=== PATIENT | male | born 1935 | race Caucasian/White ===

== ENCOUNTER 2022-08-09 17:58 | Outpatient (RCR) | payer MEDICARE, SELFPAY | END 2022-09-03 23:59 | disposition home or self-care (01) | LOC: MM 17:58 | PROVIDERS: PCP Internal Medicine; Visit Provider Internal Medicine | DX: Z51.81 Encounter for therapeutic drug level monitoring (principal); Z79.01 Long term (current) use of anticoagulants; I48.91 Unspecified atrial fibrillation | CPT/HCPCS: 85610; G0463 ==

== ENCOUNTER 2022-09-08 15:27 | Outpatient (RCR) | payer MEDICARE, SELFPAY | END 2022-10-04 16:47 | disposition home or self-care (01) | LOC: MM 15:27 | PROVIDERS: PCP Internal Medicine; Visit Provider Internal Medicine | DX: Z51.81 Encounter for therapeutic drug level monitoring (principal); Z79.01 Long term (current) use of anticoagulants; I48.91 Unspecified atrial fibrillation | CPT/HCPCS: 85610; G0463 ==

== ENCOUNTER 2022-10-05 09:00 | Outpatient (RCR) | payer MEDICARE, SELFPAY | END 2022-11-04 17:19 | disposition home or self-care (01) | LOC: MM 09:00 | PROVIDERS: Visit Provider Internal Medicine | DX: Z51.81 Encounter for therapeutic drug level monitoring (principal); Z79.01 Long term (current) use of anticoagulants; I48.91 Unspecified atrial fibrillation | CPT/HCPCS: 85610; G0463 ==

== ENCOUNTER 2022-11-05 08:30 | Outpatient (RCR) | payer MEDICARE, SELFPAY | END 2022-12-03 16:35 | disposition home or self-care (01) | LOC: MM 08:30 | PROVIDERS: Visit Provider Internal Medicine | DX: Z51.81 Encounter for therapeutic drug level monitoring (principal); Z79.01 Long term (current) use of anticoagulants; I48.91 Unspecified atrial fibrillation | CPT/HCPCS: 85610; G0463 ==

== ENCOUNTER 2022-12-06 01:32 | Outpatient (RCR) | payer MEDICARE, SELFPAY | END 2023-01-04 17:14 | disposition home or self-care (01) | LOC: MM 01:32 | PROVIDERS: Visit Provider Internal Medicine | DX: Z51.81 Encounter for therapeutic drug level monitoring (principal); Z79.01 Long term (current) use of anticoagulants; I48.91 Unspecified atrial fibrillation | CPT/HCPCS: 85610; G0463 ==

== ENCOUNTER 2023-01-05 00:13 | Outpatient (RCR) | payer MEDICARE, SELFPAY | END 2023-02-03 16:02 | disposition home or self-care (01) | LOC: MM 00:13 | PROVIDERS: Visit Provider Internal Medicine | DX: Z51.81 Encounter for therapeutic drug level monitoring (principal); Z79.01 Long term (current) use of anticoagulants; I48.91 Unspecified atrial fibrillation | CPT/HCPCS: 85610; G0463 ==

== ENCOUNTER 2023-02-04 09:06 | Outpatient (RCR) | payer MEDICARE, SELFPAY | END 2023-03-04 14:33 | disposition home or self-care (01) | LOC: MM 09:06 | PROVIDERS: Visit Provider Internal Medicine | DX: Z51.81 Encounter for therapeutic drug level monitoring (principal); Z79.01 Long term (current) use of anticoagulants; I48.91 Unspecified atrial fibrillation ==

== ENCOUNTER 2023-03-07 00:48 | Outpatient (RCR) | payer MEDICARE, SELFPAY | END 2023-04-06 15:59 | disposition home or self-care (01) | LOC: MM 00:48 | PROVIDERS: Visit Provider Internal Medicine | DX: Z51.81 Encounter for therapeutic drug level monitoring (principal); Z79.01 Long term (current) use of anticoagulants ==

== ENCOUNTER 2023-04-07 01:35 | Outpatient (RCR) | payer MEDICARE, SELFPAY | END 2023-05-05 17:11 | disposition home or self-care (01) | LOC: MM 01:35 | PROVIDERS: Visit Provider Internal Medicine | DX: Z51.81 Encounter for therapeutic drug level monitoring (principal); Z79.01 Long term (current) use of anticoagulants ==

== ENCOUNTER 2023-05-06 01:06 | Outpatient (RCR) | payer MEDICARE, SELFPAY | END 2023-06-03 13:03 | disposition home or self-care (01) | LOC: MM 01:06 | PROVIDERS: Visit Provider Internal Medicine | DX: Z51.81 Encounter for therapeutic drug level monitoring (principal); Z79.01 Long term (current) use of anticoagulants ==

== ENCOUNTER 2023-06-06 00:05 | Outpatient (RCR) | payer MEDICARE, SELFPAY | END 2023-07-05 17:48 | disposition home or self-care (01) | LOC: MM 00:05 | PROVIDERS: Visit Provider Internal Medicine | DX: Z51.81 Encounter for therapeutic drug level monitoring (principal); Z79.01 Long term (current) use of anticoagulants ==

== ENCOUNTER 2023-07-06 00:16 | Outpatient (RCR) | payer MEDICARE, SELFPAY | END 2023-08-05 11:11 | disposition home or self-care (01) | LOC: MM 00:16 | PROVIDERS: Visit Provider Internal Medicine | DX: Z51.81 Encounter for therapeutic drug level monitoring (principal); Z79.01 Long term (current) use of anticoagulants ==

== ENCOUNTER 2023-08-08 00:16 | Outpatient (RCR) | payer MEDICARE, SELFPAY | END 2023-09-02 09:57 | disposition home or self-care (01) | LOC: MM 00:16 | PROVIDERS: Visit Provider Internal Medicine | DX: Z51.81 Encounter for therapeutic drug level monitoring (principal); Z79.01 Long term (current) use of anticoagulants | CPT/HCPCS: 85610; G0463 ==

== ENCOUNTER 2023-09-05 00:37 | Outpatient (RCR) | payer MEDICARE, SELFPAY | END 2023-10-05 16:51 | disposition home or self-care (01) | LOC: MM 00:37 | PROVIDERS: Visit Provider Internal Medicine | DX: Z51.81 Encounter for therapeutic drug level monitoring (principal); Z79.01 Long term (current) use of anticoagulants | CPT/HCPCS: 85610; G0463 ==

== ENCOUNTER 2023-10-06 00:38 | Outpatient (RCR) | payer MEDICARE, SELFPAY | END 2023-11-04 09:18 | disposition home or self-care (01) | LOC: MM 00:38 | PROVIDERS: Visit Provider Internal Medicine | DX: Z51.81 Encounter for therapeutic drug level monitoring (principal); Z79.01 Long term (current) use of anticoagulants; I48.20 Chronic atrial fibrillation, unspecified | CPT/HCPCS: 85610; G0463 ==

== ENCOUNTER 2023-11-07 00:52 | Outpatient (RCR) | payer MEDICARE, SELFPAY | END 2023-12-05 23:23 | disposition home or self-care (01) | LOC: MM 00:52 | PROVIDERS: Visit Provider Internal Medicine | DX: Z51.81 Encounter for therapeutic drug level monitoring (principal); Z79.01 Long term (current) use of anticoagulants; I48.20 Chronic atrial fibrillation, unspecified | CPT/HCPCS: 85610; G0463 ==

== ENCOUNTER 2023-12-06 01:24 | Outpatient (RCR) | payer MEDICARE, SELFPAY | END 2024-01-05 23:09 | disposition home or self-care (01) | LOC: MM 01:24 | PROVIDERS: Visit Provider Internal Medicine | DX: Z51.81 Encounter for therapeutic drug level monitoring (principal); Z79.01 Long term (current) use of anticoagulants; I48.20 Chronic atrial fibrillation, unspecified | CPT/HCPCS: 85610; G0463 ==

== ENCOUNTER 2024-01-06 10:45 | Outpatient (RCR) | payer MEDICARE, SELFPAY | END 2024-02-04 23:59 | disposition home or self-care (01) | LOC: MM 10:45 | PROVIDERS: Visit Provider Internal Medicine | DX: Z51.81 Encounter for therapeutic drug level monitoring (principal); Z79.01 Long term (current) use of anticoagulants; I48.20 Chronic atrial fibrillation, unspecified ==

== ENCOUNTER 2024-02-05 10:49 | Outpatient (RCR) | payer MEDICARE, SELFPAY | END 2024-03-06 09:36 | disposition home or self-care (01) | LOC: MM 10:49 | PROVIDERS: Visit Provider Internal Medicine | DX: Z51.81 Encounter for therapeutic drug level monitoring (principal); Z79.01 Long term (current) use of anticoagulants ==

== ENCOUNTER 2024-03-08 00:19 | Outpatient (RCR) | payer MEDICARE, SELFPAY | END 2024-04-06 14:53 | disposition home or self-care (01) | LOC: MM 00:19 | PROVIDERS: Visit Provider Internal Medicine | DX: Z51.81 Encounter for therapeutic drug level monitoring (principal); Z79.01 Long term (current) use of anticoagulants ==

== ENCOUNTER 2024-04-09 00:46 | Outpatient (RCR) | payer MEDICARE, SELFPAY | END 2024-05-04 10:50 | disposition home or self-care (01) | LOC: MM 00:46 | PROVIDERS: Visit Provider Internal Medicine | DX: Z51.81 Encounter for therapeutic drug level monitoring (principal); Z79.01 Long term (current) use of anticoagulants ==

== ENCOUNTER 2024-05-05 07:31 | Outpatient (RCR) | payer MEDICARE, SELFPAY | END 2024-06-01 10:13 | disposition home or self-care (01) | LOC: MM 07:31 | PROVIDERS: Visit Provider Internal Medicine | DX: Z51.81 Encounter for therapeutic drug level monitoring (principal); Z79.01 Long term (current) use of anticoagulants ==

== ENCOUNTER 2024-07-19 13:44 | Outpatient (OUT) | payer MEDICARE, SELFPAY | END 2024-07-19 13:45 | disposition home or self-care (01) | LOC: WC 13:44 | PROVIDERS: Visit Provider Physician Assistant | DX: I87.311 Chronic venous hypertension (idiopathic) with ulcer of right lower extremity (principal); L97.812 Non-pressure chronic ulcer of other part of right lower leg with fat layer exposed | CPT/HCPCS: G0463 ==

== ENCOUNTER 2024-08-02 08:47 | Outpatient (RCR) | payer MEDICARE, SELFPAY | END 2024-08-04 07:09 | disposition home or self-care (01) | LOC: MM 08:47 | PROVIDERS: Visit Provider Internal Medicine | DX: Z51.81 Encounter for therapeutic drug level monitoring (principal); Z79.01 Long term (current) use of anticoagulants | CPT/HCPCS: 85610; G0463 ==

== ENCOUNTER 2024-08-05 07:36 | Outpatient (RCR) | payer MEDICARE, SELFPAY | END 2024-08-30 14:38 | disposition home or self-care (01) | LOC: MM 07:36 | PROVIDERS: Visit Provider Internal Medicine | DX: Z51.81 Encounter for therapeutic drug level monitoring (principal); Z79.01 Long term (current) use of anticoagulants | CPT/HCPCS: 85610; G0463 ==

== ENCOUNTER 2024-08-07 11:21 | Outpatient (OUT) | payer MEDICARE, SELFPAY | END 2024-08-07 11:22 | disposition home or self-care (01) | LOC: WC 11:21 | PROVIDERS: Visit Provider Physician Assistant | DX: I87.311 Chronic venous hypertension (idiopathic) with ulcer of right lower extremity (principal); L97.812 Non-pressure chronic ulcer of other part of right lower leg with fat layer exposed | CPT/HCPCS: G0463 ==

== ENCOUNTER 2024-08-24 09:00 | Outpatient (OUT) | payer MEDICARE, SELFPAY ==
--- OUTSIDE RECORDS SUMMARY | 2011-04-30 05:00 | XMS_ITS | Continuity of Care Document ---
Author Organization [facility] Address [address] [address] Phone Care Team Providers Care Pony Ride Operator Name Role Phone Griffin Bonilla Unavailable Unavailable Procedures Procedure Date Hearing Services Advance Directives Directive Yes / No Effective Date File Name No Information Encounters Encounter Description Practice Location Reason(s) For Visit Diagnoses Date Provider Providers Copied on Encounter [facility], [address], [id number], tel:[phone] [facility] No Information Irene Moya. [address], [id number], . tel:[phone] Referring Provider: Griffin Bonilla, [address] [place] [address], [id number]. tel:[phone] Family History Family Member Type Diagnosis Age At Onset No Information Payers Payer name Insurance type Covered republican ID Authoriza tion(s) No Information Social History [...]
--- OUTSIDE RECORDS SUMMARY | 2024-08-27 08:25 | XMS_ITS | Clinical Summary ---
Author Organization [facility] Address [address] [facility] [place] [address] Care Team Providers Care Rn Clinical Quality Name Role Phone Matt House DO Primary Care Provider Allergies Active Allergy Reactions Criticality Noted Date Comments Doxycycline Rash,Swelling High 07/23/2011 Levofloxacin Rash,Swelling High 07/28/2004 Other Reaction(s): Swelling of throat Throat swelling Lidocaine Anaphylaxis High 06/24/2022 Prednisolone 07/29/2022 Prednisone Anaphylaxis,Rash High 10/31/2013 Other Reaction(s): Other: See Comments put me into afib Wound Dressing Adhesive Rash Low 07/29/2022 Medications amLODIPine (Norvasc) 2.5 MG tablet 1 (one) time each day at the same time. Active amoxicillin (Amoxil) 500 MG capsule TAKE 4 CAPSULES BY MOUTH 1 HOUR PRIOR TO APPT 3 Active benazepril (Lotensin) 20 MG tablet 1 (one) time each day at the same time. Active cefdinir (Omnicef) 300 MG capsule TAKE 1 CAPSULE BY MOUTH TWICE A DAY FOR 10 DAYS DIRECTED 3 Active Enoxaparin Sodium 80 MG/0.8ML solution prefilled syringe Inject 80 mg under the skin every 12 (twelve) hours. 3 Active furosemide (Lasix) 40 MG tablet 3 Active furosemide (Lasix) 20 MG tablet Take 1 tablet by mouth in the morning. Active hydroCHLOROthia zide (HYDRODiuril) 25 MG tablet 2 Active hydroCHLOROthia zide (Microzide) 12.5 MG capsule 1 (one) time each day at the same time. Active metoprolol succinate XL (Toprol-XL) 50 MG 24 hr tablet Take 50 mg by mouth in the morning. 3 Active nitroglycerin (Nitrostat) 0.[address] 1 TABLET (0.4 MG) BY SUBLINGUAL ROUTE EVERY 5 MINUTES NEEDEDFOR CHEST PAIN. DO NOT EXCEED 3 DOSES IN 15 MINUTES. Active [place]-3 Fatty Acids (Fish Oil Maximum Strength) 1200 MG capsule delayed-release Take 1 capsule by mouth in the morning. Active omeprazole (PriLOSEC) [address] capsule 2 Active KLOR-CON 10 MEQ ER tablet TAKE 1 TABLET (10 MEQ TOTAL) BY MOUTH 1 (ONE) TIME EACH DAY. DO NOT CRUSH, CHEW, OR SPLIT. 3 Active potassium chloride CR (Klor-Con M10) 10 MEQ ER tablet Take 1 tablet by mouth in the morning. 3 Active pravastatin (Pravachol) 20 MG tablet 1 (one) time each day at the same time. 2 Active pyridoxine (B-6) 100 MG tablet Active sulfamethoxazol e-trimethoprim (Bactrim DS) 800-160 MG per tablet Take 1 tablet by mouth in the morning and 1 tablet before bedtime. 3 Active tamsulosin (Flomax) 0.4 MG 24 hr capsule 3 Active triazolam (Halcion) 0.25 MG tablet TAKE 1 TABLET BY MOUTH PRIOR TO PROCEDURE NEEDED FOR 1 DAY 3 Active warfarin (Coumadin) 4 MG tablet 3 Active warfarin (Coumadin) 6 MG tablet Active Active Problems Problem Noted Date Diagnosed Date Onychomycosis 09/28/2022 Basal cell carcinoma (BCC) of right lower eyelid 07/29/2022 Encounters Date Type Department Care Team Description 07/31/2024 9:30 AM EDT Office Visit [facility] [address] [place] [id number] Sharla Carpio MD Pseudophakia (Primary Dx); Basal cell carcinoma (BCC) of right lower eyelid; Early dry stage nonexudative age-related macular degeneration of both eyes 07/31/2024 Bamboo flowsheet [facility] [address] [place] [address] Sharla Carpio MD 07/31/2024 Travel from Last 3 Months Family History Medical History Relation Name Comments Heart disease Father Hypertension Father Cancer Mother Melanoma Neg Hx Relation Name Status Comments Father Mother Sister Social History Tobacco Use Types Packs/Day Years Used Date Smoking Tobacco: Never Smokeless Tobacco: Never Tobacco Cessation:Counseling Given: Yes Alcohol Use Standard Drinks/Week Comments Not Asked 0 (1 standard drink = 0.6 oz pure alcohol) caffeine intake: 2-3 cups per day. Sex and Gender Information Value Date Recorded Sex Assigned at Not on file Legal Sex Male 8:32 PM EDT Gender Identity Not on file Sexual Orientation Not on file Last Filed Vital Signs Vital Sign Reading Time Taken Comments Blood Pressure 121/75 12/19/2023 3:15 PM EDT Pulse 76 12/19/2023 3:15 PM EDT Temperature - - Respiratory Rate - - Oxygen Saturation - - Inhaled Oxygen Concentration - - Weight 77.1 kg (170 lb) 12/19/2023 3:15 PM EDT Height 177.8 cm (5' 10 ) 12/19/2023 3:15 PM EDT Body Mass Index 24.39 12/19/2023 3:15 PM EDT Plan of Treatment Upcoming Encounters Date Type Department Care Team (Late st Contact Info) Description 08/01/2025 10:30 AM EDT Office Visit [facility] [address] [place] [id number] Sharla Carpio MD [address] [place] [address] Health Maintenance Due Date Last Done Comments Pneumococcal Vaccine: 65+ Ye ars (1 of 1 - PCV) 1985 Influenza Vaccine Completed 01/06/2024, , 12/09/2021, Additional history exists Insurance MEDICARE [employer] Care Teams Rn Clinical Quality Relationship Specialty Start Date End Date Matt House DO PCP - General Internal Medicine 07/29/22
--- OUTSIDE RECORDS SUMMARY | 2024-08-27 08:25 | XMS_ITS | Patient Health Record ---
Author Organization [facility] Address [address] [facility] [address] [place], [place] [id number] Care Team Providers Care Business Intelligence Etl Developer Name Role Phone Erasmo Johnson MD Primary Care Provider JEANNE Alcantar Unavailable [phone] Allergies Allergen (clinical drug ingredient) Drug/Non Drug Allergy documented on EMR Reaction Allergy Type Onset Date Status doxycycline Doxycycline Unknown Drug Allergy Act keshia PredniSONE Unknown Drug Allergy Active Levaquin Unknown Drug Allergy Active Reason For Referral No Information Medications Medication SIG (Take, Route, Frequency, Duration) Notes Start Date End Date Status Metoprolol Succinate 50 MG 1 capsule Orally Once a day Active Pantoprazole Sodium 40 MG 1 tablet Orally BID Active Pravastatin Sodium 20 MG 1 tablet Orally Once a day Active Multi Complete - as directed Orally one Daily. Active Calcium Carbonate 600 MG 2 tablet Orally Once a day Active Warfarin Sodium 6 MG 1 tablet Orally as directed , Th, Sat, Sun Active Warfarin Sodium 4 MG 1 tablet Orally as Directed Tue, Tue, Tue Active Nitroglycerin 0.4 MG as directed Sublingual Prn Active Suprep Bowel Prep Kit 17.5-3.13-1.6 GM/180ML 180 ml Orally BID for 1 dose 04/05/2018 Active [place] 3 1000 MG 1 capsule Orally TID Active Benazepril HCl 20 MG 1 tablet Orally Onc e a day 23/02.5 Tab Active Aspir-81 81 MG 1 tablet Orally Once a day Active amLODIPine-Olmesartan 5-20 MG 1/2 tablet Orally Once a day Active Immunizations Vaccine Route Administration Date Status Comme nts Influenza Unknown 04/05/2018 Administered Social History Tobacco Use: Social History Observation Description Date Details (start date - stop date) Never Smoker NA - NA Tobacco Use/Smoking Question Answer Notes Smoking status nonsmoker Alcohol Screen Question Answer Notes Did you have a drink containing alcohol in the p ast year? No Points 0 Interpretation Negative Section Notes: Patient denies heavy drinkin g. Plan Of Treatment Pending Test Test Name Order Date COLONOSCOPY 04/05/2018 Insurance Providers Payer Name Payer Address Payer Phone Subscriber Number Group Number Insured Name Patient Relationship to Insured Coverage Start Date Coverage End Date [place] [address] [place] [phone] [id number] MARISSA ESCAMILLA Self - patient is the insured [employer] [address] [place] [address] [id number] MARISSA ESCAMILLA Self - patient is the insured Medical (General) History Medical History History ICD Code PATIENT ALLERGIC TO ADHESIVE TAPE Aortic valve replacement Atrial fibrillation Hypertension duodenitis Hiatal hernia Surgical History Surgery Date(Month/Year) Endoscopy Colonoscopy several years ago Endoscopy revealed duodenitis and hiatal hernia 03/2018
--- OUTSIDE RECORDS SUMMARY | 2024-08-27 08:26 | XMS_ITS | Encounter Summary ---
Author Organization [facility] Address [address] [place] [address] Care Team Providers Care Opening Machine Cleaner Name Role Phone Matt House DO Primary Care Provider [phone] Encounter Details Date Type Department Care Team (Late Contact Info) Description 09/28/2022 Abstract [facility] [address] [facility] [address] [place] [id number] Clovis Martin DPM [address] [facility] [address] [place] [address] Social History Tobacco Use Types Packs/Day Years Used Date Smoking Tobacco: Never Smokeless Tobacco: Never Tobacco Cessation:Counseling Given: Not Answered Alcohol Use Standard Drinks/Week Comments Not Asked 0 (1 standard drink = 0.6 oz pure alcohol) caffeine intake: 2-3 cups per day. Sex and Gender Information Value Date Recorded Sex Assigned at Not on file Legal Sex Male 8:32 PM EDT Gender Identity Not on file Sexual Orientation Not on file documented as of this encounter Plan of Treatment Upcoming Encounters Date Type Department Care Team (Late st Contact Info) Description 08/01/2025 10:30 AM EDT Office Visit [facility] [address] [place] [phone] Sharla Carpio MD [address] [place] [address] documented as of this encounter Visit Diagnoses Not on filedocumented in this encounter Care Teams Opening Machine Cleaner Relationship Specialty Start Date End Date Matt House DO PCP - General Internal Medicine 07/29/22 documented as of this encounter
--- OUTSIDE RECORDS SUMMARY | 2024-08-27 08:26 | XMS_ITS | Patient Health Record ---
Author Organization [facility] Address [address] [place] [address] Care Team Providers Care Perioperative Tech Name Role Phone Erasmo Johnson Primary Care Provider Bacilio [place] [phone] Reason For Referral No Information Plan Of Treatment No Information
== END 2024-08-24 09:01 | disposition home or self-care (01) ==
LOC: WC 08-27 08:23
PROVIDERS: PCP Internal Medicine; Visit Provider Physician Assistant
DX: I87.311 Chronic venous hypertension (idiopathic) with ulcer of right lower extremity (principal); L97.812 Non-pressure chronic ulcer of other part of right lower leg with fat layer exposed
CPT/HCPCS: G0463

== ENCOUNTER 2024-09-04 02:31 | Outpatient (RCR) | payer MEDICARE, SELFPAY | END 2024-10-04 16:36 | disposition home or self-care (01) | LOC: MM 02:31 | PROVIDERS: PCP Internal Medicine; Visit Provider Internal Medicine | DX: Z51.81 Encounter for therapeutic drug level monitoring (principal); Z79.01 Long term (current) use of anticoagulants | CPT/HCPCS: 85610; G0463 ==

== ENCOUNTER 2024-09-05 11:01 | Outpatient (OUT) | payer MEDICARE, SELFPAY ==
--- OUTSIDE RECORDS SUMMARY | 2024-09-05 11:03 | XMS_ITS | Encounter Summary ---
Author Organization [facility] Address [address] [place] [address] Care Team Providers Care Warm In Name Role Phone Matt House DO Primary Care Provider [phone] Amilcar Cervantes MD Unavailable [phone] Suleiman Santana MD Unavailable Amilcar Cervantes MD Unavailable [phone] Source Comments In the event this information is protected by the Federal Confidentiality of Alcohol and Drug AbusePatient Records regulations: The Federal rules restrict any use of the information to criminally investigate or prosecute any alcohol or drug abuse patient.[facility] Encounter Details Date Type Department Care Team (Late st Contact Info) Description 09/04/2007 Patient Msg Medical Records [address] [place] [address] Provider, [facility] Patient Registration Social History Tobacco Use Types Packs/Day Years Used Date Smoking Tobacco: Never Alcohol Use Standard Drinks/Week Comments No 0 (1 standard drink = 0.6 oz pur e alcohol) Sex and Gender Information Value Date Recorded Sex Assigned at Male 09/03/2019 1:45 AM EDT Legal Sex Male 9:12 AM EST Gender Identity Male 09/03/2019 1:45 AM EDT Sexual Orientation Straight 08/03/2021 8: 34 PM EDT documented as of this encounter Plan of Treatment Not on file documented as of this encounter Visit Diagnoses Not on filedocumented in this encounter Care Teams Warm In Relationship Specialty Start Date End Date Matt House DO [address] [place] [address] PCP - General 06/17/00 Amilcar Cervantes MD [address] [place] [address] Primary Staff Physician Cardiology 06/05/14 6 Suleiman Santana MD [address] [place] [address] Primary Staff Physician Cardiology 02/12/21 Amilcar Cervantes MD [address] [place] [address] Primary Staff Physician Cardiology 02/12/21 documented as of this encounter
--- OUTSIDE RECORDS SUMMARY | 2024-09-05 11:03 | XMS_ITS | Encounter Summary ---
Author Organization [facility] Address [facility] [place] [address] Care Team Providers Care Wall To Wall Carpet Installer Name Role Phone Matt House DO Primary Care Provider [phone] Suleiman Santana MD Unavailable Amilcar Cervantes MD Unavailable [phone] Source Comments In the event this information is protected by the Federal Confidentiality of Alcohol and Drug AbusePatient Records regulations: The Federal rules restrict any use of the information to criminally investigate or prosecute any alcohol or drug abuse patient.[facility] Encounter Details Date Type Department Care Team (Late st Contact Info) Description 03/19/2017 Patient Msg Otolaryngology [address] [address] Missy Andersen MD [address] [place] [address] RE: Request an Appointment Social History Tobacco Use Types Packs/Day Years Used Date Smoking Tobacco: Never Smokeless Tobacco: Never Alcohol Use Standard Drinks/Week Comments No 0 (1 standard drink = 0.6 oz pur e alcohol) Sex and Gender Information Value Date Recorded Sex Assigned at Male 09/03/2019 1:45 AM EDT Legal Sex Male 9:12 AM EST Gender Identity Male 09/03/2019 1:45 AM EDT Sexual Orientation Straight 08/03/2021 8: 34 PM EDT Occupation Industry Job Start Date Job End Date [employer] WORK[employer] Not on file Not on file Not o n file documented as of this encounter Functional Status * Are you deaf or do you have serious difficulty hearing? Answer Date of Assessment Author No 08/12/2014 10:12 AM EDT Sharri aRnd RN * Are you blind or do you have serious difficulty seeing, even when wearing glasses? Answer Date of Assessment Author No 08/12/2014 10:12 AM EDT Sharri Rand RN * Do you have serious difficulty walking or climbing stairs? Answer Date of Assessment Author No 08/12/2014 10:12 AM EDT Sharri Rand RN * Do you have difficulty dressing or bathing? Answer Date of Assessment Author No 08/12/2014 10:12 AM EDT Sharri Rand RN * Because of a physical, mental, or emotional condition, do you have difficulty doing errands alone such as visiting a doctor's office or shopping? Answer Date of Assessment Author No 08/12/2014 10:12 AM EDT Sharri Rand RN documented as of this encounter Mental Status * Because of a physical, mental, or emotional condition, do you have serious difficulty concentrating, remembering, or making decisions? Answer Entry Date Author No 08/12/2014 10:12 AM CALLUMT Sharri Rand RN documented in this encounter Plan of Treatment Not on file documented as of this encounter Visit Diagnoses Not on filedocumented in this encounter Care Teams Wall To Wall Carpet Installer Relationship Specialty Start Date End Date Matt House DO [address] [place] [address] PCP - General 06/17/00 Suleiman Santana MD [address] [place] [address] Primary Staff Physician Cardiology 02/12/21 Amilcar Cervantes MD [address] [place] [address] Primary Staff Physician Cardiology 02/12/21 documented as of this encounter
--- OUTSIDE RECORDS SUMMARY | 2024-09-05 11:03 | XMS_ITS | Clinical Summary ---
Author Organization [facility] Address [address] [place] [address] Care Team Providers Care Disability Manager Name Role Phone HarshMatt Primary Care Provider [phone] Suleiman Santana MD Unavailable Amilcar Cervantes MD Unavailable [phone] Allergies Active Allergy Reactions Criticality Noted Date Comments Adhesive Rash,Itching 07/14/2023 Rash and itching Doxycycline Swelling 07/23/2011 Levofloxacin Swelling 07/28/2004 Throat swelling Prednisone Other: See Comments 10/31/2013 put me into afib Medications MULTIVITAMIN TABLET Take one(1) tablet daily. 0 3 Active NITROGLYCERIN 0.4 MG SUBLINGUAL TAB as needed 0 8 Active OMEPRAZOLE 20 mg ORAL capsule Take 20 mg every Tue and Sat 6 Active pravastatin (PRAVACHOL) 20 mg tablet Take 1 tablet by mouth daily at bedtime. 90 tablet 3 4 Active benazepril (LOTENSIN) 20 mg tablet Take 1 tablet by mouth once daily. 90 tablet 3 4 Active warfarin (COUMADIN) 4 mg tablet Take by mouth. 6 mg - - Tue-Tuesday 4 mg Tue - Tue - Tue 30 tablet 3 5 Active amLODIPine (NORVASC) 5 mg tabletIndicatio ns:Essential hypertension, benign Take 2.5 mg by mouth once daily. Patient states he is only taking 2.5mg daily 90 tablet 3 8 Active amoxicillin (POLYMOX, AMOXIL) 500 mg capsule TAKE 4 CAPSULES BY MOUTH 1 HOUR PRIOR TO DENTAL APPOINTMENT 1 8 Active metoprolol succinate ER (TOPROL XL) 50 mg 24 hr tablet TAKE 1 TABLET BY MOUTH ONCE DAILY 90 tablet 3 2 Active potassium chloride (K-TAB) 10 mEq tablet Take by mouth once daily. 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 There is low risk of perioperative dental complication with this patient. - Follow up with local dentist. Atrial fibrillation 10/31/2013 Overview (08/10/2014): CHADS2 is 2, CHADS-Vasc is 3. Adequately rate-controlled on metop tartrate 25mg BID. -unknown how long he's been in afib, INR subtherapeutic on clinic visit. -preserved LVEF -s/p AYAN/DCC Plan: -heparin gtt -continue coumadin -sotalol 80 mg BID. Monitor QT/QTc for 6 doses Shortness of breath 10/31/2013 Poison elías 10/31/2013 SUMMARY 10/31/2013 Overview (08/08/2014): Mr. Starr is a pleasant 78 year-old man with a PMH of atrial fibrillation rate controlled and on coumadin, prior successful DCCV, now here for recurrence of atrial fibrillation (asymptomatic). Pertinent past history includes and coronary disease s/p aortic valve replacement with #25 mm Bonnie-Woo pericardial valve, mitral valve repair, CABG x1 (saphenous vein graft to right posterior lateral) 10/09/2007. 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 Valve well-seated and functioning well on recent Echo. 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 Normal LV function, EF 65% 2. RV normal size and function. 3. 3-4+ MR with flail P2 segment. 4. 1+ TR 5. Moderate-severe . The peak gradient is 65.0 mm Hg. The mean gradient is 34.0 mm Hg. The aortic orifice measured 1.0cm?(planimetry). 1+ - 2+ AI. 6. Moderate atheroma in the descending aorta. 7. There is no shunt flow through the interatrial septum as detected by contrast & color Doppler. CAD 12/19/2002 Overview (08/08/2014): S/P single-vessel CABG (SVG to right PL branch). Moderate disease in the LM, LAD, and circ. On aspirin 81mg post-CABG. 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 Mixed conductive and sensori neural hearing loss 02/04/2004 12/29/2011 Hearing loss 12/19/2002 12/29/2011 Encounters Date Type Department Care Team Description 07/25/2024 4:15 PM EDT Office Visit Cardiology [address] [phone] Amilcar Cervantes MD Valvular heart disease (Primary Dx); S/P AVR (aortic valve replacement); H/O mitral valve repair; Coronary artery disease involving [place] coronary artery of [place] heart, unspecified whether angina present; Hx of CABG; S/P mitral valve repair; Permanent atrial fibrillation (HCC) 07/25/2024 2:00 PM EDT Procedure Cardiology [address] [phone] 07/25/2024 Travel from Last 3 Months Immunizations Immunization Administration Dates Next Due COVID-19 original vaccine, f ull dose, monovalent (MODERNA) 04/19/2020,04/03/2020 Family History Medical History Relation Comments Ischemic Heart Disease Father at a ge 70 Colon Cancer Mother at age 85 Lung Cancer Sister 1 Stroke Sister 2 Alzheimer's Disease Sister 4 None Sister 4 brain aneursym Cancer Sister 5 Relation Status Comments Father Mother Sister 1 Sister 2 Sister 3 Alive Sister 4 Sister 5 Social History Tobacco Use Types Packs/Day Years Used Date Smoking Tobacco: Never Smokeless Tobacco: Never Alcohol Use Standard Drinks/Week Comments No 0 (1 standard drink = 0.6 oz pur e alcohol) PHQ-2 Answer Date Recorded PHQ-2 score 0 07/20/2017 Area Deprivation Index Answer Date Melvin rded National Score (1-100), lower number is lower ri sk 87 09/17/2022 State Score (1-10), lower number is lower risk 8 09/17/2022 Data from: https://www.neighborhoodatlas.medicine.[facility].edu/. Last address used for calculation [place] 09/17/2022 Sex and Gender Information Value Date Recorded Sex Assigned at Male 09/03/2019 1:45 AM EDT Legal Sex Male 9:12 AM EST Gender Identity Male 09/03/2019 1:45 AM EDT Sexual Orientation Straight 08/03/2021 8: 34 PM EDT Occupation Industry Job Start Date Job End Date [employer] Not on file Not on file Not o n file Last Filed Vital Signs Vital Sign Reading Time Taken Comments Blood Pressure 153/88 07/25/2024 4:32 PM EDT Pulse 70 07/25/2024 4:32 PM EDT Temperature 36.7 C (98 F) 10/08/2020 10:52 AM EDT Respiratory Rate 18 10/08/2020 10:52 AM EDT Oxygen Saturation 99% 07/25/2024 4:32 PM EDT Inhaled Oxygen Concentration - - Weight 77.1 kg (170 lb) 07/25/2024 4:32 PM EDT Height 172.7 cm (5' 8 ) 07/25/2024 4:32 PM EDT Body Mass Index 25.85 07/25/2024 4:32 PM EDT Plan of Treatment Health Maintenance Due Date Last Done Comments Anxiety Screening 1953 Depression Screening 1953 Shingrix Vaccine (1 of 2) 1985 Medicare Annual Wellness Visit 02/05/2000 RSV Vaccine (1 - 1-dose 75+ series) 2010 Covid-19 Vaccine (2023-2 5 season) 2023 01/20/2023, 12/14/2021, 04/19/2020, Additional history exists Advance Directive Discussion 03/07/2024 LDL Cholesterol 07/25/2025 07/25/2024, 12/0 05/2023, 03/24/2023, Additional history exists Diabetes Screening 07/26/2027 07/25/2024, 0 05/24/2024, 05/24/2024, Additional history exists DTaP,Tdap,Td Vaccine (6 - Tdap) 08/18/2030 08/18/2020, 12/25/2013, 01/02/2013, Additional history exists Pneumococcal Vaccine: 50+ Completed 12/26/2014, 10/2002 Influenza Vaccine Completed 01/06/2024, , 12/09/2021, Additional history exists Procedures Procedure Name Priority Date/Time Associated Diagnosis Comments LVEF TRANSTHORACIC ECHO Routine 07/25/2024 2:10 PM EDT ECHO Routine 07/25/2024 2:10 PM EDT S/P AVR (aortic valve replacement) H/O mitral valve repair Coronary artery disease involving [place] coronary artery of [place] heart, 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 LIPID PANEL, FASTING Routine 07/25/2024 1:42 PM EDT S/P AVR (aortic valve replacement) H/O mitral valve repair Coronary artery disease involving [place] coronary artery of [place] heart, 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 COMPLETE BLOOD COUNT Routine 07/25/2024 1:42 PM EDT S/P AVR (aortic valve replacement) H/O mitral valve repair Coronary artery disease involving [place] coronary artery of [place] heart, 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 BASIC METABOLIC PANEL Routine 07/25/2024 1:42 PM EDT S/P AVR (aortic valve replacement) H/O mitral valve repair Coronary artery disease involving [place] coronary artery of [place] heart, 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 ECG COMPLETE Routine 07/25/2024 1:34 PM EDT S/P AVR (aortic valve replacement) H/O mitral valve repair Coronary artery disease involving [place] coronary artery of [place] heart, 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 from Last 3 Months Results * ECHO (07/25/2024 2:10 PM EDT) 07/25/2024 2:10 PM EDT [facility] - 07/25/2024 3:12 PM EDT CONCLUSIONS: - Exam indication: H/o AVR MVr CABG (2007) - The left ventricle is normal in size. There is mild septal left ventricular hypertrophy. Left ventricular systolic function is normal. EF = 58 5% (2D biplane) - The right ventricle is normal in size. Right ventricular systolic function is normal. - The left atrial cavity is mildly dilated. - The visualized aorta is borderline dilated with a maximal dimension of 4.0 cm. - Elina Mitral Ring (size #36). There is mild (1+) mitral valve regurgitation. The peak gradient is 10 mmHg and the mean gradient is 3 mmHg. MV gradients averaged today due to atrial fibrillation. - Bonnie-Woo prosthetic aortic valve (size #25). There is mild (1+) aortic valve regurgitation. The peak gradient is 21 mmHg, the mean gradient is 12 mmHg and the dimensionless valve index is 0.27. AV gradients averaged today due to atrial fibrillation. Prior peak/mean gradients of 23/14 mmHg. There is an apparent linear echodensity imaged within the aortic arch (Images 110 - 114). Seen on prior echo, consistent with artifact. - Exam was compared with the prior CC echocardiographic exam performed on 07/14/2023. There is no significant change. * * * Final * * * [facility] - 07/25/2024 3:12 PM EDT Echocardiography Report: Transthoracic Echo [facility] [id number] Date of service: 07/25/2024 2:10:34 PM TECHNICIAN Ordering physician: TAI TREJO Indication: H/o AVR MVr CABG (2007) Technologist: Farhan Mcgee Fellow: Ray Espinosa MD Interpreting physician: Birdie Starkey MD PATIENT: Name: MR. MARISSA STARR : 1935 Age: 89 years Gender: M History of hypertension, coronary artery disease and arrhythmia. Previous cardiovascular interventions: CABG (10/2007) Aortic valve replacement (10/2007) Mitral valve repair (10/2007) AF Ablation (10/2013) Primary rhythm: atrial fib. Height: 175.50 cm BSA: 1.97 m Weight: 79.38 kg BMI: 25.8 kg/m Heart rate 70 bpm Blood pressure 133/76 mmHg Color Doppler was utilized to interrogate the cardiac valves assessed and spectral Doppler was utilized to determine the flow velocities and pressure gradients reported in this exam. MEASUREMENTS: Value Indexed Normal Max aortic dimension 4.0 cm Ao < 3.8 Left atrial volume 75 ml (Ramirez's) 38 ml/m Kelly <= 34 LV ID (diastole) 4.2 cm (2D) 2.14 cm/m LV ID (systole) 3.8 cm (2D) 1.93 cm/m IVS, leaflet tips 1.2 cm (2D) Posterior wall thickness 1.0 cm (2D) Left ventricular mass 157 g (2D) 80 g/m LV stroke volume 49 ml (2D biplane) LV end diastolic volume 83 ml (2D biplane) 42.4 ml/m 34<=EDVi<75 LV end systolic volume 35 ml (2D biplane) 17.6 ml/m Ejection Fraction 58 % (2D biplane) EF > 52 FINDINGS: LEFT VENTRICLE The left ventricle is normal in size. There is mild septal left ventricular hypertrophy. Left ventricular systolic function is normal. Left ventricular diastolic function was not evaluated due to AF. Wall Motion: All scored segments are normal. RIGHT VENTRICLE The right ventricle is normal in size. Right ventricular systolic function is normal. RV systolic tissue Doppler velocity is 9.7 cm/s. Tricuspid annular displacement is 2.1 cm. Estimated right ventricular systolic pressure is 33 mmHg consistent with normal pulmonary artery pressures. Estimated right atrial pressure is 8 mmHg based on IVC assessment. LEFT ATRIUM The left atrial cavity is mildly dilated. Pulmonary Veins: The pulmonary venous pattern showed blunted systolic flow. RIGHT ATRIUM The right atrial cavity is normal in size. Inferior Vena Cava: The inferior vena cava appears normal measuring 1.9 cm. The vessel decreases less than 50 percent with inspiration. MITRAL VALVE Elina Mitral Ring size #36. There is mild (1+) mitral valve regurgitation. The peak valve gradient is 10 mmHg. The mean valve gradient is 3 mmHg. TRICUSPID VALVE The tricuspid valve leaflets are structurally normal. There is mild (1+ - 2+) tricuspid valve regurgitation. AORTIC VALVE Bonnie-Woo prosthetic valve size #25. There is mild (1+) aortic valve regurgitation. The peak gradient is 21 mmHg (peak velocity = 227.2 cm/s). The mean gradient is 12 mmHg. The LVOT mean velocity is 41.4 cm/s. The aortic VTI is 53.5 cm. The mean velocity in the aortic valve is 158.8 cm/s. The dimensionless valve index is 0.27. PULMONIC VALVE The pulmonic valve cusps are structurally normal. There is trace (trace - 1+) pulmonic valve regurgitation. AORTA The visualized aorta is borderline dilated. Measurements - Mid ascending aorta 4.0 cm. INTERATRIAL SEPTUM There is no evidence of intracardiac shunting as detected by Doppler. INTERVENTRICULAR SEPTUM There is abnormal motion of the interventricular septum secondary to prior cardiac surgery. There is no flow through the interventricular septum as detected by Doppler. PERICARDIUM There is no pericardial effusion. us Tai Trejo MD ECHO Final Result Performing Organization Address [facility]/ZIP Co de Phone Number [facility] [address] [place] [id number] * LVEF TRANSTHORACIC ECHO (07/25/2024 2:10 PM EDT) LV Ejection Fraction 58 % [facility] Comment: (2D biplane) EF > 52 An LV Ejection Fraction of > 50% is normal 07/25/2024 2:10 PM EDT us Tai Trejo MD LVEF RESULTS Final Result Performing Organization Address [facility] Co de Phone Number [address] [address] * LIPID PANEL BASIC (07/25/2024 1:42 PM EDT) Cholesterol, Total 158 <200 mg/dL 07/26/2024 4:07 AM T [facility] Comment: <200 mg/dL, Desirable 200-239 mg/dL, Borderline high >239 mg/dL, High Triglyceride 85 <150 mg/dL 07/26/2024 4:07 AM T [facility] Comment: <150 mg/dL, Normal 150-199 mg/dL, Borderline high 200-499 mg/dL, High >499 mg/dL, Very high HDL Cholesterol 75 >39 mg/dL 4:07 AM T [facility] Comment: 40-59 mg/dL, Acceptable >59 mg/dL, High: Negative risk factor for coronary heart disease <40 mg/dL, Low: Positive risk factor for coronary heart disease LDL Cholesterol, Calculated 67 <100 mg/dL 07/26/2024 4:07 AM T [facility] Comment: <100 mg/dL, Optimal 100-129 mg/dL, Near optimal/above optimal 130-159 mg/dL, Borderline high 160-189 mg/dL, High >189 mg/dL, Very high Secondary prevention optimal LDL Cholesterol levels are recommended to be <70 mg/dL LDL cholesterol is calculated using the Diaz-NIH equation. Non HDL Cholesterol 83 <130 mg/dL 07/26/2024 4:07 AM EDT [facility] Comment: <130 mg/dL, Optimal 130-159 mg/dL, Near optimal/above optimal 160-189 mg/dL, Borderline high 190-219 mg/dL, High >219 mg/dL, Very high Secondary prevention optimal non HDL Cholesterol levels are recommended to be <100 mg/dL VLDL Cholesterol 13 <30 mg/dL 07/27/19 4:07 AM EDT [facility] TC:HDL Ratio 2.11 <5.10 07/26/2024 4:07 AM EDT [facility] LDL:HDL Ratio 0.89 <2.54 07/26/2024 4:07 AM EDT [facility] Comment: Reference: 1. National Cholesterol Education Program ATP III Guideline At-A-Glance Quick Desk Reference: National Heart, Lung, and Blood [place]. National Institutes of Health. 2001: NIH Publication No. 01-3305. 2. An International Atherosclerosis Society position paper: global recommendations for the management of dyslipidemia: executive summary, Atherosclerosis. 2014: 232(2):410-413. Fasting Time 7 hrs 07/26/2024 4:07 AM EDT [facility] Comment:Pt had breakfast nina und 0600 Blood BLOOD SPECIMEN / Unknown Venipuncture / Unknown 07/25/2024 1:42 PM EDT 07/25/2024 1:42 PM EDT us Tai Trejo MD LABORATORY Final Result [facility] [address] [place] [address], * (ABNORMAL) COMPLETE BLOOD COUNT (07/25/2024 1:42 PM EDT) WBC 5.98 3.70 - 11.00 k/uL 07/25/2024 2:31 PM EDT [facility] RBC 4.33 4.20 - 6.00 m/uL 07/25/2024 2:31 PM EDT [facility] Hemoglobin 12.9(L) 13.0 - 17.0 g/dL 07/25/2024 2:31 PM EDT [facility] Hematocrit 39.4 39.0 - 51.0 % 07/25/2024 2:31 PM EDT [facility] MCV 91.0 80.0 - 100.0 fL 07/25/2024 2:31 PM EDT [facility] MCH 29.8 26.0 - 34.0 pg 07/25/2024 2:31 PM EDT [facility] MCHC 32.7 30.5 - 36.0 g/dL 07/25/2024 2:31 PM EDT [facility] RDW-CV 14.5 11.5 - 15.0 % 07/25/2024 2:31 PM EDT [facility] Platelet Count 114(L) 150 - 400 k/uL 07/25/2024 2:31 PM EDT [facility] Comment:Results checked and verified.No clot detected. MPV 11.7 9.0 - 12.7 fL 07/25/2024 2:31 PM EDT [facility] Absolute nRBC <0.01 <0.01 k/uL 07/25/2024 2:31 PM EDT [facility] Blood BLOOD SPECIMEN / Unknown Venipuncture / Unknown 07/25/2024 1:42 PM EDT 07/25/2024 1:42 PM EDT us Tai Trejo MD LABORATORY Final Result [facility] [address] [place] [address], * BASIC METABOLIC PANEL (07/25/2024 1:42 PM EDT) [facility] Glucose 86 74 - 99 mg/dL 07/26/2024 4:07 AM EDT [facility] Comment: The [place] Diabetes Association (ADA) provides guidance for cutoff values for fasting glucose and random glucose. The ADA defines fasting as no caloric intake for at least 8 hours. Fasting plasma glucose results between 100 to 125 mg/dL indicate increased risk for diabetes (prediabetes). Fasting plasma glucose results greater than or equal to 126 mg/dL meet the criteria for diagnosis of diabetes. In the absence of unequivocal hyperglycemia, results should be confirmed by repeat testing. In a patient with classic symptoms of hyperglycemia or hyperglycemic crisis, random plasma glucose results greater than or equal to 200 mg/dL meet the criteria for diagnosis of diabetes. Reference: Standards of Medical Care in Diabetes 2016, [place] Diabetes Association. Diabetes Care. 2016.39(Suppl 1). BUN 14 9 - 24 mg/dL 07/26/2024 4:07 AM [facility] Creatinine 1.08 0.73 - 1.22 mg/dL 07/26/2024 4:07 AM [facility] Sodium 141 136 - 144 mmol/L 07/26/2024 4:07 AM [facility] Potassium 4.7 3.7 - 5.1 mmol/L 07/26/2024 4:07 AM [facility] Chloride 104 98 - 107 mmol/L 07/26/2024 4:07 AM [facility] CO2 27 22 - 30 mmol/L 07/26/2024 4:07 AM [facility] Anion Gap 10 8 - 15 mmol/L 07/26/2024 4:07 AM [facility] Calcium, Total 9.8 8.5 - 10.2 mg/dL 07/26/2024 4:07 AM [facility] Estimated Glomerular Filtration Rate 66 >=60 mL/min/1.7 3m 07/26/2024 4:07 AM [facility] Comment:Estimated Glomerular Filtration Rate (eGFR) is calculated using the 2020 CKD-EPI creatinine equation. This equation utilizes serum creatinine, sex, and age as parameters. The creatinine assay has traceable calibration to isotope dilution- mass spectrometry. Refer to KDIGO guidelines for clinical interpretation. In patients with unstable renal function, e.g. those with acute kidney injury, the eGFR may not accurately reflect actual GFR. Blood BLOOD SPECIMEN / Unknown Venipuncture / Unknown 07/25/2024 1:42 PM EDT 07/25/2024 1:42 PM EDT us Tai Trejo MD LABORATORY Final Result Performing Organization Address City/[facility]/ZIP Co de Phone Number [facility] [address] [facility] [place] [address] [place] [address], * ECG COMPLETE (07/25/2024 1:34 PM EDT) Ventricular Rate 61 BPM [facility] QRS Duration 88 ms [facility] QT Interval 402 ms [facility] QTC Calculation (Bazett) 404 ms [facility] Calculated R [place] -4 degrees [facility] Calculated T [place] 40 degrees [facility] 07/25/2024 1:34 PM EDT [facility] - 08/20/2024 1:03 PM EDT ATRIAL FIBRILLATION ABNORMAL ECG Confirmed by MD GODFREY HEBA ([id number]) on 08/20/2024 1:03:33 PM Narrative [facility] - 08/20/2024 1:03 PM EDT NAME : ROMARISSA PID : [id number] : 1935 Gender : Male Race : ORD : [id number] Procedure Date : Jul 25 2024 13:34:54 Edit Date : Aug 20 2024 13:03:37 Diagnosis: ATRIAL FIBRILLATION ABNORMAL ECG Confirmed by MD GODFREY HEBA ([id number]) on 08/20/2024 1:03:33 PM Test Reason : Location : 314 : J14 J14-02 Overread By : MD GODFREY HEBA Edited By : MD GODFREY HEBA Referred By : , Acquired by : DAVID ENGLE us Tai Trejo MD EKG Final Result Performing Organization Address [facility] Co de Phone Number [facility] [address] [place] [address] from Last [address] 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
--- OUTSIDE RECORDS SUMMARY | 2024-09-05 11:03 | XMS_ITS | Encounter Summary ---
Author Organization [facility] Address [address] [place] [address] Care Team Providers Care Web Systems Developer Name Role Phone Matt House DO Primary Care Provider [phone] Suleiman Santana MD Unavailable Amilcar Cervantes MD Unavailable [phone] Source Comments In the event this information is protected by the Federal Confidentiality of Alcohol and Drug AbusePatient Records regulations: The Federal rules restrict any use of the information to criminally investigate or prosecute any alcohol or drug abuse patient.[facility] Encounter Details Date Type Department Care Team (Late st Contact Info) Description 05/27/2022 Patient Msg Cardiology [address] [place] [address] Provider, Ccf Appointment with Dr. Cervantes Social History Tobacco Use Types Packs/Day Years Used Date Smoking Tobacco: Never Smokeless Tobacco: Never Alcohol Use Standard Drinks/Week Comments No 0 (1 standard drink = 0.6 oz pur e alcohol) PHQ-2 Answer Date Recorded PHQ-2 score 0 07/20/2017 Area Deprivation Index Answer Date Melvin rded National Score (1-100), lower number is lower ri sk 74 03/31/2022 State Score (1-10), lower number is lower risk N ot on file 03/31/2022 Data from: https://www.neighborhoodatlas.[facility]/. 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 Answer Date of Assessment Author No 08/12/2014 10:12 AM CALLUMT Sharri Rand RN * Are you blind or do you have serious difficulty seeing, even when wearing glasses? Answer Date of Assessment Author No 08/12/2014 10:12 AM CALLUMT Sharri Rand RN * Do you have serious difficulty walking or climbing stairs? Answer Date of Assessment Author No 08/12/2014 10:12 AM EDT Sharri Rand RN * Do you have difficulty dressing or bathing? Answer Date of Assessment Author No 08/12/2014 10:12 AM CALLUMT Sharri Rand RN * Because of a physical, mental, or emotional condition, do you have difficulty doing errands alone such as visiting a doctor's office or shopping? Answer Date of Assessment Author No 08/12/2014 10:12 AM Sharri Dumont RN documented as of this encounter Mental Status * Because of a physical, mental, or emotional condition, do you have serious difficulty concentrating, remembering, or making decisions? Answer Entry Date Author No 08/12/2014 10:12 AM Sharri Dumont RN documented in this encounter Plan of Treatment Not on file documented as of this encounter Visit Diagnoses Not on filedocumented in this encounter Care Teams Web Systems Developer Relationship Specialty Start Date End Date Matt House DO [address] [place] [address] PCP - General 06/17/00 Suleiman Santana MD [address] [place] [address] Primary Staff Physician Cardiology 02/12/21 Amilcar Cervantes MD [address] [place] [address] Primary Staff Physician Cardiology 02/12/21 documented as of this encounter
--- OUTSIDE RECORDS SUMMARY | 2024-09-05 11:03 | XMS_ITS | Encounter Summary ---
Author Organization [facility] Address [address] [place] [address] Care Team Providers Care Food Service Substitute Name Role Phone HarshMatt Primary Care Provider [phone] Suleiman Santana MD Unavailable Amilcar Cervantes MD Unavailable [phone] Source Comments In the event this information is protected by the Federal Confidentiality of Alcohol and Drug AbusePatient Records regulations: The Federal rules restrict any use of the information to criminally investigate or prosecute any alcohol or drug abuse patient.[facility] Encounter Details Date Type Department Care Team (Late st Contact Info) Description 06/07/2022 Patient Msg Cardiology [address] [place] [address] Suleiman Snatana MD [address] [place] [address] Request an Appointment Social History Tobacco Use [...] N ot on file 03/31/2022 Data from: https://www.neighborhoodatlas.medicine.[facility]/. 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
--- OUTSIDE RECORDS SUMMARY | 2024-09-05 11:03 | XMS_ITS | Encounter Summary ---
Author Organization [facility] Address [address] [place] [address] Care Team Providers Care Animal Trainer Supervisor Name Role Phone HarshMatt Primary Care Provider [phone] Suleiman Santana MD Unavailable Amilcar Cervantes MD Unavailable [phone] Source Comments In the event this information is protected by the Federal Confidentiality of Alcohol and Drug AbusePatient Records regulations: The Federal rules restrict any use of the information to criminally investigate or prosecute any alcohol or drug abuse patient.[facility] Encounter Details Date Type Department Care Team (Late st Contact Info) Description 09/25/2019 Patient Msg Cardiology [address] [place] [address] Suleiman Santana MD [address] [place] [address] Request an Appointment Social History Tobacco Use Types Packs/Day Years Used Date Smoking Tobacco: Never Smokeless Tobacco: Never Alcohol Use Standard Drinks/Week Comments No 0 (1 standard drink = 0.6 oz pur e alcohol) PHQ-2 Answer Date Recorded PHQ-2 score 0 07/20/2017 Sex and Gender Information Value Date Recorded Sex Assigned at Male 09/03/2019 1:45 AM EDT Legal Sex Male 9:12 AM EST Gender Identity Male 09/03/2019 1:45 AM EDT Sexual Orientation Straight 08/03/2021 8: 34 PM EDT 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 No / Unsure 09/28/2019 9:49 PM EDT documented as of this encounter Functional Status * Are you deaf or do you have serious difficulty hearing? Answer Date of Assessment Author No 08/12/2014 10:12 AM EDT Sharri Rand RN * Are you blind [...] on filedocumented in this encounter Care Teams Animal Trainer Supervisor Relationship Specialty Start Date End Date Matt House DO [address] [place] [address] PCP - General 06/17/00 Suleiman Santana MD [address] [place] [address] Primary Staff Physician Cardiology 02/12/21 Amilcar Cervantes MD [address] [place] [address] Primary Staff Physician Cardiology 02/12/21 documented as of this encounter
--- OUTSIDE RECORDS SUMMARY | 2024-09-05 11:03 | XMS_ITS | Encounter Summary ---
Author Organization [facility] Address [address] [place] [address] Care Team Providers Care Mechanical Repair Worker Name Role Phone Harsh Matt Herrera DO Primary Care Provider [phone] Suleiman Santana MD Unavailable Amilcar Cervantes MD Unavailable [phone] Source Comments In the event this information is protected by the Federal Confidentiality of Alcohol and Drug AbusePatient Records regulations: The Federal rules restrict any use of the information to criminally investigate or prosecute any alcohol or drug abuse patient.[facility] Encounter Details Date Type Department Care Team (Late st Contact Info) Description 07/27/2018 Patient Msg Otolaryngology [address] [place], [place] [id number] Yolie Christie, Leticia, [facility] [address] [place], [place] [phone] RE:ENT/Voice physician Social History Tobacco Use Types Packs/Day Years [...] 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
--- OUTSIDE RECORDS SUMMARY | 2024-09-05 11:03 | XMS_ITS | Encounter Summary ---
Author Organization [facility] Address [address] [place] [address] Care Team Providers Care Crime Lab Analyst Name Role Phone Matt House DO Primary Care Provider [phone] Amilcar Cervantes MD Unavailable [phone] Suleiman Santana MD Unavailable Amilcar Cervantes MD Unavailable [phone] Source Comments In the event this information is protected by the Federal Confidentiality of Alcohol and Drug AbusePatient Records regulations: The Federal rules restrict any use of the information to criminally investigate or prosecute any alcohol or drug abuse patient.[facility] Encounter Details Date Type Department Care Team (Late st Contact Info) Description 11/12/2008 Patient Msg Medical Records [address] [place] [address] Provider, Ccf Request an Appointment Social History Tobacco Use [...] on filedocumented in this encounter Care Teams Crime Lab Analyst Relationship Specialty Start Date End Date Matt House DO [address] [place] [address] PCP - General 06/17/00 Amilcar Cervantes MD [address] [place] [address] Primary Staff Physician Cardiology 06/05/14 6 Suleiman Santana MD [address] [place] [address] Primary Staff Physician Cardiology 02/12/21 Amilcar Cervantes MD [address] [place] [address] Primary Staff Physician Cardiology 02/12/21 documented as of this encounter
--- OUTSIDE RECORDS SUMMARY | 2024-09-05 11:03 | XMS_ITS | Encounter Summary ---
Author Organization [facility] Address [address] [place] [address] Care Team Providers Care Sales Representative Door To Door Name Role Phone Matt House DO Primary Care Provider [phone] Suleiman Santana MD Unavailable Amilcar Cervantes MD Unavailable [phone] Source Comments In the event this information is protected by the Federal Confidentiality of Alcohol and Drug AbusePatient Records regulations: The Federal rules restrict any use of the information to criminally investigate or prosecute any alcohol or drug abuse patient.[facility] Encounter Details Date Type Department Care Team (Late st Contact Info) Description 08/10/2022 Patient Msg Audiology [address] [facility] [place] [address] Serene Purvis, AuD, CCC-A [address] [facility], [address] [place] [address] 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
--- OUTSIDE RECORDS SUMMARY | 2024-09-05 11:03 | XMS_ITS | Encounter Summary ---
Author Organization [facility] Address [address] [place] [address] Care Team Providers Care Transfer Knitter Name Role Phone Matt House DO Primary Care Provider [phone] Suleiman Santana MD Unavailable Amilcar Cervantes MD Unavailable [phone] Source Comments In the event this information is protected by the Federal Confidentiality of Alcohol and Drug AbusePatient Records regulations: The Federal rules restrict any use of the information to criminally investigate or prosecute any alcohol or drug abuse patient.[facility] Encounter Details Date Type Department Care Team (Late st Contact Info) Description 11/09/2021 Get Medical Advice Audiology [address] [place] [phone] Yolie Christie, AuD, [facility] [address] [place] [address] my left hearing aid. Social History Tobacco Use Types Packs/Day Years Used Date Smoking Tobacco: Never Smokeless Tobacco: Never Alcohol Use Standard Drinks/Week Comments No 0 (1 standard drink = 0.6 oz pur e alcohol) PHQ-2 Answer Date Recorded PHQ-2 score 0 07/20/2017 Area Deprivation Index Answer Date Melvin rded National Score (1-100), lower number is lower ri sk 74 08/07/2021 State Score (1-10), lower number is lower risk N ot on file 08/07/2021 Data from: https://www.neighborhoodatlas.medicine.[facility]/. 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
--- OUTSIDE RECORDS SUMMARY | 2024-09-05 11:03 | XMS_ITS | Encounter Summary ---
Author Organization [facility] Address [address] [place] [address] Care Team Providers Care Feather Shaper Name Role Phone HarshMatt Javier RIDDLE Primary Care Provider [phone] Suleiman Santana MD Unavailable Amilcar Cervantes MD Unavailable [phone] Source Comments In the event this information is protected by the Federal Confidentiality of Alcohol and Drug AbusePatient Records regulations: The Federal rules restrict any use of the information to criminally investigate or prosecute any alcohol or drug abuse patient.[facility] Encounter Details Date Type Department Care Team (Late st Contact Info) Description 08/09/2017 Patient Msg Otolaryngology [address] [address] Missy Andersen MD [address] [place] [address] RE:dr andersen message Social History Tobacco Use Types Packs/Day Years [...] 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
--- OUTSIDE RECORDS SUMMARY | 2024-09-05 11:03 | XMS_ITS | Encounter Summary ---
Author Organization [facility] Address [facility] [place] [address] Care Team Providers Care Wound Treatment Rn Name Role Phone Matt House DO Primary Care Provider [phone] Suleiman Santana MD Unavailable Amilcar Cervantes MD Unavailable [phone] Source Comments In the event this information is protected by the Federal Confidentiality of Alcohol and Drug AbusePatient Records regulations: The Federal rules restrict any use of the information to criminally investigate or prosecute any alcohol or drug abuse patient.[facility] Encounter Details Date Type Department Care Team (Late st Contact Info) Description 08/11/2016 Patient Msg Otolaryngology [address] [address] Missy Andersen MD [address] [place] [address] RE: Request an Appointment Social [...] 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
--- OUTSIDE RECORDS SUMMARY | 2024-09-05 11:03 | XMS_ITS | Encounter Summary ---
Author Organization [facility] Address [address] [place] [address] Care Team Providers Care Crutcher Helper Name Role Phone HarshMatt Javier RIDDLE Primary Care Provider [phone] Suleiman Santana MD Unavailable Amilcar Cervantes MD Unavailable [phone] Source Comments In the event this information is protected by the Federal Confidentiality of Alcohol and Drug AbusePatient Records regulations: The Federal rules restrict any use of the information to criminally investigate or prosecute any alcohol or drug abuse patient.[facility] Encounter Details Date Type Department Care Team (Late st Contact Info) Description 03/19/2017 Patient Msg Cardiology [address] [place] [address] Amilcar Cervantes MD [address] [place] [address] Request an Appointment Social History [...] 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
--- OUTSIDE RECORDS SUMMARY | 2024-09-05 11:03 | XMS_ITS | Encounter Summary ---
Author Organization [facility] Address [address] [place] [address] Care Team Providers Care Production Support Specialist Name Role Phone Matt House DO Primary Care Provider [phone] Amilcar Cervantes MD Unavailable [phone] Suleiman Santana MD Unavailable Amilcar Cervantes MD Unavailable [phone] Source Comments In the event this information is protected by the Federal Confidentiality of Alcohol and Drug AbusePatient Records regulations: The Federal rules restrict any use of the information to criminally investigate or prosecute any alcohol or drug abuse patient.[facility] Encounter Details Date Type Department Care Team (Late st Contact Info) Description 09/22/2007 Patient Msg Medical Records [address] [place] [address] Provider, Ccf RE: Appointment Cancellation Request Social History Tobacco Use Types Packs/Day Years [...] on filedocumented in this encounter Care Teams Production Support Specialist Relationship Specialty Start Date End Date Matt House DO [address] [place] [address] PCP - General 06/17/00 Amilcar Cervantes MD [address] [place] [address] Primary Staff Physician Cardiology 06/05/14 6 Suleiman Santana MD [address] [place], [place] [id number] Primary Staff Physician Cardiology 02/12/21 Amilcar Cervantes MD [address] [place] [address] Primary Staff Physician Cardiology 02/12/21 documented as of this encounter
--- OUTSIDE RECORDS SUMMARY | 2024-09-05 11:03 | XMS_ITS | Encounter Summary ---
Author Organization [facility] Address [address] [place] [address] Care Team Providers Care Internal Communications Manager Name Role Phone Harsh Matt Herrera DO Primary Care Provider [phone] Suleiman Santana MD Unavailable Amilcar Cervantes MD Unavailable [phone] Source Comments In the event this information is protected by the Federal Confidentiality of Alcohol and Drug AbusePatient Records regulations: The Federal rules restrict any use of the information to criminally investigate or prosecute any alcohol or drug abuse patient.[facility] Encounter Details Date Type Department Care Team (Late st Contact Info) Description 10/12/2022 Get Medical Advice Audiology [address] [place] [phone] Yolie Christie, AuD, [facility] [address] [place] [address] left hearing aid Social History Tobacco Use Types Packs/Day Years [...] is lower risk 8 09/17/2022 Data from: https://www.neighborhoodatlas.medicine.[facility]/. 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 Answer Date of Assessment Author No 08/12/2014 10:12 AM Sharri Dumont RN * Are you blind or do you have serious difficulty seeing, even when wearing glasses? Answer Date of Assessment Author No 08/12/2014 10:12 AM EDT Sharri Rand RN * Do you have serious difficulty walking or climbing stairs? Answer Date of Assessment Author No 08/12/2014 10:12 AM Sharri Dumont RN * Do you have difficulty dressing or bathing? Answer Date of Assessment Author No 08/12/2014 10:12 AM Sharri Dumont RN * Because of a physical, mental, [...] on filedocumented in this encounter Care Teams Internal Communications Manager Relationship Specialty Start Date End Date Matt House DO [address] [place] [address] PCP - General 06/17/00 Suleiman Santana MD [address] [place] [address] Primary Staff Physician Cardiology 02/12/21 Amilcar Cervantes MD [address] [place] [address] Primary Staff Physician Cardiology 02/12/21 documented as of this encounter
--- OUTSIDE RECORDS SUMMARY | 2024-09-05 11:03 | XMS_ITS | Encounter Summary ---
Author Organization [facility] Address [address] [place] [address] Care Team Providers Care Hospital Internship Name Role Phone Matt House DO Primary Care Provider [phone] Encounter Details Date Type Department Care Team (Late Contact Info) Description 09/28/2022 Abstract [facility] [address] [facility] [address] [place] [id number] Clovis Martin DPM [address] [facility] [address] [place] [address] Social History Tobacco Use Types Packs/Day Years [...] 08/01/2025 10:30 AM EDT Office Visit [facility] [address] [place] [id number] Sharla Carpio MD [address] [place] [address] documented as of this encounter Visit Diagnoses Not on filedocumented in this encounter Care Teams Hospital Internship Relationship Specialty Start Date End Date Matt House DO PCP - General Internal Medicine 07/29/22 documented as of this encounter
--- OUTSIDE RECORDS SUMMARY | 2024-09-05 11:03 | XMS_ITS | Clinical Summary ---
Author Organization [facility] Address [address] [facility] [place] [address] Care Team Providers Care Display Fabricator Name Role Phone Matt House DO Primary Care Provider [phone] Allergies Active Allergy Reactions Criticality Noted Date [...] EXCEED 3 DOSES IN 15 MINUTES. Active [place]-3 Fatty Acids (Fish Oil Maximum Strength) 1200 [...] [facility] [address] [place] [id number] Sharla Carpio MD Pseudophakia (Primary Dx); Basal cell carcinoma (BCC) of right lower eyelid; Early dry stage nonexudative age-related macular degeneration of both eyes 07/31/2024 Bamboo flowsheet [facility] [address] [place] [address] Sharla Carpio MD 07/31/2024 Travel [...] [facility] [address] [place] [phone] Sharla Carpio MD [address] [place] [address] Health Maintenance Due Date Last Done Comments Pneumococcal Vaccine: 65+ Ye ars (1 of 1 - PCV) 1985 Influenza Vaccine Completed 01/06/2024, , 12/09/2021, Additional history exists Insurance MEDICARE [employer] Care Teams Display Fabricator Relationship Specialty Start Date End Date Matt House DO PCP - General Internal Medicine 07/29/22
--- OUTSIDE RECORDS SUMMARY | 2024-09-05 11:03 | XMS_ITS | Encounter Summary ---
Author Organization [facility] Address [address] [place] [address] Care Team Providers Care Food Preparation Kitchen Aide Name Role Phone HarshMatt Primary Care Provider [phone] Suleiman Santana MD Unavailable Amilcar Cervantes MD Unavailable [phone] Source Comments In the event this information is protected by the Federal Confidentiality of Alcohol and Drug AbusePatient Records regulations: The Federal rules restrict any use of the information to criminally investigate or prosecute any alcohol or drug abuse patient.[facility] Encounter Details Date Type Department Care Team (Late st Contact Info) Description 09/24/2019 Patient Msg Cardiology [address] [place] [address] Suleiman Santana MD [address] [place] [address] Request an Appointment Social History [...] 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 No / Unsure 09/13/2019 11:20 AM EDT documented as of this encounter Functional [...] Entry Date Author No 08/12/2014 10:12 AM EDT Sharri Rand RN documented in this encounter Plan of Treatment Not on file documented as of this encounter Visit Diagnoses Not on filedocumented in this encounter Care Teams Food Preparation Kitchen Aide Relationship Specialty Start Date End Date Matt House DO [address] [place] [address] PCP - General 06/17/00 Suleiman Santana MD [address] [place] [address] Primary Staff Physician Cardiology 02/12/21 Amilcar Cervantes MD [address] [place] [address] Primary Staff Physician Cardiology 02/12/21 documented as of this encounter
--- OUTSIDE RECORDS SUMMARY | 2024-09-05 11:03 | XMS_ITS | Encounter Summary ---
Author Organization [facility] Address [facility] [place] [address] Care Team Providers Care Warehouse Assembly Worker Name Role Phone Matt House DO Primary Care Provider [phone] Suleiman Santana MD Unavailable Amilcar Cervantes MD Unavailable [phone] Source Comments In the event this information is protected by the Federal Confidentiality of Alcohol and Drug AbusePatient Records regulations: The Federal rules restrict any use of the information to criminally investigate or prosecute any alcohol or drug abuse patient.[facility] Encounter Details Date Type Department Care Team (Late st Contact Info) Description 05/17/2022 Patient Msg Medical Records [address] [place] [address] Provider, Ccf Questionnaire Submission Social History Tobacco Use Types Packs/Day Years [...] N ot on file 03/31/2022 Data from: https://www.neighborhoodatlas.[facility]/. 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
--- OUTSIDE RECORDS SUMMARY | 2024-09-05 11:03 | XMS_ITS | Encounter Summary ---
Author Organization [facility] Address [address] [place] [address] Care Team Providers Care Tube Bender Name Role Phone Matt House DO Primary Care Provider [phone] Amilcar Cervantes MD Unavailable [phone] Suleiman Santana MD Unavailable Amilcar Cervantes MD Unavailable [phone] Source Comments In the event this information is protected by the Federal Confidentiality of Alcohol and Drug AbusePatient Records regulations: The Federal rules restrict any use of the information to criminally investigate or prosecute any alcohol or drug abuse patient.[facility] Encounter Details Date Type Department Care Team (Late st Contact Info) Description 10/30/2013 Patient Msg Medical Records [address] [place] [address] Provider, Ccf Appointment Social History Tobacco Use Types Packs/Day [...] hearing? Answer Date of Assessment Author No 07/25/2013 9:26 AM EDT Sa rian Cao MA * Are you blind or do you have serious difficulty seeing, even when wearing glasses? Answer Date of Assessment Author No 07/25/2013 9:26 AM EDT Sa rian Cao MA * Do you have serious difficulty walking or climbing stairs? Answer Date of Assessment Author No 07/25/2013 9:26 AM EDT Sa rian Cao MA * Do you have difficulty dressing or bathing? Answer Date of Assessment Author No 07/25/2013 9:26 AM EDT Sa rian Cao MA * Because of a physical, mental, or emotional condition, do you have difficulty doing errands alone such as visiting a doctor's office or shopping? Answer Date of Assessment Author No 07/25/2013 9:26 AM EDT Sa rian Cao MA documented as of this encounter Mental Status * Because of a physical, mental, or emotional condition, do you have serious difficulty concentrating, remembering, or making decisions? Answer Entry Date Author No 07/25/2013 9:26 AM Sa rian Childress MA documented in this encounter Plan of Treatment Not on file documented as of this encounter Visit Diagnoses Not on filedocumented in this encounter Care Teams Tube Bender Relationship Specialty Start Date End Date Matt House DO [address] [place] [address] PCP - General 06/17/00 Amilcar Cervantes MD [address] [place] [address] Primary Staff Physician Cardiology 06/05/14 6 Suleiman Santana MD [address] [place] [address] Primary Staff Physician Cardiology 02/12/21 Amilcar Cervantes MD [address] [place] [id number] Primary Staff Physician Cardiology 02/12/21 documented as of this encounter
--- OUTSIDE RECORDS SUMMARY | 2024-09-05 11:03 | XMS_ITS | Encounter Summary ---
Author Organization [facility] Address [address] [place] [address] Care Team Providers Care Vp Research Name Role Phone Harsh Matt Herrera DO Primary Care Provider [phone] Suleiman Santana MD Unavailable Amilcar Cervantes MD Unavailable [phone] Source Comments In the event this information is protected by the Federal Confidentiality of Alcohol and Drug AbusePatient Records regulations: The Federal rules restrict any use of the information to criminally investigate or prosecute any alcohol or drug abuse patient.[facility] Encounter Details Date Type Department Care Team (Late st Contact Info) Description 08/25/2022 Get Medical Advice Audiology [address] [place] [address] Yolie Christie, AuD, CCC-A [address] [place] [address] appointment Social History Tobacco Use Types Packs/Day Years [...] N ot on file 03/31/2022 Data from: https://www.neighborhoodatlas.medicine.[facility]/. 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 [place] [address] Primary Staff Physician Cardiology 02/12/21 documented as of this encounter
--- OUTSIDE RECORDS SUMMARY | 2024-09-05 11:03 | XMS_ITS | Encounter Summary ---
Author Organization [facility] Address [address] [place] [address] Care Team Providers Care Hub Borer Name Role Phone Matt House DO Primary Care Provider [phone] Suleiman Santana MD Unavailable Amilcar Cervantes MD Unavailable [phone] Source Comments In the event this information is protected by the Federal Confidentiality of Alcohol and Drug AbusePatient Records regulations: The Federal rules restrict any use of the information to criminally investigate or prosecute any alcohol or drug abuse patient.[facility] Encounter Details Date Type Department Care Team (Late st Contact Info) Description 03/19/2017 Patient Msg Cardiology [address] [place] [address] Saul Rivera MD [address] [place] [address] RE: Request an Appointment Social [...] 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
--- OUTSIDE RECORDS SUMMARY | 2024-09-05 11:03 | XMS_ITS | Encounter Summary ---
Author Organization [facility] Address [address] [place] [address] Care Team Providers Care Brattice Builder Name Role Phone HarshMatt Javier RIDDLE Primary Care Provider [phone] Suleiman Santana MD Unavailable Amilcar Cervantes MD Unavailable [phone] Source Comments In the event this information is protected by the Federal Confidentiality of Alcohol and Drug AbusePatient Records regulations: The Federal rules restrict any use of the information to criminally investigate or prosecute any alcohol or drug abuse patient.[facility] Encounter Details Date Type Department Care Team (Late st Contact Info) Description 08/16/2022 Patient Msg Cardiology [address] [place] [address] Amilcar Cervantes MD [address] [place] [address] Oct 27 Appt Social History Tobacco Use Types Packs/Day Years [...] N ot on file 03/31/2022 Data from: https://www.neighborhoodatlas.medicine.[facility]/. 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
--- OUTSIDE RECORDS SUMMARY | 2024-09-05 11:03 | XMS_ITS | Encounter Summary ---
Author Organization [facility] Address [address] [place] [address] Care Team Providers Care Stereotype Caster Name Role Phone HarshMatt Javier RIDDLE Primary Care Provider [phone] Suleiman Santana MD Unavailable Amilcar Cervantes MD Unavailable [phone] Source Comments In the event this information is protected by the Federal Confidentiality of Alcohol and Drug AbusePatient Records regulations: The Federal rules restrict any use of the information to criminally investigate or prosecute any alcohol or drug abuse patient.[facility] Encounter Details Date Type Department Care Team (Late st Contact Info) Description 05/17/2022 Get Medical Advice Cardiology [address] [place] [address] Amilcar Cervantes MD [address] [place] [address] appointment Social History Tobacco Use Types Packs/Day [...] N ot on file 03/31/2022 Data from: https://www.neighborhoodatlas.medicine.[facility]/. 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
--- OUTSIDE RECORDS SUMMARY | 2024-09-05 11:03 | XMS_ITS | Encounter Summary ---
Author Organization [facility] Address [address] [place] [address] Care Team Providers Care Windows Server Engineer Name Role Phone aMtt House DO Primary Care Provider [phone] Suleiman Santana MD Unavailable Amilcar Cervantes MD Unavailable [phone] Source Comments In the event this information is protected by the Federal Confidentiality of Alcohol and Drug AbusePatient Records regulations: The Federal rules restrict any use of the information to criminally investigate or prosecute any alcohol or drug abuse patient.[facility] Encounter Details Date Type Department Care Team (Late st Contact Info) Description 07/16/2019 Patient Msg [facility] [place] [address] [place] [address] Provider, Ccf New Upcoming Appointment Social History Tobacco Use Types Packs/Day [...] 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
--- OUTSIDE RECORDS SUMMARY | 2024-09-05 11:04 | XMS_ITS | Encounter Summary ---
Author Organization [facility] Address [address] [place] [address] Care Team Providers Care Director Of Enterprise Architecture Name Role Phone Matt House DO Primary Care Provider [phone] Amilcar Cervantes MD Unavailable [phone] Suleiman Santana MD Unavailable Amilcar Cervantes MD Unavailable [phone] Source Comments In the event this information is protected by the Federal Confidentiality of Alcohol and Drug AbusePatient Records regulations: The Federal rules restrict any use of the information to criminally investigate or prosecute any alcohol or drug abuse patient.[facility] Encounter Details Date Type Department Care Team (Late st Contact Info) Description 04/01/2014 Patient Msg Medical Records [address] [place] [address] Provider, Ccf RE: Request an Appointment Social History Tobacco [...] difficulty hearing? Answer Date of Assessment Author Yes 12/20/2013 4:05 PM EDT Chapis Mead MA * Are you blind or do you have serious difficulty seeing, even when wearing glasses? Answer Date of Assessment Author No 12/20/2013 4:05 PM EDT Chapis Mead MA * Do you have serious difficulty walking or climbing stairs? Answer Date of Assessment Author No 12/20/2013 4:05 PM EDT Chapis Mead MA * Do you have difficulty dressing or bathing? Answer Date of Assessment Author No 12/20/2013 4:05 PM EDT Chapis Mead MA * Because of a physical, mental, or emotional condition, do you have difficulty doing errands alone such as visiting a doctor's office or shopping? Answer Date of Assessment Author No 12/20/2013 4:05 PM EDT Chapis Mead MA documented as of this encounter Mental Status * Because of a physical, mental, or emotional condition, do you have serious difficulty concentrating, remembering, or making decisions? Answer Entry Date Author No 12/20/2013 4:05 PM Chapis Mcpherson MA documented in this encounter Plan of Treatment Not on file documented as of this encounter Visit Diagnoses Not on filedocumented in this encounter Care Teams Director Of Enterprise Architecture Relationship Specialty [place] [address] [place] [address] PCP - General 06/17/00 Amilcar Cervantes MD [address] [place] [address] Primary Staff Physician Cardiology 06/05/14 6 Suleiman Santana MD [address] [place] [address] Primary Staff Physician Cardiology 02/12/21 Amilcar Cervantes MD [address] [facility] [place] [id number] Primary Staff Physician Cardiology 02/12/21 documented as of this encounter
--- OUTSIDE RECORDS SUMMARY | 2024-09-05 11:04 | XMS_ITS | Encounter Summary ---
Author Organization [facility] Address [address] [place] [address] Care Team Providers Care Telegraph Repeater Mechanic Name Role Phone Matt House DO Primary Care Provider [phone] Amilcar Cervantes MD Unavailable [phone] Suleiman Santana MD Unavailable Amilcar Cervantes MD Unavailable [phone] Source Comments In the event this information is protected by the Federal Confidentiality of Alcohol and Drug AbusePatient Records regulations: The Federal rules restrict any use of the information to criminally investigate or prosecute any alcohol or drug abuse patient.[facility] Encounter Details Date Type Department Care Team (Late st Contact Info) Description 05/22/2012 Patient Msg Medical Records [address] [place] [address] Provider, Ccf RE: Request an Appointment Social [...] on filedocumented in this encounter Care Teams Telegraph Repeater Mechanic Relationship Specialty Start Date End Date Matt House DO [address] [place] [address] PCP - General 06/17/00 Amilcar Cervantes MD [address] [place] [address] Primary Staff Physician Cardiology 06/05/14 6 Suleiman Santana MD [address] [place] [address] Primary Staff Physician Cardiology 02/12/21 Amilcar Cervantes MD [address] [place] [address] Primary Staff Physician Cardiology 02/12/21 documented as of this encounter
--- OUTSIDE RECORDS SUMMARY | 2024-09-05 11:04 | XMS_ITS | Encounter Summary ---
Author Organization [facility] Address [address] [place] [address] Care Team Providers Care Ware Tester Name Role Phone Matt House DO Primary Care Provider [phone] Amilcar Cervantes MD Unavailable [phone] Suleiman Santana MD Unavailable Amilcar Cervantes MD Unavailable [phone] Source Comments In the event this information is protected by the Federal Confidentiality of Alcohol and Drug AbusePatient Records regulations: The Federal rules restrict any use of the information to criminally investigate or prosecute any alcohol or drug abuse patient.[facility] Encounter Details Date Type Department Care Team (Late st Contact Info) Description 07/02/2014 Patient Msg Medical Records [address] [place] [address] Provider, Ccf Appointments Social History Tobacco Use Types Packs/Day Years [...] Entry Date Author No 12/20/2013 4:05 PM CALLUMT Chapis Mead MA documented in this encounter Plan of Treatment Not on file documented as of this encounter Visit Diagnoses Not on filedocumented in this encounter Care Teams Ware Tester Relationship Specialty Start Date End Date Matt House DO [address] [place] [address] PCP - General 06/17/00 Amilcar Cervantes MD [address] [place] [address] Primary Staff Physician Cardiology 06/05/14 6 Suleiman Santana MD [address] [place] [address] Primary Staff Physician Cardiology 02/12/21 Amilcar Cervantes MD [address] [place] [address] Primary Staff Physician Cardiology 02/12/21 documented as of this encounter
--- OUTSIDE RECORDS SUMMARY | 2024-09-05 11:04 | XMS_ITS | Encounter Summary ---
Author Organization [facility] Address [address] [place] [address] Care Team Providers Care Coding Coordinator Name Role Phone Harsh Matt Herrera DO Primary Care Provider [phone] Suleiman Santana MD Unavailable Amilcar Cervantes MD Unavailable [phone] Source Comments In the event this information is protected by the Federal Confidentiality of Alcohol and Drug AbusePatient Records regulations: The Federal rules restrict any use of the information to criminally investigate or prosecute any alcohol or drug abuse patient.[facility] Encounter Details Date Type Department Care Team (Late st Contact Info) Description 07/31/2021 Patient Msg Audiology [address] [place] [address] Yolie Christie, Leticia, [facility] [address] [place] [address] Request an Appointment Social History Tobacco Use Types Packs/Day Years Used Date Smoking Tobacco: Never Smokeless Tobacco: Never Alcohol Use Standard Drinks/Week Comments No 0 (1 standard drink = 0.6 oz pur e alcohol) PHQ-2 Answer Date Recorded PHQ-2 score 0 07/20/2017 Area Deprivation Index Answer Date Melvin rded National Score (1-100), lower number is lower ri sk Not on file 02/09/2020 State Score (1-10), lower number is lower risk N ot on file 02/09/2020 Data from: https://www.neighborhoodatlas.medicine.[facility]/. 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
--- OUTSIDE RECORDS SUMMARY | 2024-09-05 11:04 | XMS_ITS | Encounter Summary ---
Author Organization [facility] Address [address] [place] [address] Care Team Providers Care Drywall Stripper Name Role Phone Matt House DO Primary Care Provider [phone] Amilcar Cervantes MD Unavailable [phone] Suleiman Santana MD Unavailable Amilcar Cervantes MD Unavailable [phone] Source Comments In the event this information is protected by the Federal Confidentiality of Alcohol and Drug AbusePatient Records regulations: The Federal rules restrict any use of the information to criminally investigate or prosecute any alcohol or drug abuse patient.[facility] Encounter Details Date Type Department Care Team (Late st Contact Info) Description 05/16/2014 Patient Msg Medical Records [address] [place] [address] Provider, Ccf RE: Appointment Cancellation Request Social [...] on filedocumented in this encounter Care Teams Drywall Stripper Relationship Specialty [place] [address] [place] [address] PCP - General 06/17/00 Amilcar Cervantes MD [address] [place] [address] Primary Staff Physician Cardiology 06/05/14 6 Suleiman Santana MD [address] [place] [address] Primary Staff Physician Cardiology 02/12/21 Amilcar Cervantes MD [address] [place] [id number] Primary Staff Physician Cardiology 02/12/21 documented as of this encounter
--- OUTSIDE RECORDS SUMMARY | 2024-09-05 11:04 | XMS_ITS | Encounter Summary ---
Author Organization [facility] Address [facility] [place] [address] Care Team Providers Care Files Supervisor Name Role Phone Matt House DO Primary Care Provider [phone] Suleiman Santana MD Unavailable Amilcar Cervantes MD Unavailable [phone] Source Comments In the event this information is protected by the Federal Confidentiality of Alcohol and Drug AbusePatient Records regulations: The Federal rules restrict any use of the information to criminally investigate or prosecute any alcohol or drug abuse patient.[facility] Encounter Details Date Type Department Care Team (Late st Contact Info) Description 09/02/2017 Patient Msg Medical Records [address] [place] [address] Provider, Ccf RE:recommendations Social History Tobacco Use Types Packs/Day Years [...] 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
--- OUTSIDE RECORDS SUMMARY | 2024-09-05 11:04 | XMS_ITS | Encounter Summary ---
Author Organization [facility] Address [address] [place] [address] Care Team Providers Care Chart Writer Name Role Phone Matt House DO Primary Care Provider [phone] Amilcar Cervantes MD Unavailable [phone] Suleiman Santana MD Unavailable Amilcar Cervantes MD Unavailable [phone] Source Comments In the event this information is protected by the Federal Confidentiality of Alcohol and Drug AbusePatient Records regulations: The Federal rules restrict any use of the information to criminally investigate or prosecute any alcohol or drug abuse patient.[facility] Encounter Details Date Type Department Care Team (Late st Contact Info) Description 08/26/2014 Patient Msg Medical Records [address] [place] [address] Provider, Ccf Appointments Social History Tobacco Use [...] 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
--- OUTSIDE RECORDS SUMMARY | 2024-09-05 11:04 | XMS_ITS | Encounter Summary ---
Author Organization [facility] Address [address] [place] [address] Care Team Providers Care Consumer Loan Specialist Name Role Phone Matt House DO Primary Care Provider [phone] Amilcar Cervantes MD Unavailable [phone] Suleiman Santana MD Unavailable Amilcar Cervantes MD Unavailable [phone] Source Comments In the event this information is protected by the Federal Confidentiality of Alcohol and Drug AbusePatient Records regulations: The Federal rules restrict any use of the information to criminally investigate or prosecute any alcohol or drug abuse patient.[facility] Encounter Details Date Type Department Care Team (Late st Contact Info) Description 05/16/2014 Patient Msg Medical Records [address] [place] [address] Provider, Ccf RE: Request an Appointment Social [...] on filedocumented in this encounter Care Teams Consumer Loan Specialist Relationship Specialty [place] [address] [place] [address] PCP - General 06/17/00 Amilcar Cervantes MD [address] [place] [address] Primary Staff Physician Cardiology 06/05/14 6 Suleiman Santana MD [address] [place] [address] Primary Staff Physician Cardiology 02/12/21 Amilcar Cervantes MD [address] [facility] [place] [id number] Primary Staff Physician Cardiology 02/12/21 documented as of this encounter
--- OUTSIDE RECORDS SUMMARY | 2024-09-05 11:04 | XMS_ITS | Encounter Summary ---
Author Organization [facility] Address [address] [place] [address] Care Team Providers Care Food And Beverage Assistant Manager Name Role Phone Harsh Matt Herrera DO Primary Care Provider [phone] Suleiman Santana MD Unavailable Amilcar Cervantes MD Unavailable [phone] Source Comments In the event this information is protected by the Federal Confidentiality of Alcohol and Drug AbusePatient Records regulations: The Federal rules restrict any use of the information to criminally investigate or prosecute any alcohol or drug abuse patient.[facility] Encounter Details Date Type Department Care Team (Late st Contact Info) Description 10/21/2020 Get Medical Advice Audiology [address] [place] [address] ColbornMarcosn, AUD [address] [place] [address] RE: Visit Follow Up Question Social History Tobacco Use Types Packs/Day Years [...] N ot on file 02/09/2020 Data from: https://www.neighborhoodatlas.medicine.[facility]/. 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 Unable to assess 10/22/2020 3:48 PM EDT documented as of this encounter [...] filedocumented in this encounter Care Teams Food And Beverage Assistant Manager Relationship Specialty Start Date End Date Matt House DO [address] [place] [address] PCP - General 06/17/00 Suleiman Santana MD [address] [place] [address] Primary Staff Physician Cardiology 02/12/21 Amilcar Cervantes MD [address] [place] [address] Primary Staff Physician Cardiology 02/12/21 documented as of this encounter
--- OUTSIDE RECORDS SUMMARY | 2024-09-05 11:04 | XMS_ITS | Encounter Summary ---
Author Organization [facility] Address [facility] [place] [address] Care Team Providers Care Client Partner Name Role Phone Harsh Matt Herrera DO Primary Care Provider [phone] Suleiman Santana MD Unavailable Amilcar Cervantes MD Unavailable [phone] Source Comments In the event this information is protected by the Federal Confidentiality of Alcohol and Drug AbusePatient Records regulations: The Federal rules restrict any use of the information to criminally investigate or prosecute any alcohol or drug abuse patient.[facility] Encounter Details Date Type Department Care Team (Late st Contact Info) Description 04/24/2018 Patient Msg Otolaryngology [address] [place] [address] Lucina Caicedo APRN.[facility] [address] [place] [address] RE:Ear drainage Social History Tobacco Use Types Packs/Day Years [...] 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
--- OUTSIDE RECORDS SUMMARY | 2024-09-05 11:04 | XMS_ITS | Encounter Summary ---
Author Organization [facility] Address [address] [place] [address] Care Team Providers Care Food Cooking Machine Operator Name Role Phone HarshMatt Javier RIDDLE Primary Care Provider [phone] Suleiman Santana MD Unavailable Amilcar Cervantes MD Unavailable [phone] Source Comments In the event this information is protected by the Federal Confidentiality of Alcohol and Drug AbusePatient Records regulations: The Federal rules restrict any use of the information to criminally investigate or prosecute any alcohol or drug abuse patient.[facility] Encounter Details Date Type Department Care Team (Late st Contact Info) Description 08/17/2023 Patient Msg Cardiology [address] [place] [address] Amilcar Cervantes MD [address] [place] [address] CT Results Social History Tobacco Use Types Packs/Day Years [...] is lower risk 8 09/17/2022 Data from: https://www.neighborhoodatlas.medicine.[facility]/. 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
--- OUTSIDE RECORDS SUMMARY | 2024-09-05 11:04 | XMS_ITS | Encounter Summary ---
Author Organization [facility] Address [address] [place] [address] Care Team Providers Care Retail Manager In Training Name Role Phone Matt House DO Primary Care Provider [phone] Amilcar Cervantes MD Unavailable [phone] Suleiman Santana MD Unavailable Amilcar Cervantes MD Unavailable [phone] Source Comments In the event this information is protected by the Federal Confidentiality of Alcohol and Drug AbusePatient Records regulations: The Federal rules restrict any use of the information to criminally investigate or prosecute any alcohol or drug abuse patient.[facility] Encounter Details Date Type Department Care Team (Late st Contact Info) Description 05/16/2014 Patient Msg Medical Records [address] [place] [address] Provider, Ccf RE: Request an Appointment Social [...] on filedocumented in this encounter Care Teams Retail Manager In Training Relationship Specialty [place] [address] [place] [address] PCP - General 06/17/00 Amilcar Cervantes MD [address] [place] [address] Primary Staff Physician Cardiology 06/05/14 6 Suleiman Santana MD [address] [place] [address] Primary Staff Physician Cardiology 02/12/21 Amilcar Cervantes MD [address] [facility] [place] [id number] Primary Staff Physician Cardiology 02/12/21 documented as of this encounter
--- OUTSIDE RECORDS SUMMARY | 2024-09-05 11:04 | XMS_ITS | Encounter Summary ---
Author Organization [facility] Address [address] [place] [address] Care Team Providers Care Section Plotter Operator Name Role Phone Matt House DO Primary Care Provider [phone] Suleiman Santana MD Unavailable Amilcar Cervantes MD Unavailable [phone] Source Comments In the event this information is protected by the Federal Confidentiality of Alcohol and Drug AbusePatient Records regulations: The Federal rules restrict any use of the information to criminally investigate or prosecute any alcohol or drug abuse patient.[facility] Encounter Details Date Type Department Care Team (Late st Contact Info) Description 08/12/2023 [place] [address] Provider, Ccf Actionable Imaging Result Notification Patient Outreach Social History Tobacco Use Types Packs/Day Years [...] is lower risk 8 09/17/2022 Data from: https://www.neighborhoodatlas.[facility]/. 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
--- OUTSIDE RECORDS SUMMARY | 2024-09-05 11:04 | XMS_ITS | Encounter Summary ---
Author Organization [facility] Address [address] [place] [address] Care Team Providers Care Manometer Technician Name Role Phone HarshMatt Javier RIDDLE Primary Care Provider [phone] Suleiman Santana MD Unavailable Amilcar Cervantes MD Unavailable [phone] Source Comments In the event this information is protected by the Federal Confidentiality of Alcohol and Drug AbusePatient Records regulations: The Federal rules restrict any use of the information to criminally investigate or prosecute any alcohol or drug abuse patient.[facility] Encounter Details Date Type Department Care Team (Late st Contact Info) Description 09/02/2021 Get Medical Advice Cardiology [address] [place] [address] Amilcar Cervantes MD [address] [place] [address] Heart question Social History Tobacco Use Types Packs/Day Years [...] N ot on file 08/07/2021 Data from: https://www.neighborhoodatlas.medicine.[facility]/. 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 No / Unsure 08/26/2021 10:19 AM EDT documented as of this encounter [...] on filedocumented in this encounter Care Teams Manometer Technician Relationship Specialty Start Date End Date Matt House DO [address] [place] [address] PCP - General 06/17/00 Suleiman Santana MD [address] [place] [address] Primary Staff Physician Cardiology 02/12/21 Amilcar Cervantes MD [address] [place] [address] Primary Staff Physician Cardiology 02/12/21 documented as of this encounter
--- OUTSIDE RECORDS SUMMARY | 2024-09-05 11:04 | XMS_ITS | Encounter Summary ---
Author Organization [facility] Address [address] [place] [address] Care Team Providers Care Cigarette Making Machine Catcher Name Role Phone Matt House DO Primary Care Provider [phone] Amilcar Cervantes MD Unavailable [phone] Suleiman Santana MD Unavailable Amilcar Cervantes MD Unavailable [phone] Source Comments In the event this information is protected by the Federal Confidentiality of Alcohol and Drug AbusePatient Records regulations: The Federal rules restrict any use of the information to criminally investigate or prosecute any alcohol or drug abuse patient.[facility] Encounter Details Date Type Department Care Team (Late st Contact Info) Description 05/22/2012 Patient Msg Medical Records [address] [place] [address] Provider, Ccf RE: Request an Appointment Social [...] on filedocumented in this encounter Care Teams Cigarette Making Machine Catcher Relationship Specialty Start Date End Date Matt House DO [address] [place] [address] PCP - General 06/17/00 Amilcar Cervantes MD [address] [place] [address] Primary Staff Physician Cardiology 06/05/14 6 Suleiman Santana MD [address] [place] [address] Primary Staff Physician Cardiology 02/12/21 Amilcar Cervantes MD [address] [place] [address] Primary Staff Physician Cardiology 02/12/21 documented as of this encounter
--- OUTSIDE RECORDS SUMMARY | 2024-09-05 11:04 | XMS_ITS | Encounter Summary ---
Author Organization [facility] Address [address] [place] [address] Care Team Providers Care Flight Radio Officer Name Role Phone Matt House DO Primary Care Provider [phone] Amilcar Cervantes MD Unavailable [phone] Suleiman Santana MD Unavailable Amilcar Cervantes MD Unavailable [phone] Source Comments In the event this information is protected by the Federal Confidentiality of Alcohol and Drug AbusePatient Records regulations: The Federal rules restrict any use of the information to criminally investigate or prosecute any alcohol or drug abuse patient.[facility] Encounter Details Date Type Department Care Team (Late st Contact Info) Description 08/16/2014 Patient Msg Medical Records [address] [place] [address] Provider, Ccf Appointments Social History Tobacco Use [...] 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
== END 2024-09-05 11:02 | disposition home or self-care (01) ==
LOC: WC 11:01
PROVIDERS: PCP Internal Medicine; Visit Provider Physician Assistant
DX: I87.311 Chronic venous hypertension (idiopathic) with ulcer of right lower extremity (principal); L97.812 Non-pressure chronic ulcer of other part of right lower leg with fat layer exposed; S81.811A Laceration without foreign body, right lower leg, initial encounter
CPT/HCPCS: 17250

== ENCOUNTER 2024-09-18 13:12 | Outpatient (OUT) | payer MEDICARE, SELFPAY | END 2024-09-18 13:13 | disposition home or self-care (01) | LOC: WC 13:12 | PROVIDERS: PCP Internal Medicine; Visit Provider Physician Assistant | DX: I87.311 Chronic venous hypertension (idiopathic) with ulcer of right lower extremity (principal); L97.812 Non-pressure chronic ulcer of other part of right lower leg with fat layer exposed; S81.811A Laceration without foreign body, right lower leg, initial encounter | CPT/HCPCS: G0463 ==

== ENCOUNTER 2024-10-03 12:59 | Outpatient (OUT) | payer MEDICARE, SELFPAY ==
--- OUTSIDE RECORDS SUMMARY | 2011-04-30 05:00 | XMS_ITS | Continuity of Care Document ---
Author Organization [facility] Address [address] [address] Phone Care Team Providers Care Color Receiver Name Role Phone Griffin Bonilla Unavailable Unavailable Procedures Procedure Date Hearing Services Advance Directives Directive Yes / No Effective Date File Name No Information Encounters Encounter Description Practice Location Reason(s) For Visit Diagnoses Date Provider Providers Copied on Encounter [facility], [address], [id number], tel:[phone] [facility] No Information Irene Moya. [address], [id number], . tel:[phone] Referring Provider: Griffin Bonilla, [address] [place] [address], [id number]. tel:[phone] Family History Family Member Type Diagnosis Age At Onset No Information Payers Payer name Insurance type Covered alliance party ID Authoriza tion(s) No Information Social [...]
--- OUTSIDE RECORDS SUMMARY | 2024-10-03 13:02 | XMS_ITS | Patient Health Record ---
Author Organization [facility] Address [address] [facility] [address] [place], [place] [id number] Care Team Providers Care Decorator Inspector Name Role Phone Erasmo Johnson MD Primary Care Provider JEANNE Alcantar Unavailable [phone] Allergies Allergen (clinical drug ingredient) Drug/Non Drug [...] Orally BID for 1 dose 04/05/2018 Active [place] 3 1000 MG 1 capsule Orally TID [...] [place] [address] [place] [address] [id number] MARISSA ESCAMILLA Self - patient is the insured [facility] [address] [place] [address] [id number] MARISSA ESCAMILLA Self - patient is the insured Medical (General) History Medical History History ICD Code PATIENT ALLERGIC TO ADHESIVE TAPE Aortic valve replacement Atrial fibrillation Hypertension duodenitis Hiatal hernia Surgical History Surgery Date(Month/Year) Endoscopy Colonoscopy several years ago Endoscopy revealed duodenitis and hiatal hernia 03/2018
--- OUTSIDE RECORDS SUMMARY | 2024-10-03 13:02 | XMS_ITS | Encounter Summary ---
Author Organization [facility] Address [address] [place] [address] Care Team Providers Care Sausage Canner Name Role Phone Matt House DO Primary Care Provider [phone] Encounter Details Date Type Department Care Team (Late Contact Info) Description 09/28/2022 Abstract [facility] [address] [address] [facility] [address] [place] [address] Clovis Martin DPSharri [address] [facility] [address] [place] [address] Social History Tobacco Use Types Packs/Day Years [...] 08/01/2025 10:30 AM EDT Office Visit [facility] [address] [place] [phone] Sharla Carpio MD [address] [place] [address] documented as of this encounter Visit Diagnoses Not on filedocumented in this encounter Care Teams Sausage Canner Relationship Specialty Start Date End Date Matt House DO PCP - General Internal Medicine 07/29/22 documented as of this encounter
--- OUTSIDE RECORDS SUMMARY | 2024-10-03 13:02 | XMS_ITS | Patient Health Record ---
Author Organization [facility] Address [address] [place] [address] Care Team Providers Care Wafer Production Lead Worker Name Role Phone Erasmo Johnson Primary Care Provider Bacilio [place] [phone] Reason For Referral No Information Plan Of Treatment No Information
--- OUTSIDE RECORDS SUMMARY | 2024-10-03 13:02 | XMS_ITS | Clinical Summary ---
Author Organization [facility] Address [address] [facility] [place] [address] Care Team Providers Care Assistant Auto Center Manager Name Role Phone Matt House DO Primary Care Provider [phone] Allergies Active Allergy Reactions Criticality Noted Date [...] EXCEED 3 DOSES IN 15 MINUTES. Active [place]-3 Fatty Acids (Fish Oil Maximum Strength) 1200 [...] Description 07/31/2024 9:30 AM EDT Office Visit 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; Early dry stage nonexudative age-related macular degeneration of both eyes 07/31/2024 Bamboo flowsheet [facility] Eye [address] [place] [address] Sharla Carpio MD 07/31/2024 Travel [...] 08/01/2025 10:30 AM EDT Office Visit [facility] [address] [place] [phone] Sharla Carpio MD [address] [place] [address] Health Maintenance Due Date Last Done Comments Pneumococcal Vaccine: 65+ Ye ars (1 of 1 - PCV) 1985 Influenza Vaccine (#1) 2024 4, 12/17/2022, 12/09/2021, Additional history exists Insurance MEDICARE [employer] Care Teams Assistant Auto Center Manager Relationship Specialty Start Date End Date Matt House DO PCP - General Internal Medicine 07/29/22
== END 2024-10-03 13:00 | disposition home or self-care (01) ==
LOC: WC 13:00
PROVIDERS: PCP Internal Medicine; Visit Provider Physician Assistant
DX: I87.311 Chronic venous hypertension (idiopathic) with ulcer of right lower extremity (principal); L97.812 Non-pressure chronic ulcer of other part of right lower leg with fat layer exposed; S81.811A Laceration without foreign body, right lower leg, initial encounter
CPT/HCPCS: G0463

== ENCOUNTER 2024-10-05 01:59 | Outpatient (RCR) | payer MEDICARE, SELFPAY | END 2024-11-01 12:55 | disposition home or self-care (01) | LOC: MM 01:59 | PROVIDERS: PCP Internal Medicine; Visit Provider Internal Medicine | DX: Z51.81 Encounter for therapeutic drug level monitoring (principal); Z79.01 Long term (current) use of anticoagulants | CPT/HCPCS: 85610; G0463 ==

== ENCOUNTER 2024-10-16 11:41 | Outpatient (OUT) | payer MEDICARE, SELFPAY ==
--- OUTSIDE RECORDS SUMMARY | 2024-10-16 11:43 | XMS_ITS | Encounter Summary ---
Author Organization [facility] Address [address] [place] [address] Care Team Providers Care Crossing Gateman Name Role Phone Matt House DO Primary Care Provider [phone] Amilcar Cervantes MD Unavailable [phone] Suleiman Santana MD Unavailable Amilcar Cervantes MD Unavailable [phone] Source Comments In the event this information is protected by the Federal Confidentiality of Alcohol and Drug AbusePatient Records regulations: The Federal rules restrict any use of the information to criminally investigate or prosecute any alcohol or drug abuse patient.[facility] Encounter Details Date Type Department Care Team (Late st Contact Info) Description 09/04/2007 Patient Msg Medical Records [address] [place] [address] Provider, Ccf Patient Registration Social History Tobacco [...] on filedocumented in this encounter Care Teams Crossing Gateman Relationship Specialty Start Date End Date Matt House DO [address] [place] [address] PCP - General 06/17/00 Amilcar Cervantes MD [address] [place] [address] Primary Staff Physician Cardiology 06/05/14 6 Suleiman Santana MD [address] [place] [address] Primary Staff Physician Cardiology 02/12/21 Amilcar Cervantes MD [address] [place] [address] Primary Staff Physician Cardiology 02/12/21 documented as of this encounter
--- OUTSIDE RECORDS SUMMARY | 2024-10-16 11:43 | XMS_ITS | Encounter Summary ---
Author Organization [facility] Address [address] [place] [address] Care Team Providers Care Medical Insurance Biller Name Role Phone Matt House DO Primary Care Provider Suleiman Santana MD Unavailable Amilcar Cervantes MD Unavailable [phone] Source Comments In the event this information is protected by the Federal Confidentiality of Alcohol and Drug AbusePatient Records regulations: The Federal rules restrict any use of the information to criminally investigate or prosecute any alcohol or drug abuse patient.[facility] Encounter Details Date Type Department Care Team (Late st Contact Info) Description 08/10/2022 Patient Msg Audiology [address] [place] [address] Serene Purvis, AuD, CCC-A [address] 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
--- OUTSIDE RECORDS SUMMARY | 2024-10-16 11:43 | XMS_ITS | Encounter Summary ---
Author Organization [facility] Address [address] [place] [address] Care Team Providers Care Reliability Specialist Name Role Phone Matt House DO Primary Care Provider [phone] Amilcar Cervantes MD Unavailable [phone] Suleiman Santana MD Unavailable Amilcar Cervantes MD Unavailable [phone] Source Comments In the event this information is protected by the Federal Confidentiality of Alcohol and Drug AbusePatient Records regulations: The Federal rules restrict any use of the information to criminally investigate or prosecute any alcohol or drug abuse patient.[facility] Encounter Details Date Type Department Care Team (Late st Contact Info) Description 11/12/2008 Patient Msg Medical Records [address] [place] [address] Provider, Ccf Request an Appointment Social History [...] on filedocumented in this encounter Care Teams Reliability Specialist Relationship Specialty Start Date End Date Matt House DO [address] [place] [address] PCP - General 06/17/00 Amilcar Cervantes MD [address] [place] [address] Primary Staff Physician Cardiology 06/05/14 6 Suleiman Santana MD [address] [place] [address] Primary Staff Physician Cardiology 02/12/21 Amilcar Cervantes MD [address] [place] [address] Primary Staff Physician Cardiology 02/12/21 documented as of this encounter
--- OUTSIDE RECORDS SUMMARY | 2024-10-16 11:43 | XMS_ITS | Encounter Summary ---
Author Organization [facility] Address [address] [place] [address] Care Team Providers Care Online Producer Name Role Phone Matt House DO Primary Care Provider [phone] Suleiman Santana MD Unavailable Amilcar Cervantes MD Unavailable [phone] Source Comments In the event this information is protected by the Federal Confidentiality of Alcohol and Drug AbusePatient Records regulations: The Federal rules restrict any use of the information to criminally investigate or prosecute any alcohol or drug abuse patient.[facility] Encounter Details Date Type Department Care Team (Late st Contact Info) Description 03/19/2017 Patient Msg Cardiology [address] [place] [address] Saul Rivera MD [address] [place] [address] RE: Request an Appointment Social [...] 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
--- OUTSIDE RECORDS SUMMARY | 2024-10-16 11:43 | XMS_ITS | Encounter Summary ---
Author Organization [facility] Address [facility] [place] [address] Care Team Providers Care Utilization Supervisor Name Role Phone Harsh Matt Herrera DO Primary Care Provider [phone] Suleiman Santana MD Unavailable Amilcar Cervantes MD Unavailable [phone] Source Comments In the event this information is protected by the Federal Confidentiality of Alcohol and Drug AbusePatient Records regulations: The Federal rules restrict any use of the information to criminally investigate or prosecute any alcohol or drug abuse patient.[facility] Encounter Details Date Type Department Care Team (Late st Contact Info) Description 03/19/2017 Patient Msg Otolaryngology [address] [address] Missy Andersen MD [address] [place] [address] RE: Request an Appointment Social [...] 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
--- OUTSIDE RECORDS SUMMARY | 2024-10-16 11:43 | XMS_ITS | Encounter Summary ---
Author Organization [facility] Address [address] [place] [address] Care Team Providers Care Credit And Collections Representative Name Role Phone HarshMatt Javier RIDDLE Primary Care Provider [phone] Suleiman Santana MD Unavailable Amilcar Cervantes MD Unavailable [phone] Source Comments In the event this information is protected by the Federal Confidentiality of Alcohol and Drug AbusePatient Records regulations: The Federal rules restrict any use of the information to criminally investigate or prosecute any alcohol or drug abuse patient.[facility] Encounter Details Date Type Department Care Team (Late st Contact Info) Description 03/19/2017 Patient Msg Cardiology [address] [place] [address] Amilcar Cervantes MD [address] [place] [address] Request an Appointment Social History [...] 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
--- OUTSIDE RECORDS SUMMARY | 2024-10-16 11:43 | XMS_ITS | Encounter Summary ---
Author Organization [facility] Address [address] [place] [address] Care Team Providers Care Senior Java Web Application Developer Name Role Phone Matt House DO Primary Care Provider [phone] Amilcar Cervantes MD Unavailable [phone] Suleiman Santana MD Unavailable Amilcar Cervantes MD Unavailable [phone] Source Comments In the event this information is protected by the Federal Confidentiality of Alcohol and Drug AbusePatient Records regulations: The Federal rules restrict any use of the information to criminally investigate or prosecute any alcohol or drug abuse patient.[facility] Encounter Details Date Type Department Care Team (Late st Contact Info) Description 10/30/2013 Patient Msg Medical Records [address] [place] [address] Provider, Ccf Appointment Social History Tobacco Use [...] on filedocumented in this encounter Care Teams Senior Java Web Application Developer Relationship Specialty Start Date End Date Matt House DO [address] [place] [address] PCP - General 06/17/00 Amilcar Cervantes MD [address] [place] [address] Primary Staff Physician Cardiology 06/05/14 6 Suleiman Santana MD [address] [place] [address] Primary Staff Physician Cardiology 02/12/21 Amilcar Cervantes MD [address] [place] [id number] Primary Staff Physician Cardiology 02/12/21 documented as of this encounter
--- OUTSIDE RECORDS SUMMARY | 2024-10-16 11:43 | XMS_ITS | Encounter Summary ---
Author Organization [facility] Address [address] [place] [address] Care Team Providers Care Munitions Handler Name Role Phone HarshMatt Primary Care Provider [phone] Suleiman Santana MD Unavailable Amilcar Cervantes MD Unavailable [phone] Source Comments In the event this information is protected by the Federal Confidentiality of Alcohol and Drug AbusePatient Records regulations: The Federal rules restrict any use of the information to criminally investigate or prosecute any alcohol or drug abuse patient.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
--- OUTSIDE RECORDS SUMMARY | 2024-10-16 11:43 | XMS_ITS | Patient Health Record ---
Author Organization [facility] Address [address] [place] [address] Care Team Providers Care Commercial Insurance Underwriter Name Role Phone Erasmo Johnson Primary Care Provider Bacilio [place] [phone] Reason For Referral No Information Plan Of Treatment No Information
--- OUTSIDE RECORDS SUMMARY | 2024-10-16 11:43 | XMS_ITS | Encounter Summary ---
Author Organization [facility] Address [address] [place] [address] Care Team Providers Care Drill Operator Pneumatic Name Role Phone Matt House DO Primary Care Provider [phone] Encounter Details Date Type Department Care Team (Late Contact Info) Description 09/28/2022 Abstract [facility] [address] [facility] [address] [place] [address] Clovis Martin DPSharri [address] [facility] [address] [place] [address] Social History Tobacco Use Types Packs/Day Years [...] 08/01/2025 10:30 AM EDT Office Visit [facility] [address] [place] [address] Sharla aCrpio MD [address] [place] [address] documented as of this encounter Visit Diagnoses Not on filedocumented in this encounter Care Teams Drill Operator Pneumatic Relationship Specialty Start Date End Date Matt House DO PCP - General Internal Medicine 07/29/22 documented as of this encounter
--- OUTSIDE RECORDS SUMMARY | 2024-10-16 11:43 | XMS_ITS | Clinical Summary ---
Author Organization [facility] Healthcare Address [address] [facility] [place] [address] Care Team Providers Care Client Solutions Specialist Name Role Phone Matt House DO Primary Care Provider [phone] Allergies Active Allergy Reactions Criticality Noted Date [...] EXCEED 3 DOSES IN 15 MINUTES. Active [place]-3 Fatty Acids (Fish Oil Maximum Strength) 1200 [...] Description 07/31/2024 9:30 AM EDT Office Visit [facility] [address] [place] [address] Sharla Carpio MD Pseudophakia (Primary Dx); Basal cell carcinoma (BCC) of right lower eyelid; Early dry stage nonexudative age-related macular degeneration of both eyes 07/31/2024 Bamboo flowsheet [facility] Eye [address] [place] [address] Sharla Carpio MD 07/31/2024 Travel [...] 08/01/2025 10:30 AM EDT Office Visit [facility] [address] [place] [address] Sharla Carpio MD [address] [place] [address] Health Maintenance Due Date Last Done Comments Pneumococcal Vaccine: 65+ Ye ars (1 of 1 - PCV) 1985 Influenza Vaccine (#1) 2024 4, 12/17/2022, 12/09/2021, Additional history exists Insurance MEDICARE [employer] Care Teams Client Solutions Specialist Relationship Specialty Start Date End Date Matt House DO PCP - General Internal Medicine 07/29/22
--- OUTSIDE RECORDS SUMMARY | 2024-10-16 11:43 | XMS_ITS | Clinical Summary ---
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 Not on file [...] Vaccine (1 - 1-dose 75+ series) 2010 Advance Directive Discussion 03/07/2024 Influenza Vaccine (#1) 2024 , 12/17/2022, 12/09/2021, Additional history exists LDL Cholesterol 07/25/2025 07/25/2024, 12/0 05/2023, 03/24/2023, Additional history exists Diabetes Screening 07/26/2027 07/25/2024, 0 05/24/2024, 05/24/2024, Additional history exists DTaP,Tdap,Td Vaccine (6 - Tdap) 08/18/2030 08/18/2020, 12/25/2013, 01/02/2013, Additional history exists Pneumococcal Vaccine: 50+ Completed 12/26/2014, 10/2002 Procedures Procedure Name Priority Date/Time Associated Diagnosis Comments LVEF TRANSTHORACIC ECHO Routine 07/25/2024 2:10 PM EDT ECHO Routine 07/25/2024 2:10 PM EDT S/P AVR (aortic valve replacement) H/O mitral valve repair 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, 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 LIPID PANEL, FASTING Routine 07/25/2024 1:42 PM EDT S/P AVR (aortic valve replacement) H/O mitral valve repair 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, 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 COMPLETE BLOOD COUNT Routine 07/25/2024 1:42 PM EDT S/P AVR (aortic valve replacement) H/O mitral valve repair 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, 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 BASIC METABOLIC PANEL Routine 07/25/2024 1:42 PM EDT S/P AVR (aortic valve replacement) H/O mitral valve repair 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, 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 ECG COMPLETE Routine 07/25/2024 1:34 PM EDT S/P AVR (aortic valve replacement) H/O mitral valve repair 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 us Tai Alea MD ECHO Final Result [facility] [place] [address] [place] [address] * LVEF TRANSTHORACIC ECHO (07/25/2024 2:10 PM EDT) LV Ejection Fraction 58 % [facility] Comment: (2D biplane) EF > 52 An LV Ejection Fraction of > 50% is normal 07/25/2024 2:10 PM EDT us Tai Trejo MD LVEF RESULTS Final Result Performing Organization Address [facility] Co de Phone Number [facility] [place] [address] [place] [address] * LIPID PANEL BASIC (07/25/2024 1:42 PM EDT) Cholesterol, Total 158 <200 mg/dL 07/26/2024 4:07 AM T [facility] Comment: <200 mg/dL, Desirable 200-239 mg/dL, Borderline high >239 mg/dL, High Triglyceride 85 <150 mg/dL 07/26/2024 4:07 AM T [facility] Comment: <150 mg/dL, Normal 150-199 mg/dL, Borderline high 200-499 mg/dL, High >499 mg/dL, Very high HDL Cholesterol 75 >39 mg/dL 4:07 AM T [facility] Comment: 40-59 mg/dL, Acceptable >59 mg/dL, High: Negative risk factor for coronary heart disease <40 mg/dL, Low: Positive risk factor for coronary heart disease LDL Cholesterol, Calculated 67 <100 mg/dL 07/26/2024 4:07 AM T [facility] Comment: <100 mg/dL, Optimal 100-129 mg/dL, Near optimal/above optimal 130-159 mg/dL, Borderline high 160-189 mg/dL, High >189 mg/dL, Very high Secondary prevention optimal LDL Cholesterol levels are recommended to be <70 mg/dL LDL cholesterol is calculated using the Diaz-NIH equation. Non HDL Cholesterol 83 <130 mg/dL 07/26/2024 4:07 AM EDT [facility] Comment: <130 mg/dL, Optimal 130-159 mg/dL, Near optimal/above optimal 160-189 mg/dL, Borderline high 190-219 mg/dL, High >219 mg/dL, Very high Secondary prevention optimal non HDL Cholesterol levels are recommended to be <100 mg/dL VLDL Cholesterol 13 <30 mg/dL 07/27/19 4:07 AM EDT [facility] TC:HDL Ratio 2.11 <5.10 07/26/2024 4:07 AM EDT [facility] LDL:HDL Ratio 0.89 <2.54 07/26/2024 4:07 AM EDT [facility] Comment: Reference: 1. National Cholesterol Education Program ATP III Guideline At-A-Glance Quick Desk Reference: National Heart, Lung, and Blood [place]. National Institutes of Health. 2001: NIH Publication No. 01-3305. 2. An International Atherosclerosis Society position paper: global recommendations for the management of dyslipidemia: executive summary, Atherosclerosis. 2014: 232(2):410-413. Fasting Time 7 hrs 07/26/2024 4:07 AM EDT [facility] Comment:Pt had breakfast nina und 0600 Blood BLOOD SPECIMEN / Unknown Venipuncture / Unknown 07/25/2024 1:42 PM EDT 07/25/2024 1:42 PM EDT us Tai Trejo MD LABORATORY Final Result [facility] [address] * (ABNORMAL) COMPLETE BLOOD COUNT (07/25/2024 1:42 PM EDT) WBC 5.98 3.70 - 11.00 k/uL 07/25/2024 2:31 PM EDT [facility] RBC 4.33 4.20 - 6.00 m/uL 07/25/2024 2:31 PM EDT [facility] Hemoglobin 12.9(L) 13.0 - 17.0 g/dL 07/25/2024 2:31 PM EDT [facility] Hematocrit 39.4 39.0 - 51.0 % 07/25/2024 2:31 PM EDT [facility] MCV 91.0 80.0 - 100.0 fL 07/25/2024 2:31 PM EDT [facility] MCH 29.8 26.0 - 34.0 pg 07/25/2024 2:31 PM EDT [facility] MCHC 32.7 30.5 - 36.0 g/dL 07/25/2024 2:31 PM EDT [facility] RDW-CV 14.5 11.5 - 15.0 % 07/25/2024 2:31 PM EDT [facility] Platelet Count 114(L) 150 - 400 k/uL 07/25/2024 2:31 PM EDT [facility] Comment:Results checked and verified.No clot detected. MPV 11.7 9.0 - 12.7 fL 07/25/2024 2:31 PM EDT [facility] Absolute nRBC <0.01 <0.01 k/uL 07/25/2024 2:31 PM EDT [facility] Blood BLOOD SPECIMEN / Unknown Venipuncture / Unknown 07/25/2024 1:42 PM EDT 07/25/2024 1:42 PM EDT us Tai Trejo MD LABORATORY Final Result [facility] [address] [place] [address], * BASIC METABOLIC PANEL (07/25/2024 1:42 PM EDT) [facility] Glucose 86 74 - 99 mg/dL 07/26/2024 4:07 AM EDT [facility] Comment: The [place] Diabetes Association (ADA) provides guidance for cutoff [...] Standards of Medical Care in Diabetes 2016, [place] Diabetes Association. Diabetes Care. 2016.39(Suppl 1). BUN 14 9 - 24 mg/dL 07/26/2024 4:07 AM T [facility] Creatinine 1.08 0.73 - 1.22 mg/dL 07/26/2024 4:07 AM T [facility] Sodium 141 136 - 144 mmol/L 07/26/2024 4:07 AM [facility] Potassium 4.7 3.7 - 5.1 mmol/L 07/26/2024 4:07 AM T [facility] Chloride 104 98 - 107 mmol/L 07/26/2024 4:07 AM [facility] CO2 27 22 - 30 mmol/L 07/26/2024 4:07 AM [facility] Anion Gap 10 8 - 15 mmol/L 07/26/2024 4:07 AM [facility] Calcium, Total 9.8 8.5 - 10.2 mg/dL 07/26/2024 4:07 AM [facility] Estimated Glomerular Filtration Rate 66 >=60 mL/min/1.7 3m 07/26/2024 4:07 AM [facility] Comment:Estimated Glomerular Filtration Rate (eGFR) is [...] us Tai Trejo MD LABORATORY Final Result [facility] [address] [facility] [address] [place] [address], * ECG COMPLETE (07/25/2024 1:34 PM EDT) Ventricular Rate 61 BPM [facility] QRS Duration 88 ms [facility] QT Interval 402 ms [facility] QTC Calculation (Bazett) 404 ms [facility] Calculated R Duarte -4 degrees [facility] Calculated T Duarte 40 degrees [facility] 07/25/2024 1:34 PM EDT Impressions [facility] - 08/20/2024 1:03 PM EDT ATRIAL FIBRILLATION ABNORMAL ECG Confirmed by MD GODFREY HEBA ([id number]) on 08/20/2024 1:03:33 PM Narrative [facility] - 08/20/2024 1:03 PM EDT NAME : MARISSA STARR PID : [id number] : 1935 Gender : Male Race : ORD : [id number] Procedure Date : Jul 25 2024 13:34:54 Edit Date : Aug 20 2024 13:03:37 Diagnosis: ATRIAL FIBRILLATION ABNORMAL ECG Confirmed by MD GOFDREY HEBA ([id number]) on 08/20/2024 1:03:33 PM Test Reason : Location : [facility] : J14 J14-02 Overread By : MD GODFREY HEBA Edited By : MD GODFREY HEBA Referred By : , Acquired by : DAVID ENGLE us Tai Trejo MD EKG Final Result [facility] [address] [place] [address] from Last [address] [place] [address] MEDICARE Advance Directives Documents on File Type Date Recorded Patient Loom Technician Expl anation Advance Directive(s) 08/18/2010 Advance Directive(s) 09/14/2007 Care Teams Sports Writer Relationship Specialty Start Date End Date Matt House DO [address] [place] [address] PCP - General 06/17/00 Suleiman Santana MD [address] [place] [address] Primary Staff Physician Cardiology 02/12/21 Amilcar Cervantes MD [address] [place] [address] Primary Staff Physician Cardiology 02/12/21
--- OUTSIDE RECORDS SUMMARY | 2024-10-16 11:43 | XMS_ITS | Encounter Summary ---
Author Organization [facility] Address [address] [place] [address] Care Team Providers Care Staff Antisubmarine Officer Name Role Phone HarshMatt Javier RIDDLE Primary Care Provider [phone] Suleiman Santana MD Unavailable Amilcar Cervantes MD Unavailable [phone] Source Comments In the event this information is protected by the Federal Confidentiality of Alcohol and Drug AbusePatient Records regulations: The Federal rules restrict any use of the information to criminally investigate or prosecute any alcohol or drug abuse patient.[facility] Encounter Details Date Type Department Care Team (Late st Contact Info) Description 08/09/2017 Patient Msg Otolaryngology [address] [address] Missy Andersen MD [address] [place] [address] RE:dr andersen message Social History [...] 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
--- OUTSIDE RECORDS SUMMARY | 2024-10-16 11:43 | XMS_ITS | Encounter Summary ---
Author Organization [facility] Address [address] [place] [address] Care Team Providers Care Economic Adviser Name Role Phone HarshMatt Primary Care Provider [phone] Suleiman Santana MD Unavailable Amilcar Cervantes MD Unavailable [phone] Source Comments In the event this information is protected by the Federal Confidentiality of Alcohol and Drug AbusePatient Records regulations: The Federal rules restrict any use of the information to criminally investigate or prosecute any alcohol or drug abuse patient.[facility] Encounter Details Date Type Department Care Team (Late st Contact Info) Description 06/07/2022 Patient Msg Cardiology [address] [place] [address] Suleiman Santana MD [address] [place] [address] Request an Appointment Social History [...] N ot on file 03/31/2022 Data from: https://www.neighborhoodatlas.medicine.[facility]/. 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
--- OUTSIDE RECORDS SUMMARY | 2024-10-16 11:43 | XMS_ITS | Encounter Summary ---
Author Organization [facility] Address [address] [place] [address] Care Team Providers Care Sanitation Technician Name Role Phone HarshMatt Primary Care Provider [phone] Suleiman Santaan MD Unavailable Amilcar Cervantes MD Unavailable [phone] Source Comments In the event this information is protected by the Federal Confidentiality of Alcohol and Drug AbusePatient Records regulations: The Federal rules restrict any use of the information to criminally investigate or prosecute any alcohol or drug abuse patient.[facility] Encounter Details Date Type Department Care Team (Late st Contact Info) Description 09/25/2019 Patient Msg Cardiology [address] [place] [address] Suleiman Santana MD [address] [place] [address] Request an Appointment Social History [...] 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
--- OUTSIDE RECORDS SUMMARY | 2024-10-16 11:44 | XMS_ITS | Encounter Summary ---
Author Organization [facility] Address [address] [place] [address] Care Team Providers Care Vascular Sonographer Name Role Phone Matt House DO Primary Care Provider [phone] Amilcar Cervantes MD Unavailable [phone] Suleiman Santana MD Unavailable Amilcar Cervantes MD Unavailable [phone] Source Comments In the event this information is protected by the Federal Confidentiality of Alcohol and Drug AbusePatient Records regulations: The Federal rules restrict any use of the information to criminally investigate or prosecute any alcohol or drug abuse patient.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
--- OUTSIDE RECORDS SUMMARY | 2024-10-16 11:44 | XMS_ITS | Encounter Summary ---
Author Organization [facility] Address [address] [place] [address] Care Team Providers Care Microbiology Professor Name Role Phone Harsh Matt Herrera DO Primary Care Provider [phone] Suleiman Santana MD Unavailable Amilcar Cervantes MD Unavailable [phone] Source Comments In the event this information is protected by the Federal Confidentiality of Alcohol and Drug AbusePatient Records regulations: The Federal rules restrict any use of the information to criminally investigate or prosecute any alcohol or drug abuse patient.[facility] Encounter Details Date Type Department Care Team (Late st Contact Info) Description 08/25/2022 Get Medical Advice Audiology [address] [place] [address] Yolie Christie, AuD, CCC-A [address] [place] [address] appointment Social History Tobacco Use [...] N ot on file 03/31/2022 Data from: https://www.neighborhoodatlas.medicine.[facility]/. 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
--- OUTSIDE RECORDS SUMMARY | 2024-10-16 11:44 | XMS_ITS | Encounter Summary ---
Author Organization [facility] Address [facility] [place] [address] Care Team Providers Care Roofing Contractor Name Role Phone Matt House DO Primary Care Provider [phone] Suleiman Santana MD Unavailable Amilcar Cervantes MD Unavailable [phone] Source Comments In the event this information is protected by the Federal Confidentiality of Alcohol and Drug AbusePatient Records regulations: The Federal rules restrict any use of the information to criminally investigate or prosecute any alcohol or drug abuse patient.[facility] Encounter Details Date Type Department Care Team (Late st Contact Info) Description 05/17/2022 Patient Msg Medical Records [address] [place] [address] Provider, Ccf Questionnaire Submission Social History Tobacco [...] N ot on file 03/31/2022 Data from: https://www.neighborhoodatlas.[facility]/. 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
--- OUTSIDE RECORDS SUMMARY | 2024-10-16 11:44 | XMS_ITS | Encounter Summary ---
Author Organization [facility] Address [facility] [place] [address] Care Team Providers Care Environmental Services Technician Name Role Phone Harsh Matt Herrera DO Primary Care Provider [phone] Suleiman Santana MD Unavailable Amilcar Cervantes MD Unavailable [phone] Source Comments In the event this information is protected by the Federal Confidentiality of Alcohol and Drug AbusePatient Records regulations: The Federal rules restrict any use of the information to criminally investigate or prosecute any alcohol or drug abuse patient.[facility] Encounter Details Date Type Department Care Team (Late st Contact Info) Description 08/11/2016 Patient Msg Otolaryngology [address] [address] Missy Andersen MD [address] [place] [address] RE: Request an Appointment Social [...] 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
--- OUTSIDE RECORDS SUMMARY | 2024-10-16 11:44 | XMS_ITS | Encounter Summary ---
Author Organization [facility] Address [address] [place] [address] Care Team Providers Care Edger Liner Name Role Phone HarshMatt Javier RIDDLE Primary Care Provider [phone] Suleiman Snatana MD Unavailable Amilcar Cervantes MD Unavailable [phone] Source Comments In the event this information is protected by the Federal Confidentiality of Alcohol and Drug AbusePatient Records regulations: The Federal rules restrict any use of the information to criminally investigate or prosecute any alcohol or drug abuse patient.[facility] Encounter Details Date Type Department Care Team (Late st Contact Info) Description 09/02/2021 Get Medical Advice Cardiology [address] [place] [address] Amilcar Cervantes MD [address] [place] [address] Heart question Social History Tobacco [...] N ot on file 08/07/2021 Data from: https://www.neighborhoodatlas.medicine.[facility]/. 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
--- OUTSIDE RECORDS SUMMARY | 2024-10-16 11:44 | XMS_ITS | Encounter Summary ---
Author Organization [facility] Address [address] [place] [address] Care Team Providers Care Hall Clerk Name Role Phone Matt House DO Primary Care Provider [phone] Suleiman Santana MD Unavailable Amilcar Cervantes MD Unavailable [phone] Source Comments In the event this information is protected by the Federal Confidentiality of Alcohol and Drug AbusePatient Records regulations: The Federal rules restrict any use of the information to criminally investigate or prosecute any alcohol or drug abuse patient.[facility] Encounter Details Date Type Department Care Team (Late st Contact Info) Description 08/12/2023 [place] [address] Provider, Ccf Actionable Imaging Result Notification Patient [...] is lower risk 8 09/17/2022 Data from: https://www.neighborhoodatlas.[facility]/. 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
--- OUTSIDE RECORDS SUMMARY | 2024-10-16 11:44 | XMS_ITS | Encounter Summary ---
Author Organization [facility] Address [address] [place] [address] Care Team Providers Care Hospice Massage Therapist Name Role Phone Matt House DO Primary Care Provider [phone] Amilcar Cervantes MD Unavailable [phone] Suleiman Santana MD Unavailable Amilcar Cervantes MD Unavailable [phone] Source Comments In the event this information is protected by the Federal Confidentiality of Alcohol and Drug AbusePatient Records regulations: The Federal rules restrict any use of the information to criminally investigate or prosecute any alcohol or drug abuse patient.[facility] Encounter Details Date Type Department Care Team (Late st Contact Info) Description 04/01/2014 Patient Msg Medical Records [address] [place] [address] Provider, Ccf RE: Request an Appointment Social [...] on filedocumented in this encounter Care Teams Hospice Massage Therapist Relationship Specialty [place] [address] [place] [address] PCP - General 06/17/00 Amilcar Cervantes MD [address] [place] [address] Primary Staff Physician Cardiology 06/05/14 6 Suleiman Santana MD [address] [place] [address] Primary Staff Physician Cardiology 02/12/21 Amilcar Cervantes MD [address] [facility] [place] [id number] Primary Staff Physician Cardiology 02/12/21 documented as of this encounter
--- OUTSIDE RECORDS SUMMARY | 2024-10-16 11:44 | XMS_ITS | Encounter Summary ---
Author Organization [facility] Address [address] [place] [address] Care Team Providers Care Roofing Supervisor Name Role Phone Matt House DO Primary Care Provider [phone] Amilcar Cervantes MD Unavailable [phone] Suleiman Santana MD Unavailable Amilcar Cervantes MD Unavailable [phone] Source Comments In the event this information is protected by the Federal Confidentiality of Alcohol and Drug AbusePatient Records regulations: The Federal rules restrict any use of the information to criminally investigate or prosecute any alcohol or drug abuse patient.[facility] Encounter Details Date Type Department Care Team (Late st Contact Info) Description 05/16/2014 Patient Msg Medical Records [address] [place] [address] Provider, Ccf RE: Request an Appointment Social [...] filedocumented in this encounter Care Teams Roofing Supervisor Relationship Specialty [place] [address] [place] [address] PCP - General 06/17/00 Amilcar Cervantes MD [address] [place] [address] Primary Staff Physician Cardiology 06/05/14 6 Suleiman Santana MD [address] [place] [address] Primary Staff Physician Cardiology 02/12/21 Amilcar [facility]ervantes MD [address] [facility] [place] [id number] Primary Staff Physician Cardiology 02/12/21 documented as of this encounter
--- OUTSIDE RECORDS SUMMARY | 2024-10-16 11:44 | XMS_ITS | Encounter Summary ---
Author Organization [facility] Address [address] [place] [address] Care Team Providers Care General Office Assistant Name Role Phone Matt House DO Primary Care Provider [phone] Suleiman Santana MD Unavailable Amilcar Cervantes MD Unavailable [phone] Source Comments In the event this information is protected by the Federal Confidentiality of Alcohol and Drug AbusePatient Records regulations: The Federal rules restrict any use of the information to criminally investigate or prosecute any alcohol or drug abuse patient.[facility] Encounter Details Date Type Department Care Team (Late st Contact Info) Description 05/27/2022 Patient Msg Cardiology [address] [place] [address] Provider, Ccf Appointment with Dr. [...] N ot on file 03/31/2022 Data from: https://www.neighborhoodatlas.[facility]/. 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
--- OUTSIDE RECORDS SUMMARY | 2024-10-16 11:44 | XMS_ITS | Encounter Summary ---
Author Organization [facility] Address [address] [place] [address] Care Team Providers Care Chicken Hanger Name Role Phone Matt House DO Primary Care Provider [phone] Suleiman Santana MD Unavailable Amilcar Cervantes MD Unavailable [phone] Source Comments In the event this information is protected by the Federal Confidentiality of Alcohol and Drug AbusePatient Records regulations: The Federal rules restrict any use of the information to criminally investigate or prosecute any alcohol or drug abuse patient.[facility] Encounter Details Date Type Department Care Team (Late st Contact Info) Description 11/09/2021 Get Medical Advice Audiology [address] [place] [phone] Yolie Christie, AuD, [facility] [address] [place] [address] my left hearing aid. Social [...] N ot on file 08/07/2021 Data from: https://www.neighborhoodatlas.medicine.[facility]/. 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
--- OUTSIDE RECORDS SUMMARY | 2024-10-16 11:44 | XMS_ITS | Encounter Summary ---
Author Organization [facility] Address [address] [place] [address] Care Team Providers Care Online Journalist Name Role Phone Matt House DO Primary Care Provider [phone] Amilcar Cervantes MD Unavailable [phone] Suleiman Santana MD Unavailable Amilcar Cervantes MD Unavailable [phone] Source Comments In the event this information is protected by the Federal Confidentiality of Alcohol and Drug AbusePatient Records regulations: The Federal rules restrict any use of the information to criminally investigate or prosecute any alcohol or drug abuse patient.[facility] Encounter Details Date Type Department Care Team (Late st Contact Info) Description 05/22/2012 Patient Msg Medical Records [address] [place] [address] Provider, Ccf RE: Request an Appointment Social [...] filedocumented in this encounter Care Teams Online Journalist Relationship Specialty Start Date End Date Matt House DO [address] [place] [address] PCP - General 06/17/00 Amilcar Cervantes MD [address] [place] [address] Primary Staff Physician Cardiology 06/05/14 6 Suleiman Santana MD [address] [place] [address] Primary Staff Physician Cardiology 02/12/21 Amilcar Cervantes MD [address] [place] [address] Primary Staff Physician Cardiology 02/12/21 documented as of this encounter
--- OUTSIDE RECORDS SUMMARY | 2024-10-16 11:44 | XMS_ITS | Encounter Summary ---
Author Organization [facility] Address [address] [place] [address] Care Team Providers Care Non Destructive Evaluation Technician Name Role Phone Matt House DO Primary Care Provider [phone] Amilcar Cervantes MD Unavailable [phone] Suleiman Santana MD Unavailable Amilcar Cervantes MD Unavailable [phone] Source Comments In the event this information is protected by the Federal Confidentiality of Alcohol and Drug AbusePatient Records regulations: The Federal rules restrict any use of the information to criminally investigate or prosecute any alcohol or drug abuse patient.[facility] Encounter Details Date Type Department Care Team (Late st Contact Info) Description 05/16/2014 Patient Msg Medical Records [address] [place] [address] Provider, Ccf RE: Appointment Cancellation Request Social [...] on filedocumented in this encounter Care Teams Non Destructive Evaluation Technician Relationship Specialty [place] [address] [place] [address] PCP - General 06/17/00 Amilcar Cervantes MD [address] [place] [address] Primary Staff Physician Cardiology 06/05/14 6 Suleiman Santana MD [address] [place] [address] Primary Staff Physician Cardiology 02/12/21 Amilcar Cervantes MD [address] [place] [id number] Primary Staff Physician Cardiology 02/12/21 documented as of this encounter
--- OUTSIDE RECORDS SUMMARY | 2024-10-16 11:44 | XMS_ITS | Encounter Summary ---
Author Organization [facility] Address [address] [place] [address] Care Team Providers Care Health Sciences Manager Name Role Phone Harsh Matt Herrera DO Primary Care Provider [phone] Suleiman Santana MD Unavailable Amilcar Cervantes MD Unavailable [phone] Source Comments In the event this information is protected by the Federal Confidentiality of Alcohol and Drug AbusePatient Records regulations: The Federal rules restrict any use of the information to criminally investigate or prosecute any alcohol or drug abuse patient.[facility] Encounter Details Date Type Department Care Team (Late st Contact Info) Description 07/27/2018 Patient Msg Otolaryngology [address] [place], [place] [id number] Yolie Christie, [place]icia, [facility] [address] [place], [place] [phone] RE:ENT/Voice physician Social History Tobacco Use Types [...] 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
--- OUTSIDE RECORDS SUMMARY | 2024-10-16 11:44 | XMS_ITS | Encounter Summary ---
Author Organization [facility] Address [address] [place] [address] Care Team Providers Care Frame Catcher Name Role Phone Matt House DO Primary Care Provider [phone] Amilcar Cervantes MD Unavailable [phone] Suleiman Santana MD Unavailable Amilcar Cervantes MD Unavailable [phone] Source Comments In the event this information is protected by the Federal Confidentiality of Alcohol and Drug AbusePatient Records regulations: The Federal rules restrict any use of the information to criminally investigate or prosecute any alcohol or drug abuse patient.[facility] Encounter Details Date Type Department Care Team (Late st Contact Info) Description 09/22/2007 Patient Msg Medical Records [address] [place] [address] Provider, Ccf RE: Appointment Cancellation Request Social [...] on filedocumented in this encounter Care Teams Frame Catcher Relationship Specialty Start Date End Date Matt House DO [address] [place] [address] PCP - General 06/17/00 Amilcar Cervantes MD [address] [place] [address] Primary Staff Physician Cardiology 06/05/14 6 Suleiman Santana MD [address] [place], [place] [id number] Primary Staff Physician Cardiology 02/12/21 Amilcar Cervantes MD [address] [place] [address] Primary Staff Physician Cardiology 02/12/21 documented as of this encounter
--- OUTSIDE RECORDS SUMMARY | 2024-10-16 11:44 | XMS_ITS | Encounter Summary ---
Author Organization [facility] Address [address] [place] [address] Care Team Providers Care Cable Engineer Name Role Phone HarshMatt Javier RIDDLE Primary Care Provider [phone] Suleiman Santana MD Unavailable Amilcar Cervantes MD Unavailable [phone] Source Comments In the event this information is protected by the Federal Confidentiality of Alcohol and Drug AbusePatient Records regulations: The Federal rules restrict any use of the information to criminally investigate or prosecute any alcohol or drug abuse patient.[facility] Encounter Details Date Type Department Care Team (Late st Contact Info) Description 08/17/2023 Patient Msg Cardiology [address] [place] [address] Amilcar Cervantes MD [address] [place] [address] CT Results Social History Tobacco [...] is lower risk 8 09/17/2022 Data from: https://www.neighborhoodatlas.medicine.[facility]/. 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
--- OUTSIDE RECORDS SUMMARY | 2024-10-16 11:44 | XMS_ITS | Encounter Summary ---
Author Organization [facility] Address [address] [place] [address] Care Team Providers Care Family Law Legal Assistant Name Role Phone HarshMatt Javier RIDDLE Primary Care Provider [phone] Suleiman Santana MD Unavailable Amilcar Cervantes MD Unavailable [phone] Source Comments In the event this information is protected by the Federal Confidentiality of Alcohol and Drug AbusePatient Records regulations: The Federal rules restrict any use of the information to criminally investigate or prosecute any alcohol or drug abuse patient.[facility] Encounter Details Date Type Department Care Team (Late st Contact Info) Description 08/16/2022 Patient Msg Cardiology [address] [place] [address] Amilcar Cervantes MD [address] [place] [address] Oct 27 Appt Social History [...] N ot on file 03/31/2022 Data from: https://www.neighborhoodatlas.medicine.[facility]/. 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
--- OUTSIDE RECORDS SUMMARY | 2024-10-16 11:44 | XMS_ITS | Encounter Summary ---
Author Organization [facility] Address [address] [place] [address] Care Team Providers Care Java Web Services Developer Name Role Phone Matt House DO Primary Care Provider [phone] Amilcar Cervantes MD Unavailable [phone] Suleiman Santana MD Unavailable Amilcar Cervantes MD Unavailable [phone] Source Comments In the event this information is protected by the Federal Confidentiality of Alcohol and Drug AbusePatient Records regulations: The Federal rules restrict any use of the information to criminally investigate or prosecute any alcohol or drug abuse patient.[facility] Encounter Details Date Type Department Care Team (Late st Contact Info) Description 05/22/2012 Patient Msg Medical Records [address] [place] [address] Provider, Ccf RE: Request an Appointment Social [...] on filedocumented in this encounter Care Teams Java Web Services Developer Relationship Specialty Start Date End Date Matt House DO [address] [place] [address] PCP - General 06/17/00 Amilcar Cervantes MD [address] [place] [address] Primary Staff Physician Cardiology 06/05/14 6 Suleiman Santana MD [address] [place] [address] Primary Staff Physician Cardiology 02/12/21 Amilcar Cervantes MD [address] [place] [address] Primary Staff Physician Cardiology 02/12/21 documented as of this encounter
--- OUTSIDE RECORDS SUMMARY | 2024-10-16 11:44 | XMS_ITS | Encounter Summary ---
Author Organization [facility] Address [address] [place] [address] Care Team Providers Care Loader Operator/Ground Leader Name Role Phone Matt House DO Primary Care Provider [phone] Amilcar Cervantes MD Unavailable [phone] Suleiman Santana MD Unavailable Amilcar Cervantes MD Unavailable [phone] Source Comments In the event this information is protected by the Federal Confidentiality of Alcohol and Drug AbusePatient Records regulations: The Federal rules restrict any use of the information to criminally investigate or prosecute any alcohol or drug abuse patient.[facility] Encounter Details Date Type Department Care Team (Late st Contact Info) Description 08/26/2014 Patient Msg Medical Records [address] [place] [address] Provider, Ccf Appointments Social History Tobacco Use [...] 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
--- OUTSIDE RECORDS SUMMARY | 2024-10-16 11:44 | XMS_ITS | Encounter Summary ---
Author Organization [facility] Address [address] [place] [address] Care Team Providers Care Learning Services Coordinator Name Role Phone Matt House DO Primary Care Provider [phone] Amilcar Cervantes MD Unavailable [phone] Suleiman Santana MD Unavailable Amilcar Cervantes MD Unavailable [phone] Source Comments In the event this information is protected by the Federal Confidentiality of Alcohol and Drug AbusePatient Records regulations: The Federal rules restrict any use of the information to criminally investigate or prosecute any alcohol or drug abuse patient.[facility] Encounter Details Date Type Department Care Team (Late st Contact Info) Description 05/16/2014 Patient Msg Medical Records [address] [place] [address] Provider, Ccf RE: Request an Appointment Social [...] on filedocumented in this encounter Care Teams Learning Services Coordinator Relationship Specialty [place] [address] [place] [address] PCP - General 06/17/00 Amilcar Cervantes MD [address] [place] [address] Primary Staff Physician Cardiology 06/05/14 6 Suleiman Santana MD [address] [place] [address] Primary Staff Physician Cardiology 02/12/21 Amilcar Cervantes MD [address] [facility] [place] [id number] Primary Staff Physician Cardiology 02/12/21 documented as of this encounter
--- OUTSIDE RECORDS SUMMARY | 2024-10-16 11:44 | XMS_ITS | Encounter Summary ---
Author Organization [facility] Address [address] [place] [address] Care Team Providers Care Trade Union Official Name Role Phone Harsh Matt Herrera DO Primary Care Provider [phone] Suleiman Santana MD Unavailable Amilcar Cervantes MD Unavailable [phone] Source Comments In the event this information is protected by the Federal Confidentiality of Alcohol and Drug AbusePatient Records regulations: The Federal rules restrict any use of the information to criminally investigate or prosecute any alcohol or drug abuse patient.[facility] Encounter Details Date Type Department Care Team (Late st Contact Info) Description 10/12/2022 Get Medical Advice Audiology [address] [place] [id number] Yolie Christie, AuD, [facility] [address] [place] [address] left hearing aid Social History [...] is lower risk 8 09/17/2022 Data from: https://www.neighborhoodatlas.medicine.[facility]/. 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
--- OUTSIDE RECORDS SUMMARY | 2024-10-16 11:44 | XMS_ITS | Encounter Summary ---
Author Organization [facility] Address [facility] [place] [address] Care Team Providers Care Operations Forester Name Role Phone Matt House DO Primary Care Provider [phone] Suleiman Santana MD Unavailable Amilcar Cervantes MD Unavailable [phone] Source Comments In the event this information is protected by the Federal Confidentiality of Alcohol and Drug AbusePatient Records regulations: The Federal rules restrict any use of the information to criminally investigate or prosecute any alcohol or drug abuse patient.[facility] Encounter Details Date Type Department Care Team (Late st Contact Info) Description 09/02/2017 Patient Msg Medical Records [address] [place] [address] Provider, Ccf RE:recommendations Social History Tobacco Use [...] 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
--- OUTSIDE RECORDS SUMMARY | 2024-10-16 11:44 | XMS_ITS | Encounter Summary ---
Author Organization [facility] Address [address] [place] [address] Care Team Providers Care Utilization Specialist Name Role Phone Matt House DO Primary Care Provider [phone] Suleiman Santana MD Unavailable Amilcar Cervantes MD Unavailable [phone] Source Comments In the event this information is protected by the Federal Confidentiality of Alcohol and Drug AbusePatient Records regulations: The Federal rules restrict any use of the information to criminally investigate or prosecute any alcohol or drug abuse patient.[facility] Encounter Details Date Type Department Care Team (Late st Contact Info) Description 07/16/2019 Patient Msg Head and Neck Sylvester [address] [place] [address] Provider, Ccf New Upcoming Appointment Social History [...] 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
--- OUTSIDE RECORDS SUMMARY | 2024-10-16 11:44 | XMS_ITS | Encounter Summary ---
Author Organization [facility] Address [address] [place] [address] Care Team Providers Care Trencher Driver Name Role Phone Matt House DO Primary Care Provider [phone] Amilcar Cervantes MD Unavailable [phone] Suleiman Santana MD Unavailable Amilcar Cervantes MD Unavailable [phone] Source Comments In the event this information is protected by the Federal Confidentiality of Alcohol and Drug AbusePatient Records regulations: The Federal rules restrict any use of the information to criminally investigate or prosecute any alcohol or drug abuse patient.[facility] Encounter Details Date Type Department Care Team (Late st Contact Info) Description 07/02/2014 Patient Msg Medical Records [address] [place] [address] Provider, Ccf Appointments Social History Tobacco Use [...] on filedocumented in this encounter Care Teams Trencher Driver Relationship Specialty Start Date End Date Matt House DO [address] [place] [address] PCP - General 06/17/00 Amilcar Cervantes MD [address] [place] [address] Primary Staff Physician Cardiology 06/05/14 6 Suleiman Santana MD [address] [place] [address] Primary Staff Physician Cardiology 02/12/21 Amilcar Cervantes MD [address] [place] [address] Primary Staff Physician Cardiology 02/12/21 documented as of this encounter
--- OUTSIDE RECORDS SUMMARY | 2024-10-16 11:44 | XMS_ITS | Encounter Summary ---
Author Organization [facility] Address [facility] [place] [address] Care Team Providers Care Nurse Transplant Name Role Phone Harsh Matt Herrera DO Primary Care Provider [phone] Suleiman Santana MD Unavailable Amilcar Cervantes MD Unavailable [phone] Source Comments In the event this information is protected by the Federal Confidentiality of Alcohol and Drug AbusePatient Records regulations: The Federal rules restrict any use of the information to criminally investigate or prosecute any alcohol or drug abuse patient.[facility] Encounter Details Date Type Department Care Team (Late st Contact Info) Description 04/24/2018 Patient Msg Otolaryngology [address] [place] [address] Lucina Caicedo APRN.[facility] [address] [place] [address] RE:Ear drainage Social History Tobacco [...] 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
--- OUTSIDE RECORDS SUMMARY | 2024-10-16 11:44 | XMS_ITS | Encounter Summary ---
Author Organization [facility] Address [address] [place] [address] Care Team Providers Care Seismology Technical Officer Name Role Phone Harsh Matt Herrera DO Primary Care Provider [phone] Suleiman Santana MD Unavailable Amilcar Cervantes MD Unavailable [phone] Source Comments In the event this information is protected by the Federal Confidentiality of Alcohol and Drug AbusePatient Records regulations: The Federal rules restrict any use of the information to criminally investigate or prosecute any alcohol or drug abuse patient.[facility] Encounter Details Date Type Department Care Team (Late st Contact Info) Description 10/21/2020 Get Medical Advice Audiology [address] [place] [address] ColbornMarcosn, AUD [address] [place] [address] RE: Visit Follow Up Question [...] N ot on file 02/09/2020 Data from: https://www.neighborhoodatlas.medicine.[facility]/. 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
--- OUTSIDE RECORDS SUMMARY | 2024-10-16 11:44 | XMS_ITS | Encounter Summary ---
Author Organization [facility] Address [address] [place] [address] Care Team Providers Care Jewelry Making Instructor Name Role Phone HarshMatt Javier RIDDLE Primary Care Provider [phone] Suleiman Santana MD Unavailable Amilcar Cervantes MD Unavailable [phone] Source Comments In the event this information is protected by the Federal Confidentiality of Alcohol and Drug AbusePatient Records regulations: The Federal rules restrict any use of the information to criminally investigate or prosecute any alcohol or drug abuse patient.[facility] Encounter Details Date Type Department Care Team (Late st Contact Info) Description 05/17/2022 Get Medical Advice Cardiology [address] [place] [address] Amilcar Cervantes MD [address] [place] [address] appointment Social History Tobacco Use [...] on file 03/31/2022 Data from: https://www.neighborhoodatlas.medicine.[facility]/. 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
--- OUTSIDE RECORDS SUMMARY | 2024-10-16 11:44 | XMS_ITS | Encounter Summary ---
Author Organization [facility] Address [address] [place] [address] Care Team Providers Care Loading Unit Operator Seating Name Role Phone Harsh Matt Herrera DO Primary Care Provider [phone] Suleiman Santana MD Unavailable Amilcar Cervantes MD Unavailable [phone] Source Comments In the event this information is protected by the Federal Confidentiality of Alcohol and Drug AbusePatient Records regulations: The Federal rules restrict any use of the information to criminally investigate or prosecute any alcohol or drug abuse patient.[facility] Encounter Details Date Type Department Care Team (Late st Contact Info) Description 07/31/2021 Patient Msg Audiology [address] [place] [address] Yolie Christie, Leticia, [facility] [address] [place] [address] Request an Appointment Social History [...] N ot on file 02/09/2020 Data from: https://www.neighborhoodatlas.medicine.[facility]/. 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
== END 2024-10-16 11:42 | disposition home or self-care (01) ==
LOC: WC 11:41
PROVIDERS: PCP Internal Medicine; Visit Provider Physician Assistant
DX: I87.311 Chronic venous hypertension (idiopathic) with ulcer of right lower extremity (principal); L97.812 Non-pressure chronic ulcer of other part of right lower leg with fat layer exposed
CPT/HCPCS: G0463

== ENCOUNTER 2024-10-22 12:58 | Outpatient (RCR) | payer MEDICARE, SELFPAY | END 2024-11-24 11:10 | disposition home or self-care (01) | LOC: OT 12:58 | PROVIDERS: PCP Internal Medicine; Visit Provider Physician Assistant | DX: I89.0 Lymphedema, not elsewhere classified (principal) | CPT/HCPCS: 97140; 97167; 97535 ==

== ENCOUNTER 2024-11-05 00:37 | Outpatient (RCR) | payer MEDICARE, SELFPAY | END 2024-12-04 15:42 | disposition home or self-care (01) | LOC: MM 00:37 | PROVIDERS: PCP Internal Medicine; Visit Provider Internal Medicine | DX: Z51.81 Encounter for therapeutic drug level monitoring (principal); Z79.01 Long term (current) use of anticoagulants; I48.91 Unspecified atrial fibrillation | CPT/HCPCS: 85610; G0463 ==

== ENCOUNTER 2024-11-06 11:44 | Outpatient (OUT) | payer MEDICARE, SELFPAY ==
--- OUTSIDE RECORDS SUMMARY | 2011-04-30 05:00 | XMS_ITS | Continuity of Care Document ---
Author Organization [facility] Address [address] [address] Phone Care Team Providers Care Ur Coordinator Name Role Phone Griffin Bonilla Unavailable Unavailable Procedures Procedure Date Hearing Services Advance Directives Directive Yes / No Effective Date File Name No Information Encounters Encounter Description Practice Location Reason(s) For Visit Diagnoses Date Provider Providers Copied on Encounter [facility], [address], [id number], tel:[phone] [facility] No Information Irene Moya. [address], [id number], . tel:[phone] Referring Provider: Griffin Bonilla, [address] [place] [address], [id number]. tel:[phone] Family History Family Member Type Diagnosis Age At Onset No Information Payers Payer name Insurance type Covered libertarian ID Authoriza tion(s) No Information Social History Type Description Quantity Date Captured Comments Sex Male Smoking Status No Information Chief Complaint And Reason For Visit No Information Reason For Referral Reason For Referral No Information History Of Present Illness Encounter Date Complaint History Of Prese nt Illness No Information Functional Status Date Functional Assessmen t No Information Instructions Date Instruction Additional Infor mation No Information Assessments Type Assessment Date No Information Patient Care Teams Name Effective Dates (start - stop) Status Members No Information
--- OUTSIDE RECORDS SUMMARY | 2024-11-06 11:46 | XMS_ITS | Clinical Summary ---
Author Organization [facility] Address [address] [facility] [place] [address] Care Team Providers Care Electrical Subcontractor Name Role Phone Matt House DO Primary Care Provider [phone] Allergies Active Allergy Reactions Criticality Noted Date [...] EXCEED 3 DOSES IN 15 MINUTES. Active [place]-3 Fatty Acids (Fish Oil Maximum Strength) 1200 [...] carcinoma (BCC) of right lower eyelid 07/29/2022 Family History Medical History Relation Name Comments [...] 08/01/2025 10:30 AM EDT Office Visit [facility] [address] [place] [address] Sharla Carpio MD [address] [place] [address] Health Maintenance Due Date Last Done Comments Pneumococcal Vaccine: 65+ Ye ars (1 of 1 - PCV) 1985 Influenza Vaccine (#1) 2024 4, 12/17/2022, 12/09/2021, Additional history exists Insurance MEDICARE [facility] Care Teams Electrical Subcontractor Relationship Specialty Start Date End Date Matt House DO PCP - General Internal Medicine 07/29/22
--- OUTSIDE RECORDS SUMMARY | 2024-11-06 11:46 | XMS_ITS | Encounter Summary ---
Author Organization [facility] Address [address] [place] [address] Care Team Providers Care Cyber Security Specialist Name Role Phone Matt House DO Primary Care Provider Encounter Details Date Type Department Care Team (Late Contact Info) Description 09/28/2022 Abstract [facility] [address] [facility] [address] [place] [address] Clovis Martin DPSharri [address] [facility] [address] [place] [address] Social History Tobacco Use Types Packs/Day Years [...] Encounters Date Type Department Care Team (Late Contact Info) Description 08/01/2025 10:30 AM EDT Office Visit [facility] [address] [place] [id number] Sharla Carpio MD [address] [place] [address] documented as of this encounter Visit Diagnoses Not on filedocumented in this encounter Care Teams Cyber Security Specialist Relationship Specialty Start Date End Date Matt House DO PCP - General Internal Medicine 07/29/22 documented as of this encounter
--- OUTSIDE RECORDS SUMMARY | 2024-11-06 11:54 | XMS_ITS | CCD ---
Author Organization 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 Clerical Production Worker Name Role Phone Matt Perkins DO Primary Care Provider Max ZUÑIGA, Suleiman Unavailable Billy ZUÑIGA, Amilcar Solitario Unavailable Matt Perkins Unavailable Matt Perkins DO Primary Care Provider Max ZUÑIGA, Suleiman Unavailable Billy ZUÑIGA, Amilcar L Unavailable FAWWAD, BATES H Admitting Unavailable FAWWAD, BATES H Attending Unavailable BALL, DR MCMULLEN Primary Care Unavailable FAWWAD, BATES H Admitting Unavailable FAWWAD, BATES H Attending Unavailable BALL, DR MCMULLEN Primary Care Unavailable FAWWAD, BATES H Attending Unavailable BALL, DR MCMULLEN Primary Care Unavailable FAWWAD, BATES H Admitting Unavailable FAWWAD, BATES H Attending Unavailable BALL, DR MCMULLEN Primary Care Unavailable FAWWAD, BATES H Admitting Unavailable FAWWAD, BATES H Admitting Unavailable BALL, DR MCMULLEN Primary Care Unavailable FAWWAD, BATES H Attending Unavailable FAWWAD, BATES H Admitting Unavailable FAWWAD, BATES H Attending Unavailable BALL, DR MCMULLEN Primary Care Unavailable FAWWAD, BATES H Admitting Unavailable FAWWAD, BATES H Attending Unavailable BALL, DR MCMULLEN Primary Care Unavailable FAWWAD, BATES H Admitting Unavailable FAWWAD, BATES H Attending Unavailable BALL, DR MCMULLEN Primary Care Unavailable BALL, DR MCMULLEN Admitting Unavailable BALL, DR MCMULLEN Attending Unavailable BALL, DR MCMULLEN Consulting Unavailable BALL, DR MCMULLEN Primary Care Unavailable FAWWAD, BATES H Admitting Unavailable FAWWAD, BATES H Attending Unavailable DR MATT PERKINS Primary Care Unavailable FAWWAAbelardo, BATES H Admitting Unavailable FAWWAD, BATES H Attending Unavailable DR MATT PERKINS Primary Care Unavailable FAWWAD, BATES H Admitting Unavailable FAWLINDA, BATES H Attending Unavailable DR MATT PERKINS Primary Care Unavailable MATT PERKINS Primary Care Physician Sharla Brower Attending Unavailable Sharla Brower Admitting Unavailable Suleiman Santana MD Unavailable Amilcar Cervantes MD Unavailable Matt Perkins DO Primary Care Provider Matt Perkins MD Primary Care Provider Matt Perkins DO Primary Care Provider SHARLA BROWER Attending Unavailable CHINO FONSECA Attending Unavailable CHINO FONSECA Attending Unavailable JAMAAL JAEGER Attending Unavailable MATT PERKINS Primary Care Unavailable MAYA, EFE Referring Unavailable MATT PERKINS Primary Care Unavailable MATT PERKINS Primary Care Unavailable AMILCAR CERVANTES Attending Unavailable MAYA, EFE Referring Unavailable MATT PERKINS Primary Care Unavailable Allergies Allergy Classification Reported Allergen(s) Allergy Type Date of Onset Reaction(s) Facility Corticosteroids (1 source) predniSONE Drug Allergy 11-01-19 14 Other: See Comments [facility] Work Phone: Doxycycline (1 source) Doxycycline Drug Allergy 07-23-19 12 Swelling [facility] Quinolones (antibiotic) (1 source) levoFLOXacin Drug Allergy 07-29-19 05 Swelling [facility] Work Phone: (20 sources) Doxycycline; Translations: [DOXYCYCLINE] Drug Allergy 07-23-19 12 Swelling, Rash [facility] (20 sources) levoFLOXacin; Translations: [levofloxacin] Drug Allergy 07-29-19 05 Swelling, Congestion of throat (finding), Rash [facility] Work Phone: (20 sources) predniSONE; Translations: [PREDNISONE] Drug Allergy 11-01-19 14 Other: See Comments [facility] Work Phone: (19 sources) adhesives [Other] Propensity to adverse reactions 09-15-19 08 Rash, Itching [facility] (9 sources) levoFLOXacin; Translations: [Levaquin] Drug Allergy 06-30-19 14 swelling in throat [facility] (7 sources) Adhesive Bandages Drug allergy Unknown [facility] Other (1 source) Doxycycline Drug Allergy 06-30-19 14 [facility] (2 sources) Adhesive Tape; Translations: [Tape] Propensity to adverse reactions to substance Eruption of skin (disorder) [facility] (5 sources) Lisinopril Drug Allergy 08-19-19 16 Unknown, Unknown Reaction [facility] (3 sources) corticosteroid and/or corticosteroid derivative (FN) Drug allergy Unknown [facility] Other (1 source) patient allergy list reviewed by nurse or physicia Propensity to adverse reactions 12-19-19 15 Comment:Done [facility] Other (6 sources) Adhesive agent; Translations: [ADHESIVE] Drug Allergy 07-14-19 24 Rash, Itching [facility] (2 sources) Corticosteroids Allergy to substance 10-03-19 24 Unknown Reaction [facility] (5 sources) Lidocaine Drug Allergy 06-25-19 23 Anaphylaxis [facility] (5 sources) prednisoLONE Drug Allergy 07-30-19 23 [facility] (5 sources) Prednisone Allergy to substance 11-01-19 14 Anaphylaxis, Rash [facility] (5 sources) Wound Dressing Adhesive Drug Allergy 07-30-19 23 Rash [facility] Medications Current Medications Medication Drug Class(es) Dates Sig (Normalized) Sig (Original) amLODIPine 2.5 mg oral tablet (20 sources) Dihydropyridine Calcium Channel Dev Start: 07-25-2023 take 1 tablet by mouth once daily Amlodipine Active 0 .ROUTE .COMPLEX 90 July 25, 2023 1:04pm TAKE 1 TABLET BY MOUTH ONCE DAILY Start: 07-25-2023 End: 07-25-2023 take 2.5 mg by mouth once daily Amlodipine Discontinue d 2.5 MG PO Daily July 25, 2023 12:00am July 25, 2023 1:04pm Start: 07-20-2017 take 2.5 mg by mouth once daily, then take 2.5 mg by mouth once daily amLODIPine (NORVASC) 5 mg tablet Indications: Essential hypertension, benign Take 2.5 mg by mouth once daily. Patient states he is only taking 2.5mg daily 90 tablet 3 07/20/2017 Active Start: 09-16-2009 take 1 tablet by darwin th once daily amlodipine 5 mg oral tablet 5 mg = 1 tab(s), Oral, Daily, Refills(s) 0 Start Date: 09/16/09 Status: Ordered Comment on above: Take 2.5 mg by mouth once daily. Patient states he is only taking 2.5mg daily Aspir 81 (1 source) Start: 0 take 81 mg by mouth once daily Aspir 81 81 mg, Oral, Daily, Refills(s) 0 Start Date: 09/16/09 Status: Ordered benazepril hydrochloride 20 mg oral tablet (20 sources) Angiotensin Converting Enzyme Inhibitor Start: 4 take 20 mg by mouth once daily Benazepril Active 20 MG PO Daily October 03, 2023 12:00am Comment on above: Take 1 tablet by darwin th once daily. Calcium (1 source) Phosphate Binder, Calcium Start: 0 Calcium 600 D Tab Oral, TID, 0 Start Date: 09/16/09 Status: Ordered calcium carbonate 1500 mg oral tablet (9 sources) Start: 4 take 600 mg by mouth once daily Calcium Carbonate Active 600 MG PO Daily October 03, 2023 12:00am take 1 tablet by darwin th every twenty-four hours Calcium 600 MG 1 tablet with food Orally Once a day Active cefdinir 300 mg oral capsule (5 sources) Cephalosporin Antibacterial Start: 04-14-2022 take 1 capsule by mouth twice daily cefdinir (Omnicef) 300 MG capsule TAKE 1 CAPSULE BY MOUTH TWICE A DAY FOR 10 DAYS DIRECTED 04/14/2022 Active Centrum Silver (7 sources) Centrum Silver O rally daily Active ciprofloxacin 3 mg/ml / dexamethasone 1 mg/ml otic suspension (2 sources) Corticosteroid, Quinolone Antimicrobial Ciprofloxacin-dexAME T Hasone 0.3-0.1 % 4 drops into affected ear Otic Twice a day for 7 days Active 0.8 ml enoxaparin sodium 100 mg/ml prefilled syringe (5 sources) Low Molecular Weight Heparin Start: 04-23-2022 inject 80 mg by subcutaneous injection every twelve hours Enoxaparin Sodium 80 MG/0.8ML solution prefilled syringe Inject 80 mg under the skin every 12 (twelve) hours. 04/23/2022 Active Fish Oil oral capsule (1 source) Start: 09-16-2009 Fish Oil oral capsule 0 Start Date: 09/16/09 Status: Ordered hydroCHLOROthiazide 25 mg oral tablet (20 sources) Thiazide Diuretic Start: 09-27-2021 hydroCHLOROthiazide (HYDRODiuril) 25 MG tablet 09/27/2021 Active Start: 08-09-2019 End: 07-14-2023 take 2 capsules by mouth once daily Hydrochlorothiazide 12.5 mg capsule Indications: Essential hypertension, benign Take 2 capsules by mouth once daily. 180 capsule 3 08/09/2019 07/14/2023 Discontinued (Discontinued by another Health Care Provider) hydroCHLOROthiaz kaden (Microzide) 12.5 MG capsule 1 (one) time each day at the same time. Active Comment on above: Take 2 capsules by m outh once daily. iv contrast (will be provided with radiology test) (1 source) Start: End: inject 1 dose intravenously once iv contrast (will be provided with radiology test) CTA Chest. No IV access, insert saline lock prior to the sedation, infusion, injection for imaging exam. Discontinue saline lock post exam. If Pt. has a central line or IVAD, may access for administration according to line specific nursing protocol. Once exam is complete flush line and de-access according to line specific nursing protocol in the CT contrast administration guidelines link. 1 Each 0 07/14/2023 07/15/2023 Active lisinopril 20 mg oral tablet (1 source) Angiotensin Converting Enzyme Inhibitor Start: 010 take 1 tablet by mouth once daily lisinopril 20 mg oral tablet 20 mg = 1 tab(s), Oral, Daily, Refills(s) 0 Start Date: 09/16/09 Status: Ordered 24 hr metoprolol succinate 50 mg extended release oral tablet (20 sources) beta-Adrenergic Dev Start: 023 take 1 tablet by mouth every twenty-four hours in the morning metoprolol succinate XL (Toprol-XL) 50 MG 24 hr tablet Take 50 mg by mouth in the morning. 05/03/2022 Active Start: 09-24-2016 take 50 mg by mouth once daily Metoprolol Succinate Active 50 MG PO Daily October 03, 2023 12:00am Start: 09-16-2009 metoprolol 50 mg Tab Refills(s) 0 Start Date: 09/16/09 Status: Ordered Comment on above: TAKE 1 TABLET BY DARWIN TH ONCE DAILY MULTIVITAMIN TABLET (20 sources) Start: 12-19-2002 MULTIVITAMIN TABLET Take one(1) tablet daily. 0 12/19/2002 Active Comment on above: Take one(1) tablet d aily. nitroglycerin 0.4 mg sublingual tablet (20 sources) Nitrate Vasodilator Start: 01-02-2008 Nitroglycerin Active 0.4 MG SUBLINGUAL every 5 to 15 minutes October 03, 2023 12:00am nitroglycerin (N itrostat) 0.[address] 1 TABLET (0.4 MG) BY SUBLINGUAL ROUTE EVERY 5 MINUTES NEEDEDFOR CHEST PAIN. DO NOT EXCEED 3 DOSES IN 15 MINUTES. Active Comment on above: as needed Bement 3 (7 sources) take 1 capsule by mouth once daily Bement 3 1 capsule Orally Once a day Active Bement-3 Fatty Acids (Fish Oil Maximum Strength) 1200 MG capsule delayed-release (5 sources) take 1 capsule by mouth in the morning Bement-3 Fatty Acids (Fish Oil Maximum Strength) 1200 MG capsule delayed-release Take 1 capsule by mouth in the morning. Active Omeprazole (20 sources) Proton Pump Inhibitor Start: take 1 capsule by mouth once daily at breakfast Omeprazole Active 0 .ROUTE .COMPLEX 90 October 14, 2023 8:56am TAKE 1 CAPSULE BY MOUTH DAILY ON AN EMPTY STOMACH FOLLOWED IN 30 MINUTES BY BREAKFAST Start: 10-03-2023 End: 10-14-2023 take 20 mg by mouth once daily Omeprazole Discontinued 20 MG PO Daily October 03, 2023 12:00am October 14, 2023 8:56am Start: 09-27-2021 omeprazole (Pr iLOSEC) [address] capsule 09/27/2021 Active Start: 08-13-2015 take 1 capsule by mouth once O MEPRAZOLE 20 mg ORAL capsule Take 20 mg every Wed and Sat 08/13/2015 Active take 1 tablet by darwin th every twenty-four hours Omeprazole 20 MG 1 capsule Orally Once a day Active Comment on above: Take 20 mg every Wed and Sat perflutren lipid microspheres 1.3 mL in NaCl (PF) 0.9% 10 mL injection (DEFINITY) (20 sources) Start: 11-03-2022 End: 02-02-2024 perflutren lipid microspheres 1.3 mL in NaCl (PF) 0.9% 10 mL injection (DEFINITY) Start: 05-27-2022 End: 08-26-2023 perflutren lipid microsphere s 1.3 mL in NaCl (PF) 0.9% 10 mL injection (DEFINITY) Start: 07-24-2020 End: 10-23-2021 perflutren lipid microsphere s 1.3 mL in NaCl (PF) 0.9% 10 mL injection (DEFINITY) Start: 07-21-2020 End: 10-20-2021 perflutren lipid microsphere s 1.3 mL in NaCl (PF) 0.9% 10 mL injection (DEFINITY) potassium chloride 10 meq extended release oral tablet (20 sources) Start: 10-03-2023 Potassium Chlo ride (Klor-Con 10) 10 mEq tablet extended release Active 10 MEQ PO Twice daily October 03, 2023 12:00am Start: 05-11-2022 take 1 tablet by darwin th once daily KLOR-CON 10 MEQ ER tablet TAKE 1 TABLET (10 MEQ TOTAL) BY MOUTH 1 (ONE) TIME EACH DAY. DO NOT CRUSH, CHEW, OR SPLIT. 05/11/2022 Active Start: 05-10-2022 take 1 tablet by darwin th in the morning potassium chloride CR (Klor-Con M10) 10 MEQ ER tablet Take 1 tablet by mouth in the morning. 05/10/2022 Active take 1 tablet by darwin th every twelve hours Klor-Con 10 10 MEQ 1 tablet with food Orally Twice a day Active Comment on above: Take by mouth once d aily. pravastatin sodium 20 mg oral tablet (20 sources) HMG-CoA Reductase Inhibitor Start: take 1 tablet by mouth once daily in the evening Pravastatin Active 0 .ROUTE .COMPLEX 90 July 25, 2023 1:04pm TAKE 1 TABLET BY MOUTH DAILY IN THE EVENING Start: 11-27-2013 End: 07-25-2023 pravastatin (Pravachol) 20 M G tablet 1 (one) time each day at the same time. 01/03/2022 Active Comment on above: Take [address] [facility] daily at bedtime. simvastatin 40 mg oral tablet (1 source) HMG-CoA Reductase Inhibitor Start: 0 take 1 tablet by mouth once daily at bedtime simvastatin 40 mg oral tablet 40 mg = 1 tab(s), Oral, Once a day (at bedtime), Refills(s) 0 Start Date: 09/16/09 Status: Ordered 125 ml sodium chloride 9 mg/ml prefilled syringe (20 sources) Start: End: 4 sodium chloride 0.9 % (flush) 10 mL (BD POSIFLUSH) Start: 07-21-2020 End: 10-23-2021 sodium chloride 0.9 % (flush ) 10 mL (BD POSIFLUSH) sulfamethoxazole 800 mg / trimethoprim 160 mg oral tablet (5 sources) Dihydrofolate Reductase Inhibitor Antibacterial, Sulfonamide Antimicrobial Start: 04-19-2022 take 1 tablet by mouth once in the morning, then take 1 tablet by mouth once at bedtime sulfamethoxazole-trimethoprim (Bactrim DS) 800-160 MG per tablet Take 1 tablet by mouth in the morning and 1 tablet before bedtime. 04/19/2022 Active tamsulosin hydrochloride 0.4 mg oral capsule (14 sources) alpha-Adrenergic Dev Start: 10-03-2023 take 0.4 mg by mouth once daily Tamsulosin Active 0.4 MG PO Daily October 03, 2023 12:00am Start: 04-22-2022 tamsulosin (Fl omax) 0.4 MG 24 hr capsule 04/22/2022 Active take 1 capsule by [facility] every twenty-four hours Tamsulosin HCl 0.4 MG 1 capsule Orally Once a day Active triazolam 0.25 mg oral tablet (5 sources) Benzodiazepine Start: 04-14-2022 triazolam (Halcion) 0.25 MG tablet TAKE 1 TABLET BY MOUTH PRIOR TO PROCEDURE NEEDED FOR 1 DAY 04/14/2022 Active vitamin b6 100 mg oral tablet (5 sources) pyridoxine (B-6) 100 MG tablet Active warfarin sodium 6 mg oral tablet (20 sources) Vitamin K Antagonist Start: 10-03-2023 take 6 mg by mouth once daily Warfarin Active 6 MG PO Daily October 03, 2023 12:00am Start: 07-25-2023 take 2 tablets by mo uth once daily Warfarin Active 0 .ROUTE .COMPLEX 180 July 25, 2023 1:04pm TAKE 2 TABLETS BY MOUTH DAILY Start: 07-25-2023 End: 07-25-2023 take 8 mg by mouth once daily Warfarin Discontinued 8 MG PO Daily July 25, 2023 12:00am July 25, 2023 1:04pm Start: 07-16-2022 warfarin (Coum adriano) 4 MG tablet 07/16/2022 Active Start: 08-29-2014 warfarin (COUM ADRIANO) 4 mg tablet Take by mouth. 6 mg - - Tue-Tuesday 4 mg Tue 30 tablet 3 08/29/2014 Active take 2 tablets by mo uth once daily Warfarin Sodium 4 MG TAKE 2 TABLETS BY MOUTH DAILY Active Comment on above: Take by mouth. 6 mg - - Tue 4 mg Tue Completed/Discontinued Medications Medication Drug Class(es) Dates Sig (Normalized) Sig (Original) amoxicillin 500 mg oral capsule (20 sources) Penicillin-class Antibacterial Start: 09-06-2023 End: 10-03-2023 Amoxicillin Discontinued 2000 MG PO As Directed September 06, 2023 9:13pm October 03, 2023 1:29pm Start: 07-25-2017 take 4 capsules by m outh every hour amoxicillin (Amoxil) 500 MG capsule TAKE 4 CAPSULES BY MOUTH 1 HOUR PRIOR TO APPT 04/19/2022 Active Comment on above: TAKE 4 CAPSULES BY M OUTH 1 HOUR PRIOR TO DENTAL APPOINTMENT ASA LOW DOSE 81MG TAB EC (17 sources) Start: 02-12-2003 End: 11-03-2022 ASA LOW DOSE 81MG TAB EC Take one(1) tablet daily. 0 0 02/12/2003 11/03/2022 Discontinued (Course of therapy completed) Start: 02-12-2003 ASA LOW DOSE 8 1MG TAB EC Take one(1) tablet daily. 0 0 02/12/2003 Active Comment on above: Take one(1) tablet d aily. ciprofloxacin 2 mg/ml otic solution (5 sources) Quinolone Antimicrobial End: 12-31-19 ciprofloxacin HCl (CETRAXAL) 0.2 % dpet otic solution 0.25 mL twice daily. 0 12/30/2022 Discontinued (Discontinued by another Health Care Provider) Comment on above: 0.25 mL twice daily. fluticasone / salmeterol (1 source) Corticosteroid, beta2-Adrenergic Agonist Start: 09-17-19 Advair 100 mcg-50 mcg Powder 1 puff(s), Inhalation, q3day, 0 Start Date: 09/16/09 Status: Ordered furosemide 20 mg oral tablet (20 sources) Loop Diuretic Start: 10-03-19 End: 12-06-19 take 20 mg by mouth once daily Furosemide Discontinued 20 MG PO Daily October 24, 2023 11:18am December 06, 2023 8:50pm Start: 04-22-2022 furosemide (La six) 40 MG tablet 04/22/2022 Active Multiple Vitamins Tab (1 source) Start: 09-16-2009 Multiple Vitam ins Tab 1 tab(s), Oral, Daily, 0 Start Date: 09/16/09 Status: Ordered Bement-3 Fatty Acids, FISH OIL, (FISH OIL) 360-1,200 mg cap (19 sources) End: 12-30-2022 take 1 capsule by mouth once daily Bement-3 Fatty Acids, FISH OIL, (FISH OIL) 360-1,200 mg cap Take 1 capsule by mouth once daily. 0 12/30/2022 Discontinued (Discontinued by another Health Care Provider) take 1 capsule by mouth once marco antonio ly Bement-3 Fatty Acids, FISH OIL, (FISH OIL) 360-1,200 mg cap Take 1 capsule by mouth once daily. 0 Active Comment on above: Take 1 capsule by mo ut once daily. Problems Active Problems Problem Classification Problem Date Documented Da te Episodic/Chronic Asthma (1 source) Asthma 05-18-2013 Chronic Cardiac dysrhythmias (20 sources) Paroxysmal ventricular tachycardia; Translations: [Ventricular tachycardia] Onset: 12-19-2002 07-01-2003 Chronic Cataract (1 source) Artificial lens present; Translations: [Presence of intraocular lens] 07-31-2024 Chronic Coagulation and hemorrhagic disorders (20 sources) Platelet count below reference range; Translations: [Thrombocytopenia, unspecified] Onset: 09-21-2007 09-21-2007 Chronic Coronary atherosclerosis and other heart disease (20 sources) Coronary atherosclerosis; Translations: [Atherosclerotic heart disease of false pass coronary artery without angina pectoris] Onset: 10-15-2003 12-27-2021 Chronic Coronary atherosclerosis and other heart disease (20 sources) Patient post percutaneous transluminal coronary angioplasty; Translations: [Coronary angioplasty status] Onset: 02-12-2003 07-01-2003 Episodic Disorders of lipid metabolism (20 sources) Hyperlipidemia; Translations: [Hyperlipidemia, unspecified] Onset: 03-07-1959 08-08-2014 Chronic Esophageal disorders (13 sources) Gastro-esophageal reflux disease with esophagitis; Translations: [Gastroesophageal reflux disease with esophagitis without hemorrhage] Chronic Essential hypertension (20 sources) Benign essential hypertension; Translations: [Essential (primary) hypertension] Onset: 12-19-2002 07-01-2003 Chronic Genitourinary symptoms and ill-defined conditions (1 source) Poor urinary stream Episodic Heart valve disorders (20 sources) Rheumatic mitral valve disease, unspecified; Translations: [Mitral valve disorders] Onset: 12-19-2002 Resolved: 11-03-2013 09-12-2007 Chronic Hyperplasia of prostate (9 sources) Lower urinary tract symptoms due to benign prostatic hypertrophy; Translations: [Benign prostatic hyperplasia with lower urinary tract symptoms] Resolved: 07-15-2020 Chronic Immunizations and screening for infectious disease (3 sources) Vaccination given; Translations: [Encounter for immunization] Episodic Neoplasms of unspecified nature or uncertain behavior (3 sources) Neoplasm of uncertain behavior of skin; Translations: [Neoplasm of uncertain behavior of skin] Episodic Other aftercare (5 sources) Encounter for therapeutic drug level monitoring; Translations: [ENC THERAPEUTC DRUG LEVL MONITORING] Onset: 07-03-2022 Episodic Other aftercare (1 source) USP (current) use of anticoagulants; Translations: [JAIL CURRNT USE ANTICOAGULANTS] Onset: 08-04-2022 Episodic Other aftercare (3 sources) Long-term current use of anticoagulant; Translations: [USP (current) use of anticoagulants] Episodic Other aftercare (3 sources) Long-term current use of drug therapy; Translations: [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] Episodic Other and unspecified benign neoplasm (3 sources) Polyp of colon; Translations: [Polyp of colon] Episodic Other connective tissue disease (2 sources) Pain of toe of left foot; Translations: [Pain in left toe(s)] 12-19-2023 Episodic Other connective tissue disease (2 sources) Pain of toe of right foot; Translations: [Pain in right toe(s)] 12-19-2023 Episodic Other diseases of veins and lymphatics (5 sources) Peripheral venous insufficiency; Translations: [Venous insufficiency (chronic) (peripheral)] 12-19-2023 Episodic Other diseases of veins and lymphatics (2 sources) Venous insufficiency (chronic) (peripheral); Translations: [Venous (peripheral) insufficiency, unspecified] Episodic Other diseases of veins and lymphatics (1 source) Venous insufficiency of leg; Translations: [Venous insufficiency (chronic) (peripheral)] 10-03-2023 Episodic Other ear and sense organ disorders (20 sources) Mixed conductive and sensorineural hearing loss, bilateral; 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, bilateral] Onset: 01-02-2008 Chronic Other ear and sense organ disorders (1 source) Otitis externa; Translations: [Other otitis externa, left ear] 11-01-2022 Chronic Other ear and sense organ disorders (3 sources) Sensorineural hearing loss, bilateral; Translations: [Sensorineural hearing loss, bilateral] Onset: 08-16-2017 Chronic Other ear and sense organ disorders (1 source) Diffuse otitis externa, left ear Episodic Other ear and sense organ disorders (1 source) Presence of external hearing-aid Episodic Other ear and sense organ disorders (3 sources) Cholesteatoma of middle ear and mastoid; Translations: [Cholesteatoma of mastoid, right ear] Episodic Other injuries and conditions due to external causes (3 sources) History of fall; Translations: [History of falling] Episodic Other non-epithelial cancer of skin (9 sources) 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, including canthus; Translations: [Basal cell carcinoma of lower eyelid] Onset: 07-29-2022 07-29-2022 Episodic Other nutritional; endocrine; and metabolic disorders (3 sources) Overweight; Translations: [Overweight] Episodic Otitis media and related conditions (20 sources) Chronic mucoid otitis media; Translations: [Chronic mucoid otitis media, unspecified ear] Onset: 07-30-2008 07-30-2008 Chronic Samantha-; endo-; and myocarditis; cardiomyopathy (except that caused by tuberculosis or sexually transmitted disease) (4 sources) Heart valve disorder; Translations: [Endocarditis, valve unspecified] Onset: 07-25-2024 Chronic Peripheral and visceral atherosclerosis (18 sources) Peripheral vascular disease; Translations: [Peripheral vascular disease, unspecified] Chronic Residual codes; unclassified (1 source) Encounter for other specified prophylactic measures Episodic Residual codes; unclassified (3 sources) Requires influenza virus vaccination; Translations: [Need for prophylactic vaccination and inoculation, Influenza] Episodic Residual codes; unclassified (3 sources) Preventive procedure; Translations: [Encounter for other specified prophylactic measures] Episodic Residual codes; unclassified (2 sources) Other specified postprocedural states; Translations: [S/P mitral valve repair] Onset: 03-02-2021 Episodic Retinal detachments; defects; vascular occlusion; and retinopathy (1 source) Nonexudative age-related macular degeneration; 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, bilateral, early dry stage] 07-31-2024 Chronic Superficial injury; contusion (7 sources) Nonvenomous insect bite with infection; Translations: [Elbow, forearm, and wrist, insect bite, nonvenomous, infected] Onset: 10-21-2014 10-03-2023 Episodic Unclassified (20 sources) SUMMARY Onset: 10-31-2013 03-02-2021 Unclassified (6 sources) Chronic atrial fibrillation, unspecified; Translations: [CHRONIC ATRIAL FIBRILLATION UNSPEC] Onset: 06-07-2022 Unclassified (3 sources) Other ventricular tachycardia; Translations: [Other ventricular tachycardia] Unclassified (1 source) Permanent atrial fibrillation; Translations: [Permanent atrial fibrillation (HCC)] Onset: 03-02-2021 Past or Other Problems Problem Classification Problem Date Documented Da te Episodic/Chronic Allergic reactions (20 sources) Contact dermatitis due to poison elías; Translations: [Allergic contact dermatitis due to plants, except food] Onset: 09-10-2013 10-31-2013 Episodic Cardiac dysrhythmias (20 sources) Sinus bradycardia; Translations: [Bradycardia, unspecified] Onset: 07-26-2012 07-26-2012 Episodic Disorders of teeth and jaw (20 sources) Dental caries; Translations: [Dental caries, unspecified] Onset: 11-01-2013 Episodic Esophageal disorders (2 sources) Esophageal disorders Gastrointestinal hemorrhage (20 sources) Hemorrhage of rectum and anus; Translations: [Hemorrhage of anus and rectum] Onset: 12-19-2002 07-01-2003 Episodic Mycoses (7 sources) Onychomycosis; Translations: [Tinea unguium] Onset: 09-28-2022 09-28-2022 Episodic Nausea and vomiting (3 sources) Nausea and vomiting; Translations: [Nausea with vomiting, unspecified] Onset: 06-28-2013 Episodic Noninfectious gastroenteritis (3 sources) Non-infective enteritis and colitis; Translations: [Noninfective gastroenteritis and colitis, unspecified] Onset: 06-28-2013 Resolved: 07-15-2020 Episodic Other aftercare (1 source) Other mcfp (current) drug therapy; Translations: [OTH JAIL CURRENT DRUG THERAPY] Onset: 12-30-2021 Episodic Other and unspecified benign neoplasm (20 sources) History of polyp of colon; Translations: [Personal history of colonic polyps] Onset: 12-19-2002 07-01-2003 Episodic Other connective tissue disease (3 sources) Plantar fascial fibromatosis; Translations: [Plantar fascial fibromatosis] Onset: 07-29-2017 Episodic Other ear and sense organ disorders (3 sources) Hearing loss; Translations: [Hearing loss] Onset: 12-19-2002 Resolved: 12-29-2011 12-29-2011 Chronic Other ear and sense organ disorders (3 sources) Mixed conductive AND sensorineural hearing loss; 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] Onset: 02-04-2004 Resolved: 12-29-2011 12-29-2011 Chronic Other ear and sense organ disorders (20 sources) Bilateral tinnitus; Translations: [Tinnitus, bilateral] Onset: 08-08-2017 08-08-2017 Episodic Other ear and sense organ disorders (3 sources) Cholesteatoma; Translations: [Unspecified cholesteatoma, right ear] Onset: 08-16-2017 Episodic Other liver diseases (3 sources) Elevated levels of transaminase & lactic acid dehydrogenase; Translations: [Nonspecific elevation of levels of transaminase or lactic acid dehydrogenase (LDH)] Onset: 07-25-2013 Episodic Other lower respiratory disease (20 sources) Dyspnea; Translations: [Shortness of breath] Onset: 10-31-2013 10-31-2013 Episodic Other nervous system disorders (20 sources) Weakness of face muscles; 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] Onset: 12-29-2011 12-29-2011 Episodic Other nervous system disorders (3 sources) Covington's palsy; 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 Resolved: 12-29-2011 12-29-2011 Episodic Other nutritional; endocrine; and metabolic disorders (3 sources) Body mass index 25-29 - overweight; Translations: [Body mass index 26.0-26.9, adult] Onset: 07-29-2017 Episodic Otitis media and related conditions (20 sources) 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; Translations: [Adhesive middle ear disease, unspecified ear] Onset: 02-04-2004 02-04-2004 Episodic Residual codes; unclassified (20 sources) History of repair of mitral valve; Translations: [Other specified postprocedural states] Onset: 07-28-2011 03-02-2021 Episodic Unclassified (1 source) NSVT (nonsustained ventricular tachycardia) I47.29 Unclassified (3 sources) Prophylactic chemotherapy; Translations: [Need for other prophylactic chemotherapy] Onset: 08-27-2013 Unclassified (3 sources) Sting of hornets, wasps, and bees as the cause of poisoning and toxic reactions; Translations: [Sting of hornets, wasps, and bees as the cause of poisoning and toxic reactions] Onset: 10-21-2014 Unclassified (1 source) Other persistent atrial fibrillation Results Test Name Value Interpretation Reference Range Facility Basic metabolic 2000 panelon 07-25-2024 Anion gap [Moles/Vol] 10 mmol/L Normal 8-15 [facility] Comment on above: Order Comment: Raissa shah Type: BLOOD SPECIMEN Ordering Facility: [facility] Address: [address] [place] [address] Performed By: #### 2 4321-2, 18760-3 #### [facility] CLIA [id number] [address] [place] [address] [place] Calcium [Mass/Vol] 9.8 mg/dL Normal 8.5-10.2 [facility] Comment on above: Order Comment: Raissa shah Type: BLOOD SPECIMEN Ordering Facility: [facility] Address: [address] [place] [address] Performed By: #### 2 4321-2, 15838-2 #### [facility] CLIA [id number] [address] [place], [place] [id number] [place] Chloride [Moles/Vol] 104 mmol/L Normal 98-107 [facility] Comment on above: Order Comment: Raissa shah Type: BLOOD SPECIMEN Ordering Facility: [facility] Address: [address] [place] [address] Performed By: #### 2 4321-2, 32687-3 #### [facility] CLIA [id number] [address] [place] [address] [place] CO2 [Moles/Vol] 27 mmol/L Normal 22-30 [facility] Comment on above: Order Comment: Speci men Type: BLOOD SPECIMEN Ordering Facility: [facility] Address: [address] [place] [address] Performed By: #### 2 4321-2, 03688-2 #### [facility] CLIA [id number] [address] [place] [address] [place] Creatinine [Mass/Vol] 1.08 mg/dL Normal 0.73-1.22 [facility] Comment on above: Order Comment: Speci men Type: BLOOD SPECIMEN Ordering Facility: [facility] Address: [address] [place] [address] Performed By: #### 2 4321-2, 69942-3 #### [facility] CLIA [id number] [address] [place] [address] [place] Creatinine and Glomerular filtration rate.predicted panel (S/P/Bld) 66 mL/min/1.73m??? Normal >=60 [facility] Comment on above: Order Comment: Speci men Type: BLOOD SPECIMEN Ordering Facility: [facility] Address: [address] [place] [address] Result Comment: Kelsey mated Glomerular Filtration Rate (eGFR) is calculated using the 2020 CKD-EPI creatinine equation. This equation utilizes serum creatinine, sex, and age as parameters. The creatinine assay has traceable calibration to isotope dilution-mass spectrometry. Refer to KDIGO guidelines for clinical interpretation. In patients with unstable renal function, e.g. those with acute kidney injury, the eGFR may not accurately reflect actual GFR. Performed By: #### 2 4321-2, 00902-9 #### [facility] CLIA [id number] [address] [place] [address] [place] Glucose [Mass/Vol] 86 mg/dL Normal 74-99 [facility] Comment on above: Order Comment: Raissa shah Type: BLOOD SPECIMEN Ordering Facility: [facility] Address: [address] [place] [address] Result Comment: The [place] Diabetes Association (ADA) provides guidance for cutoff [...] Standards of Medical Care in Diabetes 2016, [place] Diabetes Association. Diabetes Care. 2016.39(Suppl 1). Performed By: #### 2 4321-2, 83843-9 #### [facility] CLIA [id number] [address] [place] [address] [place] Potassium [Moles/Vol] 4.7 mmol/L Normal 3.7-5.1 [facility] Comment on above: Order Comment: Raissa shah Type: BLOOD SPECIMEN Ordering Facility: [facility] Address: [address] [place] [address] Performed By: #### 2 4321-2, 89151-1 #### [facility] CLIA [id number] [address] [place] [address] [place] Sodium [Moles/Vol] 141 mmol/L Normal 136-144 [facility] Comment on above: Order Comment: Raissa shah Type: BLOOD SPECIMEN Ordering Facility: [facility] Address: [address] [place] [address] Performed By: #### 2 4321-2, 68139-2 #### [facility] CLIA [id number] [address] [place] [address] [place] Urea nitrogen [Mass/Vol] 14 mg/dL Normal 9-24 [facility] Comment on above: Order Comment: Speci men Type: BLOOD SPECIMEN Ordering Facility: [facility] Address: [address] [place] [address] Performed By: #### 2 4321-2, 37756-7 #### [facility] CLIA [id number] [address] [place] [address] [place] CBC panel Auto (Bld)on 07-25 Erythrocyte distribution width (RBC) [Ratio] 14.5 % Normal 11.5-15.0 [facility] Comment on above: Order Comment: Speci men Type: BLOOD SPECIMEN Ordering Facility: [facility] Address: [address] [place] [address] Performed By: #### 5 8410-2 #### [facility] CLIA [id number] [address] [place] [address] [place] Hematocrit (Bld) [Volume fraction] 39.4 % Normal 39.0-51.0 [facility] Comment on above: Order Comment: Speci men Type: BLOOD SPECIMEN Ordering Facility: [facility] Address: [address] [place] [address] Performed By: #### 5 8410-2 #### [facility] CLIA [id number] [address] [place] [address] [place] Hemoglobin (Bld) [Mass/Vol] 12.9 g/dL Low 13.0-17.0 [facility] Comment on above: Order Comment: Speci men Type: BLOOD SPECIMEN Ordering Facility: [facility] Address: [address] [place] [address] Performed By: #### 5 8410-2 #### [facility] CLIA [id number] [address] [place] [address] [place] MCH (RBC) [Entitic mass] 29.8 pg Normal 26.0-34.0 [facility] Comment on above: Order Comment: Speci men Type: BLOOD SPECIMEN Ordering Facility: [facility] Address: [address] [place] [address] Performed By: #### 5 8410-2 #### [facility] CLIA [id number] [address] [place] [address] [place] MCHC (RBC) [Mass/Vol] 32.7 g/dL Normal 30.5-36.0 [facility] Comment on above: Order Comment: Speci men Type: BLOOD SPECIMEN Ordering Facility: [facility] Address: [address] [place] [address] Performed By: #### 5 8410-2 #### [facility] CLIA [id number] [address] [place] [address] [place] MCV (RBC) [Entitic vol] 91.0 fL Normal 80.0-100.0 [facility] Comment on above: Order Comment: Speci men Type: BLOOD SPECIMEN Ordering Facility: [facility] Address: [address] [place] [address] Performed By: #### 5 8410-2 #### [facility] CLIA [id number] [address] [place] [address] [place] Nucleated RBC (Bld) [#/Vol] 10*3/uL Normal <0.01 [facility] Comment on above: Order Comment: Speci men Type: BLOOD SPECIMEN Ordering Facility: [facility] Address: [address] [place] [address] Performed By: #### 5 8410-2 #### [facility] CLIA [id number] [address] [place] [address] [place] Platelet mean volume (Bld) [Entitic vol] 11.7 fL Normal 9.0-12.7 [facility] Comment on above: Order Comment: Speci men Type: BLOOD SPECIMEN Ordering Facility: [facility] Address: [address] [place] [address] Performed By: #### 5 8410-2 #### [facility] CLIA [id number] [address] [place] [address] [place] Platelets (Bld) [#/Vol] 114 10*3/uL Low 150-400 [facility] Comment on above: Order Comment: Speci men Type: BLOOD SPECIMEN Ordering Facility: [facility] Address: [address] [place] [address] Result Comment: Resu lts checked and verified.No clot detected. Performed By: #### 5 8410-2 #### [facility] CLIA [id number] [address] [place] [address] [place] RBC (Bld) [#/Vol] 4.33 10*6/uL Normal 4.20-6.00 [facility] Comment on above: Order Comment: Speci men Type: BLOOD SPECIMEN Ordering Facility: [facility] Address: [address] [place] [address] Performed By: #### 5 8410-2 #### [facility] CLIA [id number] [address] [place] [address] [place] WBC (Bld) [#/Vol] 5.98 10*3/uL Normal 3.70-11.00 [facility] Comment on above: Order Comment: Speci men Type: BLOOD SPECIMEN Ordering Facility: [facility] Address: [address] [place] [address] Performed By: #### 5 8410-2 #### [facility] CLIA [id number] [address] [place] [address] [place] CNOVon 07-25-2024 CNOV Office Visit (CARIMN ) TERENCE STARR ([id number]) 1935 M Date Time Provider Department 07/25/24 4:15 PM AMILCAR CERVANTES During your visit today, we recorded the following information about you: Pulse Blood pressure Weight Height 70/minute 153/88 77.1 kg 1.727 m Amilcar Cervantes MD 07/27/2024 2:58 PM Addendum [facility] Department of Cardiovascular Medicine SECTION OF CARDIOVASCULAR IMAGING OUTPATIENT VISIT DATE 07/25/2024 OUTPATIENT VISIT TYPE ESTABLISHED PRIMARY CARE PHYSICIAN: Matt Perkins ([facility]) [address] [place] [id number] REFERRING PHYSICIAN: Efe Trejo [address] [facility] [id number] Chief complaint: Annual follow-up for valvular heart disease, CAD, s/p AVR, MV repair, CABG (2007) Today also for EKG, lab, echo History of present illness: 89 years old PMH of HTN, hyperlipidemia, valvular heart disease (s/p aortic valve [place] [address] Alvarado for aortic valve replacement with #25 mm Bonnie-Woo pericardial valve (biosprosthetic), mitral valve repair), CAD (s/p CABG,saphenous vein graft to right posterior lateral in 2007), permanent atrial fibrillation (s/p DCCV 2013, 2015, 2016, failed sotalol) ventricular tachycardia, thrombocytopenia, GI bleed The patient was last seen 07/14/2023. Patient was clinically stable with baseline atrial fibrillation. Echo showed linear density in the aortic arch Over the last year, patient reported baseline functional capacity up to 1 mile of level walk. No SOB, no chest pain. He reports leg swelling 2/2 venous insufficiency, right leg soft tissue infection treated with p.o. amoxicillin recently. Patient follows his INR with his PCP on regular basis, last of which was 2.5, last week. Patient is off aspirin since his GI bleed. ROS: Endocrine: Patient denies cold intolerance, dizziness, excessive sweating, excessive thirst, frequent urination, hot flashes, weight loss. Gastrointestinal: Patient denies abdominal pain, change in bowel habits, constipation, decreased appetite, diarrhea, nausea, rectal bleeding. Musculoskeletal: Patient denies back pain, joint stiffness, leg cramps, leg swelling , muscle aches, swollen joints. Skin: Patient denies blistering of skin, discoloration, skin lesion(s), hives, itching. Neurologic: Patient denies balance difficulty, confusion, difficulty speaking, dizziness, gait abnormality, headache, loss of strength, tingling / numbness. Home medications: Warfarin 4/6 mg (Tuesday and Tuesday/rest of the week), amlodipine 2.5, metoprolol succinate 50, benazepril 20, omeprazole 20. Previous cardiac workup: -EKG, [facility], July 2023: Atrial fibrillation at rate 70 bpm - CTA chest August 2023, [facility]:AVR with BIOPROSTHETIC VALVE, valve ring 2.5 cm. Mild to moderate leaflet calcification -TTE, [facility], July 2023: The left ventricle is normal in size. Left ventricular systolic function is normal. EF = 57 ? 5% (2D biplane). The right ventricle is normal in size. Right ventricular systolic function is low normal. The left atrial cavity is dilated. The visualized aorta is dilated with a maximal dimension of 4.2 cm. Post mitral valve repair. Elina Mitral Ring (size #36). There is mild (1+) mitral valve regurgitation. The peak gradient is 11 mmHg and the mean gradient is 4 mmHg. Today's gradients obtained at a HR of 65 bpm. Prior peak/mean gradients: 8/3 mmHg. Bonnie-Woo prosthetic aortic valve (size #25). There is mild (1+) aortic valve regurgitation. The peak gradient is 23 mmHg, the mean gradient is 14 mmHg and the dimensionless valve index is 0.30. Prior peak/mean gradients: 24/14 mmHg, DI: 0.41. There is an apparent linear echodensity imaged within the aortic arch (Images 143 - 148). Although this may be artifactual, recommend clinical correlation and further evaluation with tomographic imaging if clinically indicated. Exam was compared with the prior echocardiographic exam performed on 11/03/2022. On direct comparison, the major findings are comparable, aside from the apparent linear echodensity in the aortic arch. Findings communicated with Dr. Cervantes at time of reporting. Laboratory workup: Latest Reference Range AND Units 07/25/24 13:42 WBC 3.70 - 11.00 k/uL 5.98 RBC 4.20 - 6.00 m/uL 4.33 Hemoglobin 13.0 - 17.0 g/dL 12.9 (L) Hematocrit 39.0 - 51.0 % 39.4 Platelet Count 150 - 400 k/uL 114 (L) MCV 80.0 - 100.0 fL 91.0 MCH 26.0 - 34.0 pg 29.8 MCHC 30.5 - 36.0 g/dL 32.7 MPV 9.0 - 12.7 fL 11.7 RDW-CV 11.5 - 15.0 % 14.5 Absolute nRBC <0.01 k/uL <0.01 PAST MEDICAL HISTORY Diagnosis Date A-fib ([facility]) 09/2013 Aortic valve disorders Aortic valve disorders Coronary atherosclerosis of unspecified type of vessel, false pass or graft Coronary artery diseas (more content not included)... Normal [facility] ECG COMPLETEon 07-25-2024 ECG COMPLETE Ventricular Rate : 6 1 BPM QRS Duration : 88 ms Q-T Interval : 402 ms QTC Calculation(Bazett) : 404 ms Calculated R Shirley : -4 degrees Calculated T Shirley : 40 degrees ATRIAL FIBRILLATION ABNORMAL ECG Confirmed by MD GODFREY HEBA ([id number]) on 08/20/2024 1:03:33 PM NAME : TERENCE STARR PID : [id number] : 1935 Gender : Male Race : ORD : [id number] Procedure Date : Jul 25 2024 13:34:54 Edit Date : Aug 20 2024 13:03:37 Diagnosis: ATRIAL FIBRILLATION ABNORMAL ECG Confirmed by MD GODFREY HEBA ([id number]) on 08/20/2024 1:03:33 PM Test Reason : Location : 314 : J14 J14-02 Overread By : MD GODFREY HEBA Edited By : MD GODFREY HEBA Referred By : , Acquired by : DAVID ENGLE Normal [facility] ECHOon 07-25-2024 Echocardiography Echocardiography Report: Transthoracic Echo [facility] J1-5 Date of service: 07/25/2024 2:10:34 PM SETTER Ordering physician: EFE TREJO Indication: H/o AVR MVr CABG (2007) Technologist: Farhan Mcgee Fellow: Ray Espinosa MD Interpreting physician: Birdie Starkey MD PATIENT: Name: MR. TERENCE STARR : 1935 Age: 89 years Gender: [...] Doppler. PERICARDIUM There is no pericardial effusion. CONCLUSIONS: - Exam indication: H/o AVR MVr [...] - Exam was compared with the prior echocardiographic exam performed on 07/14/2023. There is no significant change. Electronically signed by Birdie (more content not included)... Normal [facility] Lipid 1996 panelon 5 Cholesterol [Mass/Vol] 158 mg/dL Normal <200 [facility] Comment on above: Order Comment: Raissa shah Type: BLOOD SPECIMEN Ordering Facility: [facility] Address: [address] [place] [address] Result Comment: <200 mg/dL, Desirable 200-239 mg/dL, Borderline high >239 mg/dL, High Performed By: #### 2 4321-2, 74287-9 #### [facility] CLIA [id number] [address] [place] [address] [place] Cholesterol in HDL [Mass/Vol] 75 mg/dL Normal >39 [facility] Comment on above: Order Comment: Raissa shah Type: BLOOD SPECIMEN Ordering Facility: [facility] Address: [address] [place] [address] Result Comment: 40-5 9 mg/dL, Acceptable >59 mg/dL, High: Negative risk factor for coronary heart disease <40 mg/dL, Low: Positive risk factor for coronary heart disease Performed By: #### 2 4321-2, 91145-7 #### [facility] CLIA [id number] [address] [place] [address] [place] Cholesterol in LDL [Mass/Vol] 67 mg/dL Normal <100 [facility] Comment on above: Order Comment: Raissa shah Type: BLOOD SPECIMEN Ordering Facility: [facility] Address: [address] [place] [address] Result Comment: <100 mg/dL, Optimal 100-129 mg/dL, Near optimal/above optimal 130-159 mg/dL, Borderline high 160-189 mg/dL, High >189 mg/dL, Very high Secondary prevention optimal LDL Cholesterol levels are recommended to be <70 mg/dL LDL cholesterol is calculated using the Diaz-NIH equation. Performed By: #### 2 4321-2, 99117-8 #### [facility] CLIA [id number] [address] [place] [address] [place] Cholesterol in LDL/Cholesterol in HDL [Mass ratio] 0.89 {ratio} Normal <2.54 [facility] Comment on above: Order Comment: Raissa shah Type: BLOOD SPECIMEN Ordering Facility: [facility] Address: [address] [place] [address] Result Comment: Myla casas: 1. National Cholesterol Education Program ATP III Guideline At-A-Glance Quick Desk Reference: National Heart, Lung, and Blood Burns. National Institutes of Health. 2001: NIH Publication No. 01-3305. 2. An International Atherosclerosis Society position paper: global recommendations for the management of dyslipidemia: executive summary, Atherosclerosis. 2014: 232(2):410-413. Performed By: #### 2 4321-2, 59900-1 #### [facility] CLIA [id number] [address] [place] [address] [place] Cholesterol in VLDL [Mass/Vol] 13 mg/dL Normal <30 [facility] Comment on above: Order Comment: Raissa shah Type: BLOOD SPECIMEN Ordering Facility: [facility] Address: [address] [place] [address] Performed By: #### 2 432-2, 68815-4 #### [facility] CLIA [id number] [address] [place] [address] [place] Cholesterol non HDL [Mass/Vol] 83 mg/dL Normal <130 [facility] Comment on above: Order Comment: Raissa shah Type: BLOOD SPECIMEN Ordering Facility: [facility] Address: [address] [place] [address] Result Comment: <130 mg/dL, Optimal 130-159 mg/dL, Near optimal/above optimal 160-189 mg/dL, Borderline high 190-219 mg/dL, High >219 mg/dL, Very high Secondary prevention optimal non HDL Cholesterol levels are recommended to be <100 mg/dL Performed By: #### 2 4321-2, 55225-7 #### [facility] CLIA [id number] [address] [place] [address] [place] Cholesterol.total/Cho lesterol in HDL [Mass ratio] 2.11 {ratio} Normal <5.10 [facility] Comment on above: Order Comment: Speci men Type: BLOOD SPECIMEN Ordering Facility: [facility] Address: [address] [place] [address] Performed By: #### 2 432-2, 74143-8 #### [facility] CLIA [id number] [address] [place] [address] [place] [facility] FASTING TIME 7 hrs Normal [facility] Comment on above: Order Comment: Speci men Type: BLOOD SPECIMEN Ordering Facility: [facility] Address: [address] [place] [address] Result Comment: Pt h ad breakfast around 0600 Performed By: #### 2 4321-2, 86519-2 #### [facility] CLIA [id number] [address] [place] [address] [place] Triglyceride [Mass/Vol] 85 mg/dL Normal <150 [facility] Comment on above: Order Comment: Speci men Type: BLOOD SPECIMEN Ordering Facility: [facility] Address: [address] [place] [address] Result Comment: <150 mg/dL, Normal 150-199 mg/dL, Borderline high 200-499 mg/dL, High >499 mg/dL, Very high Performed By: #### 2 [id number], [id number] #### [facility] CLIA [id number] [address] [place] [address] [place] Lary 11-30-2023 CNPN Telephone (CARALEXISN) TERENCE STARR ([id number]) 1935 M Date Time Provider Department 11/30/23 AMILCAR CERVANTES During your visit today, we recorded the following information about you: Real Newman 11/30/2023 3:10 PM Signed Received correspondence requesting medical clearance for a dental procedure for the patient. Allergies As of Date: 11/30/2023 Noted Allergy Reaction ADHESIVE 07/14/2023 2 - Rash 9 - Itching Comments: Rash and itching DOXYCYCLINE 07/23/2011 7 - Swelling LEVAQUIN (LEVOFLOXACIN) 07/28/2004 7 - Swelling Comments: Throat swelling PREDNISONE 10/31/2013 14 - Other: See Comments Comments: put me into afib Date Reviewed: 08/11/2023 Reviewed by: Lynne Valle, RN - Fully Assessed Reason for Visit: Medical Clearance [1982] Prescriptions as of 12/16/2023 - potassium chloride (K-TAB) 10 mEq tablet Take by mouth once daily. - metoprolol succinate ER (TOPROL XL) 50 mg 24 hr tablet TAKE 1 TABLET BY MOUTH ONCE DAILY - amoxicillin (POLYMOX, AMOXIL) 500 mg capsule TAKE 4 CAPSULES BY MOUTH 1 HOUR PRIOR TO DENTAL APPOINTMENT - amLODIPine (NORVASC) 5 mg tablet Take 2.5 mg by mouth once daily. Patient states he is only taking 2.5mg daily - warfarin (COUMADIN) 4 mg tablet Take by mouth. 6 mg - - Sat-Tuesday 4 mg Tue - Tue - Tue - pravastatin (PRAVACHOL) 20 mg tablet Take 1 tablet by mouth daily at bedtime. - benazepril (LOTENSIN) 20 mg tablet Take 1 tablet by mouth once daily. - OMEPRAZOLE 20 mg ORAL capsule Take 20 mg every Tue and Tue - NITROGLYCERIN 0.4 MG SUBLINGUAL TAB as needed - MULTIVITAMIN TABLET Take one(1) tablet daily. 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] 02/04/2004 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 12/29/2011 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 12/29/2011 AORTIC VALVE DISORDER [I35.9] 09/12/2007 THROMBOCYTOPENIA NOS [D69.6] 09/21/2007 MIXED HEARING LOSS,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] 01/02/2008 CHR MUCOID OM SIMP/NOS [H65.30] 07/30/2008 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] 12/24/2008 S/P mitral valve repair [Z98.890] 07/28/2011 Status post aortic valve replacement with prost*07/28/2011 Hypertension [I10] 07/28/2011 Hyperlipidemia [E78.5] 07/28/2011 Facial paresis [G51.0] 12/29/2011 Sinus bradycardia [R00.1] 07/26/2012 Atrial fibrillation (HCC) [I48.91] 10/31/2013 Shortness of breath [R06.02] 10/31/2013 Mitral valve regurgitation [I34.0] 10/31/2013 11/03/2013 Poison elías [L23.7] 10/31/2013 SUMMARY [V999.95] 10/31/2013 Dental cavity [K02.9] 11/01/2013 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] 12/20/2016 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 This finding may be a new finding separate from the reason your provider ordered the imaging test or it may be an already known finding that needs additional or continued follow-up. Because of this incidental or actionable finding, you may need another test (imaging or a different type of test). Please contact your provider for the next steps. [facility] CTA Chest vessels W contrast Wes 08-11-2023 IMPRESSION: AVR with BIOPROSTHETIC VALVE, valve ring 2.5 cm. Mild to moderate leaflet calcification. ECTASIA/MILD DILATION AORTIC ROOT AND ASCENDING AORTA. -AORTIC ROOT: 4 cm -ASCENDING THORACIC AORTA: 4.2 cm MITRAL VALVE: MVrepair with C-SHAPED ANNULOPLASTY BAND in place, measuring 3.4 x 2.4 cm. LIZ: filling defect c/w slow flow or thrombus. Acuity: Actionable Findings: Heart and Vascular system Routing Code: CV_1 Recommendation: Unlisted Recommendation (see report) TimeFrame: at the discretion of the clinical team. --END OF FINDING-- CORONARY ANATOMY: Calcified atherosclerotic changes including LM, proximal LAD, LCX, RCA, precluding precise assessment with CT. - changes most c/w stump of occluded Aorto-coronary graft to branches of the RCA LUNGS: non-calcified up to 4 mm nodule right upper, middle and lower lung lobe (Image # [id number]) (see saved images) Incidental Finding: Follow-up Acuity: Incidental Finding: Solid: <6 mm (solitary or multiple) Routing Code: N/A Recommendation: No imaging follow-up is recommended Time Frame: N/A Comments: If there are risk factors for lung malignancy, a follow-up chest CT exam could be obtained in 12 months --END OF FINDING-- COMMUNICATION:? Results will be communicated with the ordering provider via [employer] staff message by [employer] within 2 business days of report finalization. Bottom Crane Operator: BOYD Transcribe Date/Time: Aug 11 2023 12:55P Dictated by : KRYSTA MCKINNON MD This examination was interpreted and the report reviewed and electronically signed by: KRYSTA MCKINNON MD on Aug 11 2023 1:32PM [facility]OLOG[facility] * * *Final Report* * * DATE OF EXAM: Aug 11 2023 12:50PM JQC 0125 - CTA CHEST (GATED) W IVCON / PROCEDURE REASON: multiple diagnoses * * * * Physician Interpretation * * * * CTA Aorta chest Direct Image Comparison: CXR08/08/2014 HISTORY: 88 years old Male with chronic h/o repaired mitral valve disease, aortic valve stenosis, coronary artery disease. -10/2007 [facility]: Aortic valve replacement with 25 mm Obnnie-Woo pericardial valve, mitral valve repair, CABG x1, saphenous vein graft to right posterior lateral Evaluation for interval change. There is request to define thoracic and aortic anatomy TECHNIQUE: SCANNER: Siemens Definition Force Dual source [id number] scanner PROTOCOL: Prospectively triggered helical high-pitch acquisitions ( triggered Flash-mode ) was performed following the intravenous administration of contrast material. Scan Range: thoracic inlet to the diaphragm CT Dose-Length Product (DLP): 139 mGy*cm CT Dose Reduction Employed: Automated exposure control(AEC) and iterative recon CONTRAST: IV administration of 70 ml Omnipaque 350 Scan acquisition: uncomplicated Macro Version: [id number] For optimization of anatomic evaluation, advanced 3-D off-line postprocessing was performed on a dedicated workstation by the interpreting physician. Additional lung CAD. Cox images reconstructed, saved, and available in [employer] 'Get Images'. STUDY LIMITATIONS: Limited contrast enhancement of the right sided cardiac chambers and pulmonary artery.. RESULT: LINES, TUBES and DEVICES: None CHEST: Chest wall anatomy: unremarkable. LUNGS: Small calcified lung nodules. - non-calcified up to 4 mm nodule right upper, middle and lower lung lobe (Image # [id number]) (see saved images). Follow-up recommendations: see Impression MEDIASTINUM: calcified mediastinal and left hilar lymph nodes. Small hiatal hernia PERICARDIUM: unremarkable CENTRAL PULMONARY ARTERY: normal dimensions. Assessment is limited due to limited contrast enhancement. CARDIAC CHAMBERS: LEFT VENTRICLE: normal size. RIGHT VENTRICLE: normal size Left atrium: mildly dilated. Small outpouching at the roof of the left atrium, most c/w small diverticulum. LIZ: filling defect c/w slow flow or thrombus. Right atrium: mildly dilated CENTRAL VENOUS and PULMONARY VENOUS RETURN: normal. Coronary Sinus: normal size MITRAL VALVE: assessment is limited in the current study MVrepair with C-shaped annuloplasty band in place, measuring 3.4 x 2.4 cm. - no leaflet calcification. No annular calcification TRICUSPID and PULMONIC VALVE: appear unremarkable. CORONARY ANATOMY: normal origin of the coronary arteries. Calcified atherosclerotic changes including LM, proximal LAD, LCX, RCA, precluding precise assessment with CT. - [place] FELA and BEN are normal size vessels without evidence of calcified atherosclerotic changes. Evidence of prior Coronary Bypass Surgery. Patent grafts are not identified - changes most c/w stump of occluded Aorto-coronary graft to branches of the RCA AORTIC VALVE: AVR with BIOPROSTHETIC VALVE, valve ring 2.5 cm. Mild to moderate leaflet calcification. AORTA: Pathology: No acute aortic pathology. Intervention: None Complications: n/a Aortic Size: Ectasia/Mild Dilation aortic root and ascending aorta. STJ: maintained. Wall Changes: Surgical changes and mild calcification ascending aorta. Mild partially calcified wall changes arch and descending thoracic aorta. Arch Branch Vessels: Patent, normal size proximal segments of the arch branch vessels, with mild partially calcified wall changes. AORTIC DIMENSIONS: AORTIC ROOT: 4 cm measured [id number] mid ASCENDING THORACIC AORTA: 4.2 cm mid AORTIC ARCH: 3.3 cm mid DESCENDING THORACIC AORTA: 3 cm RELATIONSHIP OF THE CARDIOVASCULAR STRUCTURES OF THE STERNUM: Left brachio-cephalic vein lies immediately behind the manubrium sternum RV lies 1 mm behind the lower sternum limited upper ABDOMEN: Liver: punctate calcification Spleen: punctate calcification Floriculture Professor (topogram) images: No additional findings. DIVISION OF RADIOLOGY Provider, [facility] - 08/11/2023 * * *Final Report* * * DATE OF EXAM: Aug 11 2023 12:50PM JQC 0125 - CTA CHEST (GATED) W IVCON / PROCEDURE REASON: multiple diagnoses * * * * Physician Interpretation * * * * CTA Aorta chest Direct Image Comparison: CXR08/08/2014 HISTORY: 88 years old Male with chronic h/o repaired mitral valve disease, aortic valve stenosis, coronary artery disease. -10/2007 [facility]: Aortic valve replacement with 25 mm Bonnie-Woo pericardial valve, mitral valve repair, CABG x1, saphenous vein graft to right posterior lateral Evaluation for interval change. There is request to define thoracic and aortic anatomy TECHNIQUE: SCANNER: Siemens Definition Force Dual source [id number] scanner PROTOCOL: Prospectively triggered helical high-pitch acquisitions ( triggered Flash-mode ) was performed following the intravenous administration of contrast material. Scan Range: thoracic inlet to the diaphragm CT Dose-Length Product (DLP): 139 mGy*cm CT Dose Reduction Employed: Automated exposure control(AEC) and iterative recon CONTRAST: IV administration of 70 ml Omnipaque 350 Scan acquisition: uncomplicated Macro Version: [id number] For optimization of anatomic evaluation, advanced 3-D off-line postprocessing was performed on a dedicated workstation by the interpreting physician. Additional lung CAD. Cox images reconstructed, saved, and available in [employer] 'Get Images'. STUDY LIMITATIONS: Limited contrast enhancement of the right sided cardiac chambers and pulmonary artery.. RESULT: LINES, TUBES and DEVICES: None CHEST: Chest wall anatomy: unremarkable. LUNGS: Small calcified lung nodules. - non-calcified up to 4 mm nodule right upper, middle and lower lung lobe (Image # [id number]) (see saved images). Follow-up recommendations: see Impression MEDIASTINUM: calcified mediastinal and left hilar lymph nodes. Small hiatal hernia PERICARDIUM: unremarkable CENTRAL PULMONARY ARTERY: normal dimensions. Assessment is limited due to limited contrast enhancement. CARDIAC CHAMBERS: LEFT VENTRICLE: normal size. RIGHT VENTRICLE: normal size Left atrium: mildly dilated. Small outpouching at the roof of the left atrium, most c/w small diverticulum. LIZ: filling defect c/w slow flow or thrombus. Right atrium: mildly dilated CENTRAL VENOUS and PULMONARY VENOUS RETURN: normal. Coronary Sinus: normal size MITRAL VALVE: assessment is limited in the current study MVrepair with C-shaped annuloplasty band in place, measuring 3.4 x 2.4 cm. - no leaflet calcification. No annular calcification TRICUSPID and PULMONIC VALVE: appear unremarkable. CORONARY ANATOMY: normal origin of the coronary arteries. Calcified atherosclerotic changes including LM, proximal LAD, LCX, RCA, precluding precise assessment with CT. - [place] FELA and BEN are normal size vessels without evidence of calcified atherosclerotic changes. Evidence of prior Coronary Bypass Surgery. Patent grafts are not identified - changes most c/w stump of occluded Aorto-coronary graft to branches of the RCA AORTIC VALVE: AVR with BIOPROSTHETIC VALVE, valve ring 2.5 cm. Mild to moderate leaflet calcification. AORTA: Pathology: No acute aortic pathology. Intervention: None Complications: n/a Aortic Size: Ectasia/Mild Dilation aortic root and ascending aorta. STJ: maintained. Wall Changes: Surgical changes and mild calcification ascending aorta. Mild partially calcified wall changes arch and descending thoracic aorta. Arch Branch Vessels: Patent, normal size proximal segments of the arch branch vessels, with mild partially calcified wall changes. AORTIC DIMENSIONS: AORTIC ROOT: 4 cm measured [id number] mid ASCENDING THORACIC AORTA: 4.2 cm mid AORTIC ARCH: 3.3 cm mid DESCENDING THORACIC AORTA: 3 cm RELATIONSHIP OF THE CARDIOVASCULAR STRUCTURES OF THE STERNUM: Left brachio-cephalic vein lies immediately behind the manubrium sternum RV lies 1 mm behind the lower sternum limited upper ABDOMEN: Liver: punctate calcification Spleen: punctate calcification Floriculture Professor (topogram) images: No additional findings. IMPRESSION IMPRESSION: AVR with BIOPROSTHETIC VALVE, valve ring 2.5 cm. Mild to moderate leaflet calcification. ECTASIA/MILD DILATION AORTIC ROOT AND ASCENDING AORTA. -AORTIC ROOT: 4 cm -ASCENDING THORACIC AORTA: 4.2 cm MITRAL VALVE: MVrepair with C-SHAPED ANNULOPLASTY BAND in place, measuring 3.4 x 2.4 cm. LIZ: filling defect c/w slow flow or thrombus. Acuity: Actionable Findings: Heart and Vascular system Routing Code: CV_1 Recommendation: Unlisted Recommendation (see report) TimeFrame: at the discretion of the clinical team. --END OF FINDING-- CORONARY ANATOMY: Calcified atherosclerotic changes including LM, proximal LAD, LCX, RCA, precluding precise assessme (more content not included)... [facility] Radiology Study observation (narrative) [facility] Basophils Auto (Bld) [#/Vol] on 07-14-2023 Basophils (Bld) [#/Vol] 0.05 10*3/uL <0.11 [facility] Basophils/100 WBC Auto (Bld) on 07-14-2023 Basophils/100 WBC (Bld) 0.7 % [facility] Blood manual differential co mment interpretation narrativeon 07-14-2023 Manual differential comment Eladio (Bld) [Interp] Auto [facility] Eosinophils/100 WBC Auto (Bl d)on 07-14-2023 Eosinophils/100 WBC (Bld) 1.9 % [facility] Erythrocyte distribution wid th Auto (RBC) [Ratio]on 07-14-2023 Erythrocyte distribution width (RBC) [Ratio] 13.2 % 11.5-15.0 [facility] Hematocrit Auto (Bld) [Volum e fraction]on 07-14-2023 Hematocrit (Bld) [Volume fraction] 44.7 % 39.0-51.0 [facility] Hemoglobin [Mass/volume] in Bloodon 07-14-2023 Hemoglobin (Bld) [Mass/Vol] 14.9 g/dL 13.0-17.0 [facility] Laboratory - Chemistry and C hemistry - challengeon 07-14-2023 Albumin [Mass/Vol] 4.2 g/dL 3.9-4.9 [facility] ALP [Catalytic activity/Vol] 107 U/L 38-113 [facility] ALT [Catalytic activity/Vol] 24 U/L 10-54 [facility] AST [Catalytic activity/Vol] 30 U/L 14-40 [facility] Bilirubin [Mass/Vol] 0.7 mg/dL 0.2-1.3 [facility] Calcium [Mass/Vol] 9.4 mg/dL 8.5-10.2 [facility] Chloride [Moles/Vol] 106 mmol/L High 97-105 [facility] CO2 [Moles/Vol] 28 mmol/L 22-30 [facility] Creatinine [Mass/Vol] 1.16 mg/dL 0.73-1.22 [facility] Glucose [Mass/Vol] 99 mg/dL 74-99 [facility] Comment on above: The [place] Diabete s Association (ADA) provides guidance for cutoff values for fasting glucose and random glucose. The ADA defines fasting as no caloric intake for at least 8 hours. Fasting plasma glucose results between 100 to 125 mg/dL indicate increased risk for diabetes (prediabetes).Fasting plasma glucose results greater than or equal to 126 mg/dL meet the criteria for diagnosis of diabetes. In the absence of unequivocal hyperglycemia, results should be confirmed by repeat testing. In a patient with classic symptoms of hyperglycemia or hyperglycemic crisis, random plasma glucose results greater than or equal to 200 mg/dL meet the criteria for diagnosis of diabetes.Reference: Standards of Medical Care in Diabetes 2016, [place] Diabetes Association. Diabetes Care. 2016.39(Suppl 1). Potassium [Moles/Vol] 4.4 mmol/L 3.7-5.1 [facility] Sodium [Moles/Vol] 143 mmol/L 136-144 [facility] Urea nitrogen [Mass/Vol] 17 mg/dL 9- [facility] Laboratory - Hematology and Cell countson 07-14-2023 Eosinophils (Bld) [#/Vol] 0.13 10*3/uL <0.46 [facility] Immature granulocytes (Bld) [#/Vol] 0.03 10*3/uL <0.10 [facility] Immature granulocytes/100 WBC (Bld) 0.4 % [facility] Leukocytes [#/volume] correc katia for nucleated erythrocytes in Blood by Automated counon 07-14-2023 WBC corrected for nucl RBC Auto (Bld) [#/Vol] 6.88 k/uL 3.70-11.00 [facility] Lymphocytes Auto (Bld) [#/Vo l]on 07-14-2023 Lymphocytes (Bld) [#/Vol] 1.93 10*3/uL 1.00-4.00 [facility] Lymphocytes/100 WBC Auto (Bl d)on 07-14-2023 Lymphocytes/100 WBC (Bld) 28.1 % [facility] MCH Auto (RBC) [Entitic mass ]on 07-14-2023 MCH (RBC) [Entitic mass] 30.2 pg 26.0-34.0 [facility] MCHC Auto (RBC) [Mass/Vol]on 07-14-2023 MCHC (RBC) [Mass/Vol] 33.3 g/dL 30.5-36.0 [facility] MCV Auto (RBC) [Entitic vol] on 07-14-2023 MCV (RBC) [Entitic vol] 90.7 fL 80.0-100.0 [facility] Monocytes Auto (Bld) [#/Vol] on 07-14-2023 Monocytes (Bld) [#/Vol] 0.70 10*3/uL <0.87 [facility] Monocytes/100 WBC Auto (Bld) on 07-14-2023 Monocytes/100 WBC (Bld) 10.2 % [facility] Neutrophils Auto (Bld) [#/Vo l]on 07-14-2023 Neutrophils (Bld) [#/Vol] 4.04 10*3/uL 1.45-7.50 [facility] Neutrophils/100 WBC Auto (Bl d)on 07-14-2023 Neutrophils/100 WBC (Bld) 58.7 % [facility] No Panel Informationon 07-13 Estimated GFR (CKD-EPI) 61 mL/min/1.73m??? >=60 [facility] Comment on above: Estimated Glomerular Filtration Rate (eGFR) is calculated using the 2020 CKD-EPI creatinine equation. This equation utilizes serum creatinine, sex, and age as parameters. The creatinine assay has traceable calibration to isotope dilution-mass spectrometry. Refer to KDIGO guidelines for clinical interpretation. In patients with unstable renal function, e.g. those with acute kidney injury, the eGFR may not accurately reflect actual GFR. Nucleated RBC Auto (Bld) [#/ Vol]on 07-14-2023 Nucleated RBC (Bld) [#/Vol] 10*3/uL <0.01 [facility] Nucleated erythrocytes [Pres ence] in Blood by Automated counton 07-14-2023 Nucleated RBC Auto Ql (Bld) 0.0 /100{WBC} [facility] Platelet mean volume Auto (B ld) [Entitic vol]on 07-14-2023 Platelet mean volume (Bld) [Entitic vol] 12.3 fL 9.0-12.7 [facility] Platelets Auto (Bld) [#/Vol] on 07-14-2023 Platelets (Bld) [#/Vol] 120 10*3/uL Low 150-400 [facility] Protein [Mass/volume] in Ser um or Plasmaon 07-14-2023 Protein [Mass/Vol] 6.7 g/dL 6.3-8.0 [facility] RBC Auto (Bld) [#/Vol]on RBC (Bld) [#/Vol] 4.93 10*6/uL 4.20-6.00 [facility] Serum or plasma anion gap de terminationon 07-14-2023 Anion gap [Moles/Vol] 9 mmol/L 9-18 [facility] Physician Orderon 09-16-2022 Physician Order [id number] [id number]:[id number] Normal [facility] CBC AUTO DIFFon 12-25-2021 BASO # 0.1 103/ul Normal 0.0-0.1 [facility] Comment on above: Performed By: #### C BC #### [facility] [address] [place] [address] Dr. Chandra Lozano Basophils/100 WBC (Bld) 1.0 % Normal 0.2-2.0 [facility] Comment on above: Performed By: #### C BC #### [facility] [address] [address] [address] Chandra Lozano EO # 0.3 103/ul Normal 0.0-0.7 [facility] Comment on above: Performed By: #### C BC #### [facility] [address] [address] [address] Chandra Lozano Eosinophils/100 WBC (Bld) 4.5 % Normal 0.9-7.0 [facility] Comment on above: Performed By: #### C BC #### [facility] [address] [address] [address] Chandra Lozano Erythrocyte distribution width (RBC) [Ratio] 13.4 % Normal 11.0-15.0 [facility] Comment on above: Performed By: #### C BC #### [facility] [address] [place] [address] Dr. Chandra Lozano Hematocrit (Bld) [Volume fraction] 43.7 % Normal 42.0-54.0 [facility] Comment on above: Performed By: #### C BC #### [facility] [address] [place] [address] Dr. Chandra Lozano Hemoglobin (Bld) [Mass/Vol] 14.5 g/dL Normal 14.0-18.0 [facility] Comment on above: Performed By: #### C BC #### [facility] [address] [place] [address] Dr. Chandra Lozano IG # 0.02 10e3/ul Normal 0.00-0.03 [facility] Comment on above: Performed By: #### C BC #### [facility] [address] [place] [address] Dr. Chandra Lozano IG % 0.3 % Normal 0.0-0.5 [facility] Comment on above: Performed By: #### C BC #### [facility] [address] [place] [address] Dr. Chandra Lozano LYMPH # 2.0 103/ul Normal 1.2-3.8 [facility] Comment on above: Performed By: #### C BC #### [facility] [address] [place] [address] Dr. Chandra Lozano Lymphocytes/100 WBC (Bld) 27.4 % Normal 20.5-60.0 [facility] Comment on above: Performed By: #### C BC #### [facility] [address] [place] [address] Dr. Chandra Lozano MANUAL DIFF REQ NO Normal [facility] Comment on above: Performed By: #### C BC #### [facility] [address] [place] [address] Dr. Chandra Lozano MCH (RBC) [Entitic mass] 30.2 pg Normal 25.9-34.0 [facility] Comment on above: Performed By: #### C BC #### [facility] [address] [place] [address] Dr. Chandra Lozano MCHC (RBC) [Mass/Vol] 33.2 g/dL Normal 29.9-35.2 [facility] Comment on above: Performed By: #### C BC #### [facility] [address] [address] [address] Chandra Lozano MCV (RBC) [Entitic vol] 91.0 fL Normal 80.0-94.0 [facility] Comment on above: Performed By: #### C BC #### [facility] [address] [address] [address] Chandra Lozano MONO # 0.9 103/ul Critically high 0.3-0.8 [facility] Comment on above: Performed By: #### C BC #### [facility] [address] [address] [address] Chandra Lozano Monocytes/100 WBC (Bld) 12.4 % Critically high 1.7-12.0 [facility] Comment on above: Performed By: #### C BC #### [facility] [address] [place] [address] Dr. Chandra Lozano NEUT # 3.9 103/ul Normal 1.4-6.5 [facility] Comment on above: Performed By: #### C BC #### [facility] [address] [place] [address] Dr. Chandra Lozano Neutrophils/100 WBC (Bld) 54.4 % Normal 43.0-75.0 [facility] Comment on above: Performed By: #### C BC #### [facility] [address] [place] [address] Dr. Chandra Lozano Platelet mean volume (Bld) [Entitic vol] 10.7 fL Normal 9.5-13.5 [facility] Comment on above: Performed By: #### C BC #### [facility] [address] [place] [address] Dr. Chandra Lozano PLT 151 103/ul Normal 150-450 [facility] Comment on above: Performed By: #### C BC #### [facility] [address] [place] [address] Dr. Chandra Lozano RBC 4.80 106/ul Normal 4.70-6.10 [facility] Comment on above: Performed By: #### C BC #### [facility] [address] [address] [address] Chandra Lozano WBC 7.1 103/ul Normal 4.0-11.0 [facility] Comment on above: Performed By: #### C BC #### [facility] [address] [place] [address] Dr. Chandra Lozano LIPID PROFILEon 12-25-2021 CHOL-HDL RATIO NORM SEE BELOW Normal [facility] Comment on above: Result Comment: 3.3 - 4.4 LOW RISK 4.4 - 7.1 AVERAGE RISK 7.1 - 11.0 MODERATE RISK >11.0 HIGH RISK Performed By: #### L IPID, ALT, BMP #### [facility] [address] [place] [address] Dr. Chandra Lozano Cholesterol [Mass/Vol] 169 mg/dL Normal <=200 [facility] Comment on above: Performed By: #### L IPID, ALT, BMP #### [facility] [address] [place] [address] Dr. Chandra Lozano Cholesterol in HDL [Mass/Vol] 87 mg/dL Critically high 40-60 [facility] Comment on above: Performed By: #### L IPID, ALT, BMP #### [facility] [address] [place] [address] Dr. Chandra Lozano Cholesterol in LDL [Mass/Vol] 68.4 mg/dL Normal [facility] Comment on above: Performed By: #### L IPID, ALT, BMP #### [facility] [address] [place] [address] Dr. Chandra Lozano Cholesterol.total/Cho lesterol in HDL [Mass ratio] 1.9 {ratio} Normal [facility] Comment on above: Performed By: #### L IPID, ALT, BMP #### [facility] [address] [place] [address] Dr. Chandra Lozano HDL NORMAL > or = 60 mg/dl - LO W CARDIOVASCULAR RISK <40 mg/dl - HIGH CARDIOVASCULAR RISK Normal [facility] Comment on above: Performed By: #### L IPID, ALT, BMP #### [facility] [address] [place] [address] Dr. Chandra Lozano LDL CALC NORMAL SEE BELOW Normal [facility] Comment on above: Result Comment: <100 mg/dl OPTIMAL 100 - 129 mg/dl NEAR OR ABOVE OPTIMAL 130 - 159 mg/dl BORDERLINE HIGH 160 - 189 mg/dl HIGH >190 mg/dl VERY HIGH Performed By: #### L IPID, ALT, BMP #### [facility] [address] [place] [address] Dr. Chandra Lozano Triglyceride [Mass/Vol] 68 mg/dL Normal <=150 [facility] Comment on above: Performed By: #### L IPID, ALT, BMP #### [facility] [address] [address] [address] Chandra Lozano VLDL CALC 13.6 mg/dL Normal [facility] Comment on above: Performed By: #### L IPID, ALT, BMP #### [facility] [address] [place] [address] Dr. Chandra Lozano PROF CHEM 8 (BAS METB)on Anion gap [Moles/Vol] 9.0 mmol/L Normal [facility] Comment on above: Performed By: #### L IPID, ALT, BMP #### [facility] [address] [address] [address] Chandra Lozano Calcium [Mass/Vol] 9.4 mg/dL Normal 8.5-10.1 [facility] Comment on above: Performed By: #### L IPID, ALT, BMP #### [facility] [address] [place] [address] Dr. Chandra Lozano Chloride [Moles/Vol] 103 mmol/L Normal 98-107 [facility] Comment on above: Performed By: #### L IPID, ALT, BMP #### [facility] [address] [address] [address] Chandra Lozano CO2 [Moles/Vol] 31.6 mmol/L Normal 21.0-32.0 [facility] Comment on above: Performed By: #### L IPID, ALT, BMP #### [facility] [address] [place] [address] Dr. Chandra Lozano Creatinine [Mass/Vol] 1.13 mg/dL Normal 0.70-1.30 [facility] Comment on above: Performed By: #### L IPID, ALT, BMP #### [facility] [address] [address] [address] Chandra Lozano EGFR-AF GUINEAN >60 Normal >=60 [facility] Comment on above: Performed By: #### L IPID, ALT, BMP #### [facility] [address] [address] [address] Chandra Lozano EGFR-NON AF GUINEAN >60 Normal >=60 [facility] Comment on above: Performed By: #### L IPID, ALT, BMP #### [facility] [address] [place] [address] Dr. Chandra Lozano Glucose [Mass/Vol] 108 mg/dL Critically high 74-106 [facility] Comment on above: Performed By: #### L IPID, ALT, BMP #### [facility] [address] [address] [address] Chandra Lozano Potassium [Moles/Vol] 4.6 mmol/L Normal 3.5-5.1 [facility] Comment on above: Performed By: #### L IPID, ALT, BMP #### [facility] [address] [place] [address] Dr. Chandra Lozano Sodium [Moles/Vol] 139 mmol/L Normal 136-145 [facility] Comment on above: Performed By: #### L IPID, ALT, BMP #### [facility] [address] [address] [address] Chandra Lozano Urea nitrogen [Mass/Vol] 19.0 mg/dL Critically high 7.0-18.0 [facility] Comment on above: Performed By: #### L IPID, ALT, BMP #### [facility] [address] [place] [address] Dr. Chandra Lozano Urea nitrogen/Creatinine [Mass ratio] 16.8 mg/mg Normal [facility] Comment on above: Performed By: #### L IPID, ALT, BMP #### [facility] [address] [place], [place] [address] Dr. Chandra Lozano SGPTon 12-25-2021 ALT [Catalytic activity/Vol] 34 U/L Normal 16-63 [facility] Comment on above: Performed By: #### L IPID, ALT, BMP #### [facility] [address] [place], [place] [address] Dr. Chandra Lozano CBC W Auto Differential pane l (Bld)on 08-26-2021 Abs Immature Gran <0.03 <0.10 k/uL [facility] Basophils (Bld) [#/Vol] 0.07 10*3/uL <0.11 k/uL [facility] Basophils/100 WBC (Bld) 1.0 % [facility] Differential cell count method Nom (Bld) Auto [facility] Eosinophils (Bld) [#/Vol] 0.17 10*3/uL <0.46 k/uL [facility] Eosinophils/100 WBC (Bld) 2.5 % [facility] Erythrocyte distribution width (RBC) [Ratio] 13.5 % 11.5 - 15.0 % [facility] Hematocrit (Bld) [Volume fraction] 44.1 % 39.0 - 51.0 % [facility] Hemoglobin (Bld) [Mass/Vol] 14.5 g/dL 13.0 - 17.0 g/dL [facility] Immature Gran % 0.3 % [facility] Lymphocytes (Bld) [#/Vol] 1.89 10*3/uL 1.00 - 4.00 k/uL [facility] Lymphocytes/100 WBC (Bld) 27.7 % [facility] MCH (RBC) [Entitic mass] 29.7 pg 26.0 - 34.0 pg [facility] MCHC (RBC) [Mass/Vol] 32.9 g/dL 30.5 - 36.0 g/dL [facility] MCV (RBC) [Entitic vol] 90.4 fL 80.0 - 100.0 fL [facility] Monocytes (Bld) [#/Vol] 0.76 10*3/uL <0.87 k/uL [facility] Monocytes/100 WBC (Bld) 11.1 % [facility] Neutrophils (Bld) [#/Vol] 3.92 10*3/uL 1.45 - 7.50 k/uL [facility] Neutrophils/100 WBC (Bld) 57.4 % [facility] Nucleated RBC (Bld) [#/Vol] 10*3/uL <0.01 k/uL [facility] Nucleated RBC/100 WBC (Bld) [Ratio] 0.0 /100 WBC [facility] Platelet mean volume (Bld) [Entitic vol] 11.3 fL 9.0 - 12.7 fL [facility] Platelets (Bld) [#/Vol] 130 10*3/uL Low 150 - 400 k/uL [facility] RBC (Bld) [#/Vol] 4.88 10*6/uL 4.20 - 6.0 0 m/uL [facility] WBC (Bld) [#/Vol] 6.83 10*3/uL 3.70 - 11. 00 k/uL [facility] Comprehensive metabolic 2000 panelon 08-26-2021 Albumin [Mass/Vol] 4.3 g/dL 3.9 - 4.9 g/dL [facility] ALP [Catalytic activity/Vol] 101 U/L 38 - 113 U/L [facility] ALT [Catalytic activity/Vol] 26 U/L 10 - 54 U/L [facility] Anion gap [Moles/Vol] 11 mmol/L 9 - 18 mmol/L [facility] AST [Catalytic activity/Vol] 33 U/L 14 - 40 U/L [facility] Bilirubin [Mass/Vol] 1.0 mg/dL 0.2 - 1 .3 mg/dL [facility] Calcium [Mass/Vol] 10.0 mg/dL 8.5 - 10. 2 mg/dL [facility] Chloride [Moles/Vol] 102 mmol/L 97 - 10 5 mmol/L [facility] CO2 [Moles/Vol] 28 mmol/L 22 - 30 mmol/L [facility] Creatinine [Mass/Vol] 1.17 mg/dL 0.73 - 1.22 mg/dL [facility] Estimated Glomerular Filtration Rate 61 mL/min/1.73m >=60 mL/min/1.73m [facility] Glucose [Mass/Vol] 102 mg/dL High 74 - 99 mg/dL [facility] Potassium [Moles/Vol] 4.3 mmol/L 3.7 - 5.1 mmol/L [facility] Protein [Mass/Vol] 6.5 g/dL 6.3 - 8.0 g/dL [facility] Sodium [Moles/Vol] 141 mmol/L 136 - 144 mmol/L [facility] Urea nitrogen [Mass/Vol] 16 mg/dL 9 - 24 mg/dL [facility] Lipid 1996 panelon Cholesterol [Mass/Vol] 155 mg/dL <200 mg/dL [facility] Cholesterol in HDL [Mass/Vol] 74 mg/dL >39 mg/[facility] Cholesterol in LDL [Mass/Vol] 65 mg/dL <100 mg/dL [facility] Cholesterol in LDL/Cholesterol in HDL [Mass ratio] 0.88 {ratio} <2.54 [facility] Cholesterol in VLDL [Mass/Vol] 16 mg/dL <30 mg/dL [facility] Cholesterol non HDL [Mass/Vol] 81 mg/dL <130 mg/dL [facility] Cholesterol.total/Cho lesterol in HDL [Mass ratio] 2.09 {ratio} <5.10 [facility] Fasting Time 12 hrs [facility] Triglyceride [Mass/Vol] 80 mg/dL <150 mg/dL [facility] NT PRO BNPon 08-26-2021 Natriuretic peptide.B prohormone N-Terminal [Mass/Vol] 883 pg/mL High <450 pg/mL [facility] PT panel Coag (PPP)on 2021 INR Coag (PPP) [Relative time] 2.4 {INR} High 0.9 - 1.3 [facility] PT Coag (PPP) [Time] 24.2 s High 9.7 - 1 3.0 sec [facility] TSH BLDon 08-26-2021 TSH Qn 1.460 m[IU]/L 0.270 - 4.200 mIU/L [facility] Vital Signs Date Time Vital Sign Value Performing Clinician Facility 01-06-2024 11: Body height 177.8 cm [facility] 01-06-2024 11: Body mass index (BMI) [Ratio] 25.6 kg/m2 [facility] 01-06-2024 11: Body temperature 97.3 [degF] [facility] 01-06-2024 11: Body weight 81 kg [facility] 01-06-2024 11:11-0400 Diastolic blood pressure 81 mm[Hg] [facility] 01-06-2024 11:11-0400 Heart rate 81 /min [facility] 01-06-2024 11:11-0400 SaO2% (BldA) [Mass fraction] 98 % [facility] 01-06-2024 11:11-0400 Systolic blood pressure 164 mm[Hg] [facility] 12-19-2023 15:15-0400 Body height 177.8 cm Jamaal Jaeger DPM FACFAS Work Phone: [facility] 12-19-2023 15:15-0400 Body mass index (BMI) [Ratio] 24.39 kg/m2 Jamaal Jaeger DPM FACFAS Work Phone: [facility] 12-19-2023 15:15-0400 Body weight 77.11 kg Jamaal Jaeger DPM FAC[facility]AS Work Phone: [facility] 12-19-2023 15:15-0400 Diastolic blood pressure 75 mm[Hg] Jamaal Jaeger DPM FACFAS Work Phone: [facility] 12-19-2023 15:15-0400 Heart rate 76 /min Jamaal Jaeger DPM FACFAS Work Phone: [facility] 12-19-2023 15:15-0400 Systolic blood pressure 121 mm[Hg] Jamaal Jaeger DPM FACFAS Work Phone: [facility] 10-03-2023 13:35-0400 Body height 177.8 cm [facility] 10-03-2023 13:35-0400 Body mass index (BMI) [Ratio] 25.7 kg/m2 [facility] 10-03-2023 13:35-0400 Body weight 81.24 kg [facility] 10-03-2023 13:35-0400 Diastolic blood pressure 83 mm[Hg] [facility] 10-03-2023 13:35-0400 Heart rate 80 /min [facility] 10-03-2023 13:35-0400 Respiratory rate 12 /min [facility] 10-03-2023 13:35-0400 Systolic blood pressure 134 mm[Hg] [facility] 07-14-2023 13:55-0400 Diastolic blood pressure 95 mm[Hg] Amilcar Cervantes MD Work Phone: [facility] Comment on above: 07-14-2023 13:55-0400 Heart rate 81 /min Amilcar Cervantes MD Work Phone: [facility] 07-14-2023 13:55-0400 Systolic blood pressure 164 mm[Hg] Amilcar Cervantes MD Work Phone: [facility] Comment on above: 07-14-2023 13:50-0400 Body height 175.5 cm Amilcar Cervantes MD Work Phone: [facility] 07-14-2023 13:50-0400 Body mass index (BMI) [Ratio] 25.77 kg/m2 Amilcar Cervantes MD Work Phone: [facility] 07-14-2023 13:50-0400 Body weight 79.38 kg Amilcar Cervantes MD Work Phone: [facility] 07-14-2023 13:50-0400 SaO2% (BldA) [Mass fraction] 98 % Amilcar Cervantes MD Work Phone: [facility] 01-18-2023 08:30-0500 Body height Matt Ball Other [employer] Other 01-18-2023 08:30-0500 Body mass index (BMI) [Ratio] 25.39 kg/m2 Matt Ball Other [employer] Other 01-18-2023 08:30-0500 Body weight 80.29 kg Matt Ball Other [employer] Other 01-18-2023 08:30-0500 Diastolic blood pressure 76 mm[Hg] Matt Ball Other [employer] Other 01-18-2023 08:30-0500 Respiratory rate 12 /min Matt Ball Other [facility] [employer] Other 01-18-2023 08:30-0500 Systolic blood pressure 147 mm[Hg] Matt Ball Other [facility] [employer] Other 12-30-2022 16:13-0400 Body height 177.8 cm Suleiman Santana MD Work Phone: [facility] 12-30-2022 16:13-0400 Body weight 77.11 kg Suleiman Santana MD Work Phone: [facility] 12-30-2022 16:13-0400 Diastolic blood pressure 83 mm[Hg] Suleiman Santana MD Work Phone: [facility] 12-30-2022 16:13-0400 Heart rate 65 /min Suleiman Santana MD Work Phone: [facility] 12-30-2022 16:13-0400 Systolic blood pressure 133 mm[Hg] Suleiman Santana MD Work Phone: [facility] 11-03-2022 16:32-0400 Body height 175.3 cm Amilcar Cervantes MD Work Phone: [facility] 11-03-2022 16:32-0400 Body weight 76.66 kg Amilcar Cervantes MD Work Phone: [facility] 11-03-2022 16:32-0400 Diastolic blood pressure 84 mm[Hg] Amilcar Cervantes MD Work Phone: [facility] 11-03-2022 16:32-0400 Heart rate 61 /min Amilcar Cervantes MD Work Phone: [facility] 11-03-2022 16:32-0400 SaO2% (BldA) [Mass fraction] 100 % Amilcar Cervantes MD Work Phone: [facility] 11-03-2022 16:32-0400 Systolic blood pressure 123 mm[Hg] Amilcar Cervantes MD Work Phone: [facility] 09-22-2022 09:15-0400 Body height Matt Ball Other [employer] Other 09-22-2022 09:15-0400 Body mass index (BMI) [Ratio] 25.14 kg/m2 Matt Ball Other [employer] Other 09-22-2022 09:15-0400 Body weight 79.47 kg Matt Ball Other [employer] Other 09-22-2022 09:15-0400 Diastolic blood pressure 69 mm[Hg] Matt Ball Other [employer] Other 09-22-2022 09:15-0400 Respiratory rate 12 /min Matt Ball Other [employer] Other 09-22-2022 09:15-0400 Systolic blood pressure 135 mm[Hg] Matt Ball Other [employer] Other 07-08-2022 12:00-0400 Body height Matt Ball Other [employer] Other 07-08-2022 12:00-0400 Body mass index (BMI) [Ratio] 25.51 kg/m2 Matt Ball Other [employer] Other 07-08-2022 12:00-0400 Body weight 80.65 kg Matt Ball Other [employer] Other 07-08-2022 12:00-0400 Diastolic blood pressure 82 mm[Hg] Matt Ball Other [employer] Other 07-08-2022 12:00-0400 SaO2% (BldA) [Mass fraction] 97 % Matt Ball Other [employer] Other 07-08-2022 12:00-0400 Systolic blood pressure 127 mm[Hg] Matt Perkins Other [employer] Other 08-26-2021 12:32-0400 Diastolic blood pressure 80 mm[Hg] Amilcar Cervantes MD Work Phone: [facility] 08-26-2021 12:32-0400 Heart rate 71 /min Amilcar Cervantes MD Work Phone: [facility] 08-26-2021 12:32-0400 Systolic blood pressure 131 mm[Hg] Amilcar Cervantes MD Work Phone: [facility] 08-26-2021 12:28-0400 Body height 177.8 cm Amilcar Cervantes MD Work Phone: [facility] 08-26-2021 12:28-0400 Body weight 79.2 kg Amilcar Cervantes MD Work Phone: [facility] 08-26-2021 12:28-0400 SaO2% (BldA) [Mass fraction] 100 % Amilcar Cervantes MD Work Phone: [facility] Encounters Encounter Date Encounter Type Care Provider Facility Start: 07-31-2024 End: 07-31-2024 Ashwin Brower MD Work Phone: [facility] Start: 07-31-2024 End: 07-31-2024 Ashwin Brower MD Work Phone: [facility] Start: 07-31-2024 End: 07-31-2024 ambulatory SHARLA BROWER Not Available Start: 07-25-2024 End: 07-25-2024 ambulatory AMILCAR CERVANTES Facility:[facility] Start: 07-25-2024 End: 07-25-2024 ambulatory EFE TREJO Facility:[facility] Start: 01-06-2024 End: 01-06-2024 ambulatory [facility] Work Phone: Start: 01-06-2024 End: 01-06-2024 Patient encounter procedure [facility] Work Phone: Start: 01-05-2024 Patient encounter procedure [facility] Start: 01-04-2024 Non-patient / Non-visit [facility] Work Phone: Start: 12-19-2023 End: 12-19-2023 ambulatory JAMAAL JAEGER Not Available Start: 12-19-2023 End: 12-19-2023 Office outpatient visit 15 minutes Jamaal Jaeger DPM FAC[facility]AS Work Phone: [facility] Comment on above: Venous insufficiency (chronic) (peripheral) (Primary Dx); Onychomycosis; Pain in left toe(s); Pain in right toe(s) Start: 12-19-2023 End: 12-19-2023 Bamboo flowsheet Jamaal Abelardo Fuentesce DPM FACFAS Work Phone: [facility] Start: 12-19-2023 End: 12-19-2023 Bamboo flowsheet Jamaal Abelardo Fuentesce DPM FACFAS Work Phone: [facility] Start: 11-30-2023 End: 12-16-2023 Telephone encounter Amilcar Cervantes MD Work Phone: Cardiology Comment on above: Medical Clearance Start: 10-03-2023 End: 10-03-2023 ambulatory [facility] Work Phone: Start: 10-03-2023 End: 10-03-2023 Patient encounter procedure [facility] Work Phone: Start: 09-22-2023 End: 09-22-2023 ambulatory CHINO S LIEBENTHAL Not Available Start: 08-31-2023 End: 08-31-2023 ambulatory CHINO S LIEBENTHAL Not Available Start: 08-11-2023 End: 08-11-2023 Subsequent hospital visit by physician Mary Ann Orosco ([facility]) Work Phone: Radiology Comment on above: S/P AVR (aortic valv e replacement) [Z95.2] Start: 07-25-2023 Non-patient / Non-visit [facility] Physician [facility] Work Phone: Start: 07-14-2023 Non-patient / Non-visit [facility] [employer] Work Phone: Start: 07-14-2023 End: 07-14-2023 Patient encounter procedure Amilcar Cervantes MD Work Phone: Cardiology Comment on above: S/P AVR (aortic valv e replacement) (Primary Dx); H/O mitral valve repair; 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, unspecified whether angina present; Hx of CABG Start: 01-24-2023 End: 01-24-2023 ambulatory Matt Perkins Other [employer] Other Start: 01-24-2023 Telephone encounter Matt Perkins [facility] Start: 01-18-2023 End: 01-18-2023 ambulatory Matt Perkins Other [employer] Other Start: 01-18-2023 Patient encounter procedure Matt Perkins [facility] Start: 12-30-2022 End: 12-31-2022 Patient encounter procedure Suleiman Santana MD Work Phone: Cardiology Comment on above: Permanent atrial fib rillation (HCC) (Primary Dx) Start: 12-17-2022 End: 12-17-2022 ambulatory Matt Perkins Other [employer] Other Start: 12-17-2022 Nursing evaluation o f patient and report Matt Perkins [facility] Start: 11-03-2022 End: 11-03-2022 Patient encounter procedure Amilcar Cervantes MD Work Phone: Cardiology Comment on above: S/P mitral valve rep air (Primary Dx); Status post aortic valve replacement with prosthetic valve; Permanent atrial fibrillation (HCC); Nonrheumatic mitral valve regurgitation Start: 11-03-2022 ambulatory Yolie clark AuD, CCC-A Work Phone: Audiology Comment on above: Left Hearing Aid Start: 11-03-2022 E-mail encounter fro m caregiver Yolie Kelly, CCC-A Work Phone: [facility] Start: 11-01-2022 Telephone encounter Yolie Kelly, CCC-A Work Phone: Audiology Comment on above: Hearing aids Start: 11-01-2022 End: 11-01-2022 Patient encounter procedure Kristyn Bello MD Work Phone: Otolaryngology Comment on above: Other otitis externa , left ear (Primary Dx) Start: 09-22-2022 End: 09-22-2022 ambulatory Matt Perkins Other [employer] Other Start: 09-22-2022 Office outpatient vi sit 15 minutes Matt Perkins [facility] Start: 09-17-2022 End: 09-17-2022 Patient encounter procedure Yolie Kelly, CCC-A Work Phone: Audiology Comment on above: Mixed conductive and sensorineural hearing loss, bilateral (Primary Dx) Start: 09-16-2022 End: 09-17-2022 ambulatory Sharla Brower Facility:[facility] Start: 09-16-2022 End: 09-16-2022 Lab Drop off Sharla Brower [facility] Start: 08-11-2022 End: 08-11-2022 Patient encounter procedure Yolie Kelly, CCC-A Work Phone: Audiology Comment on above: Mixed hearing loss, bilateral (Primary Dx) Start: 08-04-2022 End: 08-04-2022 ambulatory Matt Perkins Other [employer] Other Start: 08-04-2022 Telephone encounter Matt Perkins [facility] Start: 07-08-2022 End: 07-08-2022 ambulatory Matt Perkins Other [employer] Other Start: 07-08-2022 Office outpatient vi sit 25 minutes Matt Perkins [facility] [employer] [facility] Start: 07-08-2022 Telephone encounter Matt Perkins FP [facility] Start: 07-05-2022 End: 08-04-2022 ambulatory [facility] Facility:[facility]1 Start: 06-07-2022 End: 07-02-2022 Orders Only Suleiman Santana MD Work Phone: Cardiology Comment on above: Persistent atrial fi brillation (HCC) (Primary Dx) Start: 05-27-2022 Orders Only Amilcar Cervantes MD Work Phone: Cardiology Comment on above: Nonrheumatic mitral valve regurgitation (Primary Dx); S/P mitral valve repair Start: 05-05-2022 End: 06-04-2022 ambulatory [facility] Facility:[facility] Start: 04-07-2022 End: 05-05-2022 ambulatory [facility] Facility:[facility] Start: 03-08-2022 End: 04-07-2022 ambulatory [facility] Facility:[facility] Start: 02-04-2022 End: 03-07-2022 ambulatory [facility] Facility:[facility]1 Start: 01-05-2022 End: 02-03-2022 ambulatory [facility] Facility:[facility] Start: 12-25-2021 End: 12-26-[address] MATT PERKINS Facility:H1 Start: 12-22-2021 Adult health examination Matt Perkins Other Savannah Verastem Other Start: 12-06-2021 End: 01-04-2022 ambulatory [facility] Facility:[facility] Start: 11-12-2021 End: 11-12-2021 Patient encounter procedure Yolie Hurtado AuD, CCC-A Work Phone: Audiology Comment on above: Mixed conductive and sensorineural hearing loss, bilateral (Primary Dx) Start: 11-05-2021 End: 12-05-2021 ambulatory [facility] Facility:[facility] Start: 10-23-2021 End: 10-23-2021 Patient encounter procedure Yolie Kelly, CCC-A Work Phone: Audiology Comment on above: Mixed conductive and sensorineural hearing loss, bilateral (Primary Dx) Start: 10-19-2021 Telephone encounter Yolie Daveaftab Kelly, CCC-A Work Phone: Audiology Comment on above: Appointment Start: 10-18-2021 ambulatory Yolie Kelly, CCC-A Work Phone: Audiology Comment on above: hearing Aid Start: 10-05-2021 End: 11-04-2021 ambulatory [facility] Facility: Start: 10-02-2021 End: 10-02-2021 Patient encounter procedure Missy Andersen MD Work Phone: Otolaryngology Comment on above: Mixed hearing loss, bilateral (Primary Dx); Chronic adhesive otitis media, bilateral; 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 Start: 10-01-2021 End: 10-01-2021 Patient encounter procedure Yolie Kelly, CCC-A Work Phone: Audiology Comment on above: Mixed conductive and sensorineural hearing loss, bilateral (Primary Dx) Start: 09-24-2021 ambulatory Yolie Kelly, CCC-A Work Phone: Audiology Comment on above: hearing aid Start: 09-04-2021 End: 10-02-2021 ambulatory [facility] Facility: Start: 08-26-2021 End: 08-26-2021 Patient encounter procedure Amilcar Cervantes MD Work Phone: Cardiology Comment on above: S/P mitral valve rep air (Primary Dx); Nonrheumatic mitral valve regurgitation; Status post aortic valve replacement with prosthetic valve; Other hyperlipidemia; Permanent atrial fibrillation (HCC); SOB (shortness of breath) Start: 08-07-2021 End: 08-07-2021 Patient encounter procedure Yolie Kelly, CCC-A Work Phone: Audiology Comment on above: Mixed conductive and sensorineural hearing loss, bilateral (Primary Dx) Start: 08-07-2021 ambulatory Yolie Kelly, CCC-A Work Phone: Audiology Comment on above: Hearing Aids Start: 08-07-2021 E-mail encounter fro m caregiver Yolie Jim Kelly, CCC-A Work Phone: [facility] Procedures Date Procedure Procedure Detail Performing Clinician Start: 07-31-2024 End: 07-31-2024 Oph medical xm&eval comprhnsv estab pt 1/> Pseudophakia Sharla Brower MD Work Phone: Comment on above: Pseudophakia (Primar y Dx); Basal cell carcinoma (BCC) of right lower eyelid; Early dry stage nonexudative age-related macular degeneration of both eyes Start: 08-11-2023 Ct angiography chest w/contrast/noncontrast Amilcar Cervantes MD Work Phone: Start: 12-20-2016 History of coronary artery bypass grafting S/P CABG (coronary artery bypass graft) Yolie Jim Kelly, CCC-A Work Phone: Start: 08-13-2016 Screening for malign ant neoplasm of prostate Matt Harsh Other Start: 09-16-2009 cataract Sharla ugalde Start: [birth year]07-1959 Heart valve replacement Matt Perkins Other Depression screening Sandormadelyn Perkins Other Entire ear (body structure) Sharla Brower Comment on above: surgery left Entire heart valve (body structure) Sharla Brower Comment on above: one repaired and one valve replaced with cow valve History of coronary artery bypass grafting Hx of CABG Amilcar Cervantes MD Work Phone: History of coronary artery bypass grafting Hx of CABG Ct (I-Stat) Work Phone: Open heart surgery Sharla richardson Comment on above: one bypass Plan of Treatment Date Care Activity Detail Author Start: 08-18-2030 Urine microalbumin profile DTa P,Tdap,Td Vaccine (6 - Tdap) [facility] Start: 07-13-2026 Diabetes Screening Diabetes Screenin g [facility] Start: 11-03-2025 DIABETES SCREEN DIABETES SCREEN [facility] Start: 11-03-2025 Diabetes Screening Diabetes Screenin [facility] Start: 11-05-2024 Influenza vaccination Influenz a Vaccine (Season Ended) [facility] Start: 08-26-2024 DIABETES SCREEN DIABETES SCREEN [facility] Start: 07-31-2024 End: 07-31-2024 Patient encounter procedure 07/31/2024 9:30 AM EDT [facility] [address] [place] [id number] Sharla Brower MD [address] [place] [address] [facility] Start: 07-13-2024 End: 10-12-2024 Basic metabolic 2000 panel - Serum or Plasma BASIC METABOLIC PANEL Lab Routine S/P AVR (aortic valve replacement) H/O mitral valve repair 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, 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 Expected: 07/13/2024, Expires: 10/12/2024 [facility] Work Phone: Comment on above: Expected: 07/13/2024 , Expires: 10/12/2024 Start: 07-13-2024 End: 10-12-2024 CBC panel - Blood by Automated count COMPLETE BLOOD COUNT Lab Routine S/P AVR (aortic valve replacement) H/O mitral valve repair 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, 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 Expected: 07/13/2024, Expires: 10/12/2024 [facility] Comment on above: Expected: 07/13/2024 , Expires: 10/12/2024 Start: 07-13-2024 End: 07-13-2024 Echocardiography ECHO Cardiology Routine S/P AVR (aortic valve replacement) H/O mitral valve repair 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, 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 Expected: 07/13/2024, Expires: 07/13/2024 [facility] Comment on above: Expected: 07/13/2024 , Expires: 07/13/2024 Start: 07-13-2024 End: 10-12-2024 Lipid 1996 panel - Serum or Plasma LIPID PANEL BASIC Lab Routine S/P AVR (aortic valve replacement) H/O mitral valve repair 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, 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 Expected: 07/13/2024, Expires: 10/12/2024 [facility] Comment on above: Expected: 07/13/2024 , Expires: 10/12/2024 Start: 03-24-2024 Hepatitis B surface antibody level LDL Cholesterol [facility] Start: 11-06-2023 Covid-19 Vaccine () Covid-19 Vaccine () [facility] Start: 11-06-2023 Influenza vaccination Influenza Vacc ine (#1) [facility] Start: 11-04-2023 End: 01-04-2024 CBC W Auto Differential panel - Blood CBC + DIFF Lab Routine S/P mitral valve repair 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 Permanent atrial fibrillation (HCC) Expected: 11/04/2023, Expires: 01/04/2024 [facility] Work Phone: Comment on above: Expected: 11/04/2023 , Expires: 01/04/2024 Start: 11-04-2023 End: 01-04-2024 Comprehensive metabolic 2000 panel - Serum or Plasma COMP METABOLIC PANEL Lab Routine S/P mitral valve repair 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 Permanent atrial fibrillation (HCC) Expected: 11/04/2023, Expires: 01/04/2024 [facility] Work Phone: Comment on above: Expected: 11/04/2023 , Expires: 01/04/2024 Start: 11-04-2023 End: 11-04-2023 ECG COMPLETE ECG COMPLETE ECG Routine S/P mitral valve repair Expected: 11/04/2023 (Approximate), Expires: 11/04/2023 [facility] Work Phone: Comment on above: Expected: 11/04/2023 (Approximate), Expires: 11/04/2023 Start: 07-25-2023 DIABETES SCREEN DIABETES SCREEN [facility] Start: 05-21-2023 Covid-19 Vaccine () Covid-19 Vaccine () [facility] Start: 03-07-2023 Advance Directive Discussion Advance Directive Discussion [facility] Start: 03-07-2023 Behavioral Health Screening Behavioral Health Screening [facility] Start: 11-05-2022 Covid-19 Vaccine () Covid-19 Vaccine () [facility] Start: 11-05-2022 Influenza vaccination C [facility] Start: 10-05-2022 End: 12-05-2022 Basic metabolic 2000 panel - Serum or Plasma BASIC METABOLIC PNL Lab Routine Nonrheumatic mitral valve regurgitation S/P mitral valve repair Expected: 10/05/2022, Expires: 12/05/2022 [facility] Work Phone: Comment on above: Expected: 10/05/2022 , Expires: 12/05/2022 Start: 10-05-2022 End: 12-05-2022 CBC W Auto Differential panel - Blood CBC + DIFF Lab Routine Nonrheumatic mitral valve regurgitation S/P mitral valve repair Expected: 10/05/2022, Expires: 12/05/2022 [facility] Work Phone: Comment on above: Expected: 10/05/2022 , Expires: 12/05/2022 Start: 08-26-2022 Hepatitis B surface antibody level LDL CHOLESTEROL [facility] Start: 04-16-2022 COVID-19 VACCINE (5 - Moderna series) COVID-19 VACCINE (5 - Moderna series) [facility] Start: 03-07-2022 ADVANCE DIRECTIVE DISCUSSION ADVANCE DIRECTIVE DISCUSSION [facility] Start: 03-07-2022 DEPRESSION ASSESSMENT DEPRESSION ASS ESSMENT [facility] Start: 11-05-2021 Influenza vaccination INFLUENZA (#1) [facility] Start: 07-24-2021 Hepatitis B surface antibody level LDL CHOLESTEROL [facility] Start: 03-07-2021 ADVANCE DIRECTIVE DISCUSSION ADVANCE DIRECTIVE DISCUSSION [facility] Start: 09-16-2020 COVID-19 VACCINE (3 - Booster) COVID-19 VACCINE (3 - Booster) [facility] Start: 06-14-2020 COVID-19 VACCINE (3 - Booster) COVID-19 VACCINE (3 - Booster) [facility] Start: 2010 RSV Vaccine (1 - 1-d ose 75+ series) RSV Vaccine (1 - 1-dose 75+ series) [facility] Start: 02-09-2000 Pneumococcal Vaccine : 65+ (1 - PCV) Pneumococcal Vaccine: 65+ (1 - PCV) [facility] Start: 02-09-2000 Pneumococcal Vaccine : 65+ Years (1 of 1 - PCV) Pneumococcal Vaccine: 65+ Years (1 of 1 - PCV) [facility] Start: 02-09-2000 PNEUMOCOCCAL: 65+ (1 - PCV) PNEUMOCOCCAL: 65+ (1 - PCV) [facility] Start: 1995 RSV Vaccine (1 - 1-d ose 60+ series) RSV Vaccine (1 - 1-dose 60+ series) [facility] Start: 1985 Pneumococcal Vaccine : 65+ Years (1 of 1 - PCV) Pneumococcal Vaccine: 65+ Years (1 of 1 - PCV) [facility] Start: 1985 SHINGRIX VACCINE (1 of 2) OBREGON GRIX VACCINE (1 of 2) [facility] Start: 1954 Urine microalbumin profile [facility] Start: 1953 Anxiety Screening Anxiety Screening [facility] Start: 1953 Depression Screening Depression Scre ening [facility] End: 08-12-2024 CTA Chest vessels W contrast IV CTA CHEST (GATED) W IVCON Radiology Routine S/P AVR (aortic valve replacement) H/O mitral valve repair 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, 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 1 Occurrences starting 07/14/2023 until 08/12/2024 [facility] Work Phone: Comment on above: 1 Occurrences starti ng 07/14/2023 until 08/12/2024 End: 05-28-2023 ECG COMPLETE ECG COMPLETE ECG Routine Nonrheumatic mitral valve regurgitation S/P mitral valve repair 1 Occurrences starting 05/27/2022 until 05/28/2023 [facility] Work Phone: Comment on above: 1 Occurrences starti ng 05/27/2022 until 05/28/2023 End: 06-08-2023 ECG COMPLETE ECG COMPLETE ECG Routine Persistent atrial fibrillation (HCC) 1 Occurrences starting 06/07/2022 until 06/08/2023 [facility] Work Phone: Comment on above: 1 Occurrences starti ng 06/07/2022 until 06/08/2023 End: 07-13-2024 ECG COMPLETE ECG COMPLETE ECG Routine S/P AVR (aortic valve replacement) H/O mitral valve repair 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, 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 1 Occurrences starting 07/14/2023 until 07/13/2024 [facility] Comment on above: 1 Occurrences starti ng 07/14/2023 until 07/13/2024 End: 05-28-2023 Echocardiography ECHO Cardiology Routine Nonrheumatic mitral valve regurgitation S/P mitral valve repair 1 Occurrences starting 05/27/2022 until 05/28/2023 [facility] Work Phone: Comment on above: 1 Occurrences starti ng 05/27/2022 until 05/28/2023 End: 11-04-2023 Echocardiography ECHO Cardiology Routine S/P mitral valve repair 1 Occurrences starting 11/03/2022 until 11/04/2023 [facility] Work Phone: Comment on above: 1 Occurrences starti ng 11/03/2022 until 11/04/[address] [facility] Immunizations Immunization Date Immunization Notes Care Provider Cuong cerda 01-06-2024 influenza, high dose seasonal, preservative-free [facility] 12-17-2022 influenza virus vaccine, unspecified formulation [facility] 12-17-2022 influenza, high dose seasonal, preservative-free Matt Perkins Other [facility] [employer] Other 12-09-2021 influenza virus vaccine, split virus (incl. purified surface antigen) aMtt Perkins Other [facility] [employer] Other 12-09-2021 influenza virus vaccine, unspecified formulation Yolie Kelly, [facility] Work Phone: [facility] 12-12-2020 influenza virus vaccine, split virus (incl. purified surface antigen) Matt Perkins Other [facility] [employer] Other 12-12-2020 influenza virus vaccine, unspecified formulation [facility] 08-18-2020 tetanus and diphther ia toxoids, adsorbed, preservative free, for adult use (5 Lf of tetanus toxoid and 2 Lf of diphtheria toxoid) Matt Perkins Other [facility] 04-19-2020 COVID-19 vaccine, fu ll dose (MODERNA) Yolie Kelly, [facility] Work Phone: [facility] 04-03-2020 COVID-19 vaccine, fu ll dose (MODERNA) Yolie Kelly, [facility] Work Phone: [facility] 12-18-2019 influenza virus vaccine, split virus (incl. purified surface antigen) Matt Perkins Other [facility] [employer] Other 12-18-2019 influenza virus vaccine, unspecified formulation [facility] 12-19-2018 influenza virus vaccine, split virus (incl. purified surface antigen) Matt Perkins Other [facility] [employer] Other 12-19-2018 influenza virus vaccine, unspecified formulation [facility] 12-14-2017 influenza virus vaccine, split virus (incl. purified surface antigen) Matt Perkins Other [facility] [employer] Other 12-14-2017 influenza virus vaccine, unspecified formulation [facility] 12-23-2016 influenza virus vaccine, split virus (incl. purified surface antigen) Matt Perkins Other [facility] [employer] Other 12-23-2016 influenza virus vaccine, unspecified formulation [facility] 12-10-2015 influenza virus vaccine, split virus (incl. purified surface antigen) Matt Perkins Other [facility] [employer] Other 12-10-2015 influenza virus vaccine, unspecified formulation [facility] 12-26-2014 pneumococcal conjuga te vaccine, 13 valent Matt Perkins Other [facility] 12-13-2014 influenza virus vaccine, split virus (incl. purified surface antigen) Matt Perkins Other [facility] [employer] Other 12-13-2014 influenza virus vaccine, unspecified formulation [facility] 12-25-2013 tetanus and diphther ia toxoids, adsorbed, preservative free, for adult use (5 Lf of tetanus toxoid and 2 Lf of diphtheria toxoid) Matt Perkins Other [facility] 01-02-2013 diphtheria, tetanus toxoids and acellular pertussis vaccine, unspecified formulation Matt Perkins Other [facility] 12-22-2012 tetanus and diphther ia toxoids, adsorbed, preservative free, for adult use (5 Lf of tetanus toxoid and 2 Lf of diphtheria toxoid) Matt Perkins Other [facility] 12-20-2002 diphtheria, tetanus toxoids and acellular pertussis vaccine, unspecified formulation Matt Perkins Other [facility] 12-12-2002 pneumococcal polysaccharide vaccine, 23 valent Matt Perkins Other [facility] Payers Date Payer Category Payer Private Health Insurance [facility] AARP SUPPLEMENT [id number] 2013-Present [phone] [address] [place] [address] Indemnity [id number] 2000 Medicare MEDICARE MEDICAR E A AND B [id number] 2000-Present [phone] [place] [address] Medicare [id number] 2000 Medicare [id number] 2000 Private Health Insurance [id number] 1959 Medicare [id number] 1959 Unknown [id number] 1935 Unknown [id number] 2.16.840.1.775390.3.579.2 .593 1935 Unknown [id number] 2.16.840.1.183738.3.579.2 .593 1935 Unknown [id number] 2.16.840.1.873003.3.579.2 .593 1935 Unknown [id number] 2.16.840.1.686018.3.579.2 .593 1935 Unknown [id number] 2.16.840.1.613760.3.579.2 .593 1935 Unknown [id number] 2.16.840.1.018695.3.579.2 .593 1935 Unknown [id number] 2.16.840.1.259542.3.579.2 .593 1935 Unknown [id number] 2.16.840.1.467185.3.579.2 .593 1935 Unknown [id number] 2.16.840.1.863599.3.579.2 .593 1935 Unknown [id number] 2.16.840.1.842765.3.579.2 .593 1935 Unknown [id number] 2.16.840.1.968724.3.579.2 .593 1935 Unknown [id number] 2.16.840.1.430033.3.579.2 .593 1935 Unknown [id number] 2.16.840.1.274942.3.579.2 .727 1935 Unknown [id number] 2.16.840.1.691359.3.579.2 .1259 1935 Unknown [id number] 2.16.840.1.582028.3.579.2 .1259 1935 Unknown [id number] 2.16.840.1.399591.3.579.2 .1259 1935 Unknown [id number] 2.16.840.1.760603.3.579.2 .1259 Medicare Medicare [id number] Self-pay Self Pay [id number] Unknown [facility] Health Claims [id number] Social History Date Type Detail Facility Start: 08-06-2010 End: 09-28-2022 Tobacco smoking status NHIS Never smoked tobacco [facility] Start: 02-12-2021 End: 07-14-2023 Alcohol intake Current non-drinker of alcohol (finding) [facility] Start: 1935 Sex Assigned At Male [facility] Start: 08-16-2021 End: 10-02-2021 Exposure to SARS-CoV-2 (event) Not sure [facility] Start: 08-06-2010 End: 09-28-2022 Tobacco use and exposure Smokeless tobacco non-user [facility] Start: 10-02-2021 End: 12-19-2023 Sex Assigned At [facility] Tobacco smoking status No Smokin g Status Entered [facility] Start: 10-02-2021 End: 12-19-2023 History of Social function [facility] Adult Depression Screening Assessment 0 [facility] Start: 09-03-2019 Gender identity Identifies as male gender (finding) [facility] Start: 08-03-2021 Sexual orientation Heterosexual (finding) [facility] Start: 08-31-2023 End: 07-31-2024 Alcoholic beverage intake Not Asked [facility] Start: 09-28-2022 Alcohol Comment caffeine intake: 2-3 cups per day. [facility] Start: 1935 Sex assigned at Not on file [facility] Clinical Notes 10-31-2013 to 07-31-2024 Sharla Brower MD - 07/31/2024 9:30 AM EDTMarc Abelardo Jaeger DPM FACFAS - 12/19/2023 2:40 PM EDTTelephone Encounter - Real Newman - 11/30/2023 3:08 PM Lynne Gaytan RN - 08/11/2023 12:45 PM EDT Note Date & Type Note Facility 07-31-2024 History of Present illness Narrative Assessment/Plan ARMD OU, dry. Importance of smoking cessation, blood pressure control, and healthy diet were emphasized. Patient was advised to consider ultraviolet-B blocking sunglasses. In accordance with the AREDS study, appropriate antioxidant and mineral supplements were prescribed. Patient was instructed to self monitor their monocular vision (reading/Amsler Grid) at least weekly. Patient should immediately report any new onset of decreased vision or metamorphopsia. documented in this encounter [facility] 07-25-2024 Note HNO ID: [id number] Author: AMILCAR CERVANTES MD Service: ? Author Type: Physician Type: Progress Notes Filed: 07/27/2024 14:58 Note Text: [facility] Department of Cardiovascular Medicine SECTION OF CARDIOVASCULAR IMAGING OUTPATIENT VISIT DATE 07/25/2024 OUTPATIENT VISIT TYPE ESTABLISHED PRIMARY CARE PHYSICIAN: Matt Perkins ([place]) [address] [place] [address] REFERRING PHYSICIAN: Efe Trejo [address] [facility] [address] Chief complaint: Annual follow-up for valvular heart disease, CAD, s/p AVR, MV repair, CABG (2007) Today also for EKG, lab, echo History of present illness: 89 years old PMH of HTN, hyperlipidemia, valvular heart disease (s/p aortic valve [place] [address] Alvarado for aortic valve replacement with #25 mm Bonnie-Woo pericardial valve (biosprosthetic), mitral valve repair), CAD (s/p CABG,saphenous vein graft to right posterior lateral in 2007), permanent atrial fibrillation (s/p DCCV 2013, 2015, 2016, failed sotalol) ventricular tachycardia, thrombocytopenia, GI bleed The patient was last seen 07/14/2023. Patient was clinically stable with baseline atrial fibrillation. Echo showed linear density in the aortic arch Over the last year, patient reported baseline functional capacity up to 1 mile of level walk. No SOB, no chest pain. He reports leg swelling 2/2 venous insufficiency, right leg soft tissue infection treated with p.o. amoxicillin recently. Patient follows his INR with his PCP on regular basis, last of which was 2.5, last week. Patient is off aspirin since his GI bleed. ROS: Endocrine: Patient denies cold intolerance, dizziness, excessive sweating, excessive thirst, frequent urination, hot flashes, weight loss. Gastrointestinal: Patient denies abdominal pain, change in bowel habits, constipation, decreased appetite, diarrhea, nausea, rectal bleeding. Musculoskeletal: Patient denies back pain, joint stiffness, leg cramps, leg swelling , muscle aches, swollen joints. Skin: Patient denies blistering of skin, discoloration, skin lesion(s), hives, itching. Neurologic: Patient denies balance difficulty, confusion, difficulty speaking, dizziness, gait abnormality, headache, loss of strength, tingling / numbness. Home medications: Warfarin 4/6 mg (Tuesday and Tuesday/rest of the week), amlodipine 2.5, metoprolol succinate 50, benazepril 20, omeprazole 20. Previous cardiac workup: -EKG, MARY [facility], July 2023: Atrial fibrillation at rate 70 bpm - CTA chest August 2023, [facility]:AVR with BIOPROSTHETIC VALVE, valve ring 2.5 cm. Mild to moderate leaflet calcification -TTE, [facility], July 2023: The left ventricle is normal in size. Left ventricular systolic function is normal. EF = 57 ? 5% (2D biplane). The right ventricle is normal in size. Right ventricular systolic function is low normal. The left atrial cavity is dilated. The visualized aorta is dilated with a maximal dimension of 4.2 cm. Post mitral valve repair. Elina Mitral Ring (size #36). There is mild (1+) mitral valve regurgitation. The peak gradient is 11 mmHg and the mean gradient is 4 mmHg. Today's gradients obtained at a HR of 65 bpm. Prior peak/mean gradients: 8/3 mmHg. Bonnie-Woo prosthetic aortic valve (size #25). There is mild (1+) aortic valve regurgitation. The peak gradient is 23 mmHg, the mean gradient is 14 mmHg and the dimensionless valve index is 0.30. Prior peak/mean gradients: 24/14 mmHg, DI: 0.41. There is an apparent linear echodensity imaged within the aortic arch (Images 143 - 148). Although this may be artifactual, recommend clinical correlation and further evaluation with tomographic imaging if clinically indicated. Exam was compared with the prior echocardiographic exam performed on 11/03/2022. On direct comparison, the major findings are comparable, aside from the apparent linear echodensity in the aortic arch. Findings communicated with Dr. Cervantes at time of reporting. Laboratory workup: Latest Reference Range AND Units 07/25/24 13:42 WBC 3.70 - 11.00 k/uL 5.98 RBC 4.20 - 6.00 m/uL 4.33 Hemoglobin 13.0 - 17.0 g/dL 12.9 (L) Hematocrit 39.0 - 51.0 % 39.4 Platelet Count 150 - 400 k/uL 114 (L) MCV 80.0 - 100.0 fL 91.0 MCH 26.0 - 34.0 pg 29.8 MCHC 30.5 - 36.0 g/dL 32.7 MPV 9.0 - 12.7 fL 11.7 RDW-CV 11.5 - 15.0 % 14.5 Absolute nRBC <0.01 k/uL <0.01 PAST MEDICAL HISTORY Diagnosis Date A-fib (HCC) 09/2013 Aortic valve disorders Aortic valve disorders Coronary atherosclerosis of unspecified type of vessel, false pass or graft Coronary artery disease Diaphragmatic hernia without mention of obstruction or gangrene Hiatal hernia Hemorrhage of gastrointestinal tract, unspecified 2002 s/p polypectomy Mitral valve disorders(424.0) Mixed hyperlipidemia Hyperlipidemia Nonspecific elevation of levels of tr (more content not included)... [facility] 12-19-2023 History of Present illness Narrative Images from the original note were not included. patient: Terence Starr : 1935 PCP: Matt Perkins MD SUBJECTIVE This is a 88 y.o. male that presents today with a chief complaint of painful elongated nails digits 1 through 10. They cause marked limitation in ambulation due to pain and pressure from shoe gear. Patient has also been doing red venous stasis disease does wear compression stockings on a regular basis. Allergies: Allergies Allergen Reactions Doxycycline Rash and Swelling Levofloxacin Rash and Swelling Other Reaction(s): Swelling of throat Throat swelling Lidocaine Anaphylaxis Prednisone Anaphylaxis and Rash Other Reaction(s): Other: See Comments put me into afib Prednisolone Wound Dressing Adhesive Rash Past Medical History: Past Medical History: Diagnosis Date Basal cell carcinoma (BCC) Cataract Dry eyes Heart disease Heart valve replaced High blood pressure (CMS/HCC) History of YAG laser capsulotomy of lens HTN (hypertension) (CMS/HCC) Hypercholesteremia (CMS/HCC) Pulmonary embolism (CMS/HCC) SCC (squamous cell carcinoma) right buddhism Medications: Current Outpatient Medications: benazepril (Lotensin) 20 MG tablet, 1 (one) time each day at the same time., Disp: , Rfl: KLOR-CON 10 MEQ ER tablet, TAKE 1 TABLET (10 MEQ TOTAL) BY MOUTH 1 (ONE) TIME EACH DAY. DO NOT CRUSH, CHEW, OR SPLIT., Disp: , Rfl: metoprolol succinate XL (Toprol-XL) 50 MG 24 hr tablet, Take 50 mg by mouth in the morning., Disp: , Rfl: nitroglycerin (Nitrostat) 0.4 MG SL tablet, PLACE 1 TABLET (0.4 MG) BY SUBLINGUAL ROUTE EVERY 5 MINUTES NEEDEDFOR CHEST PAIN. DO NOT EXCEED 3 DOSES IN 15 MINUTES., Disp: , Rfl: omeprazole (PriLOSEC) [address] capsule, , Disp: , Rfl: pravastatin (Pravachol) 20 MG tablet, 1 (one) time each day at the same time., Disp: , Rfl: warfarin (Coumadin) 4 MG tablet, , Disp: , Rfl: warfarin (Coumadin) 6 MG tablet, , Disp: , Rfl: amLODIPine (Norvasc) 2.5 MG tablet, 1 (one) time each day at the same time. (Patient not taking: Reported on 12/19/2023), Disp: , Rfl: amoxicillin (Amoxil) 500 MG capsule, TAKE 4 CAPSULES BY MOUTH 1 HOUR PRIOR TO APPT (Patient not taking: Reported on 12/19/2023), Disp: , Rfl: cefdinir (Omnicef) 300 MG capsule, TAKE 1 CAPSULE BY MOUTH TWICE A DAY FOR 10 DAYS DIRECTED (Patient not taking: Reported on 12/19/2023), Disp: , Rfl: Enoxaparin Sodium 80 MG/0.8ML solution prefilled syringe, Inject 80 mg under the skin every 12 (twelve) hours. (Patient not taking: Reported on 12/19/2023), Disp: , Rfl: furosemide (Lasix) 20 MG tablet, Take 1 tablet by mouth in the morning. (Patient not taking: Reported on 12/19/2023), Disp: , Rfl: furosemide (Lasix) 40 MG tablet, , Disp: , Rfl: hydroCHLOROthiazide (HYDRODiuril) 25 MG tablet, , Disp: , Rfl: hydroCHLOROthiazide (Microzide) 12.5 MG capsule, 1 (one) time each day at the same time. (Patient not taking: Reported on 12/19/2023), Disp: , Rfl: Bement-3 Fatty Acids (Fish Oil Maximum Strength) 1200 MG capsule delayed-release, Take 1 capsule by mouth in the morning., Disp: , Rfl: potassium chloride CR (Klor-Con M10) 10 MEQ ER tablet, Take 1 tablet by mouth in the morning. (Patient not taking: Reported on 12/19/2023), Disp: , Rfl: pyridoxine (B-6) 100 MG tablet, , Disp: , Rfl: sulfamethoxazole-trimethoprim (Bactrim DS) 800-160 MG per tablet, Take 1 tablet by mouth in the morning and 1 tablet before bedtime. (Patient not taking: Reported on 12/19/2023), Disp: , Rfl: tamsulosin (Flomax) 0.4 MG 24 hr capsule, , Disp: , Rfl: triazolam (Halcion) 0.25 MG tablet, TAKE 1 TABLET BY MOUTH PRIOR TO PROCEDURE NEEDED FOR 1 DAY (Patient not taking: Reported on 12/19/2023), Disp: , Rfl: Review of systems: Constitutional: Denies fever, chills, nausea, vomiting GI: Denies abdominal pain, cramping, loose stool, gastric ulcers Musculoskeletal: Denies low back pain, knee pain, systemic arthritis Neurologic: Denies burning, tingling, transient paralysis OBJECTIVE Physical Examination: DERM: Positive hair growth to b/l feet with good skin turgor noted. Negative openings in skin. No macerations noted interdigitally. Web spaces were clean and dry. No ulcerations were noted. Nails 1 through 10 were thickened elongated yellow and crumbly with subungual debris. They were painful to palpation [id number] on the right [id number] on the left. VASC: DP /PT were nonpalpable bilateral. Capillary refill time < 3 seconds Digits 1-5 bilateral Moderate venous stasis disease noted bilaterally NEURO: Monroe Marisel 5.07 monofilament was intact B/L. Vibratory sensation was intact B/L Musculoskeletal: Muscle strength was +5 over 5 all intrinsic and extrinsic muscles tested. Radiographs: AP/MO/LAT: Diagnostic ultrasound: ASSESSMENT 1. Onychomycosis 2. Pain in left toe(s) 3. Pain in right toe(s) 4. Venous insufficiency (chronic) (peripheral) PLAN The patient was educated on proper foot care as well as the etiology of onychomycosis. I educated the patient on proper shoe gear as well. Today the nails were debrided both in length and thickness 1 through 10. Recommended patient continue elevating and utilizing compression follow up with me when he returns from [place]. SHREYA Noble documented in this encounter [facility] 11-30-2023 Telephone encounter Note Images from the original note were not included. Received correspondence requesting medical clearance for a dental procedure for the patient. [facility] 11-30-2023 Miscellaneous Notes Images from the original note were not included. Received correspondence requesting medical clearance for a dental procedure for the patient. documented in this encounter [facility] 08-11-2023 History of Present illness Narrative Radiology Service Progress Note DATE OF SERVICE: August 11, 2023 TIME: 12:37 PM PATIENT WEIGHT: 170 LBS PATIENT IDENTITY VERIFICATION COMPLETED USING TWO (2) STANDARD IDENTIFIERS: Name and Date of confirmed by patient verbally and Name and Date of confirmed by identification band. FALL SCREENING: Has the patient had 2 falls in the last year or 1 fall with injury or currently using an Ambulatory Assistive Device (Walker, Cane, Wheelchair, Crutches, etc.)? No PATIENT GENDER DATA: Male ALLERGIES: Reviewed and unchanged CONTRAST ALLERGY: No EXAM: CT -CONTRAST INDUCED NEPHROPATHY RISK FACTORS: Patient age > 60 years CREATININE: Creatinine Date Value Ref Range Status 07/14/2023 1.16 0.73 - 1.22 mg/dL Final 11/03/2022 1.21 0.73 - 1.22 mg/dL Final 08/26/2021 1.17 0.73 - 1.22 mg/dL Final Estimated Glomerular Filtration Rate Date Value Ref Range Status 07/14/2023 61 >=60 mL/min/1.73m Final Comment: Estimated Glomerular Filtration Rate (eGFR) is calculated using the 2020 CKD-EPI creatinine equation. This equation utilizes serum creatinine, sex, and age as parameters. The creatinine assay has traceable calibration to isotope dilution-mass spectrometry. Refer to KDIGO guidelines for clinical interpretation. In patients with unstable renal function, e.g. those with acute kidney injury, the eGFR may not accurately reflect actual GFR. eGFR- Date Value Ref Range Status 07/24/2020 >60 Final P.O.C.T. RESULTS: N/A August 11, 2023 TREATMENT: No Hydration needed. IV SITE: Ambulatory: A peripheral IV was started in the Right antecubital site with a Angio cath: 20 gauge. and A Saline lock was inserted per protocol IV SITE APPEARANCE: Clean,Dry and Intact SIGNATURE: Lynne Valle RN PATIENT NAME: Terence Starr DATE: August 11, 2023 TIME: 12:37 PM Radiology Service Progress Note PATIENT NAME: Terence Starr DATE OF SERVICE: August 11, 2023 TIME: 12:50 PM PATIENT IDENTITY VERIFICATION COMPLETED USING TWO (2) IDENTIFIERS: Name and Date of confirmed by patient verbally. FALL SCREENING: Has the patient had 2 falls in the last year or 1 fall with injury or currently using an Ambulatory Assistive Device (Walker, Cane, Wheelchair, Crutches, etc.)? No PATIENT GENDER DATA: Male PATIENT RELEVANT IMPLANT DATA REVIEWED: Yes PATIENT PRESENTS WITH AN IMPLANTABLE OR ATTACHED WASHER CARCASS: No RADIOLOGY DEPARTMENT: CT; Exam(s) Completed: Cardiac PERIPHERAL IV DATA: Site assessment: Clean,Dry and Intact, Site disposition Discontinued SIGNED BY: RT Francisca(Carlito) August 11, 2023 12:50 PM documented in this encounter [facility] 07-14-2023 History of Present illness Narrative Images from the original note were not included. [facility] Department of Cardiovascular Medicine [facility] OUTPATIENT VISIT DATE November 03, 2022 OUTPATIENT VISIT TYPE Established REFERRING PHYSICIAN No referring provider defined for this encounter. PCP: Rachel SOMERS [facility] [id number] CHIEF COMPLAINT: Follow up regarding AVR, MVr, CABG HISTORY OF PRESENT ILLNESS: Mr. Starr is a 88 year old male from [place], [place] who presents today for follow-up visit. He has a PMHx of: Aortic stenosis and coronary artery disease, status post aortic valve replacement, mitral valve repair, and CABG single-vessel in 2007 Permanent atrial fibrillation Hypertension Last evaluated on 11/03/2022, during which time he was doing well with no concerns. Today patient denies any chest pain or pressure, palpitations, sob, lower extremity edema, dizziness, light headedness or syncope. He spent his schmitt in [place], went on a cruise and got back to [place] recently. Patient has been active with no issues, does yard work at home. Walks 2 miles whenever he can. PAST PERICARDIAL DISEASE AND CARDIAC HISTORY: Hx of and CAD, Surgery 10/09/[address] Alvarado for aortic valve replacement with #25 mm Bonnie-Woo pericardial valve (biosprosthetic), mitral valve repair, and CABG x1 (saphenous vein graft to right posterior lateral). Atrial fibrillation diagnosed in 09/2013: He was initially started on Xarelto and Toprol. Underwent AYAN and direct-current cardioversion in 2013. Eventually, his Xarelto was changed to Coumadin. He was again found to have atrial fibrillation in August 2014. He underwent cardioversion again and was started on sotalol. He underwent direct-current cardioversion third time on 12/09/2015. He was then seen in 08/26/2016 and it was decided to change his sotalol to metoprolol and focus on rate control strategy. He was given a diagnosis of permanent atrial fibrillation. CURRENT MANAGEMENT: Metoprolol succinate 50mg daily Norvasc 2.5mg daily Coumadin 6 gm Tuesday, , Tuesday, Tuesday and 4 mg on F Pravastatin 20mg daily Benazapril 20mg daily PREVIOUS INVESTIGATIONS: ECHO (11/03/2022) - Exam indication: S/p AVR, MVr - The left ventricle is normal in size. Left ventricular systolic function is normal. EF = 54 5% (2D biplane) Left ventricular diastolic function was not evaluated due to mitral valve surgery and AF. - The right ventricle is normal in size. Right ventricular systolic function is normal. - The left atrial cavity is mildly dilated. - The visualized aorta is dilated with a maximal dimension of 4.3 cm. - Post mitral valve repair. Elina Mitral Ring (size #36). There is trace mitral valve regurgitation. The peak gradient is 8 mmHg and the mean gradient is 3 mmHg. - Bonnie-Woo prosthetic aortic valve (size #25). There is trace (trace - 1+) aortic valve regurgitation. The peak gradient is 24 mmHg, the mean gradient is 14 mmHg and the dimensionless valve index is 0.41. - Exam was compared with the prior CC echocardiographic exam performed on 08/26/2021. Similar findings. ECHO 08/26/21 - Exam indication: S/p AVR, MVr - The left ventricle is small. Left ventricular systolic function is normal. EF = 62 5% (2D biplane) - The right ventricle is normal in size. Right ventricular systolic function is low normal. - The right atrial cavity is dilated. - The visualized aorta is dilated with a maximal dimension of 4.2 cm. - Post mitral valve repair. Elina Mitral Ring (size #36). There is mild (1+) early systolic mitral valve regurgitation. The peak gradient is 10 mmHg and the mean gradient is 4 mmHg. Prior MV pk/mn gradients of 10/4 mmHg. Today's gradients obtained at a HR of 64bpm. - Bonnie-Woo prosthetic aortic valve (size #25). There is mild (1+) aortic valve regurgitation. The peak gradient is 17 mmHg, the mean gradient is 10 mmHg and the dimensionless valve index is 0.36. Prior AV pk/mn gradients of 22/14 mmHg. - Estimated right ventricular systolic pressure is 25 mmHg consistent with normal pulmonary artery pressures. Estimated right atrial pressure is 3 mmHg based on IVC assessment. - Exam was compared with the prior CC echocardiographic exam performed on 07/30/2020. Similar findings. INFLAMMATORY MARKERS: N/A OTHER LABS: Hemoglobin (g/dL) Date Value 07/14/2023 14.9 07/24/2020 15.1 Hematocrit (%) Date Value 07/14/2023 44.7 07/24/2020 45.9 WBC (k/uL) Date Value 07/14/2023 6.88 07/24/2020 6.62 Platelet Count (k/uL) Date Value 07/14/2023 120 07/24/2020 143 CMP: Glucose 102 08/26/2021 BUN 16 08/26/2021 Creatinine 1.17 08/26/2021 Sodium 141 08/26/2021 Potassium 4.3 08/26/2021 Chloride 102 08/26/2021 CO2 Content, Venous 28 08/26/2021 Protein, Total 6.5 08/26/2021 Albumin 4.3 08/26/2021 Calcium 10.0 08/26/2021 Alkaline Phosphatase 101 08/26/2021 Bilirubin, Total 1.0 08/26/2021 AST 33 08/26/2021 ALT 26 08/26/2021 ALLERGIES: Adhesive, Doxycycline, Levaquin [Levofloxacin], and Prednisone Current Outpatient Medications Medication Sig potassium chloride (K-TAB) 10 mEq tablet Take by mouth once daily. metoprolol succinate ER (TOPROL XL) 50 mg 24 hr tablet TAKE 1 TABLET BY MOUTH ONCE DAILY amoxicillin (POLYMOX, AMOXIL) 500 mg capsule TAKE 4 CAPSULES BY MOUTH 1 HOUR PRIOR TO DENTAL APPOINTMENT amLODIPine (NORVASC) 5 mg tablet Take 2.5 mg by mouth once daily. Patient states he is only taking 2.5mg daily warfarin (COUMADIN) 4 mg tablet Take by mouth. 6 mg - - Tue-Tuesday 4 mg Tue - Tue - Tue pravastatin (PRAVACHOL) 20 mg tablet Take 1 tablet by mouth daily at bedtime. benazepril (LOTENSIN) 20 mg tablet Take 1 tablet by mouth once daily. OMEPRAZOLE 20 mg ORAL capsule Take 20 mg every Tue and Tue NITROGLYCERIN 0.4 MG SUBLINGUAL TAB as needed MULTIVITAMIN TABLET Take one(1) tablet daily. Current Facility-Administered Medications Medication Dose Route Frequency perflutren lipid microspheres 1.3 mL in NaCl (PF) 0.9% 10 mL injection (DEFINITY) INTRAVENOUS DIRECTED PRN sodium chloride 0.9 % (flush) 10 mL (BD POSIFLUSH) 10 mL INTRAVENOUS DIRECTED PRN perflutren lipid microspheres 1.3 mL in NaCl (PF) 0.9% 10 mL injection (DEFINITY) INTRAVENOUS DIRECTED PRN sodium chloride 0.9 % (flush) 10 mL (BD POSIFLUSH) 10 mL INTRAVENOUS DIRECTED PRN PAST MEDICAL HISTORY Diagnosis Date A-fib ([facility]) 09/2013 Aortic valve disorders Aortic valve disorders Coronary atherosclerosis of unspecified type of vessel, false pass or graft Coronary artery disease Diaphragmatic hernia without mention of obstruction or gangrene Hiatal hernia Hemorrhage of gastrointestinal tract, unspecified 2002 s/p polypectomy Mitral valve disorders(424.0) Mixed hyperlipidemia Hyperlipidemia Nonspecific elevation of levels of transaminase or lactic acid dehydrogenase (LDH) in the past Other abnormal heart sounds Murmur Other disorders of ear(388.8) hearing loss, surgery 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 Personal history of colonic polyps Colon polyps Rash and other nonspecific skin eruption Nonspec Skin Erup Nec Scarlet fever Sensorineural hearing loss, unspecified bilateral hearing aides Unspecified asthma(493.90) and hayfever as child Unspecified essential hypertension Essential hypertension PAST SURGICAL HISTORY Procedure Laterality Date CARDIOVERSION COLONOSCOPY FLX DX W/COLLJ SPEC WHEN PFRMD 03/07/2002 removal of tiny polypectomy LEFT HEART CATH,PERCUTANEOUS 09/13/2007 Cardiac cath, L heart PAST SURGICAL HISTORY OF removal cyst back of neck PAST SURGICAL HISTORY OF 10/09/2007 AVR with #25 mm Bonnie-Woo pericardial valve, MVr, CABG x1, SVG to right posterior lateral PAST SURGICAL HISTORY OF 2021 Prostate surgery SKIN BX, 1 LESION Skin biopsy AYAN (TRANSESOPHAGEAL ECHO) 07/20/2007 TRANSCATH STENT INIT VESSEL,PERCUT 03/07/2002 Transcath stent init vessel percut TYMPANIC MEMB RPR W/WO PREPJ PERFOR PATCH 08/05/2002 Tympanoplasty TYMPANIC MEMB RPR W/WO PREPJ PERFOR PATCH 09/04/2002 Tympanoplasty Social History Tobacco Use Smoking status: Never Smokeless tobacco: Never Vaping Use Vaping Use: Never used Substance Use Topics Alcohol use: No Drug use: No FAMILY HISTORY Problem Relation Age of Onset Colon Cancer Mother at age 85 Ischemic Heart Disease Father at age 70 Lung Cancer Sister Stroke Sister Alzheimer's Disease Sister None Sister brain aneursym Cancer Sister REVIEW OF SYSTEMS: GENERAL: Negative for: Weight loss or gain, Fever or Chills, Weakness and Sleep difficulties. HEENT: Negative for: Headache NECK: Negative for: Swelling, Pain, Stiffness RESPIRATORY: Negative for: Cough, Blood in Sputum, Shortness of breath, Wheezing, Apnea GASTROINTESTINAL: Negative for: Trouble swallowing, Heartburn, Change in bowel habits, Blood in stool, Dark black stools MUSCULOSKELETAL: Negative for: Muscle or joint pain, Stiffness , Joint swelling NEUROLOGIC/PSYCHIATRIC: Negative for: Weakness, Paralysis, Numbness, Tingling, Tremor SKIN: Negative for: Rashes, Itching HEMATOLOGICAL/LYMPHATIC: Negative for: Easy bruising , Easy bleeding ENDOCRINE: Negative for: Heat or cold intolerance, Excessive sweating, Frequent urination, Frequent thirst PHYSICAL EXAM: BP 164/95[ra[ Pulse 81 Ht 5' 9.094 (1.76m) Wt 175 lb (79.4kg) SpO2 98% BMI 25.77 kg/(m^2). Pulsus paradoxus: No General: Appears well nourished. In no acute distress: No Obese. Skin: No clubbing. No cyanosis. Eyes: EOMI. Oropharynx: Teeth in good repair. Neck: Supple, no JVD, No Kussmaul's sign , no carotid bruits, carotids have a normal upstroke, no thyromegaly. Lungs: Clear to auscultation bilaterally. Heart: Irregularly Irregular rhythm. PMI 5th ICS LMCL, S1nl, S2nl. No rub No knock, heart murmur. Abdomen: Soft, non-tender, BS normal, no organomegaly, no bruits. No Ascites Extremities: edema b/l LE Grade 2/4 distal pulses bilaterally. Neuro: Oriented x3, alert, cooperative, reflexes normal, CN II-XII grossly intact, gait coordinated. CURRENT STUDIES: Last ECHO Result Conclusion ECHO Collected: 07/14/2023 11:11 AM (Final result) Impression: CONCLUSIONS: - Exam indication: H/o MVr, AVR, CABG 2007 - The left ventricle is normal in size. Left ventricular systolic function is normal. EF = 57 5% (2D biplane) - The right ventricle is normal in size. Right ventricular systolic function is low normal. - The left atrial cavity is dilated. - The visualized aorta is dilated with a maximal dimension of 4.2 cm. - Post mitral valve repair. Elina Mitral Ring (size #36). There is mild (1+) mitral valve regurgitation. The peak gradient is 11 mmHg and the mean gradient is 4 mmHg. Today's gradients obtained at a HR of 65 bpm. Prior peak/mean gradients: 8/3 mmHg. - Bonnie-Woo prosthetic aortic valve (size #25). There is mild (1+) aortic valve regurgitation. The peak gradient is 23 mmHg, the mean gradient is 14 mmHg and the dimensionless valve index is 0.30. Prior peak/mean gradients: 24/14 mmHg, DI: 0.41. - There is an apparent linear echodensity imaged within the aortic arch (Images 143 - 148). Although this may be artifactual, recommend clinical correlation and further evaluation with tomographic imaging if clinically indicated. - Exam was compared with the prior echocardiographic exam performed on 11/03/2022. On direct comparison, the major findings are comparable, aside from the apparent linear echodensity in the aortic arch. Findings communicated with Dr. Cervantes at time of reporting. * * * Final * * * Last EKG Result Conclusion ECG COMPLETE Collected: 07/14/2023 12:51 PM (Preliminary result) Impression: ATRIAL FIBRILLATION ABNORMAL ECG [facility] STAFF PHYSICIAN NOTE OF PERSONAL INVOLVEMENT IN CARE I have reviewed the history and physical examination obtained and documented by the hospitalist and I personally participated in the cox components. I have discussed the case and management of the patient's care. The following comments revise or confirm relevant cox components of their note. IMPRESSION: This is a 88 year old male with past medical history of aortic stenosis and coronary artery disease, status post single-vessel CABG, aortic valve replacement with a bioprosthetic valve, and mitral valve repair in 2007 who presents today for cardiovascular medicine follow up visit. Patient states he is doing well, has no concerns. Denies any chest pain, shortness of breath on exertion, orthopnea, paroxysmal nocturnal dyspnea. Echo shows possible linear in aortic arch PLAN: -Continue current medication regimen -Follow up with Dr Cervantes in one year with repeat labs, EKG, ECHO SIGNATURE: Efe Treoj MD DATE of SERVICE: July 14, 2023 TIME of SERVICE: 1:30 PM After my examination and review of data, I make the following recommendations. SUMMARY: Mr. Terence Starr is a 88 year old male with past medical history of aortic stenosis and coronary artery disease, status post single-vessel CABG, aortic valve replacement with a bioprosthetic valve, and mitral valve repair in 2007 who presents today for cardiovascular medicine follow up visit. Patient states he is doing well, has no concerns. Denies any chest pain, shortness of breath on exertion, orthopnea, paroxysmal nocturnal dyspnea. Labs pending. EKG today with evidence of afib. ECHO pending. PLAN: - Continue current medication regimen - Follow up with Dr Cervantes in 1 year with repeat labs, EKG, ECHO CT of aorta to r/o dissection vs artifact (Z95.2) S/P AVR (aortic valve replacement) (primary encounter diagnosis) (Z98.890) H/O mitral valve repair (I25.10) 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, unspecified whether angina present (Z95.1) Hx of CABG Follow-up instructions: Dr. Cervantes in 12 months Echo in 12 months I spent 45 minutes in this visit, with more than 50% of the time devoted to patient counseling. Efe Trejo MD [facility] documented in this encounter [facility] 01-18-2023 Evaluation note Encounter Date Diagnosis Assessment Notes Jan, Medicare annual wellness visit, subsequent (ICD-10 - Z00.00) Personalized health advice was given to the beneficiary including a written plan for screenings discussed and provided. Advanced care planning reviewed and/or information given as requested. Additional counseling was provided here today in regards to, [ ]. The above visit was performed by [ ], under direct supervision of [ ]. Document reviewed and amended by provider signed below. Jan, ASHD (arterioscleroti c heart disease) (ICD-10 - I25.10) This patient is stable without activity related CP, dyspnea or lightheadedness. They are instructed to continue exercise and AHA diet plan. Continue secondary prevention measures. Jan, Primary hypertension (ICD-10 - I10) This patient is instructed to consume a healthy, low-fat, low-salt diet. They are also encouraged to continue exercise to achieve/maintain a normal BMI. Jan, Elevated cholesterol (ICD-10 - E78.00) Instructed on diet and exercise with continued statin therapy.Discussed the beneficial effects of lowering cholesterol in reducing the risk for cerebrovascular and cardiovascular disease. Jan, Persistent atrial fibrillation (ICD-10 - I48.19) This patient is in NSR or rate controlled. This patient is anticoagulated to prevent thromboembolic events. They are maintaining regular scheduled appts with their manager machine. No bleeding complications Warfarin - 4mg - 6mg ,Jan, Chronic venous insufficiency (ICD-10 - I87.2) Avoid salt and elevate lower extremities, support stockings, inspect legs and feet daily for blisters and ulcerations. Jan, Gastro-esophagea l reflux disease with esophagitis, without bleeding (ICD-10 - K21.00) Diet instructions: Smaller portions, avoid eating and laying flat, avoid eating or drinking prior to bedtime. Weight loss. 14 Jan, 2023 Poor urinary stream (ICD-10 - R39.12) Jan, Benign prostatic hyperplasia with lower urinary tract symptoms (ICD-10 - N40.1) Symptoms tolerable Completed Rezum Continue medical therapy Jan, Valvular heart disease (ICD-10 - I38) AVR, MVR 2007 [place] Other [id number] History of Present illness Narrative* Suleiman Santana MD - 12/30/2022 2:32 PM EDT Images from the original note were not included. [facility] Department of Cardiovascular Medicine SECTION OF CARDIAC PACING and ELECTROPHYSIOLOGY OUTPATIENT VISIT DATE December 30, 2022 OUTPATIENT VISIT TYPE ESTABLISHED PRIMARY CARE PHYSICIAN: Matt Perkins ([facility]) [address] [place] [address] CHIEF COMPLAINT: F/u HISTORY OF PRESENT ILLNESS: Terence Starr is a 87 y/o male returning for follow up for permanent atrial fibrillation. He has a past medical history of hypertension, hyperlipidemia, aortic stenosis s/p aortic valve replacement (#25 mm Bonnie-Woo pericardial valve), mitral valve disorder s/p mitral valve repair) andCABG x 1 (saphenous vein graft to right posterior lateral - 10/2007), permanent atrial fibrillation and asthma. He was last seen for a virtual visit by Dr. Santana on 02/12/2021. Overall he feels well. Once in a great while he will have some lightheadedness. He walks a mile a day. He denies chest pain, shortness of breath, orthopnea, cough, edema, palpitations, PND, or syncope. PAST MEDICAL HISTORY Diagnosis Date A-fib (FORMERLY [facility]) 09/2013 Aortic valve disorders Aortic valve disorders Coronary atherosclerosis of unspecified type of vessel, false pass or graft Coronary artery disease Diaphragmatic hernia without mention of obstruction or gangrene Hiatal hernia Hemorrhage of gastrointestinal tract, unspecified 2002 s/p polypectomy Mitral valve disorders(424.0) Mixed hyperlipidemia Hyperlipidemia Nonspecific elevation of levels of transaminase or lactic acid dehydrogenase (LDH) in the past Other abnormal heart sounds Murmur Other disorders of ear(388.8) hearing loss, surgery 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 Personal history of colonic polyps Colon polyps Rash and other nonspecific skin eruption Nonspec Skin Erup Nec Scarlet fever Sensorineural hearing loss, unspecified bilateral hearing aides Unspecified asthma(493.90) and hayfever as child Unspecified essential hypertension Essential hypertension PAST SURGICAL HISTORY Procedure Laterality Date CARDIOVERSION COLONOSCOPY FLX DX W/COLLJ SPEC WHEN PFRMD 03/07/2002 removal of tiny polypectomy LEFT HEART CATH,PERCUTANEOUS 09/13/2007 Cardiac cath, L heart PAST SURGICAL HISTORY OF removal cyst back of neck PAST SURGICAL HISTORY OF 10/09/2007 AVR with #25 mm Bonnie-Woo pericardial valve, MVr, CABG x1, SVG to right posterior lateral PAST SURGICAL HISTORY OF 2021 Prostate surgery SKIN BX, 1 LESION Skin biopsy AYAN (TRANSESOPHAGEAL ECHO) 07/20/2007 TRANSCATH STENT INIT VESSEL,PERCUT 03/07/2002 Transcath stent init vessel percut TYMPANIC MEMB RPR W/WO PREPJ PERFOR PATCH 08/05/2002 Tympanoplasty TYMPANIC MEMB RPR W/WO PREPJ PERFOR PATCH 09/04/2002 Tympanoplasty SOCIAL HISTORY Social History Tobacco Use Smoking status: Never Smokeless tobacco: Never Vaping Use Vaping Use: Never used Substance Use Topics Alcohol use: No Drug use: No FAMILY HISTORY Problem Relation Age of Onset Colon Cancer Mother at age 85 Ischemic Heart Disease Father at age 70 Lung Cancer Sister Stroke Sister Alzheimer's Disease Sister None Sister brain aneursym Cancer Sister ALLERGIES: ALLERGIES Allergen Reactions Adhesives [Other] Rash, Itching Doxycycline Swelling Levaquin [Levofloxa* Swelling Throat swelling Prednisone Other: See Comments put me into afib MEDICATIONS: potassium chloride (K-TAB) 10 mEq tablet^Take by mouth once daily.^Disp: ^Rfl: metoprolol succinate ER (TOPROL XL) 50 mg 24 hr tablet^TAKE 1 TABLET BY MOUTH ONCE DAILY^Disp: 90 tablet^Rfl: 3 Hydrochlorothiazide 12.5 mg capsule^Take 2 capsules by mouth once daily.^Disp: 180 capsule^Rfl: 3 (Patient taking differently: Take by mouth once daily.) amoxicillin (POLYMOX, AMOXIL) 500 mg capsule^TAKE 4 CAPSULES BY MOUTH 1 HOUR PRIOR TO DENTAL APPOINTMENT^Disp: ^Rfl: 1 amLODIPine (NORVASC) 5 mg tablet^Take 2.5 mg by mouth once daily. Patient states he is only taking 2.5mg daily ^Disp: 90 tablet^Rfl: 3 warfarin (COUMADIN) 4 mg tablet^Take by mouth. 6 mg - - Sat 4 mg Tue - Tue - Tue - Tue ^Disp: 30 tablet^Rfl: 3 pravastatin (PRAVACHOL) 20 mg tablet^Take 1 tablet by mouth daily at bedtime.^Disp: 90 tablet^Rfl: 3 benazepril (LOTENSIN) 20 mg tablet^Take 1 tablet by mouth once daily.^Disp: 90 tablet^Rfl: 3 OMEPRAZOLE 20 mg ORAL capsule^Take 20 mg every Tue and Tue ^Disp: ^Rfl: NITROGLYCERIN 0.4 MG SUBLINGUAL TAB^as needed^Disp: ^Rfl: 0 MULTIVITAMIN TABLET^Take one(1) tablet daily.^Disp: ^Rfl: 0 Missy Zuleta RN PHYSICAL EXAMINATION: BP 133/83 Pulse 65 Ht 177.8 cm (5' 10 ) Wt 77.1 kg (170 lb) BMI 24.39 kg/m General: Looks well; pleasant and cooperative Neck: JVP normal Lungs: Clear to auscultation Cardiac: Irreg, irreg Abdomen: Soft, nontender, nondistended, no bruits Extremities: No cyanosis, clubbing, or edema; extremeties are warm Neurologic: A & O x 3; normal gait CARDIOVASCULAR MEDICINE TESTING: Today's EKG Echo 11/03/22 - Exam indication: S/p AVR, MVr - The left ventricle is normal in size. Left ventricular systolic function is normal. EF = 54 5% (2D biplane) Left ventricular diastolic function was not evaluated due to mitral valve surgery and AF. - The right ventricle is normal in size. Right ventricular systolic function is normal. - The left atrial cavity is mildly dilated. - The visualized aorta is dilated with a maximal dimension of 4.3 cm. - Post mitral valve repair. Elina Mitral Ring (size #36). There is trace mitral valve regurgitation. The peak gradient is 8 mmHg and the mean gradient is 3 mmHg. - Bonnie-Woo prosthetic aortic valve (size #25). There is trace (trace - 1+) aortic valve regurgitation. The peak gradient is 24 mmHg, the mean gradient is 14 mmHg and the dimensionless valve index is 0.41. - Exam was compared with the prior CC echocardiographic exam performed on 08/26/2021. Similar findings. IMPRESSION: AF, persistent/permanent: We are pursuing a rate control strategy. He is doing well. Will continue as is with metoprolol and warfarin. Follow up: PRN. Suleiman Santana MD, MPH documented [facility] History of Present illness Narrative* Merna Delong MD - 11/03/2022 4:17 PM EDT Images from the original note were not included. [facility] Department of Cardiovascular Medicine [facility] OUTPATIENT VISIT DATE November 03, 2022 OUTPATIENT VISIT TYPE Established REFERRING PHYSICIAN No referring provider defined for this encounter. PCP: Rachel MCKENNA [facility] [place] [facility] [id number] CHIEF COMPLAINT: Follow up regarding AVR, MVr, CABG HISTORY OF PRESENT ILLNESS: Mr. Starr is a 86 year old male from [place], [place] who presents today for follow-up visit. He has a PMHx of: Aortic stenosis and coronary artery disease, status post aortic valve replacement, mitral valve repair, and CABG single-vessel in 2007 Permanent atrial fibrillation Hypertension Last evaluated on 08/26/21, during which time he was doing well with no concerns. No changes were made to medication regimen. Today patient denies any chest pain or pressure, palpitations, sob, lower extremity edema. Does note of intermittent lightheadedness. Patient has been active with no issues, works in [employer] without any symptoms. Walks 2 miles 5 days a week. PAST PERICARDIAL DISEASE AND CARDIAC HISTORY: Hx of and CAD, Surgery 10/09/[address] Alvarado for aortic valve replacement with #25 mm Bonnie-Woo pericardial valve (biosprosthetic), mitral valve repair, and CABG x1 (saphenous vein graft to right posterior lateral). Atrial fibrillation diagnosed in 09/2013: He was initially started on Xarelto and Toprol. Underwent AYAN and direct-current cardioversion in 2013. Eventually, his Xarelto was changed to Coumadin. He was again found to have atrial fibrillation in August 2014. He underwent cardioversion again and was started on sotalol. He underwent direct-current cardioversion third time on 12/09/2015. He was then seen in 08/26/2016 and it was decided to change his sotalol to metoprolol and focus on rate control strategy. He was given a diagnosis of permanent atrial fibrillation. CURRENT MANAGEMENT: Metoprolol succinate 50mg daily HCTZ 25mg daily Norvasc 2.5mg daily Coumadin Pravastatin 20mg daily Benazapril 20mg daily PREVIOUS INVESTIGATIONS: ECHO 08/26/21 - Exam indication: S/p AVR, MVr - The left ventricle is small. Left ventricular systolic function is normal. EF = 62 5% (2D biplane) - The right ventricle is normal in size. Right ventricular systolic function is low normal. - The right atrial cavity is dilated. - The visualized aorta is dilated with a maximal dimension of 4.2 cm. - Post mitral valve repair. Elina Mitral Ring (size #36). There is mild (1+) early systolic mitral valve regurgitation. The peak gradient is 10 mmHg and the mean gradient is 4 mmHg. Prior MV pk/mn gradients of 10/4 mmHg. Today's gradients obtained at a HR of 64bpm. - Bonnie-Woo prosthetic aortic valve (size #25). There is mild (1+) aortic valve regurgitation. The peak gradient is 17 mmHg, the mean gradient is 10 mmHg and the dimensionless valve index is 0.36. Prior AV pk/mn gradients of 22/14 mmHg. - Estimated right ventricular systolic pressure is 25 mmHg consistent with normal pulmonary artery pressures. Estimated right atrial pressure is 3 mmHg based on IVC assessment. - Exam was compared with the prior echocardiographic exam performed on 07/30/2020. Similar findings. INFLAMMATORY MARKERS: N/A OTHER LABS: Hemoglobin (g/dL) Date Value 11/03/2022 14.4 07/24/2020 15.1 Hematocrit (%) Date Value 11/03/2022 43.6 07/24/2020 45.9 WBC (k/uL) Date Value 11/03/2022 5.76 07/24/2020 6.62 Platelet Count (k/uL) Date Value 11/03/2022 133 07/24/2020 143 CMP: Glucose 102 08/26/2021 BUN 16 08/26/2021 Creatinine 1.17 08/26/2021 Sodium 141 08/26/2021 Potassium 4.3 08/26/2021 Chloride 102 08/26/2021 CO2 Content, Venous 28 08/26/2021 Protein, Total 6.5 08/26/2021 Albumin 4.3 08/26/2021 Calcium 10.0 08/26/2021 Alkaline Phosphatase 101 08/26/2021 Bilirubin, Total 1.0 08/26/2021 AST 33 08/26/2021 ALT 26 08/26/2021 ALLERGIES: Adhesives [Other], Doxycycline, Levaquin [Levofloxacin], and Prednisone Current Outpatient Medications Medication Sig ciprofloxacin HCl (CETRAXAL) 0.2 % dpet otic solution 0.25 mL twice daily. metoprolol succinate ER (TOPROL XL) 50 mg 24 hr tablet TAKE 1 TABLET BY MOUTH ONCE DAILY Hydrochlorothiazide 12.5 mg capsule Take 2 capsules by mouth once daily. (Patient taking differently: Take by mouth once daily.) amoxicillin (POLYMOX, AMOXIL) 500 mg capsule TAKE 4 CAPSULES BY MOUTH 1 HOUR PRIOR TO DENTAL APPOINTMENT amLODIPine (NORVASC) 5 mg tablet Take 2.5 mg by mouth once daily. Patient states he is only taking 2.5mg daily warfarin (COUMADIN) 4 mg tablet Take by mouth. 6 mg - - Tue 4 mg Tue - Tue - Tue - Tue Bement-3 Fatty Acids, FISH OIL, (FISH OIL) 360-1,200 mg cap Take 1 capsule by mouth once daily. pravastatin (PRAVACHOL) 20 mg tablet Take 1 tablet by mouth daily at bedtime. benazepril (LOTENSIN) 20 mg tablet Take 1 tablet by mouth once daily. OMEPRAZOLE 20 mg ORAL capsule Take 20 mg every Tue and Tue NITROGLYCERIN 0.4 MG SUBLINGUAL TAB as needed MULTIVITAMIN TABLET Take one(1) tablet daily. Current Facility-Administered Medications Medication Dose Route Frequency perflutren lipid microspheres 1.3 mL in NaCl (PF) 0.9% 10 mL injection (DEFINITY) INTRAVENOUS DIRECTED PRN sodium chloride 0.9 % (flush) 10 mL (BD POSIFLUSH) 10 mL INTRAVENOUS DIRECTED PRN perflutren lipid microspheres 1.3 mL in NaCl (PF) 0.9% 10 mL injection (DEFINITY) INTRAVENOUS DIRECTED PRN sodium chloride 0.9 % (flush) 10 mL (BD POSIFLUSH) 10 mL INTRAVENOUS DIRECTED PRN PAST MEDICAL HISTORY Diagnosis Date A-fib (FORM[facility]LY [facility]) 09/2013 Aortic valve disorders Aortic valve disorders Coronary atherosclerosis of unspecified type of vessel, false pass or graft Coronary artery disease Diaphragmatic hernia without mention of obstruction or gangrene Hiatal hernia Hemorrhage of gastrointestinal tract, unspecified 2002 s/p polypectomy Mitral valve disorders(424.0) Mixed hyperlipidemia Hyperlipidemia Nonspecific elevation of levels of transaminase or lactic acid dehydrogenase (LDH) in the past Other abnormal heart sounds Murmur Other disorders of ear(388.8) hearing loss, surgery 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 Personal history of colonic polyps Colon polyps Rash and other nonspecific skin eruption Nonspec Skin Erup Nec Scarlet fever Sensorineural hearing loss, unspecified bilateral hearing aides Unspecified asthma(493.90) and hayfever as child Unspecified essential hypertension Essential hypertension PAST SURGICAL HISTORY Procedure Laterality Date CARDIOVERSION COLONOSCOPY FLX DX W/COLLJ SPEC WHEN PFRMD 03/07/2002 removal of tiny polypectomy LEFT HEART CATH,PERCUTANEOUS 09/13/2007 Cardiac cath, L heart PAST SURGICAL HISTORY OF removal cyst back of neck PAST SURGICAL HISTORY OF 10/09/2007 AVR with #25 mm Bonnie-Woo pericardial valve, MVr, CABG x1, SVG to right posterior lateral PAST SURGICAL HISTORY OF 2021 Prostate surgery SKIN BX, 1 LESION Skin biopsy AYAN (TRANSESOPHAGEAL ECHO) 07/20/2007 TRANSCATH STENT INIT VESSEL,PERCUT 03/07/2002 Transcath stent init vessel percut TYMPANIC MEMB RPR W/WO PREPJ PERFOR PATCH 08/05/2002 Tympanoplasty TYMPANIC MEMB RPR W/WO PREPJ PERFOR PATCH 09/04/2002 Tympanoplasty Social History Tobacco Use Smoking status: Never Smokeless tobacco: Never Vaping Use Vaping Use: Never used Substance Use Topics Alcohol use: No Drug use: No FAMILY HISTORY Problem Relation Age of Onset Colon Cancer Mother at age 85 Ischemic Heart Disease Father at age 70 Lung Cancer Sister Stroke Sister Alzheimer's Disease Sister None Sister brain aneursym Cancer Sister REVIEW OF SYSTEMS: GENERAL: Negative for: Weight loss or gain, Fever or Chills, Weakness and Sleep difficulties. HEENT: Negative for: Headache, Impaired Vision, Glasses, Hearing Impairment, Ringing in Ears, Nosebleeds, Poor dental care, Bleeding Gums, Dentures NECK: Negative for: Swelling, Pain, Stiffness RESPIRATORY: Negative for: Cough, Blood in Sputum, Shortness of breath, Wheezing, Apnea GASTROINTESTINAL: Negative for: Trouble swallowing, Heartburn, Change in bowel habits, Blood in stool, Dark black stools MUSCULOSKELETAL: Negative for: Muscle or joint pain, Stiffness , Joint swelling NEUROLOGIC/PSYCHIATRIC: Negative for: Weakness, Paralysis, Numbness, Tingling, Tremor, Nervousness,Depressed mood, Memory loss SKIN: Negative for: Rashes, Itching HEMATOLOGICAL/LYMPHATIC: Negative for: Easy bruising , Easy bleeding ENDOCRINE: Negative for: Heat or cold intolerance, Excessive sweating, Frequent urination, Frequentthirst PHYSICAL EXAM: BP 123/84 Pulse 61 Ht 5' 9 (1.75m) Wt 169 lb (76.7kg) SpO2 100% BMI 24.95 kg/(m^2). Pulsus paradoxus: No General: Appears well nourished. In no acute distress: No Obese. Skin: No clubbing. No cyanosis. Eyes: EOMI. Oropharynx: Teeth in good repair. Neck: Supple, no JVD, No Kussmaul's sign , no carotid bruits, carotids have a normal upstroke, no thyromegaly. Lungs: Clear to auscultation bilaterally. Heart: Irregularly Irregular rhythm. PMI 5th ICS LMCL, S1nl, S2nl. No rub No knock, heart murmur. Abdomen: Soft, non-tender, BS normal, no organomegaly, no bruits. No Ascites Extremities: 1+ edema LLE, no lower edema in RLE. Grade 2/4 distal pulses bilaterally. Neuro: Oriented x3, alert, cooperative, reflexes normal, CN II-XII grossly intact, gait coordinated. CURRENT STUDIES: echo CONCLUSIONS: - Exam indication: S/p AVR, MVr - The left ventricle is normal in size. Left ventricular systolic function is normal. EF = 54 5% (2D biplane) Left ventricular diastolic function was not evaluated due to mitral valve surgery and AF. - The right ventricle is normal in size. Right ventricular systolic function is normal. - The left atrial cavity is mildly dilated. - The visualized aorta is dilated with a maximal dimension of 4.3 cm. - Post mitral valve repair. Elina Mitral Ring (size #36). There is trace mitral valve regurgitation. The peak gradient is 8 mmHg and the mean gradient is 3 mmHg. - Bonnie-Woo prosthetic aortic valve (size #25). There is trace (trace - 1+) aortic valve regurgitation. The peak gradient is 24 mmHg, the mean gradient is 14 mmHg and the dimensionless valve index is 0.41. - Exam was compared with the prior echocardiographic exam performed on 08/26/2021. Similar findings. [facility] STAFF PHYSICIAN NOTE OF PERSONAL INVOLVEMENT IN CARE I have reviewed the history and physical examination obtained and documented by the resident and I personally participated in the cox components. I have discussed the case and management of the patient's care. The following comments revise or confirm relevant cox components of their note. IMPRESSION: This is a 87 year old male with past medical history of aortic stenosis and coronary artery disease, status post single-vessel CABG, aortic valve replacement with a bioprosthetic valve, and mitral valve repair in 2007 who presents today for cardiovascular medicine follow up visit. Patient states he is doing well, has no concerns. Denies any chest pain, shortness of breath on exertion,orthopnea, paroxysmal nocturnal dyspnea. PLAN: -Continue current medication regimen -Follow up with Dr Cervantes in one year with repeat labs, EKG, ECHO SIGNATURE: Merna Delong MD DATE of SERVICE: November 03, 2022 TIME of SERVICE: 4:17 PM After my examination and review of data, I make the following recommendations. SUMMARY: Mr. Terence Starr is a 87 year old male with past medical history of aortic stenosis and coronary artery disease, status post single-vessel CABG, aortic valve replacement with a bioprosthetic valve, and mitral valve repair in 2007 who presents today for cardiovascular medicine follow up visit. Patient states he is doing well, has no concerns. Denies any chest pain, shortness of breath on exertion, orthopnea, paroxysmal nocturnal dyspnea. Labs pending. EKG today with evidence of afib. ECHO pending. PLAN: - Continue current medication regimen - Follow up with Dr Cervantes in 1 year with repeat labs, EKG, ECHO (Z98.890) S/P mitral valve repair (primary encounter diagnosis) (Z95.2) Status post aortic valve replacement with prosthetic valve (I48.21) Permanent atrial fibrillation (HCC) (I34.0) Nonrheumatic mitral valve regurgitation Follow-up instructions: Dr. Cervantes in 12 months Echo in 12 months I spent 45 minutes in this visit, with more than 50% of the time devoted to patient counseling. Merna Delong MD Internal Medicine Resident, [facility] NOTE OF PERSONAL INVOLVEMENT IN CARE I have reviewed the progress note obtained and documented by the resident and I personally participated in the cox components. I have discussed the case and management of the patient's care. The following comments revise or confirm relevant cox components of their note. IMPRESSION: This is a 87 year old male who presents with s/p MV repair and AVR Doing well PLAN: 1 year follow up Plan of care discussed with Patient CARE COORDINATION: The majority of the visit was spent counseling and/or coordinating care for the patient. [id number]-gt-vdoa time was 45 minutes SIGNATURE: Amilcar Cervantes MD DATE of SERVICE: November 03, 2022 TIME of SERVICE: 10:20 PM documented in this encounterC[facility] Miscellaneous Notes* Telephone Encounter - Joycelyn Ribera - 11/01/2022 3:05 PM EDT Terence Starr came in today.o check on the status of his hearing aids that were brought in on 10/14/22. : 1935 Allergies: Adhesives [Other], Doxycycline, Levaquin [Levofloxacin], and Prednisone (home) [phone] (cell) Reason for call: Patient came in to check on the status of his hearing aids that were brought in on10/14/22. He said that was told 7-14 days. Patient says that he will just be a little more patient and wait until called. Patient last appointment: 10/14/2022 The patients preferred pharmacy has been captured for this encounter? not asked MARIN Lewis November 01, 2022 3:08 PM documented in this encounterC[facility] History of Present illness Narrative* Kristyn Bello MD - 11/01/2022 11:01 AM EDT IMPRESSION 87-year-old male with left otitis externa which has since resolved after eardrops. RECOMMENDATION/PLAN I recommend yearly follow-up. Patient can follow-up with audiology for hearing test. I have given him the name of our otologists to set up follow-up appointment if there are any issues in the future.I can also see him for any acute issues. 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 Patient saw audiology in mid September 2021 for hearing test to getting hearing aids. Her audiology note, it was noted that patient had drainage in the left ear canal. Patient saw his primary care doctor and was treated with ciprofloxacin eardrops. Currently, he denies any pain or drainage from the ears. Patient was previously seen by Dr. Andersen who recommended continue to follow-up with otology on a yearly basis. PAST MEDICAL HISTORY Diagnosis Date A-fib (FORMERLY [facility] 09/2013 Aortic valve disorders Aortic valve disorders Coronary atherosclerosis of unspecified type of vessel, false pass or graft Coronary artery disease Diaphragmatic hernia without mention of obstruction or gangrene Hiatal hernia Hemorrhage of gastrointestinal tract, unspecified 2002 s/p polypectomy Mitral valve disorders(424.0) Mixed hyperlipidemia Hyperlipidemia Nonspecific elevation of levels of transaminase or lactic acid dehydrogenase (LDH) in the past Other abnormal heart sounds Murmur Other disorders of ear(388.8) hearing loss, surgery 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 Personal history of colonic polyps Colon polyps Rash and other nonspecific skin eruption Nonspec Skin Erup Nec Scarlet fever Sensorineural hearing loss, unspecified bilateral hearing aides Unspecified asthma(493.90) and hayfever as child Unspecified essential hypertension Essential hypertension PAST SURGICAL HISTORY Procedure Laterality Date CARDIOVERSION COLONOSCOPY FLX DX W/COLLJ SPEC WHEN PFRMD 2002 removal of tiny polypectomy LEFT HEART CATH,PERCUTANEOUS 09/13/07 Cardiac cath, L heart PAST SURGICAL HISTORY OF removal cyst back of neck PAST SURGICAL HISTORY OF 10/09/07 AVR with #25 mm Bonnie-Woo pericardial valve, MVr, CABG x1, SVG to right posterior lateral SKIN BX, 1 LESION Skin biopsy AYAN (TRANSESOPHAGEAL ECHO) 07/20/07 TRANSCATH STENT INIT VESSEL,PERCUT 2002 Transcath stent init vessel percut TYMPANIC MEMB RPR W/WO PREPJ PERFOR PATCH 6- Tympanoplasty TYMPANIC MEMB RPR W/WO PREPJ PERFOR PATCH - Tympanoplasty FAMILY HISTORY Problem Relation Age of Onset Colon Cancer Mother at age 85 Ischemic Heart Disease Father at age 70 Lung Cancer Sister Stroke Sister Alzheimer's Disease Sister None Sister brain aneursym Cancer Sister CURRENT OUTPATIENT MEDICATIONS Current Outpatient Medications on File Prior to Visit Medication Sig ciprofloxacin HCl (CETRAXAL) 0.2 % dpet otic solution 0.25 mL twice daily. metoprolol succinate ER (TOPROL XL) 50 mg 24 hr tablet TAKE 1 TABLET BY MOUTH ONCE DAILY Hydrochlorothiazide 12.5 mg capsule Take 2 capsules by mouth once daily. (Patient taking differently: Take by mouth once daily. ) amoxicillin (POLYMOX, AMOXIL) 500 mg capsule TAKE 4 CAPSULES BY MOUTH 1 HOUR PRIOR TO DENTAL APPOINTMENT amLODIPine (NORVASC) 5 mg tablet Take 2.5 mg by mouth once daily. Patient states he is only taking 2.5mg daily warfarin (COUMADIN) 4 mg tablet Take by mouth. 6 mg - - Sat 4 mg Tue - Tue - Tue - Tue Bement-3 Fatty Acids, FISH OIL, (FISH OIL) 360-1,200 mg cap Take 1 capsule by mouth once daily. pravastatin (PRAVACHOL) 20 mg tablet Take 1 tablet by mouth daily at bedtime. benazepril (LOTENSIN) 20 mg tablet Take 1 tablet by mouth once daily. OMEPRAZOLE 20 mg ORAL capsule Take 20 mg every Tue and Sat NITROGLYCERIN 0.4 MG SUBLINGUAL TAB as needed ASA LOW DOSE 81MG TAB EC Take one(1) tablet daily. MULTIVITAMIN TABLET Take one(1) tablet daily. Current Facility-Administered Medications on File Prior to Visit Medication perflutren lipid microspheres 1.3 mL in NaCl (PF) 0.9% 10 mL injection (DEFINITY) sodium chloride 0.9 % (flush) 10 mL (BD POSIFLUSH) ALLERGIES ALLERGIES Allergen Reactions Adhesives [Other] Rash, Itching Doxycycline Swelling Levaquin [Levofloxa* Swelling Throat swelling Prednisone Other: See Comments put me into afib The remainder of the patient's history and review of systems is on the outpatient questionaire which was reviewed by me and placed in the outpatient chart. PHYSICAL EXAMINATION Appearance: General examination of the patient's external face, head and neck reveals no abnormalities. The patient is not retrognathic The patient's voice is strong and clear and they communicate easily. Ears: Right EAC patent, TM intact, middle ear space appears healthy. Malleus appears to be missing.Left EAC patent, mastoid cavity appears to be clear. TM appears to be intact. No evidence of infection or drainage. Kristyn Bello MD * Laina Velásquez - 11/01/2022 9:41 AM EDT Tobacco Use: Never Was smoking cessation packet given? N/A - Patient is a non-smoker or quit >1 year ago. Was a referral initiated?N/A Patient is a non-smoker documented in [facility] encounterC[facility]* Encounter Date Diagnosis Assessment Notes Treatment Notes Treatment Clinical Notes Sep, Acute diffuse otitis externa of left ear (ICD-10 - H60.312) Sep, Wears hearing aid (ICD-10 - Z97.4) Keep out as much as tolerable [facility] Other 07-14-2023 History of Present illness Narrative* Yolie Christie, Leticia, CCC-A - 09/17/2022 2:06 PM EDT Head and Neck Burns HEARING AID CHECK Name: Terence Starr [facility]#: [id number] Date of Service: 09/17/2022 Date of : 1935 Age: [age] year old RIGHT: Oticon OPN 1 miniRITE SN: [id number] Earmold/Forming Process Worker: , canal lock Power mold SN: [id number] Repair Warranty : 08/22/2023 LEFT: Oticon OPN 1 miniRITE SN: [id number] Earmold/Forming Process Worker: , canal lock Power mold SN: [id number] Repair Warranty : 10/27/2022 L/D Warranty : 10/08/2020 Both Fitting Date: 09/14/2017 Fitting Take Away Attendant: Leticia Rojas CCC/Sacha Terence was seen today for a hearing aid check/problem. Patient reported he can't change his volumesince the right came back from repair. Maximilian has a 2nd program with increased volume. Aids re-synchedin the software. Listening check--adequate function, program change is working. Hearing Aids cleaned. Wax traps changed. Both wires on his Power molds were twisted. Patient advised to be careful re: this. Maximilian had complaint of soreness near the opening of the left ear canal. No irritation, redness was observed at the opening of the left EAC. RIGHT EAR: Otoscopic inspection revealed clear ear canal, Tympanic Membrane intact. LEFT EAR: Otoscopic inspection revealed discharge in the ear canal posteriorly near the Tympanic Membrane. Patient said he's had some discharge from the left ear for the last few weeks. Maximilian was taken to the [facility] to cover today's appointment fee of $50.00. Recommendations ENT or Otology follow up recommended. The patient has followed with Dr. Andersen in the past. Return for HAC as needed. Nahun Rojas, KENNY/Sacha Clinical Take Away Attendant documented in this encounterC[facility]06-[facility] History of Present illness Narrative* Leticia Rojas CCC-A - 08/12/2022 5:48 PM EDT Head and Neck Burns HEARING AID CHECK Name: Terence Starr CC#: [id number] Date of Service: 08/11/2022 Date of : 1935 Age: [age] year old RIGHT: Oticon OPN 1 miniRITE SN: [id number] Earmold/Forming Process Worker: 100, canal lock mold SN: [id number] Repair Warranty : 08/22/2023 LEFT: Oticon OPN 1 miniRITE SN: [id number] Earmold/Forming Process Worker: 100, canal lock mold SN: [id number] Repair Warranty : 10/27/2022 L/D Warranty : 10/08/2020 Both Fitting Date: 09/14/2017 Fitting Take Away Attendant: Leticia Rojas, KENNY/Sacha Terence picked up repaired Right aid today. Maximilian paid at the [employer] the out of warranty device fee of $275.00. Recommendations Return as needed. Nahun Rojas, KENNY/Sacha Clinical Take Away Attendant documented in this encounterC[facility]05-31-20[facility] Evaluation note* Encounter Date Diagnosis Assessment Notes Treatment Notes Treatment Clinical Notes July, SBE (subacute bacterial endocarditis) prophylaxis candidate (ICD-10 - Z29.8) [facility] Other 05-04-2023 Evaluation note* Encounter Date Diagnosis Assessment Notes Treatment Notes Treatment Clinical Notes July, ASHD (arteriosclerotic heart disease) (ICD-10 - I25.10) This patient is stable without activity related CP, dyspnea or lightheadedness. They are instructed to continue exercise and AHA diet plan. 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 Inspect feet daily for cuts July, Atrial fibrillation, chronic (ICD-10 - I48.20) This patient is in NSR or rate controlled. This patient is anticoagulated to prevent thromboembolic events. They are maintaining regular scheduled appts with their manager machine. No bleeding complications ongoing July, Primary hypertension (ICD-10 - I10) This patient is instructed to consume a healthy, low-fat, low-salt diet. They are also encouraged to continue exercise to achieve/maintain a normal BMI. July, Elevated cholesterol (ICD-10 - E78.00) Instructed on diet and exercise with continued statin therapy.Discussed the beneficial effects of lowering cholesterol in reducing the risk for cerebrovascular and cardiovascular disease. July, Gastroesophageal reflux disease with esophagitis without hemorrhage (ICD-10 - K21.00) Diet instructions: Smaller portions, avoid eating and laying flat, avoid eating or drinking prior to bedtime. Weight loss. July, Nonrheumatic aortic (valve) stenosis (ICD-10 - I35.0) f/u Cardiology, serial Echocardiograms. July, Nonrheumatic mitral (valve) insufficiency (ICD-10 - I34.0) f/u Cardiology, serial Echocardiograms. July, Acquired thrombocytopenia (ICD-10 - D69.6) Monitor for now, no active bleeding problems. July, NSVT (nonsustained ventricular tachycardia) (ICD-10 - I47.29) No episodes noted. Denies CP, palpitations or lightheadedness f/u Cardiology w/ serial Echocardiogram [facility] Other 09-08-2022 History of Present illness Narrative* Leticia Rojas, VANI - 11/12/2021 12:02 PM EDT Head and Neck Burns HEARING AID CHECK Name: Terence Perea Starr [facility]CF#: [id number] Date of Service: 11/12/2021 Date of : 1935 Age: [age] year old RIGHT: OPN1 MINI RITE SN: [id number] Earmold/Forming Process Worker: POWER EM w/LOCK #3100 SN: [id number] PROWAX Repair Warranty : 10/09/2020 L/D Warranty : 10/08/2020 LEFT: OPN1 MINI RITE SN: [id number] Earmold/Forming Process Worker: POWER EM w/LOCK #3100 SN: [id number] PROWAX Repair Warranty : 10/27/2022 L/D Warranty : 10/08/2020 Fitting Date: 09/14/17 Fitting Take Away Attendant: Leticia Rojas, KENNY/Sacha Pratt was seen today for a hearing aid check/problem. Patient reported the Left aid intermittently clicks like when he's changing the program on the devices (not beeping like the low battery warning). This started this past Wednesday 11/08 and has occurred off/on over the last week. This was not noted in the office today. It was noted that both speaker wires were twisted . There's been the same problem both power moldsin the past over the last 3 years. I was able to straighten both wires. Maximilian advised to set the aid on top of his ear first, then move the power mold into the canal with the lock portion of the mold. Patient able to successfully do this in the office. Also given a FLOOD saver to allow him to bring the strings on his mask below his earlobes. No charge visit today - Treatment in Progress. Recommendations If problem with Left aid continues, patient will drop it off and it will be sent for in warranty repair. Nahun Rojas, KENNY/Sacha Clinical Take Away Attendant documented in this encounterC[facility]08-22-2022 Miscellaneous Notes* Telephone Encounter - Leticia Rojas CCC-A - 10/26/2021 8:12 AM EDT Patient was contacted and scheduled [facility]. Nahun Rojas, KENNY/Sacha Clinical Take Away Attendant documented in this encounterC[facility]08-19-2022 History of Present illness Narrative* Leticia Rojas CCC-A - 10/23/2021 1:31 PM EDT Head and Neck Burns HEARING AID CHECK Name: Terence Perea Dakotah [facility]#: [id number] Date of Service: 10/23/2021 Date of : 1935 Age: [age] year old RIGHT: OPN1 MINI RITE SN: [id number] Earmold/Forming Process Worker: POWER EM #3/100 SN: [id number] LEFT: OPN1 MINI RITE SN: [id number] Earmold/Forming Process Worker: POWER EM #3/100 SN: [id number] PROWAX Repair Warranty : 10/09/2020 L/D Warranty : 10/08/2020 Fitting Date: 09/14/17 Fitting Take Away Attendant: Leticia Rojas CCC/Sacha YaoTerence was seen today for a hearing aid check/fruit picker Left repaired aid. The firmware was updated to 08/05, thus, the Right aid firmware needed to be updated. This was done. Added a 2nd program with more gain for patient. Maximilian was taken to the [employer] [facility] to cover today's repair device fee of $275.00. Recommendations Return as needed. Nahun Rojas, KENNY/Sacha Clinical Take Away Attendant documented in this encounterC[facility]08-15-2022 Miscellaneous Notes* Telephone Encounter - Sheree Gutiérrez - 10/19/2021 9:22 AM EDT This appointment has been scheduled for 10/23/2021 Per Provider called and spoke with patient directly to confirm. * Telephone Encounter - Leticia Rojas CCC-A - 10/19/2021 9:11 AM EDT I left patient a VM re: the following Please add patient to my schedule on TuesdayOct 23 at 11 am Hearing Aid Check 60 min Nahun Rojas, KENNY/Sacha Clinical Take Away Attendant documented in this encounterC[facility]07-29-2022 Instructions* Patient Instructions* Antony Brooks - 10/02/2021 1:[address]. Andersen will be leaving the clinic coming the end of November. Want you to establish with Dr. Jack Moran or Dr. Sabine Potter for further care. 2. If choose to establish in [place]. Recommendations. Eduardo: Dr. Andrez Aaron 3. Hold hearing test, unless you need to have your hearing aids adjusted or need new set. documented in this encounterC[facility]07-29-2022 Nurse Note* Jose King - 10/02/2021 1:19 PM EDT Tobacco Use: Never Was smoking cessation packet given? N/A - Patient is a non-smoker or quit >1 year ago. Was a referral initiated?N/A Patient is a non-smoker documented in this encounterC[facility]07-29-2022 History of Present illness Narrative* Missy Andersen MD - 10/02/2021 1:00 PM EDT Staff Physician Comments: I testify that I personally interviewed and examined the patient. I confirm the below exam findings, assessment and plan were my own and resident/DUAL HOSE CEMENTER/scribe was acting as SCRIBE. Stable otologic exam Missy Andersen MD, FACS Section Head, Otology/Neurotology/Skull Base Surgery Pole Framer Machine, Cochlear Implant Program Head and Neck Burns [facility] History of Present Illness Mr. 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 Since last seen, Things have been good Hearing stable, no otalgia or otorrhea Hearing aids have been working well. Seeing jar capper regularly. ALLERGIES Allergen Reactions Adhesives [Other] Rash, Itching Doxycycline Swelling Levaquin [Levofloxa* Swelling Throat swelling Prednisone Other: See Comments put me into afib Current Outpatient Medications on File Prior to Visit Medication Sig metoprolol succinate ER (TOPROL XL) 50 mg 24 hr tablet TAKE 1 TABLET BY MOUTH ONCE DAILY Hydrochlorothiazide 12.5 mg capsule Take 2 capsules by mouth once daily. (Patient taking differently: Take by mouth once daily. ) amoxicillin (POLYMOX, AMOXIL) 500 mg capsule TAKE 4 CAPSULES BY MOUTH 1 HOUR PRIOR TO DENTAL APPOINTMENT amLODIPine (NORVASC) 5 mg tablet Take 2.5 mg by mouth once daily. Patient states he is only taking 2.5mg daily warfarin (COUMADIN) 4 mg tablet Take by mouth. 6 mg Tues - Thurs - Sat 4 mg Tue - Tue - Tue - Sun Bement-3 Fatty Acids, FISH OIL, (FISH OIL) 360-1,200 mg cap Take 1 capsule by mouth once daily. pravastatin (PRAVACHOL) 20 mg tablet Take 1 tablet by mouth daily at bedtime. benazepril (LOTENSIN) 20 mg tablet Take 1 tablet by mouth once daily. OMEPRAZOLE 20 mg ORAL capsule Take 20 mg every Wed and Sat NITROGLYCERIN 0.4 MG SUBLINGUAL TAB as needed ASA LOW DOSE 81MG TAB EC Take one(1) tablet daily. MULTIVITAMIN TABLET Take one(1) tablet daily. Current Facility-Administered Medications on File Prior to Visit Medication perflutren lipid microspheres 1.3 mL in NaCl (PF) 0.9% 10 mL injection (DEFINITY) sodium chloride 0.9 % (flush) 10 mL (BD POSIFLUSH) perflutren lipid microspheres 1.3 mL in NaCl (PF) 0.9% 10 mL injection (DEFINITY) sodium chloride 0.9 % (flush) 10 mL (BD POSIFLUSH) Objective: There were no vitals taken for this visit. Appearance: Non-syndromic, cooperative and calm Communication: Voice has adequate volume; there is no stridor or aesthenia Ears: AD Clear tympanic membrane without evident malleus Some dry blood at meatus, without any ulcers or injury Deeply retracted tympanic membrane with some serous effusion, no debris Stable reddish brown appearance to the attic. 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 Plan: 1. Hold audiogram until need for hearing aid update. 2. If choose to stay within [facility] establish with Dr. Jack Moran or Dr. Sabine Potter -If choose to establish in [place]: Dr. Andrez Aaron 3. Otherwise continue follow-up plan on annual basis. By signing my name below I, Antony Brooks attest that this documentation has been prepared under the direction of and in the presence of Dr Andersen Electronically signed: Antony Mendez October 02, 2021 1:48 PM documented in this encounterC[facility]07-28-2022 History of Present illness Narrative* Leticia Rojas CCC-A - 10/01/2021 3:21 PM EDT Head and Neck Burns HEARING AID CHECK Name: Terence Starr [facility]#: [id number] Date of Service: 10/01/2021 Date of : 1935 Age: [age] year old RIGHT: OPN1 MINI RITE SN: [id number] Earmold/Forming Process Worker: POWER EM #3/100 SN: [id number] LEFT: OPN1 MINI RITE SN: [id number] Earmold/Forming Process Worker: POWER EM #3/100 SN: [id number] PROWAX Repair Warranty : 10/09/2020 L/D Warranty : 10/08/2020 Fitting Date: 09/14/17 Fitting Take Away Attendant: Leticia Rojas CCC/Sacha Terence was seen today for a hearing aid check/problem. Left aid . Listening check--aid was . Advised patient aid is out of repair warranty and the cost is $275.00 for repair with 1 year warranty. Maximilian consents to repair. No charge visit today - Treatment in Progress. Recommendations Patient will return when Left aid is back from repair. Nahun Rojas, KENNY/Sacha Clinical Take Away Attendant documented in this encounterCleveland [facility]07-21-2022 Miscellaneous Notes* Telephone Encounter - Sophia Waterman - 09/24/2021 4:18 PM EDT C scheduled. Nahun Rojas CCC/Sacha Clinical Take Away Attendant Patient called to check on status of previous encounter. Probably needs hearing aid replaced. Call number provided in [employer] message. documented in this encounterCleveland [facility]06-22-2022 History of Present illness Narrative* Amilcar Cervantes MD - 08/26/2021 1:15 PM EDT Images from the original note were not included. [facility] Department of Cardiovascular Medicine SECTION OF CARDIOVASCULAR IMAGING OUTPATIENT VISIT DATE August 26, 2021 OUTPATIENT VISIT TYPE ESTABLISHED PRIMARY CARE PHYSICIAN: Matt Perkins ([facility]) [address] [place] [address] REFERRING PHYSICIAN: Amilcar Cervantes [id number] [facility] [id number] CHIEF COMPLAINT: Follow up regarding AVR, MVr, and CABG HISTORY OF PRESENT ILLNESS: Mr. Starr is a 86 year old male who presents today for follow-up visit regarding s/p aortic valvereplacement, mitral valve repair and CABG. He underwent CABG, AVR and MVr in 2007. Since his last visit, he states that he is feeling well without any active complaints. He is feeling fair in the office today. He denies chest pain, shortness of breath, orthopnea, cough, edema, palpitations, PND, lightheadedness or syncope. PAST CARDIAC HISTORY: He has been seen in the past for s/p aortic valve replacement, CABG, mitral valve repair. He was last seen on 07/24/2020. PAST MEDICAL HISTORY Diagnosis Date A-fib ([facility]) 09/2013 Aortic valve disorders Aortic valve disorders Coronary atherosclerosis of unspecified type of vessel, false pass or graft Coronary artery disease Diaphragmatic hernia without mention of obstruction or gangrene Hiatal hernia Hemorrhage of gastrointestinal tract, unspecified 2002 s/p polypectomy Mitral valve disorders(424.0) Mixed hyperlipidemia Hyperlipidemia Nonspecific elevation of levels of transaminase or lactic acid dehydrogenase (LDH) in the past Other abnormal heart sounds Murmur Other disorders of ear(388.8) hearing loss, surgery 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 Personal history of colonic polyps Colon polyps Rash and other nonspecific skin eruption Nonspec Skin Erup Nec Scarlet fever Sensorineural hearing loss, unspecified bilateral hearing aides Unspecified asthma(493.90) and hayfever as child Unspecified essential hypertension Essential hypertension PAST SURGICAL HISTORY Procedure Laterality Date CARDIOVERSION COLONOSCOP W/ OR W/O BRSH SPEC 2002 removal of tiny polypectomy LEFT HEART CATH,PERCUTANEOUS 09/13/07 Cardiac cath, L heart PAST SURGICAL HISTORY OF removal cyst back of neck PAST SURGICAL HISTORY OF 10/09/07 AVR with #25 mm Bonnie-Woo pericardial valve, MVr, CABG x1, SVG to right posterior lateral SKIN BX, 1 LESION Skin biopsy AYAN (TRANSESOPHAGEAL ECHO) 07/20/07 TRANSCATH STENT INIT VESSEL,PERCUT 2002 Transcath stent init vessel percut TYP MEMBR REP W OR W/O PATCH 08-07 Tympanoplasty TYP MEMBR REP W OR W/O PATCH 09-06 Tympanoplasty SOCIAL HISTORY Social History Tobacco Use Smoking status: Never Smoker Smokeless tobacco: Never Used Vaping Use Vaping Use: Never used Substance Use Topics Alcohol use: No Drug use: No FAMILY HISTORY Problem Relation Age of Onset Colon Cancer Mother at age 85 Ischemic Heart Disease Father at age 70 Lung Cancer Sister Stroke Sister Alzheimer's Disease Sister None Sister brain aneursym Cancer Sister ALLERGIES: ALLERGIES Allergen Reactions Adhesives [Other] Rash, Itching Doxycycline Swelling Levaquin [Levofloxa* Swelling Throat swelling Prednisone Other: See Comments put me into afib MEDICATIONS: metoprolol succinate ER (TOPROL XL) 50 mg 24 hr tablet TAKE 1 TABLET BY MOUTH ONCE DAILY Hydrochlorothiazide 12.5 mg capsule Take 2 capsules by mouth once daily. amoxicillin (POLYMOX, AMOXIL) 500 mg capsule TAKE 4 CAPSULES BY MOUTH 1 HOUR PRIOR TO DENTAL APPOINTMENT amLODIPine (NORVASC) 5 mg tablet Take 2.5 mg by mouth once daily. Patient states he is only taking 2.5mg daily warfarin (COUMADIN) 4 mg tablet Take by mouth. 6 mg - - Sat4 mg Tue - Tue - Tue - Tue Bement-3 Fatty Acids, FISH OIL, (FISH OIL) 360-1,200 mg cap Take 1 capsule by mouth once daily. pravastatin (PRAVACHOL) 20 mg tablet Take 1 tablet by mouth daily at bedtime. benazepril (LOTENSIN) 20 mg tablet Take 1 tablet by mouth once daily. OMEPRAZOLE 20 mg ORAL capsule Take 20 mg every Tue and Tue NITROGLYCERIN 0.4 MG SUBLINGUAL TAB as needed ASA LOW DOSE 81MG TAB EC Take one(1) tablet daily. MULTIVITAMIN TABLET Take one(1) tablet daily. REVIEW OF SYSTEMS: GENERAL: Negative for: Weight loss or gain, Fever or Chills, Weakness and Sleep difficulties. HEENT: Negative for: Headache, Impaired Vision, Glasses, Hearing Impairment, Ringing in Ears, Nosebleeds, Poor Dental Care, Bleeding Gums and Dentures. NECK: Negative for: Swelling, Pain, Stiffness RESPIRATORY: Negative for: Cough, Blood in Sputum, Shortness of breath, Wheezing, Apnea GASTROINTESTINAL: Negative for: Trouble swallowing, Heartburn, Change in bowel habits, Blood in stool, Dark black stools MUSCULOSKELETAL: Negtive for: Muscle or joint pain, stiffness, Joint swelling NEUROLOGIC/PSYCHIATRIC: Negative for: Weakness, Paralysis, Numbness, Tingling, Tremor, Nervousness or anxiety, Depressed mood, Memory loss SKIN: Negative for: Rash, Itching PHYSICAL EXAMINATION: BP 131/80 Pulse 71 Ht 177.8 cm (5' 10 ) Wt 79.2 kg (174 lb 9.6 oz) SpO2 100% BMI 25.05 kg/m General: Well appearing, in no acute distress, speaking in complete sentences. Skin: No clubbing, no cyanosis. Eyes: Extra ocular movements intact Oropharynx: Teeth in good repair. Neck: No jugular venous distention, no carotid bruits, carotids have a normal upstroke, no palpablethyromegaly. Lungs: Clear to auscultation bilaterally, no wheezing or rhonchi. Heart: Irregularly Irregular rhythm, PMI not displaced, S1, S2 normal, no S3, no S4, no heaves, no rub and I/ systolic ejection murmur. Abdomen: Soft, nontender, bowel sounds normal, no palpable organomegaly, no bruits. Extremities: No peripheral edema . Grade 2/4 distal pulses bilaterally. Neuro: Oriented to person, place and time, alert, cooperative, gait coordinated. CARDIOVASCULAR MEDICINE TESTING: Electrocardiogram Laboratory Testing Component Latest Ref Rng & Units 08/26/2021 WBC 3.70 - 11.00 k/uL 6.83 RBC 4.20 - 6.00 m/uL 4.88 Hemoglobin 13.0 - 17.0 g/dL 14.5 Hematocrit 39.0 - 51.0 % 44.1 MCV 80.0 - 100.0 fL 90.4 MCH 26.0 - 34.0 pg 29.7 MCHC 30.5 - 36.0 g/dL 32.9 RDW-CV 11.5 - 15.0 % 13.5 Platelet Count 150 - 400 k/uL 130 (L) MPV 9.0 - 12.7 fL 11.3 Neut% % 57.4 Abs Neut (ANC) 1.45 - 7.50 k/uL 3.92 Lymph% % 27.7 Abs Lymph 1.00 - 4.00 k/uL 1.89 Eaton% % 11.1 Abs Eaton <0.87 k/uL 0.76 Eosin% % 2.5 Abs Eosin <0.46 k/uL 0.17 Baso% % 1.0 Abs Baso <0.11 k/uL 0.07 Immature Gran % % 0.3 IMMATURE GRANS (ABS) <0.10 k/uL <0.03 NRBC /100 WBC 0.0 Absolute nRBC <0.01 k/uL <0.01 DTYPE Auto PT Sec 9.7 - 13.0 sec 24.2 (H) PT INR 0.9 - 1.3 2.4 (H) Echocardiogram Exam indication: S/p AVR, MVr - The left ventricle is small. Left ventricular systolic function is normal. EF = 62 5% (2D biplane) - The right ventricle is normal in size. Right ventricular systolic function is low normal. - The right atrial cavity is dilated. - The visualized aorta is dilated with a maximal dimension of 4.2 cm. - Post mitral valve repair. Elina Mitral Ring (size #36). There is mild (1+) early systolic mitral valve regurgitation. The peak gradient is 10 mmHg and the mean gradient is 4 mmHg. Prior MV pk/mn gradients of 10/4 mmHg. Today's gradients obtained at a HR of 64bpm. - Bonnie-Woo prosthetic aortic valve (size #25). There is mild (1+) aortic valve regurgitation. The peak gradient is 17 mmHg, the mean gradient is 10 mmHg and the dimensionless valve index is 0.36. Prior AV pk/mn gradients of 22/14 mmHg. - Estimated right ventricular systolic pressure is 25 mmHg consistent with normal pulmonary artery pressures. Estimated right atrial pressure is 3 mmHg based on IVC assessment. - Exam was compared with the prior echocardiographic exam performed on 07/30/2020. Similar findings. I have personally reviewed the Electrocardiogram, Laboratory Testing and Echocardiogram. EKG Labs- pending IMPRESSION: Mr. Starr is a 86 old male with past medical history of aortic stenosis and coronary artery disease, status post single-vessel CABG, aortic valve replacement with a bioprosthetic valve, and mitral valve repair in 2007. He also has a past medical history of A. fib that was diagnosed back in 2013. Patient currently does not have any complaints such as chest pain, shortness of breath on exertion, orthopnea, paroxysmal nocturnal dyspnea. PLAN AND RECOMMENDATIONS: 1. Aortic stenosis status post aortic valve replacement with bioprosthetic valve in 2007 -Echo today (08/26/2021) showed mild (1+) aortic valve regurgitation. The peak gradient is 17 mmHg (peak velocity = 209.2 cm/s). The mean gradient is 10 mmHg. The LVOT mean velocity is 47.8 cm/s. The aortic VTI is 41.4 cm. The mean velocity in the aortic valve is 146.9 cm/s. The dimensionless valve index is 0.36 -Given no clinical symptoms will continue monitoring 2. Coronary artery disease status post CABG -Currently on aspirin 81 mg, Toprol-XL 50 mg, and pravastatin 20 mg daily -Complains of no anginal or dyspnea symptoms Continue monitoring 3. Atrial fibrillation -On rate control agent with Toprol-XL 50 mg once daily -Anticoagulation is Coumadin -INR range 2-3 -His DBT5AM2-LVZl score is 4 Continue Toprol XL and Warfarin 4. Hyperlipidemia Continue home dose of pravastatin Follow up with EKG, Echo and labs after a year. I personally interviewed, confirmed and edited the above information if obtained by others. CONTACT INFORMATION: Amilcar Cervantes MD [facility] History of Present illness Narrative* Leticia Rojas, [facility] - 08/07/2021 3:52 PM EDT Head and Neck Burns HEARING AID CHECK Name: Terence Starr [facility]#: [id number] Date of Service: 08/07/2021 Date of : 1935 Age: [age] year old RIGHT: OPN1 MINI RITE SN: [id number] [place]/Forming Process Worker: POWER EM #3 SN: [id number] LEFT: OPN1 MINI RITE SN: [id number] [place]/Forming Process Worker: POWER EM #3 SN: [id number] PROWAX Repair Warranty : 10/09/2020 L/D Warranty : 10/08/2020 Fitting Date: 09/14/17 Fitting Take Away Attendant: Leticia Rojas, KENNY/Sacha Terence was seen today for a hearing aid check/problem. The left aid has been intermittent. Has been wearing the device, however, when he put it on today it was working. Listening check--Left adequate function. There was no intermittent problem today. There was a little debris on the contacts, battery door both aids and in the mics on both aids. Hearing Aids cleaned, vacuumed. Hearing Aids cleaned and listening check--adequate function. Patient advised to drop the left aid off if the intermittent problem continues. Advised to purchasea FLOOD dehumidifier. No charge visit today - Treatment in Progress. Recommendations Return as needed. 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 12/29/2011 Hearing loss 12/19/2002 12/29/2011 documented as of this encounter (statuses as of 08/07/2021) [facility] of Past illness Narrative* Problem Noted Date Resolved Date Mitral valve regurgitation 10/31/201311/03 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 12/29/2011 Hearing loss 12/19/2002 12/29/2011 documented as of this encounter (statuses as of 08/07/2021) [facility] of Past illness Narrative* Problem Noted Date Resolved Date Mitral valve regurgitation 10/31/201311/03 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 12/29/2011 Hearing loss 12/19/2002 12/29/2011 documented as of this encounter (statuses as of 08/27/2021) [facility] of [facility] illness Narrative* Problem Noted Date Resolved Date Mitral valve regurgitation 10/31/201311/03 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 12/29/2011 Hearing loss 12/19/2002 12/29/2011 documented as of this encounter (statuses as of 10/01/2021) [facility] of [facility] illness Narrative* Problem Noted Date Resolved Date Mitral valve regurgitation 10/31/201311/03 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 12/29/2011 Hearing loss 12/19/2002 12/29/2011 documented as of this encounter (statuses as of 10/02/2021) [facility] Narrative* Problem Noted Date Resolved Date Mitral valve regurgitation 10/31/201311/03 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 12/29/2011 Hearing loss 12/19/2002 12/29/2011 documented as of this encounter (statuses as of 10/19/2021) [facility] of [facility] Narrative* Problem Noted Date Resolved Date Mitral valve regurgitation 10/31/201311/03 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 12/29/2011 Hearing loss 12/19/2002 12/29/2011 documented as of this encounter (statuses as of 10/23/2021) [facility] Narrative* Problem Noted Date Resolved Date Mitral valve regurgitation 10/31/201311/03 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 12/29/2011 Hearing loss 12/19/2002 12/29/2011 documented as of this encounter (statuses as of 10/26/2021) [facility] of [facility] illness Narrative* Problem Noted Date Resolved Date Mitral valve regurgitation 10/31/201311/03 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 12/29/2011 Hearing loss 12/19/2002 12/29/2011 documented as of this encounter (statuses as of 10/27/2021) [place] [id number] History of Past illness Narrative* Problem Noted Date Resolved Date Mitral valve regurgitation 10/31/201311/03 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 12/29/2011 Hearing loss 12/19/2002 12/29/2011 documented as of this encounter (statuses as of 11/12/2021) [place] [id number] History of Past illness Narrative* Problem Noted Date Resolved Date Mitral valve regurgitation 10/31/201311/03 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 12/29/2011 Hearing loss 12/19/2002 12/29/2011 documented as of this encounter (statuses as of 05/28/2022) [place] [id number] History of Past illness Narrative* Problem Noted Date Resolved Date Mitral valve regurgitation 10/31/201311/03 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 12/29/2011 Hearing loss 12/19/2002 12/29/2011 documented as of this encounter (statuses as of 06/08/2022) [place] [id number] History of Past illness Narrative* Problem Noted Date Resolved Date Mitral valve regurgitation 10/31/201311/03 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 12/29/2011 Hearing loss 12/19/2002 12/29/2011 documented as of this encounter (statuses as of 08/13/2022) [place] [id number] History of Past illness Narrative* Problem Noted Date Diagnosed Date Resolved Date Mitral valve regurgitation 10/31/2013 0 11/03/2013 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 Mixed conductive and sensori neural hearing loss 02/04/2004 12/29/2011 Hearing loss 12/19/2002 12/29/2011 documented as of this encounter (statuses as of 09/18/2022) [facility] of [facility] Narrative* Problem Noted Date Diagnosed Date Resolved Date Mitral valve regurgitation 10/31/2013 0 11/03/2013 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 Mixed conductive and sensori neural hearing loss 02/04/2004 12/29/2011 Hearing loss 12/19/2002 12/29/2011 documented as of this encounter (statuses as of 11/01/2022) [place] [id number] History of Past illness Narrative* Problem Noted Date Diagnosed Date Resolved Date Mitral valve regurgitation 10/31/2013 0 11/03/2013 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 Mixed conductive and sensori neural hearing loss 02/04/2004 12/29/2011 Hearing loss 12/19/2002 12/29/2011 documented as of this encounter (statuses as of 11/03/2022) [place] [id number] History of Past illness Narrative* Problem Noted Date Diagnosed Date Resolved Date Mitral valve regurgitation 10/31/2013 0 11/03/2013 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 Mixed conductive and sensori neural hearing loss 02/04/2004 12/29/2011 Hearing loss 12/19/2002 12/29/2011 documented as of this encounter (statuses as of 11/04/2022) [facility] of [facility] illness Narrative* Problem Noted Date Diagnosed Date Resolved Date Mitral valve regurgitation 10/31/2013 0 11/03/2013 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 Mixed conductive and sensori neural hearing loss 02/04/2004 12/29/2011 Hearing loss 12/19/2002 12/29/2011 documented as of this encounter (statuses as of 11/18/2022) [address]27-2014 History of Past illness Narrative* Problem Noted Date Diagnosed Date Resolved Date Mitral valve regurgitation 10/31/2013 0 11/03/2013 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 Mixed conductive and sensori neural hearing loss 02/04/2004 12/29/2011 Hearing loss 12/19/2002 12/29/2011 documented as of this encounter (statuses as of 01/04/2023) [facility] + Plan note No data available for this section [facility] note* Diagnosis Mixed conductive and sensorineural hearing loss, bilateral- Primary Mixed hearing loss, bilateral documented in this encounter [facility] note* Diagnosis S/P mitral valve repair- Primary Other postprocedural status 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 Heart valve replaced by other means Other hyperlipidemia Permanent atrial fibrillation (HCC) Atrial fibrillation SOB (shortness of breath) Shortness of breath documented in this encounter [facility] note* Diagnosis Mixed conductive and sensorineural hearing loss, bilateral- Primary Mixed hearing loss, bilateral documented in this encounter [facility] note* Diagnosis Mixed conductive and sensorineural hearing loss, bilateral- Primary Mixed hearing loss, bilateral documented in this encounter [facility] note* Diagnosis Mixed hearing loss, bilateral- Primary Chronic adhesive otitis media, bilateral 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 documented in this encounter [facility] note* Diagnosis Mixed conductive and sensorineural hearing loss, bilateral- Primary Mixed hearing loss, bilateral documented in this encounter [facility] note* Diagnosis Nonrheumatic mitral valve regurgitation- Primary S/P mitral valve repair Other postprocedural status documented in this encounter [facility] note* Diagnosis Persistent atrial fibrillation (HCC)- Primary Atrial fibrillation documented in this encounter [facility] noteNo [employer]ast[employer] Other Evaluation note* Diagnosis Mixed hearing loss, bilateral- Primary documented in this encounter [facility] note* Diagnosis Mixed conductive and sensorineural hearing loss, bilateral- Primary Mixed hearing loss, bilateral documented in this encounter [facility] note* Diagnosis Other otitis externa, left ear- Primary documented in this encounter [facility] note* Diagnosis S/P mitral valve repair- Primary Other postprocedural status Status post aortic valve replacement with prosthetic valve Heart valve replaced by other means Permanent atrial fibrillation (HCC) Atrial fibrillation Nonrheumatic mitral valve regurgitation documented in this encounter [facility] note* Diagnosis Permanent atrial fibrillation (HCC)- Primary Atrial fibrillation documented in this encounter [facility] note* Diagnosis S/P AVR (aortic valve replacement)- Primary Heart valve replaced by other means H/O mitral valve repair Personal history of surgery to heart and great vessels, presenting hazards to health 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, 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 Postsurgical aortocoronary bypass status [facility]* Diagnosis S/P AVR (aortic valve replacement) Heart valve replaced by other means H/O mitral valve repair Personal history of surgery to heart and great vessels, presenting hazards to health 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, 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 Postsurgical aortocoronary bypass status [facility] noteNo assessment information availableAs[facility]ab[facility] Work Phone: Evaluation note* Diagnosis Venous insufficiency (chronic) (peripheral)- Primary Unspecified venous (peripheral) insufficiency Onychomycosis Dermatophytosis of nail Pain in left toe(s) Pain in right toe(s) [facility] Diagnosis Onset Date Resolution Status Atrial fibrillation acute Chronic venous insufficiency of lower extremity acute Essential (primary) hypertension acute Medicare annual wellness visit, subsequent acute [facility] Work Phone: Evaluation note* Diagnosis Pseudophakia- Primary Lens replaced by other means Basal cell carcinoma (BCC) of right lower eyelid Early dry stage nonexudative age-related macular degeneration of both eyes [facility] Narrative - Reported* Type Description Date Medical History Heart disease Medical History HTN Medical History PE Surgical History Heart valve replacement 2007 Surgical History PROSTATE PROCEDURE Hospitalization History see surgical hx [facility] Other Hospital Discharge instructions No data available for this section [facility] No data available for this section [facility] (narrative[facility] Outpatient Procedure (Routine) - Authorized Specialty Diagnoses / Procedures Referred By Contnicolle t Referred [facility] Diagnoses Nonrheumatic mitral valve regurgitation S/P mitral valve repair Procedures ECHO ECHO TTHRC R-T 2D W/WOM-MODE COMPL SPEC&COLR D Amilcar Cervantes MD [address] [place] [address] [address] Referral ID Status Reason Start Date Expiration Date Visits Requested Visits Authorized [id number] Authorized Auto-Generat ed Referral 05/27/2022 05/27/2023 1 1 * Outpatient Procedure (Routine) - Authorized Specialty Diagnoses / Procedures Referred By Contac t Referred To Contact [facility] Diagnoses Nonrheumatic mitral valve regurgitation S/P mitral valve repair Procedures ECG COMPLETE ECG ROUTINE ECG W/LEAST 12 LDS W/I&[place] [address] [place] [id number] [address] Referral ID Status Reason Start Date Expiration Date Visits Requested Visits Authorized [id number] Authorized Auto-Generat ed Referral 05/27/2022 05/27/2023 1 1 [facility] for referral (narrative)* Outpatient Procedure (Routine) - Authorized Specialty Diagnoses / Procedures Referred By Contac t Referred To Contact [facility] Diagnoses Persistent atrial fibrillation (HCC) Procedures ECG COMPLETE ECG ROUTINE ECG W/LEAST 12 LDS W/I[place] [address] [place] [id number] [address] Referral ID Status Reason Start Date Expiration Date Visits Requested Visits Authorized [id number] Authorized Auto-Generat ed Referral 06/07/2022 06/07/2023 1 1 [facility] for referral (narrative)* Outpatient Procedure (Routine) - Pending Review Specialty Diagnoses / Procedures Referred By Contac t Referred To Contact [facility] Diagnoses S/P mitral valve repair Procedures ECG COMPLETE ECG ROUTINE ECG W/LEAST 12 LDS W/I&R Amilcar Cervantes MD [address] [place] [address] [address] Referral ID Status Reason Start Date Expiration Date Visits Requested Visits Authorized [id number] Pending Review Auto-Generat ed Referral 11/03/2022 11/03/2023 1 1 * Outpatient Procedure (Routine) - Pending Review Specialty Diagnoses / Procedures Referred By Leonor lynn Ref[facility] Diagnoses S/P mitral valve repair Procedures ECHO ECHO TTHRC R-T 2D W/WOM-MODE COMPL SPEC&COLR D Amilcar Cervantes MD [address] [place] [id number] [address] Referral ID Status Reason Start Date Expiration Date Visits Requested Visits Authorized [id number] Pending Review Auto-Generat ed Referral 11/03/2022 11/03/2023 1 1 [facility] Advance Directives No Advanced Directives Records FoundDocuments on File Type Date Recorded Patient Slipman Expl anation Advance Directive(s) 08/18/2010 12:00 AM Advance Directive(s) 09/14/2007 12:00 AM Documents on File Type Date Recorded Patient Slipman Expl anation Advance Directive(s) 08/18/2010 Advance Directive(s) 09/14/2007 Documents on File Type Date Recorded Patient Slipman Expl anation Advance Directive(s) 08/18/2010 Advance Directive(s) 09/14/2007 Advance Directive Response Recorded Date/ Time Advance Directives No November 10:17am Summary Purpose Family History No Family History Records Found Relationship Condition Age at Onset Recorded Date/T naya father Unknown Heart disease Unknown Hypertension Unknown mother Malignant neoplasm Unknown Unknown Reason for Referral Specialty Diagnoses / Procedures Referred By Leonor lynn Referred To Contact [facility] Diagnoses S/P AVR (aortic valve replacement) H/O mitral valve repair 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, 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 Procedures CTA CHEST (GATED) W IVCON CT ANGIOGRAPHY CHEST W/CONTRAST/NONCONTRAST Amilcar Cervantes MD [address] [place] [address] Ct Imaging [place] [address] Referral ID Status Reason Start Date Expiration Date Visits Requested Visits Authorized [id number] Pending Review Auto-Generat ed Referral 07/14/2023 08/12/2024 1 1 Specialty Diagnoses / Procedures Referred By Contac t Referred To Contact [facility] Diagnoses S/P AVR (aortic valve replacement) H/O mitral valve repair 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, 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 Procedures ECHO ECHO TTHRC R-T 2D W/WOM-MODE COMPL SPEC&[place] [address] [place] [address] [place] [address] Referral ID Status Reason Start Date Expiration Date Visits Requested Visits Authorized [id number] Pending Review Auto-Generat ed Referral 04/14/2024 07/13/2024 1 1 Specialty Diagnoses / Procedures Referred By Contac t Referred To Contact [facility] [place] Diagnoses S/P AVR (aortic valve replacement) H/O mitral valve repair 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, 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 Procedures ECG COMPLETE ECG ROUTINE ECG W/LEAST 12 LDS W/I&R Efe Trejo MD [address] [place] [address] [place] [address] Referral ID Status Reason Start Date Expiration Date Visits Requested Visits Authorized [id number] Pending Review Auto-Generat ed Referral 07/14/2023 07/13/2024 1 1 Specialty Diagnoses / Procedures Referred By Donalac t Referred To Contact [facility] [place] Procedures CARDIOVASCULAR MEDICINE [place] [address] [place] [address] [facility] [address] [place] [address] Referral ID Status Reason Start Date Expiration Date Visits Requested Visits Authorized [id number] Ref Not Required PCP Requested Referral 04/14/2024 07/13/2024 1 1 Specialty Diagnoses / Procedures Referred By Leonor lynn Referred To Contact Procedures CARDIOVASCULAR MEDICINE OP FOLLOW UP APPT ORDER Suleiman Santana MD [address] [place] [address] Referral ID Status Reason Start Date Expiration Date Visits Requested Visits Authorized [id number] Ref Not Required PCP Requested Referral 3 01/04/2024 1 1 Chief Complaint and Reason for Visit Chief Complaint Amb Documentation right leg seepage Chief Complaint CC Adult Risk Strati fication wellness Reason for Visit Atrial fibrillation Chronic venous insufficiency of lower extremity Essential (primary) hypertension Medicare annual wellness visit, subsequent Additional Source Comments Source Comments (unrecognize d section and content) In the event this informatio n is protected by the Federal Confidentiality of Alcohol and Drug Abuse Patient Records regulations: The Federal rules restrict any use of the information to criminally investigate or prosecute any alcohol or drug abuse patient.[facility] Hospital[facility] the event this information is protected by the Federal Confidentiality of Alcohol and Drug Abuse Patient Records regulations: The Federal rules restrict any use of the information to criminally investigate or prosecute any alcohol or drug abuse patient.[facility] HospitalIn the event this information is protected by the Federal Confidentiality of Alcohol and Drug Abuse Patient Records regulations: The Federal rules restrict any use of the information to criminally investigate or prosecute any alcohol or drug abuse patient.[facility] HospitalIn the event this information is protected by the Federal Confidentiality of Alcohol and Drug Abuse Patient Records regulations: The Federal rules restrict any use of the information to criminally investigate or prosecute any alcohol or drug abuse patient.[facility] HospitalIn the event this information is protected by the Federal Confidentiality of Alcohol and Drug Abuse Patient Records regulations: The Federal rules restrict any use of the information to criminally investigate or prosecute any alcohol or drug abuse patient.[facility] HospitalIn the event this information is protected by the Federal Confidentiality of Alcohol and Drug Abuse Patient Records regulations: The Federal rules restrict any use of the information to criminally investigate or prosecute any alcohol or drug abuse patient.[facility] HospitalIn the event this information is protected by the Federal Confidentiality of Alcohol and Drug Abuse Patient Records regulations: The Federal rules restrict any use of the information to criminally investigate or prosecute any alcohol or drug abuse patient.[facility] the event this information is protected by the Federal Confidentiality of Alcohol and Drug Abuse Patient Records regulations: The Federal rules restrict any use of the information to criminally investigate or prosecute any alcohol or drug abuse patient.[facility] HospitalIn the event this information is protected by the Federal Confidentiality of Alcohol and Drug Abuse Patient Records regulations: The Federal rules restrict any use of the information to criminally investigate or prosecute any alcohol or drug abuse patient.[facility] HospitalIn the event this information is protected by the Federal Confidentiality of Alcohol and Drug Abuse Patient Records regulations: The Federal rules restrict any use of the information to criminally investigate or prosecute any alcohol or drug abuse patient.[facility] the event this information is protected by the Federal Confidentiality of Alcohol and Drug Abuse Patient Records regulations: The Federal rules restrict any use of the information to criminally investigate or prosecute any alcohol or drug abuse patient.[facility] Hospital[facility] the event this information is protected by the Federal Confidentiality of Alcohol and Drug Abuse Patient Records regulations: The Federal rules restrict any use of the information to criminally investigate or prosecute any alcohol or drug abuse patient.[facility] HospitalIn the event this information is protected by the Federal Confidentiality of Alcohol and Drug Abuse Patient Records regulations: The Federal rules restrict any use of the information to criminally investigate or prosecute any alcohol or drug abuse patient.[facility] HospitalIn the event this information is protected by the Federal Confidentiality of Alcohol and Drug Abuse Patient Records regulations: The Federal rules restrict any use of the information to criminally investigate or prosecute any alcohol or drug abuse patient.[facility] HospitalIn the event this information is protected by the Federal Confidentiality of Alcohol and Drug Abuse Patient Records regulations: The Federal rules restrict any use of the information to criminally investigate or prosecute any alcohol or drug abuse patient.[facility] HospitalIn the event this information is protected by the Federal Confidentiality of Alcohol and Drug Abuse Patient Records regulations: The Federal rules restrict any use of the information to criminally investigate or prosecute any alcohol or drug abuse patient.[facility] HospitalIn the event this information is protected by the Federal Confidentiality of Alcohol and Drug Abuse Patient Records regulations: The Federal rules restrict any use of the information to criminally investigate or prosecute any alcohol or drug abuse patient.[facility] HospitalIn the event this information is protected by the Federal Confidentiality of Alcohol and Drug Abuse Patient Records regulations: The Federal rules restrict any use of the information to criminally investigate or prosecute any alcohol or drug abuse patient.[facility] HospitalIn the event this information is protected by the Federal Confidentiality of Alcohol and Drug Abuse Patient Records regulations: The Federal rules restrict any use of the information to criminally investigate or prosecute any alcohol or drug abuse patient.[facility] HospitalIn the event this information is protected by the Federal Confidentiality of Alcohol and Drug Abuse Patient Records regulations: The Federal rules restrict any use of the information to criminally investigate or prosecute any alcohol or drug abuse patient.[facility] HospitalIn the event this information is protected by the Federal Confidentiality of Alcohol and Drug Abuse Patient Records regulations: The Federal rules restrict any use of the information to criminally investigate or prosecute any alcohol or drug abuse patient.[facility] HospitalIn the event this information is protected by the Federal Confidentiality of Alcohol and Drug Abuse Patient Records regulations: The Federal rules restrict any use of the information to criminally investigate or prosecute any alcohol or drug abuse patient.[facility] Reason for Visit (unrecogniz ed section and content) Reason Comments Problem With Hearing Aid(s) Reason Comments Appointment Reason Comments Hearing Aid Check Reason Comments Established Patient annual follow up Reason Comments Problem With Hearing Aid(s) Hearing Aid Check Reason Comments New Patient Pt states he has bee n having discharge with the left ear and he wants to get it checked out today. 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, 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 Procedures CTA CHEST (GATED) W IVCON CT ANGIOGRAPHY CHEST W/CONTRAST/NONCONTRAST Amilcar Cervantes MD [address] [place] [id number] Imaging [place] [address] Referral ID Status Reason Start Date Expiration Date V isits Requested Visits Authorized [id number] Closed Auto-Generate d Referral 07/14/2023 08/12/2024 1 1 Reason Comments Medical Clearance Reason Comments Toenail Care Non DM nail care Reason Comments Eye Exam Diplopia Care Teams (unrecognized sec tion and content) Clerical Production Worker Relationship Specialty Start Date End Date Matt Perkins, DO [address] [place] [id number] PCP - General 06/17/00 Suleiman Santana MD Primary Staff Physician Cardiology 02/12/21 Amilcar Cervantes MD [address] [facility] [place] [address] Primary Staff Physician Cardiology 02/12/21 Clerical Production Worker Relationship Specialty Start Date End Date Matt Pekrins DO [address] [place] [address] PCP - General 06/17/00 Suleiman Santana MD Primary Staff Physician Cardiology 02/12/21 Amilcar Cervantes MD [address] [place] [address] Primary Staff Physician Cardiology 02/12/21 Clerical Production Worker Relationship Specialty Start Date End Date Matt Perkins, DO [address] [place] [address] PCP - General 06/17/00 Suleiman Santana MD Primary Staff Physician Cardiology 02/12/21 Amilcar Cervantes MD [address] [place] [address] Primary Staff Physician Cardiology 02/12/21 Clerical Production Worker Relationship Specialty Start Date End Date Matt Perkins, DO [address] [place] [address] PCP - General 06/17/00 Suleiman Santana MD Primary Staff Physician Cardiology 02/12/21 Amilcar Cervantes MD [address] [place] [address] Primary Staff Physician Cardiology 02/12/21 Clerical Production Worker Relationship Specialty Start Date End Date Matt Perkins, DO [address] [place] [address] PCP - General 06/17/00 Suleiman Santana MD Primary Staff Physician Cardiology 02/12/21 Amilcar Cervantes MD [address] [place] [address] Primary Staff Physician Cardiology 02/12/21 Clerical Production Worker Relationship Specialty Start Date End Date Matt Perkins, DO [address] [facility] [place] [address] PCP - General 06/17/00 Suleiman Santana MD Primary Staff Physician Cardiology 02/12/21 Amilcar Cervantes MD [address] [place] [address] Primary Staff Physician Cardiology 02/12/21 Clerical Production Worker Relationship Specialty Start Date End Date Matt Perkins, DO [address] [facility] [place] [address] PCP - General 06/17/00 Suleiman Santana MD Primary Staff Physician Cardiology 02/12/21 Amilcar Cervantes MD [address] [place] [address] Primary Staff Physician Cardiology 02/12/21 Clerical Production Worker Relationship Specialty Start Date End Date Matt Perkins, DO [address] [facility] [place] [address] PCP - General 06/17/00 Suleiman Santana MD Primary Staff Physician Cardiology 02/12/21 Amilcar Cervantes MD [address] [place] [address] Primary Staff Physician Cardiology 02/12/21 Clerical Production Worker Relationship Specialty Start Date End Date Matt Perkins, DO [address] [facility] [place] [address] PCP - General 06/17/00 Suleiman Santana MD [address] [facility] [place] [address] Primary Staff Physician Cardiology 02/12/21 Amilcar Cervantes MD [address] [place] [address] Primary Staff Physician Cardiology 02/12/21 Clerical Production Worker Relationship Specialty Start Date End Date Matt Perkins, DO [address] [facility] [address] PCP - General 06/17/00 Suleiman Santana MD [address] [facility] [place] [place] [address] Primary Staff Physician Cardiology 02/12/21 Amilcar Cervantes MD [address] [place] [address] Primary Staff Physician Cardiology 02/12/21 Clerical Production Worker Relationship Specialty Start Date End Date Matt Perkins, DO [address] [facility] [place] [address] PCP - General 06/17/00 Suleiman Santana MD [address] [facility] [place] [place] [address] Primary Staff Physician Cardiology 02/12/21 Amilcar Cervantes MD [address] [place] [address] Primary Staff Physician Cardiology 02/12/21 Clerical Production Worker Relationship Specialty Start Date End Date Matt Perkins DO [address] [facility] [place] [address] PCP - General 06/17/00 Suleiman Santana MD [address] [facility] [place] [address] Primary Staff Physician Cardiology 02/12/21 Amilcar Cervantes MD [address] [place] [address] Primary Staff Physician Cardiology 02/12/21 Clerical Production Worker Relationship Specialty Start Date End Date Matt Perkins DO [address] [place] [address] PCP - General 06/17/00 Suleiman Santana MD [address] [facility] [place] [address] Primary Staff Physician Cardiology 02/12/21 Amilcar Cervantes MD [address] [place] [address] Primary Staff Physician Cardiology 02/12/21 Clerical Production Worker Relationship Specialty Start Date End Date Matt Perkins DO [address] [place] [address] PCP - General 06/17/00 Suleiman Santana MD [address] [facility] [place] [address] Primary Staff Physician Cardiology 02/12/21 Amilcar Cervantes MD [address] [place] [address] Primary Staff Physician Cardiology 02/12/21 Clerical Production Worker Relationship Specialty Start Date End Date Matt Perkins DO [address] [place] [address] PCP - General 06/17/00 Suleiman Santana MD [address] [place] [address] Primary Staff Physician Cardiology 02/12/21 Amilcar Cervantes MD [address] [place] [address] Primary Staff Physician Cardiology 02/12/21 Clerical Production Worker Relationship Specialty Start Date End Date Matt Perkins DO [address] [facility] [place] [address] PCP - General 06/17/00 Suleiman Santana MD [address] [facility] [place] [address] Primary Staff Physician Cardiology 02/12/21 Amilcar Cervantes MD [address] [place] [address] Primary Staff Physician Cardiology 02/12/21 Clerical Production Worker Relationship Specialty Start Date End Date Matt Perkins DO [address] [facility] [place] [address] PCP - General 06/17/00 Suleiman Santana MD [address] [facility] [place] [address] Primary Staff Physician Cardiology 02/12/21 Amilcar Cervantes MD [address] [place] [address] Primary Staff Physician Cardiology 02/12/21 Clerical Production Worker Relationship Specialty Start Date End Date Matt Perkins DO [address] [facility] [place] [address] PCP - General 06/17/00 Suleiman Santana MD [address] [place] [address] Primary Staff Physician Cardiology 02/12/21 Amilcar Cervantes MD [address] [place] [address] Primary Staff Physician Cardiology 02/12/21 Team Status: Active Member Role Status Dates Matt Perkins DO Primary Care Provider Active Team Status: Active Member Role Status Dates Matt Perkins DO Primary Care Provider Active Start: July 14, 2023 Amilcar Cervantes MD Attending Provider Active Start : July 14, 2023 Team Status: Active Member Role Status Dates Matt Perkins DO Primary Care Provider Active Start: July 25, 2023 REBEKAH Piper Attending Provider Active Start : July 25, 2023 Team Status: Inactive Member Role Status Dates Matt Perkins DO Primary Care Provide r, Attending Provider Active Start: October 03, 2023 End: October 03, 2023 Clerical Production Worker Relationship Specialty Start Date End Date Matt Perkins DO [address] [place] [address] PCP - General 06/17/00 Suleiman Santana MD [address] [place] [address] Primary Staff Physician Cardiology 02/12/21 Amilcar Cervantes MD [address] [place] [address] Primary Staff Physician Cardiology 02/12/21 Clerical Production Worker Relationship Specialty Start Date End Date Matt Perkins MD [address] [place] [address] PCP - General Internal Medicine 07/29/22 Clerical Production Worker Relationship Specialty Start Date End Date Matt Perkins MD [address] [facility] [place] [address] PCP - General Internal Medicine 07/29/22 Team Status: Active Member Role Status Dates Matt Perkins DO Primary Care Provide r, Attending Provider Active Start: January 04, 2024 Team Status: Inactive Member Role Status Dates Matt Perkins DO Primary Care Provide r, Attending Provider Active Start: January 06, 2024 End: January 06, 2024 Clerical Production Worker Relationship Specialty Start Date End Date Harsh Matt HerreraDO PCP - General Internal Medicine 07/29/22 Clerical Production Worker Relationship Specialty Start Date End Date Matt Perkins DO PCP - General Internal Medicine 07/29/22 (unrecognized sect ion and content) No Status Records FoundNo Status Records FoundNo Status Records FoundNo Status Records Found INFORMATION SOURCE (unrecogn ized section and content) DATE CREATED AUTHOR 08/16/2022 [facility] DATE CREATED AUTHOR AUTHOR'S ORGANIZ ATION 09/17/2022 [facility] DATE CREATED AUTHOR AUTHOR'S ORGANIZ ATION 08/03/2024 [facility] DATE CREATED AUTHOR AUTHOR'S ORGANIZ ATION 08/22/2024 [facility] Goals (unrecognized section and content) Goals may be documented in a n alternate section FOR RECORDS PERTAINING TO PATIENTS WHO ARE OR HAVE BEEN ENROLLED IN A CHEMICAL DEPENDENCY/SUBSTANCEABUSE PROGRAM, SOME INFORMATION MAY BE OMITTED. This clinical summary was aggregated from multiple sources. Caution should be exercised in using it in the provision of clinical care. This summary normalizes information from multiple sources, and as a consequence, information in this document may materially change the coding, format and clinical context of patient data. In addition, data may be omitted in some cases. CLINICAL DECISIONS SHOULD BE BASED ON THE PRIMARY CLINICAL RECORDS. [employer] [facility]. provides no warranty or guarantee of the accuracy or completeness of information in this document.
== END 2024-11-06 11:45 | disposition home or self-care (01) ==
LOC: WC 11:44
PROVIDERS: PCP Internal Medicine; Visit Provider Physician Assistant
DX: I87.311 Chronic venous hypertension (idiopathic) with ulcer of right lower extremity (principal); L97.812 Non-pressure chronic ulcer of other part of right lower leg with fat layer exposed
CPT/HCPCS: A6021; G0463

== ENCOUNTER 2024-11-21 11:30 | Outpatient (OUT) | payer MEDICARE, SELFPAY ==
--- OUTSIDE RECORDS SUMMARY | 2011-04-30 05:00 | XMS_ITS | Continuity of Care Document ---
Author Organization [facility] Address [address] [address] Phone Care Team Providers Care Gynecological Assistant Name Role Phone Griffin Bonilla Unavailable Unavailable Procedures Procedure Date Hearing Services Advance Directives Directive Yes / No Effective Date File Name No Information Encounters Encounter Description Practice Location Reason(s) For Visit Diagnoses Date Provider Providers Copied on Encounter [facility], [address], [id number], tel:[phone] [facility] No Information Irene Moya. [address], [id number], . tel:[phone] Referring Provider: Griffin Bonilla, [address] [place] [address], [id number]. tel:[phone] Family History Family Member Type Diagnosis Age At Onset No Information Payers Payer name Insurance type Covered green party ID Authoriza tion(s) No Information Social History [...]
--- OUTSIDE RECORDS SUMMARY | 2024-11-21 11:33 | XMS_ITS | Encounter Summary ---
Author Organization [facility] Address [address] [place] [address] Care Team Providers Care High Heel Builder Name Role Phone Matt House DO Primary Care Provider [phone] Encounter Details Date Type Department Care Team (Late Contact Info) Description 09/28/2022 Abstract [facility] [address] [place] [address] Cl[place]is Martin DPSharri [address] [facility] [address] [place] [address] Social History Tobacco Use Types Packs/Day Years [...] 08/01/2025 10:30 AM EDT Office Visit [facility] [address] [place] [id number] Sharla Carpio MD [address] [place] [address] documented as of this encounter Visit Diagnoses Not on filedocumented in this encounter Care Teams High Heel Builder Relationship Specialty Start Date End Date Matt House DO PCP - General Internal Medicine 07/29/22 documented as of this encounter
--- OUTSIDE RECORDS SUMMARY | 2024-11-21 11:33 | XMS_ITS | Patient Health Record ---
Author Organization [facility] Address [address] [place] [address] Care Team Providers Care Chocolate Packer Name Role Phone Erasmo Johnson Primary Care Provider [place] [phone] Reason For Referral No Information Social History Social History Drugs/Alcohol: Social Info Question Answer Notes Alcohol Screen Did you have a drink containing alcohol in the past year? No Points 0 Interpretation Negative Tobacco Use: Social Info Question Answer Notes Tobacco Use/Smoking Smoking Status former smoker Tobacco use other than smoking: Are you an other tobac co user? Yes Yes Section Notes: No tobacco or alcohol Plan Of Treatment No Information
--- OUTSIDE RECORDS SUMMARY | 2024-11-21 11:33 | XMS_ITS | Encounter Summary ---
Author Organization [facility] Address [address] [place] [address] Care Team Providers Care Pharmacy Affairs Assistant Name Role Phone Matt House DO Primary Care Provider [phone] Suleiman Santana MD Unavailable Amilcar Cervantes MD Unavailable [phone] Source Comments In the event this information is protected by the Federal Confidentiality of Alcohol and Drug AbusePatient Records regulations: The Federal rules restrict any use of the information to criminally investigate or prosecute any alcohol or drug abuse patient.[facility] Encounter Details Date Type Department Care Team (Late st Contact Info) Description 03/19/2017 Patient Msg Cardiology [address] [place] [address] Saul Rivera MD [address] [place] [address] RE: Request an Appointment Social [...] 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
--- OUTSIDE RECORDS SUMMARY | 2024-11-21 11:33 | XMS_ITS | Encounter Summary ---
Author Organization [facility] Address [address] [place] [address] Care Team Providers Care Machine Set Up Name Role Phone HarshMatt Javier RIDDLE Primary Care Provider [phone] Suleiman Santana MD Unavailable Amilcar Cervantes MD Unavailable [phone] Source Comments In the event this information is protected by the Federal Confidentiality of Alcohol and Drug AbusePatient Records regulations: The Federal rules restrict any use of the information to criminally investigate or prosecute any alcohol or drug abuse patient.[facility] Encounter Details Date Type Department Care Team (Late st Contact Info) Description 03/19/2017 Patient Msg Cardiology [address] [place] [address] Amilcar Cervantes MD [address] [place] [address] Request an Appointment Social History [...] 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
--- OUTSIDE RECORDS SUMMARY | 2024-11-21 11:33 | XMS_ITS | Clinical Summary ---
Author Organization [facility] Address [address] [place] [address] Care Team Providers Care Entry Level Machine Operator Name Role Phone HarshMatt Primary Care Provider [phone] Suleiman Santana MD Unavailable Amilcar Cervantes MD [...] elías 10/31/2013 SUMMARY 10/31/2013 Overview (08/08/2014): Mr. Claire is a pleasant 78 year-old man with [...] loss 02/04/2004 12/29/2011 Hearing loss 12/19/2002 12/29/2011 Immunizations Immunization Administration Dates Next Due COVID-19 [...] is lower risk 8 09/17/2022 Data from: https://www.neighborhoodatlas.medicine.[facility].edu/. 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 Not on file Not [...] Additional history exists LDL Cholesterol 07/25/2025 07/25/2024, 1205/2023, 03/24/2023, Additional history exists Diabetes Screening 07/26/2027 07/25/2024, 0 05/24/2024, 05/24/2024, Additional history exists DTaP,Tdap,Td Vaccine (6 - Tdap) 08/18/2030 08/18/2020, 12/25/2013, 01/02/2013, Additional history exists Pneumococcal Vaccine: 50+ Completed 12/26/2014, 10/2002 Procedures Procedure Name Priority Date/Time Associated Diagnosis Comments LIPID PANEL, FASTING Routine 07/25/2024 1:42 PM EDT S/P AVR (aortic valve replacement) 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, 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 BASIC METABOLIC PANEL Routine 07/25/2024 1:42 PM EDT S/P AVR (aortic valve replacement) 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, 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 from Last 3 Months or Most Recently Relevant to Health Maintenance Results * LIPID PANEL BASIC (07/25/2024 1:42 PM EDT) [facility] Cholesterol, Total 158 <200 mg/dL 07/26/2024 4:07 AM EDT [facility] Comment: <200 mg/dL, Desirable 200-239 mg/dL, Borderline high >239 mg/dL, High Triglyceride 85 <150 mg/dL 07/26/2024 4:07 AM [facility] Comment: <150 mg/dL, Normal 150-199 mg/dL, Borderline high 200-499 mg/dL, High >499 mg/dL, Very high HDL Cholesterol 75 >39 mg/dL 4:07 AM [facility] Comment: 40-59 mg/dL, Acceptable >59 mg/dL, High: Negative risk factor for coronary heart disease <40 mg/dL, Low: Positive risk factor for coronary heart disease LDL Cholesterol, Calculated 67 <100 mg/dL 07/26/2024 4:07 AM [facility] Comment: <100 mg/dL, Optimal 100-129 mg/dL, Near optimal/above optimal 130-159 mg/dL, Borderline high 160-189 mg/dL, High >189 mg/dL, Very high Secondary prevention optimal LDL Cholesterol levels are recommended to be <70 mg/dL LDL cholesterol is calculated using the Diaz-NIH equation. Non HDL Cholesterol 83 <130 mg/dL 07/26/2024 4:07 AM [facility] Comment: <130 mg/dL, Optimal 130-159 mg/dL, Near optimal/above optimal 160-189 mg/dL, Borderline high 190-219 mg/dL, High >219 mg/dL, Very high Secondary prevention optimal non HDL Cholesterol levels are recommended to be <100 mg/dL VLDL Cholesterol 13 <30 mg/dL 07/27/19 4:07 AM [facility] TC:HDL Ratio 2.11 <5.10 07/26/2024 4:07 AM [facility] LDL:HDL Ratio 0.89 <2.54 07/26/2024 4:07 AM [facility] Comment: Reference: 1. National Cholesterol Education Program ATP III Guideline At-A-Glance Quick Desk Reference: National Heart, Lung, and Blood [place]. National Institutes of Health. 2001: NIH Publication No. 01-3305. 2. An International Atherosclerosis Society position paper: global recommendations for the management of dyslipidemia: executive summary, Atherosclerosis. 2014: 232(2):410-413. Fasting Time 7 hrs 07/26/2024 4:07 AM EDT [facility] Comment:Pt had breakfast nina und 0600 Blood BLOOD SPECIMEN / Unknown Venipuncture / Unknown 07/25/2024 1:42 PM EDT 07/25/2024 1:42 PM EDT Efe Cosby MD LABORATORY Final Result [facility] [address] [facility] [address] [address], * BASIC METABOLIC PANEL (07/25/2024 1:42 PM EDT) [facility] Glucose 86 74 - 99 mg/dL 07/26/2024 4:07 AM EDT [facility] Comment: The [place] Diabetes Association (ADA) provides guidance for cutoff [...] Standards of Medical Care in Diabetes 2016, [place] Diabetes Association. Diabetes Care. 2016.39(Suppl 1). BUN 14 9 - 24 mg/dL 07/26/2024 4:07 AM EDT [facility] Creatinine 1.08 0.73 - 1.22 mg/dL 07/26/2024 4:07 AM EDT [facility] Sodium 141 136 - 144 mmol/L 07/26/2024 4:07 AM EDT [facility] Potassium 4.7 3.7 - 5.1 mmol/L 07/26/2024 4:07 AM EDT [facility] Chloride 104 98 - 107 mmol/L 07/26/2024 4:07 AM EDT [facility] CO2 27 22 - 30 mmol/L 07/26/2024 4:07 AM EDT [facility] Anion Gap 10 8 - 15 mmol/L 07/26/2024 4:07 AM EDT [facility] Calcium, Total 9.8 8.5 - 10.2 mg/dL 07/26/2024 4:07 AM EDT [facility] Estimated Glomerular Filtration Rate 66 >=60 mL/min/1.7 3m 07/26/2024 4:07 AM EDT [facility] Comment:Estimated Glomerular Filtration Rate (eGFR) is [...] PM EDT 07/25/2024 1:42 PM EDT us Efe Cosby MD LABORATORY Final Result [facility] [address] [place] [address], from Last 3 Months or Most Recently Relevant to Health Maintenance Insurance MEDICARE Advance Directives Documents on File Type Date Recorded Patient Carrier Blower Expl anation Advance Directive(s) 08/18/2010 Advance Directive(s) 09/14/2007 Care Teams Entry Level Machine Operator Relationship Specialty Start Date End Date Matt House DO [address] [place] [address] PCP - General 06/17/00 Suleiman Santana MD [address] [place] [address] Primary Staff Physician Cardiology 02/12/21 Amilcar Cervantes MD [address] [place] [address] Primary Staff Physician Cardiology 02/12/21
--- OUTSIDE RECORDS SUMMARY | 2024-11-21 11:33 | XMS_ITS | Encounter Summary ---
Author Organization [facility] Address [facility] [place] [address] Care Team Providers Care Photographs Curator Name Role Phone Matt House DO Primary Care Provider [phone] Suleiman Santana MD Unavailable Amilcar Cervantes MD Unavailable [phone] Source Comments In the event this information is protected by the Federal Confidentiality of Alcohol and Drug AbusePatient Records regulations: The Federal rules restrict any use of the information to criminally investigate or prosecute any alcohol or drug abuse patient.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
--- OUTSIDE RECORDS SUMMARY | 2024-11-21 11:33 | XMS_ITS | Clinical Summary ---
Author Organization [facility] Address [address] [facility] [place] [address] Care Team Providers Care Blending Tank Helper Name Role Phone Matt House DO Primary Care Provider [phone] Allergies Active Allergy Reactions Criticality Noted Date [...] EXCEED 3 DOSES IN 15 MINUTES. Active Lajas-3 Fatty Acids (Fish Oil Maximum Strength) 1200 [...] 10:30 AM EDT Office Visit [facility] [address] [place] [address] Sharla Carpio MD [address] [place] [address] Health Maintenance Due Date Last Done Comments Pneumococcal Vaccine: 65+ Ye ars (1 of 1 - PCV) 1985 Influenza Vaccine (#1) 2024 4, 12/17/2022, 12/09/2021, Additional history exists Insurance MEDICARE [facility] Care Teams Blending Tank Helper Relationship Specialty Start Date End Date Matt House DO PCP - General Internal Medicine 07/29/22
--- OUTSIDE RECORDS SUMMARY | 2024-11-21 11:33 | XMS_ITS | Encounter Summary ---
Author Organization [facility] Address [address] [place] [address] Care Team Providers Care House Mover Helper Name Role Phone HarshMatt Primary Care Provider [phone] Suleiman Santana MD Unavailable Amilcar Cervantes MD Unavailable [phone] Source Comments In the event this information is protected by the Federal Confidentiality of Alcohol and Drug AbusePatient Records regulations: The Federal rules restrict any use of the information to criminally investigate or prosecute any alcohol or drug abuse patient.[facility] Encounter Details Date Type Department Care Team (Late st Contact Info) Description 09/25/2019 Patient Msg Cardiology [address] [place] [address] Suleiman Santana MD [address] [place] [address] Request an Appointment Social History [...] 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
--- OUTSIDE RECORDS SUMMARY | 2024-11-21 11:33 | XMS_ITS | Encounter Summary ---
Author Organization [facility] Address [address] [place] [address] Care Team Providers Care Asset Administrator Name Role Phone Matt House DO Primary Care Provider [phone] Amilcar Cervantes MD Unavailable [phone] Suleiman Santana MD Unavailable Amilcar Cervantes MD Unavailable [phone] Source Comments In the event this information is protected by the Federal Confidentiality of Alcohol and Drug AbusePatient Records regulations: The Federal rules restrict any use of the information to criminally investigate or prosecute any alcohol or drug abuse patient.[facility] Encounter Details Date Type Department Care Team (Late st Contact Info) Description 09/04/2007 Patient Msg Medical Records [address] [place] [address] Provider, Ccf Patient Registration Social History Tobacco [...] on filedocumented in this encounter Care Teams Asset Administrator Relationship Specialty Start Date End Date Matt House DO [address] [place] [address] PCP - General 06/17/00 Amilcar Cervantes MD [address] [place] [address] Primary Staff Physician Cardiology 06/05/14 6 Suleiman Santaan MD [address] [place] [address] Primary Staff Physician Cardiology 02/12/21 Amilcar Cervantes MD [address] [place] [address] Primary Staff Physician Cardiology 02/12/21 documented as of this encounter
--- OUTSIDE RECORDS SUMMARY | 2024-11-21 11:34 | XMS_ITS | Encounter Summary ---
Author Organization [facility] Address [address] [place] [address] Care Team Providers Care Diamond Mounter Name Role Phone Matt House DO Primary Care Provider [phone] Suleiman Santana MD Unavailable Amilcar Cervantes MD Unavailable [phone] Source Comments In the event this information is protected by the Federal Confidentiality of Alcohol and Drug AbusePatient Records regulations: The Federal rules restrict any use of the information to criminally investigate or prosecute any alcohol or drug abuse patient.[facility] Encounter Details Date Type Department Care Team (Late st Contact Info) Description 08/10/2022 Patient Msg Audiology [address] [facility] [address] Serene Purvis, AuD, CCC-A [address] [facility], [address] [place] [address] 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/. 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
--- OUTSIDE RECORDS SUMMARY | 2024-11-21 11:34 | XMS_ITS | Encounter Summary ---
Author Organization [facility] Address [address] [place] [address] Care Team Providers Care Polymer Materials Consultant Name Role Phone HarshMatt Javier RIDDLE Primary Care Provider [phone] Suleiman Santana MD Unavailable Amilcar Cervantes MD Unavailable [phone] Source Comments In the event this information is protected by the Federal Confidentiality of Alcohol and Drug AbusePatient Records regulations: The Federal rules restrict any use of the information to criminally investigate or prosecute any alcohol or drug abuse patient.[facility] Encounter Details Date Type Department Care Team (Late st Contact Info) Description 09/02/2021 Get Medical Advice Cardiology [address] [place] [address] Amilcar Cervantes MD [address] [place] [address] Heart question Social History Tobacco [...] ot on file 08/07/2021 Data from: https://www.neighborhoodatlas.medicine.[facility]/. 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
--- OUTSIDE RECORDS SUMMARY | 2024-11-21 11:34 | XMS_ITS | Encounter Summary ---
Author Organization [facility] Address [address] [place] [address] Care Team Providers Care Wastewater Operator Name Role Phone Matt House DO Primary Care Provider [phone] Amilcar Cervantes MD Unavailable [phone] Suleiman Santaan MD Unavailable Amilcar Cervantes MD Unavailable [phone] Source Comments In the event this information is protected by the Federal Confidentiality of Alcohol and Drug AbusePatient Records regulations: The Federal rules restrict any use of the information to criminally investigate or prosecute any alcohol or drug abuse patient.[facility] Encounter Details Date Type Department Care Team (Late st Contact Info) Description 05/16/2014 Patient Msg Medical Records [address] [place] [address] Provider, Ccf RE: Request an Appointment Social [...] on filedocumented in this encounter Care Teams Wastewater Operator Relationship Specialty [place] [address] [place] [address] PCP - General 06/17/00 Amilcar Cervantes MD [address] [place] [address] Primary Staff Physician Cardiology 06/05/14 6 Suleiman Santana MD [address] [place] [address] Primary Staff Physician Cardiology 02/12/21 Amilcar Cervantes MD [address] [facility] [place] [address] Primary Staff Physician Cardiology 02/12/21 documented as of this encounter
--- OUTSIDE RECORDS SUMMARY | 2024-11-21 11:34 | XMS_ITS | Encounter Summary ---
Author Organization [facility] Address [address] [place] [address] Care Team Providers Care Supervisor Of Guidance And Testing Name Role Phone Matt House DO Primary Care Provider [phone] Amilcar Cervantes MD Unavailable [phone] Suleiman Santana MD Unavailable Amilcar Cervantes MD Unavailable [phone] Source Comments In the event this information is protected by the Federal Confidentiality of Alcohol and Drug AbusePatient Records regulations: The Federal rules restrict any use of the information to criminally investigate or prosecute any alcohol or drug abuse patient.[facility] Encounter Details Date Type Department Care Team (Late st Contact Info) Description 04/01/2014 Patient Msg Medical Records [address] [place] [address] Provider, Ccf RE: Request an Appointment Social [...] on filedocumented in this encounter Care Teams Supervisor Of Guidance And Testing Relationship Specialty [place] [address] [place] [address] PCP - General 06/17/00 Amilcar Cervantes MD [address] [place] [address] Primary Staff Physician Cardiology 06/05/14 6 Suleiman Santana MD [address] [place] [address] Primary Staff Physician Cardiology 02/12/21 Amilcar Cervantes MD [address] [facility] [place] [address] Primary Staff Physician Cardiology 02/12/21 documented as of this encounter
--- OUTSIDE RECORDS SUMMARY | 2024-11-21 11:34 | XMS_ITS | Encounter Summary ---
Author Organization [facility] Address [address] [place] [address] Care Team Providers Care Bracer Name Role Phone HarshMatt Javier RIDDLE Primary Care Provider [phone] Suleiman Santana MD Unavailable Amilcar Cervantes MD Unavailable [phone] Source Comments In the event this information is protected by the Federal Confidentiality of Alcohol and Drug AbusePatient Records regulations: The Federal rules restrict any use of the information to criminally investigate or prosecute any alcohol or drug abuse patient.[facility] Encounter Details Date Type Department Care Team (Late st Contact Info) Description 08/16/2022 Patient Msg Cardiology [address] [place] [address] Amilcar Cervantes MD [address] [place] [address] Oct 27 Appt Social History [...] ot on file 03/31/2022 Data from: https://www.neighborhoodatlas.medicine.[facility]/. 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 [facility] [place] [address] Primary Staff Physician Cardiology 02/12/21 documented as of this encounter
--- OUTSIDE RECORDS SUMMARY | 2024-11-21 11:34 | XMS_ITS | Encounter Summary ---
Author Organization [facility] Address [address] [place] [address] Care Team Providers Care Sewing Machines Salesperson Name Role Phone Matt House DO Primary Care Provider [phone] Amilcar Cervantes MD Unavailable [phone] Suleiman Santana MD Unavailable Amilcar Cervantes MD Unavailable [phone] Source Comments In the event this information is protected by the Federal Confidentiality of Alcohol and Drug AbusePatient Records regulations: The Federal rules restrict any use of the information to criminally investigate or prosecute any alcohol or drug abuse patient.[facility] Encounter Details Date Type Department Care Team (Late st Contact Info) Description 05/22/2012 Patient Msg Medical Records [address] [place] [address] Provider, Ccf RE: Request an Appointment Social [...] on filedocumented in this encounter Care Teams Sewing Machines Salesperson Relationship Specialty Start Date End Date Matt House DO [address] [place] [address] PCP - General 06/17/00 Amilcar Cervantes MD [address] [place] [address] Primary Staff Physician Cardiology 06/05/14 6 Suleiman Santana MD [address] [place] [address] Primary Staff Physician Cardiology 02/12/21 Amilcar Cervantes MD [address] [place] [address] Primary Staff Physician Cardiology 02/12/21 documented as of this encounter
--- OUTSIDE RECORDS SUMMARY | 2024-11-21 11:34 | XMS_ITS | Encounter Summary ---
Author Organization [facility] Address [address] [place] [address] Care Team Providers Care Selenium Plant Operator Name Role Phone Matt House DO Primary Care Provider [phone] Suleiman Santana MD Unavailable Amilcar Cervantes MD Unavailable [phone] Source Comments In the event this information is protected by the Federal Confidentiality of Alcohol and Drug AbusePatient Records regulations: The Federal rules restrict any use of the information to criminally investigate or prosecute any alcohol or drug abuse patient.[facility] Encounter Details Date Type Department Care Team (Late st Contact Info) Description 11/09/2021 Get Medical Advice Audiology [address] [place] [phone] Yolie Christie, AuD, [facility] [address] [place] [address] my left hearing aid. Social [...] N ot on file 08/07/2021 Data from: https://www.neighborhoodatlas.medicine.[facility]/. 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
--- OUTSIDE RECORDS SUMMARY | 2024-11-21 11:34 | XMS_ITS | Encounter Summary ---
Author Organization [facility] Address [address] [place] [address] Care Team Providers Care Fruit Dumper Name Role Phone Matt House DO Primary Care Provider [phone] Amilcar Cervantes MD Unavailable [phone] Suleiman Santana MD Unavailable Amilcar Cervantes MD Unavailable [phone] Source Comments In the event this information is protected by the Federal Confidentiality of Alcohol and Drug AbusePatient Records regulations: The Federal rules restrict any use of the information to criminally investigate or prosecute any alcohol or drug abuse patient.[facility] Encounter Details Date Type Department Care Team (Late st Contact Info) Description 09/22/2007 Patient Msg Medical Records [address] [place] [address] Provider, Ccf RE: Appointment Cancellation Request Social [...] on filedocumented in this encounter Care Teams Fruit Dumper Relationship Specialty Start Date End Date Matt House DO [address] [place] [address] PCP - General 06/17/00 Amilcar Cervantes MD [address] [place] [address] Primary Staff Physician Cardiology 06/05/14 6 Suleiman Santana MD [address] [place], [place] [address] Primary Staff Physician Cardiology 02/12/21 Amilcar Cervantes MD [address] [place] [address] Primary Staff Physician Cardiology 02/12/21 documented as of this encounter
--- OUTSIDE RECORDS SUMMARY | 2024-11-21 11:34 | XMS_ITS | Encounter Summary ---
Author Organization [facility] Address [address] [place] [address] Care Team Providers Care Youth Teacher Name Role Phone Harsh Matt Herrera DO Primary Care Provider [phone] Suleiman Santana MD Unavailable Amilcar Cervantes MD Unavailable [phone] Source Comments In the event this information is protected by the Federal Confidentiality of Alcohol and Drug AbusePatient Records regulations: The Federal rules restrict any use of the information to criminally investigate or prosecute any alcohol or drug abuse patient.[facility] Encounter Details Date Type Department Care Team (Late st Contact Info) Description 07/31/2021 Patient Msg Audiology [address] [place] [address] Yolie Christie, Leticia, [facility] [address] [place] [address] Request an Appointment Social History [...] N ot on file 02/09/2020 Data from: https://www.neighborhoodatlas.medicine.[facility]/. 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
--- OUTSIDE RECORDS SUMMARY | 2024-11-21 11:34 | XMS_ITS | Encounter Summary ---
Author Organization [facility] Address [facility] [place] [address] Care Team Providers Care Civil Engineering Assistant Name Role Phone Matt House DO Primary Care Provider [phone] Suleiman Santana MD Unavailable Amilcar Cervantes MD Unavailable [phone] Source Comments In the event this information is protected by the Federal Confidentiality of Alcohol and Drug AbusePatient Records regulations: The Federal rules restrict any use of the information to criminally investigate or prosecute any alcohol or drug abuse patient.[facility] Encounter Details Date Type Department Care Team (Late st Contact Info) Description 08/11/2016 Patient Msg Otolaryngology [address] [address] Missy Andersen MD [address] [place] [address] RE: Request an Appointment Social [...] 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
--- OUTSIDE RECORDS SUMMARY | 2024-11-21 11:34 | XMS_ITS | Encounter Summary ---
Author Organization [facility] Address [address] [place] [address] Care Team Providers Care Artificial Glass Eye Maker Name Role Phone Matt House DO Primary Care Provider [phone] Amilcar Cervantes MD Unavailable [phone] Suleiman Santana MD Unavailable Amilcar Cervantes MD Unavailable [phone] Source Comments In the event this information is protected by the Federal Confidentiality of Alcohol and Drug AbusePatient Records regulations: The Federal rules restrict any use of the information to criminally investigate or prosecute any alcohol or drug abuse patient.[facility] Encounter Details Date Type Department Care Team (Late st Contact Info) Description 10/30/2013 Patient Msg Medical Records [address] [place] [address] Provider, Ccf Appointment Social History Tobacco Use [...] on filedocumented in this encounter Care Teams Artificial Glass Eye Maker Relationship Specialty Start Date End Date Matt House DO [address] [place] [address] PCP - General 06/17/00 Amilcar Cervantes MD [address] [place] [address] Primary Staff Physician Cardiology 06/05/14 6 Suleiman Santana MD [address] [place] [address] Primary Staff Physician Cardiology 02/12/21 Amilcar Cervantes MD [address] [place] [id number] Primary Staff Physician Cardiology 02/12/21 documented as of this encounter
--- OUTSIDE RECORDS SUMMARY | 2024-11-21 11:34 | XMS_ITS | Encounter Summary ---
Author Organization [facility] Address [address] [place] [address] Care Team Providers Care Surveillance Operator Name Role Phone Harsh Matt Herrera DO Primary Care Provider [phone] Suleiman Santana MD Unavailable Amilcar Cervantes MD Unavailable [phone] Source Comments In the event this information is protected by the Federal Confidentiality of Alcohol and Drug AbusePatient Records regulations: The Federal rules restrict any use of the information to criminally investigate or prosecute any alcohol or drug abuse patient.[facility] Encounter Details Date Type Department Care Team (Late st Contact Info) Description 08/25/2022 Get Medical Advice Audiology [address] [place] [address] Yolie Christie, AuD, CCC-A [address] [place] [address] appointment Social History Tobacco Use [...] on file 03/31/2022 Data from: https://www.neighborhoodatlas.medicine.[facility]/. 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
--- OUTSIDE RECORDS SUMMARY | 2024-11-21 11:34 | XMS_ITS | Encounter Summary ---
Author Organization [facility] Address [address] [place] [address] Care Team Providers Care Electric Meter Repairer Helper Name Role Phone Matt House DO Primary Care Provider [phone] Amilcar Cervantes MD Unavailable [phone] Suleiman Santana MD Unavailable Amilcar Cervantes MD Unavailable [phone] Source Comments In the event this information is protected by the Federal Confidentiality of Alcohol and Drug AbusePatient Records regulations: The Federal rules restrict any use of the information to criminally investigate or prosecute any alcohol or drug abuse patient.[facility] Encounter Details Date Type Department Care Team (Late st Contact Info) Description 05/22/2012 Patient Msg Medical Records [address] [place] [address] Provider, Ccf RE: Request an Appointment Social [...] on filedocumented in this encounter Care Teams Electric Meter Repairer Helper Relationship Specialty Start Date End Date Matt House DO [address] [place] [address] PCP - General 06/17/00 Amilcar Cervantes MD [address] [place] [address] Primary Staff Physician Cardiology 06/05/14 6 Suleiman Santana MD [address] [place] [address] Primary Staff Physician Cardiology 02/12/21 Amilcar Cervantes MD [address] [place] [address] Primary Staff Physician Cardiology 02/12/21 documented as of this encounter
--- OUTSIDE RECORDS SUMMARY | 2024-11-21 11:34 | XMS_ITS | Encounter Summary ---
Author Organization [facility] Address [address] [place] [address] Care Team Providers Care Customer Care Consultant Name Role Phone Matt House DO Primary Care Provider [phone] Suleiman Santana MD Unavailable Amilcar Cervantes MD Unavailable [phone] Source Comments In the event this information is protected by the Federal Confidentiality of Alcohol and Drug AbusePatient Records regulations: The Federal rules restrict any use of the information to criminally investigate or prosecute any alcohol or drug abuse patient.[facility] Encounter Details Date Type Department Care Team (Late st Contact Info) Description 05/27/2022 Patient Msg Cardiology [address] [place] [address] Provider, Ccf Appointment with Dr. [...] N ot on file 03/31/2022 Data from: https://www.neighborhoodatlas.[facility]/. 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
--- OUTSIDE RECORDS SUMMARY | 2024-11-21 11:34 | XMS_ITS | Encounter Summary ---
Author Organization [facility] Address [facility] [place] [address] Care Team Providers Care Sourcing Coordinator Name Role Phone Matt House DO Primary Care Provider [phone] Suleiman Santana MD Unavailable Amilcar Cervantes MD Unavailable [phone] Source Comments In the event this information is protected by the Federal Confidentiality of Alcohol and Drug AbusePatient Records regulations: The Federal rules restrict any use of the information to criminally investigate or prosecute any alcohol or drug abuse patient.[facility] Encounter Details Date Type Department Care Team (Late st Contact Info) Description 09/02/2017 Patient Msg Medical Records [address] [place] [address] Provider, Ccf RE:recommendations Social History Tobacco Use [...] 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
--- OUTSIDE RECORDS SUMMARY | 2024-11-21 11:34 | XMS_ITS | Encounter Summary ---
Author Organization [facility] Address [address] [place] [address] Care Team Providers Care Bricklayer Apprentice Name Role Phone Harsh Matt Herrera DO Primary Care Provider [phone] Suleiman Santnaa MD Unavailable Amilcar Cervantes MD Unavailable [phone] Source Comments In the event this information is protected by the Federal Confidentiality of Alcohol and Drug AbusePatient Records regulations: The Federal rules restrict any use of the information to criminally investigate or prosecute any alcohol or drug abuse patient.[facility] Encounter Details Date Type Department Care Team (Late st Contact Info) Description 10/12/2022 Get Medical Advice Audiology [address] [place] [phone] Yolie Christie, AuD, [facility] [address] [place] [address] left hearing aid Social History [...] is lower risk 8 09/17/2022 Data from: https://www.neighborhoodatlas.medicine.[facility]/. 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
--- OUTSIDE RECORDS SUMMARY | 2024-11-21 11:34 | XMS_ITS | Encounter Summary ---
Author Organization [facility] Address [facility] [place] [address] Care Team Providers Care Slunk Skinner Name Role Phone Harsh Matt Herrera DO Primary Care Provider [phone] Suleiman Santana MD Unavailable Amilcar Cervantes MD Unavailable [phone] Source Comments In the event this information is protected by the Federal Confidentiality of Alcohol and Drug AbusePatient Records regulations: The Federal rules restrict any use of the information to criminally investigate or prosecute any alcohol or drug abuse patient.[facility] Encounter Details Date Type Department Care Team (Late st Contact Info) Description 04/24/2018 Patient Msg Otolaryngology [address] [place] [address] Lucina Caicedo APRN.[facility] [address] [place] [address] RE:Ear drainage Social History Tobacco [...] 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
--- OUTSIDE RECORDS SUMMARY | 2024-11-21 11:34 | XMS_ITS | Encounter Summary ---
Author Organization [facility] Address [address] [place] [address] Care Team Providers Care Benefits Specialist Recruiter Name Role Phone Harsh Matt Herrera DO Primary Care Provider [phone] Suleiman Santana MD Unavailable Amilcar Cervantes MD Unavailable [phone] Source Comments In the event this information is protected by the Federal Confidentiality of Alcohol and Drug AbusePatient Records regulations: The Federal rules restrict any use of the information to criminally investigate or prosecute any alcohol or drug abuse patient.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
--- OUTSIDE RECORDS SUMMARY | 2024-11-21 11:34 | XMS_ITS | Encounter Summary ---
Author Organization [facility] Address [address] [place] [address] Care Team Providers Care Robotics Engineer Name Role Phone Matt House DO Primary Care Provider [phone] Amilcar Cervantes MD Unavailable [phone] Suleiman Santana MD Unavailable Amilcar Cervantes MD Unavailable [phone] Source Comments In the event this information is protected by the Federal Confidentiality of Alcohol and Drug AbusePatient Records regulations: The Federal rules restrict any use of the information to criminally investigate or prosecute any alcohol or drug abuse patient.[facility] Encounter Details Date Type Department Care Team (Late st Contact Info) Description 11/12/2008 Patient Msg Medical Records [address] [place] [address] Provider, Ccf Request an Appointment Social History [...] on filedocumented in this encounter Care Teams Robotics Engineer Relationship Specialty Start Date End Date Matt House DO [address] [place] [address] PCP - General 06/17/00 Amilcar Cervantes MD [address] [place] [address] Primary Staff Physician Cardiology 06/05/14 6 Suleiman Santana MD [address] [place] [address] Primary Staff Physician Cardiology 02/12/21 Amilcar Cervantes MD [address] [place] [address] Primary Staff Physician Cardiology 02/12/21 documented as of this encounter
--- OUTSIDE RECORDS SUMMARY | 2024-11-21 11:34 | XMS_ITS | Encounter Summary ---
Author Organization [facility] Address [address] [place] [address] Care Team Providers Care Venetian Blind Tape Cutter Name Role Phone Matt House DO Primary Care Provider [phone] Amilcar Cervantes MD Unavailable [phone] Suleiman Santana MD Unavailable Amilcar Cervantes MD Unavailable [phone] Source Comments In the event this information is protected by the Federal Confidentiality of Alcohol and Drug AbusePatient Records regulations: The Federal rules restrict any use of the information to criminally investigate or prosecute any alcohol or drug abuse patient.[facility] Encounter Details Date Type Department Care Team (Late st Contact Info) Description 05/16/2014 Patient Msg Medical Records [address] [place] [address] Provider, Ccf RE: Request an Appointment Social [...] on filedocumented in this encounter Care Teams Venetian Blind Tape Cutter Relationship Specialty [place] [address] [place] [address] PCP - General 06/17/00 Amilcar Cervantes MD [address] [place] [address] Primary Staff Physician Cardiology 06/05/14 6 Suleiman Santana MD [address] [place] [address] Primary Staff Physician Cardiology 02/12/21 Amilcar Cervantes MD [address] [facility] [place] [id number] Primary Staff Physician Cardiology 02/12/21 documented as of this encounter
--- OUTSIDE RECORDS SUMMARY | 2024-11-21 11:34 | XMS_ITS | Encounter Summary ---
Author Organization [facility] Address [address] [place] [address] Care Team Providers Care In Home Aide Name Role Phone Harsh Matt Herrera DO Primary Care Provider [phone] Suleiman Santana MD Unavailable Amilcar Cervantes MD Unavailable [phone] Source Comments In the event this information is protected by the Federal Confidentiality of Alcohol and Drug AbusePatient Records regulations: The Federal rules restrict any use of the information to criminally investigate or prosecute any alcohol or drug abuse patient.[facility] Encounter Details Date Type Department Care Team (Late st Contact Info) Description 10/21/2020 Get Medical Advice Audiology [address] [place] [address] ColbornMarcosn, AUD [address] [place] [address] RE: Visit Follow Up Question [...] N ot on file 02/09/2020 Data from: https://www.neighborhoodatlas.medicine.[facility]/. 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
--- OUTSIDE RECORDS SUMMARY | 2024-11-21 11:34 | XMS_ITS | Encounter Summary ---
Author Organization [facility] Address [address] [place] [address] Care Team Providers Care Multimedia Specialist Name Role Phone Matt House DO Primary Care Provider [phone] Amilcar Cervantes MD Unavailable [phone] Suleiman Santana MD Unavailable Amilcar Cervantes MD Unavailable [phone] Source Comments In the event this information is protected by the Federal Confidentiality of Alcohol and Drug AbusePatient Records regulations: The Federal rules restrict any use of the information to criminally investigate or prosecute any alcohol or drug abuse patient.[facility] Encounter Details Date Type Department Care Team (Late st Contact Info) Description 08/26/2014 Patient Msg Medical Records [address] [place] [address] Provider, Ccf Appointments Social History Tobacco Use [...] 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
--- OUTSIDE RECORDS SUMMARY | 2024-11-21 11:34 | XMS_ITS | Encounter Summary ---
Author Organization [facility] Address [address] [place] [address] Care Team Providers Care Milk Pickup Truck Driver Name Role Phone HarshMatt Javier RIDDLE Primary Care Provider [phone] Suleiman Santana MD Unavailable Amilcar Cervantes MD Unavailable [phone] Source Comments In the event this information is protected by the Federal Confidentiality of Alcohol and Drug AbusePatient Records regulations: The Federal rules restrict any use of the information to criminally investigate or prosecute any alcohol or drug abuse patient.[facility] Encounter Details Date Type Department Care Team (Late st Contact Info) Description 05/17/2022 Get Medical Advice Cardiology [address] [place] [address] Amilcar Cervantes MD [address] [place] [address] appointment Social History Tobacco Use [...] N ot on file 03/31/2022 Data from: https://www.neighborhoodatlas.medicine.[facility]/. 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
--- OUTSIDE RECORDS SUMMARY | 2024-11-21 11:34 | XMS_ITS | Encounter Summary ---
Author Organization [facility] Address [address] [place] [address] Care Team Providers Care Director Furniture Name Role Phone Matt House DO Primary Care Provider [phone] Amilcar Cervantes MD Unavailable [phone] Suleiman Santana MD Unavailable Amilcar Cervantes MD Unavailable [phone] Source Comments In the event this information is protected by the Federal Confidentiality of Alcohol and Drug AbusePatient Records regulations: The Federal rules restrict any use of the information to criminally investigate or prosecute any alcohol or drug abuse patient.[facility] Encounter Details Date Type Department Care Team (Late st Contact Info) Description 07/02/2014 Patient Msg Medical Records [address] [place] [address] Provider, Ccf Appointments Social History Tobacco Use [...] filedocumented in this encounter Care Teams Director Furniture Relationship Specialty Start Date End Date Matt House DO [address] [place] [address] PCP - General 06/17/00 Amilcar Cervantes MD [address] [place] [address] Primary Staff Physician Cardiology 06/05/14 6 Suleiman Santana MD [address] [place] [address] Primary Staff Physician Cardiology 02/12/21 Amilcar Cervantes MD [address] [place] [address] Primary Staff Physician Cardiology 02/12/21 documented as of this encounter
--- OUTSIDE RECORDS SUMMARY | 2024-11-21 11:34 | XMS_ITS | Encounter Summary ---
Author Organization [facility] Address [address] [place] [address] Care Team Providers Care Iphone Developer Name Role Phone HarshMatt Primary Care Provider [phone] Suleiman Santana MD Unavailable Amilcar Cervantes MD Unavailable [phone] Source Comments In the event this information is protected by the Federal Confidentiality of Alcohol and Drug AbusePatient Records regulations: The Federal rules restrict any use of the information to criminally investigate or prosecute any alcohol or drug abuse patient.[facility] Encounter Details Date Type Department Care Team (Late st Contact Info) Description 06/07/2022 Patient Msg Cardiology [address] [place] [address] Suleiman Santana MD [address] [place] [address] Request an Appointment Social History [...] N ot on file 03/31/2022 Data from: https://www.neighborhoodatlas.medicine.[facility]/. 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
--- OUTSIDE RECORDS SUMMARY | 2024-11-21 11:34 | XMS_ITS | Encounter Summary ---
Author Organization [facility] Address [facility] [place] [address] Care Team Providers Care Employee Wellness/Fitness Coordinator Name Role Phone Matt House DO Primary Care Provider [phone] Suleiman Santana MD Unavailable Amilcar Cervantes MD Unavailable [phone] Source Comments In the event this information is protected by the Federal Confidentiality of Alcohol and Drug AbusePatient Records regulations: The Federal rules restrict any use of the information to criminally investigate or prosecute any alcohol or drug abuse patient.[facility] Encounter Details Date Type Department Care Team (Late st Contact Info) Description 05/17/2022 Patient Msg Medical Records [address] [place] [address] Provider, Ccf Questionnaire Submission Social History Tobacco [...] N ot on file 03/31/2022 Data from: https://www.neighborhoodatlas.[facility]/. 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
--- OUTSIDE RECORDS SUMMARY | 2024-11-21 11:34 | XMS_ITS | Encounter Summary ---
Author Organization [facility] Address [address] [place] [address] Care Team Providers Care Service Desk Associate Name Role Phone HarshMatt Primary Care Provider [phone] Suleiman Santana MD Unavailable Amilcar Cervantes MD Unavailable [phone] Source Comments In the event this information is protected by the Federal Confidentiality of Alcohol and Drug AbusePatient Records regulations: The Federal rules restrict any use of the information to criminally investigate or prosecute any alcohol or drug abuse patient.[facility] Encounter Details Date Type Department Care Team (Late st Contact Info) Description 09/24/2019 Patient Msg Cardiology [address] [place] [address] Suleiman Santana MD [address] [place] [address] Request an Appointment Social History [...] 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
--- OUTSIDE RECORDS SUMMARY | 2024-11-21 11:34 | XMS_ITS | Encounter Summary ---
Author Organization [facility] Address [address] [place] [address] Care Team Providers Care Choke Reamer Name Role Phone HarshMatt Javier RIDDLE Primary Care Provider [phone] Suleiman Santana MD Unavailable Amilcar Cervantes MD Unavailable [phone] Source Comments In the event this information is protected by the Federal Confidentiality of Alcohol and Drug AbusePatient Records regulations: The Federal rules restrict any use of the information to criminally investigate or prosecute any alcohol or drug abuse patient.[facility] Encounter Details Date Type Department Care Team (Late st Contact Info) Description 08/17/2023 Patient Msg Cardiology [address] [place] [address] Amilcar Cervantes MD [address] [place] [address] CT Results Social History Tobacco [...] is lower risk 8 09/17/2022 Data from: https://www.neighborhoodatlas.medicine.[facility]/. 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
--- OUTSIDE RECORDS SUMMARY | 2024-11-21 11:34 | XMS_ITS | Encounter Summary ---
Author Organization [facility] Address [address] [place] [address] Care Team Providers Care Assembler Name Role Phone Matt House DO Primary Care Provider [phone] Amilcar Cervantes MD Unavailable [phone] Suleiman Santana MD Unavailable Amilcar Cervantes MD Unavailable [phone] Source Comments In the event this information is protected by the Federal Confidentiality of Alcohol and Drug AbusePatient Records regulations: The Federal rules restrict any use of the information to criminally investigate or prosecute any alcohol or drug abuse patient.[facility] Encounter Details Date Type Department Care Team (Late st Contact Info) Description 08/16/2014 Patient Msg Medical Records [address] [place] [address] Provider, Ccf Appointments Social History Tobacco Use [...] 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
--- OUTSIDE RECORDS SUMMARY | 2024-11-21 11:34 | XMS_ITS | Encounter Summary ---
Author Organization [facility] Address [address] [place] [address] Care Team Providers Care Pharmacist Assistant Name Role Phone HarshMatt Javier RIDDLE Primary Care Provider [phone] Suleiman Santana MD Unavailable Amilcar Cervantes MD Unavailable [phone] Source Comments In the event this information is protected by the Federal Confidentiality of Alcohol and Drug AbusePatient Records regulations: The Federal rules restrict any use of the information to criminally investigate or prosecute any alcohol or drug abuse patient.[facility] Encounter Details Date Type Department Care Team (Late st Contact Info) Description 08/09/2017 Patient Msg Otolaryngology [address] [address] Missy Andersen MD [address] [place] [address] RE:dr andersen message Social History [...] 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
--- OUTSIDE RECORDS SUMMARY | 2024-11-21 11:34 | XMS_ITS | Encounter Summary ---
Author Organization [facility] Address [address] [place] [address] Care Team Providers Care Petroleum Engineer Name Role Phone Matt House DO Primary Care Provider [phone] Suleiman Santana MD Unavailable Amilcar Cervantes MD Unavailable [phone] Source Comments In the event this information is protected by the Federal Confidentiality of Alcohol and Drug AbusePatient Records regulations: The Federal rules restrict any use of the information to criminally investigate or prosecute any alcohol or drug abuse patient.[facility] Encounter Details Date Type Department Care Team (Late st Contact Info) Description 07/16/2019 Patient Msg [facility] [address] [place] [address] Provider, Ccf New Upcoming Appointment Social History [...] 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
--- OUTSIDE RECORDS SUMMARY | 2024-11-21 11:34 | XMS_ITS | Encounter Summary ---
Author Organization [facility] Address [address] [place] [address] Care Team Providers Care Internet Marketer Name Role Phone Matt House DO Primary Care Provider [phone] Amilcar Cervantes MD Unavailable [phone] Suleiman Santana MD Unavailable Amilcar Cervantes MD Unavailable [phone] Source Comments In the event this information is protected by the Federal Confidentiality of Alcohol and Drug AbusePatient Records regulations: The Federal rules restrict any use of the information to criminally investigate or prosecute any alcohol or drug abuse patient.[facility] Encounter Details Date Type Department Care Team (Late st Contact Info) Description 05/16/2014 Patient Msg Medical Records [address] [place] [address] Provider, Ccf RE: Appointment Cancellation Request Social [...] on filedocumented in this encounter Care Teams Internet Marketer Relationship Specialty [place] [address] [place] [address] PCP - General 06/17/00 Amilcar Cervantes MD [address] [place] [address] Primary Staff Physician Cardiology 06/05/14 6 Suleiman Santana MD [address] [place] [address] Primary Staff Physician Cardiology 02/12/21 Amilcar Cervantes MD [address] [place] [id number] Primary Staff Physician Cardiology 02/12/21 documented as of this encounter
--- OUTSIDE RECORDS SUMMARY | 2024-11-21 11:34 | XMS_ITS | Encounter Summary ---
Author Organization [facility] Address [address] [place] [address] Care Team Providers Care Quahogger Name Role Phone Matt House DO Primary Care Provider [phone] Suleiman Santana MD Unavailable Amilcar Cervantes MD Unavailable [phone] Source Comments In the event this information is protected by the Federal Confidentiality of Alcohol and Drug AbusePatient Records regulations: The Federal rules restrict any use of the information to criminally investigate or prosecute any alcohol or drug abuse patient.[facility] Encounter Details Date Type Department Care Team (Late st Contact Info) Description 08/12/2023 [place] [address] Provider, Ccf Actionable Imaging Result Notification Patient [...] is lower risk 8 09/17/2022 Data from: https://www.neighborhoodatlas.[facility]/. 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
--- OUTSIDE RECORDS SUMMARY | 2024-11-21 11:37 | XMS_ITS | CCD ---
Author Organization [facility] Care Team Providers Care Gauge Operator Name Role Phone Matt Perkins DO Primary [...] Care Unavailable MATT PERKINS Primary Care Physician [phone] Sharla Brower Attending Unavailable Sharla Brower Admitting [...] Drug Allergy 11-01-19 14 Other: See Comments [facility] Work Phone: Doxycycline (1 source) Doxycycline Drug Allergy 07-23-19 12 Swelling [facility] Quinolones (antibiotic) (1 source) levoFLOXacin Drug Allergy 07-29-19 05 Swelling [facility] Work Phone: (20 sources) Doxycycline; Translations: [DOXYCYCLINE] Drug Allergy 07-23-19 12 Swelling, Rash [facility] (20 sources) levoFLOXacin; Translations: [levofloxacin] Drug Allergy 07-29-19 05 Swelling, Congestion of throat (finding), Rash [facility] Work Phone: (20 sources) predniSONE; Translations: [PREDNISONE] Drug Allergy 11-01-19 14 Other: See Comments [facility] Work Phone: (19 sources) adhesives [Other] Propensity to adverse reactions 09-15-19 08 Rash, Itching [facility] (9 sources) levoFLOXacin; Translations: [Levaquin] Drug Allergy 06-30-19 14 swelling in throat [facility] (7 sources) Adhesive Bandages Drug allergy Unknown [place] The[facility] [employer] Other (1 source) Doxycycline Drug Allergy 06-30-19 14 [facility] (2 sources) Adhesive Tape; Translations: [Tape] Propensity to adverse reactions to substance Eruption of skin (disorder) [facility] (5 sources) Lisinopril Drug Allergy 08-19-19 16 Unknown, Unknown Reaction [facility] (3 sources) corticosteroid and/or corticosteroid derivative (FN) Drug allergy Unknown [employer] Other (1 source) patient allergy list reviewed by nurse or physicia Propensity to adverse reactions 12-19-19 15 Comment:Done [employer] Other (6 sources) Adhesive agent; Translations: [ADHESIVE] Drug Allergy 07-14-19 24 Rash, Itching [facility] (2 sources) Corticosteroids Allergy to substance 10-03-19 24 Unknown Reaction [facility] (5 sources) Lidocaine Drug Allergy 06-25-19 23 Anaphylaxis [facility] (5 sources) prednisoLONE Drug Allergy 07-30-19 23 [facility] (5 sources) Prednisone Allergy to substance 11-01-19 14 Anaphylaxis, Rash [facility] (5 sources) Wound Dressing Adhesive Drug Allergy 07-30-19 23 Rash [facility] Medications Current Medications Medication Drug Class(es) Dates [...] MINUTES. Active Comment on above: as needed Keystone 3 (7 sources) take 1 capsule by mouth once daily Keystone 3 1 capsule Orally Once a day Active Keystone-3 Fatty Acids (Fish Oil Maximum Strength) 1200 MG capsule delayed-release (5 sources) take 1 capsule by mouth in the morning Keystone-3 Fatty Acids (Fish Oil Maximum Strength) 1200 [...] on above: Take [address] [facility] daily at bedtime. simvastatin 40 mg [...] capsule 04/22/2022 Active take 1 capsule by [facility] every twenty-four hours Tamsulosin HCl 0.4 MG [...] Daily, 0 Start Date: 09/16/09 Status: Ordered Keystone-3 Fatty Acids, FISH OIL, (FISH OIL) 360-1,200 mg cap (19 sources) End: 12-30-2022 take 1 capsule by mouth once daily Keystone-3 Fatty Acids, FISH OIL, (FISH OIL) 360-1,200 mg cap Take 1 capsule by mouth once daily. 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 DIRECTOR CURRNT USE ANTICOAGULANTS] Onset: 08-04-2022 Episodic Other aftercare (3 sources) Long-term current use of anticoagulant; Translations: [longterm (current) use of anticoagulants] Episodic Other aftercare (3 sources) Long-term current use of drug therapy; Translations: [Other intermediate project manager (current) drug therapy] Episodic Other and unspecified [...] 07-15-2020 Episodic Other aftercare (1 source) Other intermediate project manager (current) drug therapy; Translations: [OTH ASSOCIATE STORE DIRECTOR CURRENT DRUG THERAPY] Onset: 12-30-2021 Episodic Other [...] Anion gap [Moles/Vol] 10 mmol/L Normal 8-15 [facility] Comment on above: Order Comment: Raissa shah Type: BLOOD SPECIMEN Ordering Facility: [facility] Address: [address] [place] [address] Performed By: #### 2 4321-2, 42117-3 #### [facility] CLIA [id number] [address] [place] [address] [place] Calcium [Mass/Vol] 9.8 mg/dL Normal 8.5-10.2 [facility] Comment on above: Order Comment: Raissa shah Type: BLOOD SPECIMEN Ordering Facility: [facility] Address: [address] [place] [address] Performed By: #### 2 4321-2, 98380-7 #### [facility] CLIA [id number] [address] [place], [place] [id number] [place] Chloride [Moles/Vol] 104 mmol/L Normal 98-107 [facility] Comment on above: Order Comment: Raissa shah Type: BLOOD SPECIMEN Ordering Facility: [facility] Address: [address] [place] [address] Performed By: #### 2 4321-2, 94608-6 #### [facility] CLIA [id number] [address] [place] [address] [place] CO2 [Moles/Vol] 27 mmol/L Normal 22-30 [facility] Comment on above: Order Comment: Speci men Type: BLOOD SPECIMEN Ordering Facility: [facility] Address: [address] [place] [address] Performed By: #### 2 4321-2, 78307-4 #### [facility] CLIA [id number] [address] [place] [address] [place] Creatinine [Mass/Vol] 1.08 mg/dL Normal 0.73-1.22 [facility] Comment on above: Order Comment: Speci men Type: BLOOD SPECIMEN Ordering Facility: [facility] Address: [address] [place] [address] Performed By: #### 2 4321-2, 28079-9 #### [facility] CLIA [id number] [address] [place] [address] [place] Creatinine and Glomerular filtration rate.predicted panel (S/P/Bld) 66 mL/min/1.73m??? Normal >=60 [facility] Comment on above: Order Comment: Speci men Type: BLOOD SPECIMEN Ordering Facility: [facility] Address: [address] [place] [address] Result Comment: Kelsey mated Glomerular Filtration Rate [...] actual GFR. Performed By: #### 2 4321-2, 91320-6 #### [facility] CLIA [id number] [address] [place] [address] [place] Glucose [Mass/Vol] 86 mg/dL Normal 74-99 [facility] Comment on above: Order Comment: Raissa shah Type: BLOOD SPECIMEN Ordering Facility: [facility] Address: [address] [place] [address] Result Comment: The [place] Diabetes Association (ADA) provides guidance for cutoff [...] Standards of Medical Care in Diabetes 2016, [place] Diabetes Association. Diabetes Care. 2016.39(Suppl 1). Performed By: #### 2 4321-2, 20554-3 #### [facility] CLIA [id number] [address] [place] [address] [place] Potassium [Moles/Vol] 4.7 mmol/L Normal 3.7-5.1 [facility] Comment on above: Order Comment: Raissa shah Type: BLOOD SPECIMEN Ordering Facility: [facility] Address: [address] [place] [address] Performed By: #### 2 4321-2, 59467-8 #### [facility] CLIA [id number] [address] [place] [address] [place] Sodium [Moles/Vol] 141 mmol/L Normal 136-144 [facility] Comment on above: Order Comment: Raissa shah Type: BLOOD SPECIMEN Ordering Facility: [facility] Address: [address] [place] [address] Performed By: #### 2 4321-2, 86444-5 #### [facility] CLIA [id number] [address] [place] [address] [place] Urea nitrogen [Mass/Vol] 14 mg/dL Normal 9-24 [facility] Comment on above: Order Comment: Speci men Type: BLOOD SPECIMEN Ordering Facility: [facility] Address: [address] [place] [address] Performed By: #### 2 4321-2, 02127-7 #### [facility] CLIA [id number] [address] [place] [address] [place] CBC panel Auto (Bld)on 07-25 Erythrocyte distribution width (RBC) [Ratio] 14.5 % Normal 11.5-15.0 [facility] Comment on above: Order Comment: Speci men Type: BLOOD SPECIMEN Ordering Facility: [facility] Address: [address] [place] [address] Performed By: #### 5 8410-2 #### [facility] CLIA [id number] [address] [place] [address] [place] Hematocrit (Bld) [Volume fraction] 39.4 % Normal 39.0-51.0 [facility] Comment on above: Order Comment: Speci men Type: BLOOD SPECIMEN Ordering Facility: [facility] Address: [address] [place] [address] Performed By: #### 5 8410-2 #### [facility] CLIA [id number] [address] [place] [address] [place] Hemoglobin (Bld) [Mass/Vol] 12.9 g/dL Low 13.0-17.0 [facility] Comment on above: Order Comment: Speci men Type: BLOOD SPECIMEN Ordering Facility: [facility] Address: [address] [place] [address] Performed By: #### 5 8410-2 #### [facility] CLIA [id number] [address] [place] [address] [place] MCH (RBC) [Entitic mass] 29.8 pg Normal 26.0-34.0 [facility] Comment on above: Order Comment: Speci men Type: BLOOD SPECIMEN Ordering Facility: [facility] Address: [address] [place] [address] Performed By: #### 5 8410-2 #### [facility] CLIA [id number] [address] [place] [address] [place] MCHC (RBC) [Mass/Vol] 32.7 g/dL Normal 30.5-36.0 [facility] Comment on above: Order Comment: Speci men Type: BLOOD SPECIMEN Ordering Facility: [facility] Address: [address] [place] [address] Performed By: #### 5 8410-2 #### [facility] CLIA [id number] [address] [place] [address] [place] MCV (RBC) [Entitic vol] 91.0 fL Normal 80.0-100.0 [facility] Comment on above: Order Comment: Speci men Type: BLOOD SPECIMEN Ordering Facility: [facility] Address: [address] [place] [address] Performed By: #### 5 8410-2 #### [facility] CLIA [id number] [address] [place] [address] [place] Nucleated RBC (Bld) [#/Vol] 10*3/uL Normal <0.01 [facility] Comment on above: Order Comment: Speci men Type: BLOOD SPECIMEN Ordering Facility: [facility] Address: [address] [place] [address] Performed By: #### 5 8410-2 #### [facility] CLIA [id number] [address] [place] [address] [place] Platelet mean volume (Bld) [Entitic vol] 11.7 fL Normal 9.0-12.7 [facility] Comment on above: Order Comment: Speci men Type: BLOOD SPECIMEN Ordering Facility: [facility] Address: [address] [place] [address] Performed By: #### 5 8410-2 #### [facility] CLIA [id number] [address] [place] [address] [place] Platelets (Bld) [#/Vol] 114 10*3/uL Low 150-400 [facility] Comment on above: Order Comment: Speci men Type: BLOOD SPECIMEN Ordering Facility: [facility] Address: [address] [place] [address] Result Comment: Resu lts checked and verified.No clot detected. Performed By: #### 5 8410-2 #### [facility] CLIA [id number] [address] [place] [address] [place] RBC (Bld) [#/Vol] 4.33 10*6/uL Normal 4.20-6.00 [facility] Comment on above: Order Comment: Speci men Type: BLOOD SPECIMEN Ordering Facility: [facility] Address: [address] [place] [address] Performed By: #### 5 8410-2 #### [facility] CLIA [id number] [address] [place] [address] [place] WBC (Bld) [#/Vol] 5.98 10*3/uL Normal 3.70-11.00 [facility] Comment on above: Order Comment: Speci men Type: BLOOD SPECIMEN Ordering Facility: [facility] Address: [address] [place] [address] Performed By: #### 5 8410-2 #### [facility] CLIA [id number] [address] [place] [address] [place] CNOVon 07-25-2024 CNOV Office Visit (CARIMN ) TERENCE STARR ([id number]) 1935 M Date Time Provider Department 07/25/24 4:15 PM AMILCAR CERVANTES During your visit today, we recorded the following information about you: Pulse Blood pressure Weight Height 70/minute 153/88 77.1 kg 1.727 m Amilcar Cervatnes MD 07/27/2024 2:58 PM Add[facility] Department of Cardiovascular Medicine SECTION OF CARDIOVASCULAR IMAGING OUTPATIENT VISIT DATE 07/25/2024 OUTPATIENT VISIT TYPE ESTABLISHED PRIMARY CARE PHYSICIAN: Matt Perkins ([facility]) [address] [place] [id number] REFERRING PHYSICIAN: Efe Trejo [address] [facility] [address] Chief complaint: Annual follow-up for valvular heart [...] 20, omeprazole 20. Previous cardiac workup: -EKG, [facility], July 2023: Atrial fibrillation at rate 70 bpm - CTA chest August 2023, [facility]:AVR with BIOPROSTHETIC VALVE, valve ring 2.5 cm. Mild to moderate leaflet calcification -TTE, [facility], July 2023: The left ventricle is [...] <0.01 PAST MEDICAL HISTORY Diagnosis Date A-fib ([facility]) 09/2013 Aortic valve disorders Aortic valve disorders Coronary atherosclerosis of unspecified type of vessel, [place] or graft Coronary artery diseas (more content not included)... Normal [facility] ECG COMPLETEon 07-25-2024 ECG COMPLETE Ventricular Rate : 6 1 BPM QRS Duration : 88 ms Q-T Interval : 402 ms QTC Calculation(Bazett) : 404 ms Calculated R [place] : -4 degrees Calculated T [place] : 40 degrees ATRIAL FIBRILLATION ABNORMAL ECG Confirmed by MD GODFREY HEBA ([id number]) on 08/20/2024 1:03:33 PM NAME : TERENCE STARR PID : [id number] : 1935 Gender : Male Race : ORD : [id number] Procedure Date : Jul 25 2024 13:34:54 Edit Date : Aug 20 2024 13:03:37 Diagnosis: ATRIAL FIBRILLATION ABNORMAL ECG Confirmed by MD GODFREY HEBA ([id number]) on 08/20/2024 1:03:33 PM Test Reason : Location : 314 : J14 J14-02 Overread By : MD GODFREY HEBA Edited By : MD GODFREY HEBA Referred By : , Acquired by : DAVID ENGLE Normal [facility] ECHOon 07-25-2024 Echocardiography Echocardiography Report: Transthoracic Echo [facility] J1-5 Date of service: 07/25/2024 2:10:34 PM PROJECT MANAGER Ordering physician: EFE TREJO Indication: H/o AVR MVr CABG (2007) Technologist: Farhan Mcgee Fellow: Ray Espinosa MD Interpreting physician: Birdie Starkey MD PATIENT: Name: MR. TERENCE TSARR : 1935 Age: 89 years Gender: M [...] by Birdie (more content not included)... Normal [facility] Lipid 1996 panelon 5 Cholesterol [Mass/Vol] 158 mg/dL Normal <200 [facility] Comment on above: Order Comment: Raissa shah Type: BLOOD SPECIMEN Ordering Facility: [facility] Address: [address] [place] [address] Result Comment: <200 mg/dL, Desirable 200-239 mg/dL, Borderline high >239 mg/dL, High Performed By: #### 2 4321-2, 40805-9 #### [facility] CLIA [id number] [address] [place] [address] [place] Cholesterol in HDL [Mass/Vol] 75 mg/dL Normal >39 [facility] Comment on above: Order Comment: Raissa shah Type: BLOOD SPECIMEN Ordering Facility: [facility] Address: [address] [place] [address] Result Comment: 40-5 9 mg/dL, Acceptable >59 mg/dL, High: Negative risk factor for coronary heart disease <40 mg/dL, Low: Positive risk factor for coronary heart disease Performed By: #### 2 4321-2, 44457-6 #### [facility] CLIA [id number] [address] [place] [address] [place] Cholesterol in LDL [Mass/Vol] 67 mg/dL Normal <100 [facility] Comment on above: Order Comment: Raissa shah Type: BLOOD SPECIMEN Ordering Facility: [facility] Address: [address] [place] [address] Result Comment: <100 mg/dL, Optimal 100-129 mg/dL, Near optimal/above optimal 130-159 mg/dL, Borderline high 160-189 mg/dL, High >189 mg/dL, Very high Secondary prevention optimal LDL Cholesterol levels are recommended to be <70 mg/dL LDL cholesterol is calculated using the Diaz-NIH equation. Performed By: #### 2 4321-2, 50393-1 #### [facility] CLIA [id number] [address] [place] [address] [place] Cholesterol in LDL/Cholesterol in HDL [Mass ratio] 0.89 {ratio} Normal <2.54 [facility] Comment on above: Order Comment: Raissa shah Type: BLOOD SPECIMEN Ordering Facility: [facility] Address: [address] [place] [address] Result Comment: Myla casas: 1. National Cholesterol Education Program ATP III Guideline At-A-Glance Quick Desk Reference: National Heart, Lung, and Blood Hepzibah. National Institutes of Health. 2001: NIH Publication No. 01-3305. 2. An International Atherosclerosis Society position paper: global recommendations for the management of dyslipidemia: executive summary, Atherosclerosis. 2014: 232(2):410-413. Performed By: #### 2 4321-2, 89716-3 #### [facility] CLIA [id number] [address] [place] [address] [place] Cholesterol in VLDL [Mass/Vol] 13 mg/dL Normal <30 [facility] Comment on above: Order Comment: Raissa shah Type: BLOOD SPECIMEN Ordering Facility: [facility] Address: [address] [place] [address] Performed By: #### 2 432-2, 22912-5 #### [facility] CLIA [id number] [address] [place] [address] [place] Cholesterol non HDL [Mass/Vol] 83 mg/dL Normal <130 [facility] Comment on above: Order Comment: Raissa shah Type: BLOOD SPECIMEN Ordering Facility: [facility] Address: [address] [place] [address] Result Comment: <130 mg/dL, Optimal 130-159 mg/dL, Near optimal/above optimal 160-189 mg/dL, Borderline high 190-219 mg/dL, High >219 mg/dL, Very high Secondary prevention optimal non HDL Cholesterol levels are recommended to be <100 mg/dL Performed By: #### 2 4321-2, 10908-7 #### [facility] CLIA [id number] [address] [place] [address] [place] Cholesterol.total/Cho lesterol in HDL [Mass ratio] 2.11 {ratio} Normal <5.10 [facility] Comment on above: Order Comment: Speci men Type: BLOOD SPECIMEN Ordering Facility: [facility] Address: [address] [place] [address] Performed By: #### 2 432-2, 81038-9 #### [facility] CLIA [id number] [address] [place] [address] [place] [facility] FASTING TIME 7 hrs Normal [facility] Comment on above: Order Comment: Speci men Type: BLOOD SPECIMEN Ordering Facility: [facility] Address: [address] [place] [address] Result Comment: Pt h ad breakfast around 0600 Performed By: #### 2 4321-2, 16988-9 #### [facility] CLIA [id number] [address] [place] [address] [place] Triglyceride [Mass/Vol] 85 mg/dL Normal <150 [facility] Comment on above: Order Comment: Speci men Type: BLOOD SPECIMEN Ordering Facility: [facility] Address: [address] [place] [address] Result Comment: <150 mg/dL, Normal 150-199 mg/dL, Borderline high 200-499 mg/dL, High >499 mg/dL, Very high Performed By: #### 2 432-2, 78824-5 #### [facility] CLIA [id number] [address] [place] [address] [place] Lary 11-30-2023 CNPN Telephone (CARALEXISN) TERENCE STARR ([id number]) 1935 M Date Time Provider Department 11/30/23 [...] Status:Closed by REAL NEWMAN on 12/16/23 Normal [facility] CTA Chest vessels W contrast IVOrdered By: [facility] Provider on 08-11-2023 Interpretation and review of laboratory results Abnormal [facility] Radiology Result ACTIONABLE Abnormal [facility] Comment on above: This report contains an [...] contact your provider for the next steps. [facility] CTA Chest vessels W contrast Wes [...] be communicated with the ordering provider via [employer] staff message by [employer] within 2 business days of report finalization. Account Auditor: BOYD Transcribe Date/Time: Aug 11 2023 12:55P Dictated by : KRYSTA MCKINNON MD This examination was interpreted and the report reviewed and electronically signed by: KRYSTA MCKINNON MD on Aug 11 2023 1:32PM [facility] DIVISION OF RADIOLOGY * * *Final Report* [...] TECHNIQUE: SCANNER: Siemens Definition Force Dual source [id number] scanner PROTOCOL: Prospectively triggered helical high-pitch acquisitions [...] Cox images reconstructed, saved, and available in [employer] 'Get Images'. STUDY LIMITATIONS: Limited contrast enhancement [...] RCA, precluding precise assessment with CT. - [place] FELA and BEN are normal size vessels [...] AORTIC DIMENSIONS: AORTIC ROOT: 4 cm measured [id number] mid ASCENDING THORACIC AORTA: 4.2 cm mid AORTIC ARCH: 3.3 cm mid DESCENDING THORACIC AORTA: 3 cm RELATIONSHIP OF THE CARDIOVASCULAR STRUCTURES OF THE STERNUM: Left brachio-cephalic vein lies immediately behind the manubrium sternum RV lies 1 mm behind the lower sternum limited upper ABDOMEN: Liver: punctate calcification Spleen: punctate calcification Inclusion Specialist (topogram) images: No additional findings. DIVISION OF RADIOLOGY Provider, [facility] - 08/11/2023 * * *Final [...] TECHNIQUE: SCANNER: Siemens Definition Force Dual source [id number] scanner PROTOCOL: Prospectively triggered helical high-pitch acquisitions [...] Cox images reconstructed, saved, and available in [employer] 'Get Images'. STUDY LIMITATIONS: Limited contrast enhancement [...] RCA, precluding precise assessment with CT. - [place] FELA and BEN are normal size vessels [...] AORTIC DIMENSIONS: AORTIC ROOT: 4 cm measured [id number] mid ASCENDING THORACIC AORTA: 4.2 cm mid AORTIC ARCH: 3.3 cm mid DESCENDING THORACIC AORTA: 3 cm RELATIONSHIP OF THE CARDIOVASCULAR STRUCTURES OF THE STERNUM: Left brachio-cephalic vein lies immediately behind the manubrium sternum RV lies 1 mm behind the lower sternum limited upper ABDOMEN: Liver: punctate calcification Spleen: punctate calcification Inclusion Specialist (topogram) images: No additional findings. IMPRESSION IMPRESSION: [...] precluding precise assessme (more content not included)... [facility] Radiology Study observation (narrative) [facility] Basophils Auto (Bld) [#/Vol] on 07-14-2023 Basophils (Bld) [#/Vol] 0.05 10*3/uL <0.11 [facility] Basophils/100 WBC Auto (Bld) on 07-14-2023 Basophils/100 WBC (Bld) 0.7 % [facility] Blood manual differential co mment interpretation narrativeon 07-14-2023 Manual differential comment Eladio (Bld) [Interp] Auto [facility] Eosinophils/100 WBC Auto (Bl d)on 07-14-2023 Eosinophils/100 WBC (Bld) 1.9 % [facility] Erythrocyte distribution wid th Auto (RBC) [Ratio]on 07-14-2023 Erythrocyte distribution width (RBC) [Ratio] 13.2 % 11.5-15.0 [facility] Hematocrit Auto (Bld) [Volum e fraction]on 07-14-2023 Hematocrit (Bld) [Volume fraction] 44.7 % 39.0-51.0 [facility] Hemoglobin [Mass/volume] in Bloodon 07-14-2023 Hemoglobin (Bld) [Mass/Vol] 14.9 g/dL 13.0-17.0 [facility] Laboratory - Chemistry and C hemistry - challengeon 07-14-2023 Albumin [Mass/Vol] 4.2 g/dL 3.9-4.9 [facility] ALP [Catalytic activity/Vol] 107 U/L 38-113 [facility] ALT [Catalytic activity/Vol] 24 U/L 10-54 [facility] AST [Catalytic activity/Vol] 30 U/L 14-40 [facility] Bilirubin [Mass/Vol] 0.7 mg/dL 0.2-1.3 [facility] [place] [facility] Calcium [Mass/Vol] 9.4 mg/dL 8.5-10.2 [facility] Chloride [Moles/Vol] 106 mmol/L High 97-105 [facility] [place] [facility] CO2 [Moles/Vol] 28 mmol/L 22-30 [facility] Creatinine [Mass/Vol] 1.16 mg/dL 0.73-1.22 [facility] Glucose [Mass/Vol] 99 mg/dL 74-99 [facility] Comment on above: The [place] Diab[employer] Association (ADA) provides guidance for [...] Standards of Medical Care in Diabetes 2016, [place] [employer]. Diabetes Care. 2016.39(Suppl 1). Potassium [Moles/Vol] 4.4 mmol/L 3.7-5.1 [facility] Sodium [Moles/Vol] 143 mmol/L 136-144 [facility] Urea nitrogen [Mass/Vol] 17 mg/dL 9- [facility] Laboratory - Hematology and Cell countson 07-14-2023 Eosinophils (Bld) [#/Vol] 0.13 10*3/uL <0.46 [facility] Immature granulocytes (Bld) [#/Vol] 0.03 10*3/uL <0.10 [facility] Immature granulocytes/100 WBC (Bld) 0.4 % [facility] Leukocytes [#/volume] correc katia for nucleated erythrocytes in Blood by Automated counon 07-14-2023 WBC corrected for nucl RBC Auto (Bld) [#/Vol] 6.88 k/uL 3.70-11.00 [facility] Lymphocytes Auto (Bld) [#/Vo l]on 07-14-2023 Lymphocytes (Bld) [#/Vol] 1.93 10*3/uL 1.00-4.00 [facility] Lymphocytes/100 WBC Auto (Bl d)on 07-14-2023 Lymphocytes/100 WBC (Bld) 28.1 % [facility] MCH Auto (RBC) [Entitic mass ]on 07-14-2023 MCH (RBC) [Entitic mass] 30.2 pg 26.0-34.0 [facility] MCHC Auto (RBC) [Mass/Vol]on 07-14-2023 MCHC (RBC) [Mass/Vol] 33.3 g/dL 30.5-36.0 [facility] MCV Auto (RBC) [Entitic vol] on 07-14-2023 MCV (RBC) [Entitic vol] 90.7 fL 80.0-100.0 [facility] Monocytes Auto (Bld) [#/Vol] on 07-14-2023 Monocytes (Bld) [#/Vol] 0.70 10*3/uL <0.87 [facility] Monocytes/100 WBC Auto (Bld) on 07-14-2023 Monocytes/100 WBC (Bld) 10.2 % [facility] Neutrophils Auto (Bld) [#/Vo l]on 07-14-2023 Neutrophils (Bld) [#/Vol] 4.04 10*3/uL 1.45-7.50 [facility] Neutrophils/100 WBC Auto (Bl d)on 07-14-2023 Neutrophils/100 WBC (Bld) 58.7 % [facility] No Panel Informationon 07-13 Estimated GFR (CKD-EPI) 61 mL/min/1.73m??? >=60 [facility] Comment on above: Estimated Glomerular Filtration Rate [...] 07-14-2023 Nucleated RBC (Bld) [#/Vol] 10*3/uL <0.01 [facility] Nucleated erythrocytes [Pres ence] in Blood by Automated counton 07-14-2023 Nucleated RBC Auto Ql (Bld) 0.0 /100{WBC} [facility] Platelet mean volume Auto (B ld) [Entitic vol]on 07-14-2023 Platelet mean volume (Bld) [Entitic vol] 12.3 fL 9.0-12.7 [facility] Platelets Auto (Bld) [#/Vol] on 07-14-2023 Platelets (Bld) [#/Vol] 120 10*3/uL Low 150-400 [facility] Protein [Mass/volume] in Ser um or Plasmaon 07-14-2023 Protein [Mass/Vol] 6.7 g/dL 6.3-8.0 [facility] RBC Auto (Bld) [#/Vol]on RBC (Bld) [#/Vol] 4.93 10*6/uL 4.20-6.00 [facility] Serum or plasma anion gap de terminationon 07-14-2023 Anion gap [Moles/Vol] 9 mmol/L 9-18 [facility] Physician Orderon 09-16-2022 Physician Order [id number]:127 Normal [facility] CBC AUTO DIFFon 12-25-2021 BASO # 0.1 103/ul Normal 0.0-0.1 [facility] Comment on above: Performed By: #### C BC #### [facility] [address] [place] [address] Dr. Chandra Lozano Basophils/100 WBC (Bld) 1.0 % Normal 0.2-2.0 [facility] Comment on above: Performed By: #### C BC #### [facility] [address] [address] [address] Chandra Lozano EO # 0.3 103/ul Normal 0.0-0.7 [facility] Comment on above: Performed By: #### C BC #### [facility] [address] [address] [address] Chandra Lozano Eosinophils/100 WBC (Bld) 4.5 % Normal 0.9-7.0 [facility] Comment on above: Performed By: #### C BC #### [facility] [address] [address] [address] Chandra Lozano Erythrocyte distribution width (RBC) [Ratio] 13.4 % Normal 11.0-15.0 [facility] Comment on above: Performed By: #### C BC #### [facility] [address] [place] [address] Dr. Chandra Lozano Hematocrit (Bld) [Volume fraction] 43.7 % Normal 42.0-54.0 [facility] Comment on above: Performed By: #### C BC #### [facility] [address] [place] [address] Dr. Chandra Lozano Hemoglobin (Bld) [Mass/Vol] 14.5 g/dL Normal 14.0-18.0 [facility] Comment on above: Performed By: #### C BC #### [facility] [address] [place] [address] Dr. Chandra Lozano IG # 0.02 10e3/ul Normal 0.00-0.03 [facility] Comment on above: Performed By: #### C BC #### [facility] [address] [place] [address] Dr. Chandra Lozano IG % 0.3 % Normal 0.0-0.5 [facility] Comment on above: Performed By: #### C BC #### [facility] [address] [place] [address] Dr. Chandra Lozano LYMPH # 2.0 103/ul Normal 1.2-3.8 [facility] Comment on above: Performed By: #### C BC #### [facility] [address] [place] [address] Dr. Chandra Lozano Lymphocytes/100 WBC (Bld) 27.4 % Normal 20.5-60.0 [facility] Comment on above: Performed By: #### C BC #### [facility] [address] [place] [address] Dr. Chandra Lozano MANUAL DIFF REQ NO Normal [facility] Comment on above: Performed By: #### C BC #### [facility] [address] [place] [address] Dr. Chandra Lozano MCH (RBC) [Entitic mass] 30.2 pg Normal 25.9-34.0 [facility] Comment on above: Performed By: #### C BC #### [facility] [address] [place] [address] Dr. Chandra Lozano MCHC (RBC) [Mass/Vol] 33.2 g/dL Normal 29.9-35.2 [facility] Comment on above: Performed By: #### C BC #### [facility] [address] [address] [address] Chandra Lozano MCV (RBC) [Entitic vol] 91.0 fL Normal 80.0-94.0 [facility] Comment on above: Performed By: #### C BC #### [facility] [address] [address] [address] Chandra Lozano MONO # 0.9 103/ul Critically high 0.3-0.8 [facility] Comment on above: Performed By: #### C BC #### [facility] [address] [address] [address] Chandra Lozano Monocytes/100 WBC (Bld) 12.4 % Critically high 1.7-12.0 [facility] Comment on above: Performed By: #### C BC #### [facility] [address] [place] [address] Dr. Chandra Lozano NEUT # 3.9 103/ul Normal 1.4-6.5 [facility] Comment on above: Performed By: #### C BC #### [facility] [address] [place] [address] Dr. Chandra Lozano Neutrophils/100 WBC (Bld) 54.4 % Normal 43.0-75.0 [facility] Comment on above: Performed By: #### C BC #### [facility] [address] [place] [address] Dr. Chandra Lozano Platelet mean volume (Bld) [Entitic vol] 10.7 fL Normal 9.5-13.5 [facility] Comment on above: Performed By: #### C BC #### [facility] [address] [place] [address] Dr. Chandra Lozano PLT 151 103/ul Normal 150-450 [facility] Comment on above: Performed By: #### C BC #### [facility] [address] [place] [address] Dr. Chandra Lozano RBC 4.80 106/ul Normal 4.70-6.10 [facility] Comment on above: Performed By: #### C BC #### [facility] [address] [address] [address] Chandra Lozano WBC 7.1 103/ul Normal 4.0-11.0 [facility] Comment on above: Performed By: #### C BC #### [facility] [address] [place] [address] Dr. Chandra Lozano LIPID PROFILEon 12-25-2021 CHOL-HDL RATIO NORM SEE BELOW Normal [facility] Comment on above: Result Comment: 3.3 - 4.4 LOW RISK 4.4 - 7.1 AVERAGE RISK 7.1 - 11.0 MODERATE RISK >11.0 HIGH RISK Performed By: #### L IPID, ALT, BMP #### [facility] [address] [place] [address] Dr. Chandra Lozano Cholesterol [Mass/Vol] 169 mg/dL Normal <=200 [facility] Comment on above: Performed By: #### L IPID, ALT, BMP #### [facility] [address] [place] [address] Dr. Chandra Lozano Cholesterol in HDL [Mass/Vol] 87 mg/dL Critically high 40-60 [facility] Comment on above: Performed By: #### L IPID, ALT, BMP #### [facility] [address] [place] [address] Dr. Chandra Lozano Cholesterol in LDL [Mass/Vol] 68.4 mg/dL Normal [facility] Comment on above: Performed By: #### L IPID, ALT, BMP #### [facility] [address] [place] [address] Dr. Chandra Lozano Cholesterol.total/Cho lesterol in HDL [Mass ratio] 1.9 {ratio} Normal [facility] Comment on above: Performed By: #### L IPID, ALT, BMP #### [facility] [address] [place] [address] Dr. Chandra Lozano HDL NORMAL > or = 60 mg/dl - LO W CARDIOVASCULAR RISK <40 mg/dl - HIGH CARDIOVASCULAR RISK Normal [facility] Comment on above: Performed By: #### L IPID, ALT, BMP #### [facility] [address] [place] [address] Dr. Chandra Lozano LDL CALC NORMAL SEE BELOW Normal [facility] Comment on above: Result Comment: <100 mg/dl OPTIMAL 100 - 129 mg/dl NEAR OR ABOVE OPTIMAL 130 - 159 mg/dl BORDERLINE HIGH 160 - 189 mg/dl HIGH >190 mg/dl VERY HIGH Performed By: #### L IPID, ALT, BMP #### [facility] [address] [place] [address] Dr. Chandra Lozano Triglyceride [Mass/Vol] 68 mg/dL Normal <=150 [facility] Comment on above: Performed By: #### L IPID, ALT, BMP #### [facility] [address] [address] [address] Chandra Lozano VLDL CALC 13.6 mg/dL Normal [facility] Comment on above: Performed By: #### L IPID, ALT, BMP #### [facility] [address] [place] [address] Dr. Chandra Lozano PROF CHEM 8 (BAS METB)on Anion gap [Moles/Vol] 9.0 mmol/L Normal [facility] Comment on above: Performed By: #### L IPID, ALT, BMP #### [facility] [address] [address] [address] Chandra Lozano Calcium [Mass/Vol] 9.4 mg/dL Normal 8.5-10.1 [facility] Comment on above: Performed By: #### L IPID, ALT, BMP #### [facility] [address] [place] [address] Dr. Chandra Lozano Chloride [Moles/Vol] 103 mmol/L Normal 98-107 [facility] Comment on above: Performed By: #### L IPID, ALT, BMP #### [facility] [address] [address] [address] Chandra Lozano CO2 [Moles/Vol] 31.6 mmol/L Normal 21.0-32.[address] [facility] Comment on above: Performed By: #### L IPID, ALT, BMP #### [facility] [address] [place] [address] Dr. Chandra Lozano Creatinine [Mass/Vol] 1.13 mg/dL Normal 0.70-1.30 [facility] Comment on above: Performed By: #### L IPID, ALT, BMP #### [facility] [address] [address] [address] Chandra Lozano EGFR-AF LUXEMBOURGER >60 Normal >=[address] [facility] Comment on above: Performed By: #### L IPID, ALT, BMP #### [facility] [address] [address] [address] Chandra Lozano EGFR-NON AF LUXEMBOURGER >60 Normal >=60 [facility] Comment on above: Performed By: #### L IPID, ALT, BMP #### [facility] [address] [place] [address] Dr. Chandra Lozano Glucose [Mass/Vol] 108 mg/dL Critically high 74-106 [facility] Comment on above: Performed By: #### L IPID, ALT, BMP #### [facility] [address] [address] [address] Chandra Lozano Potassium [Moles/Vol] 4.6 mmol/L Normal 3.5-5.1 [facility] Comment on above: Performed By: #### L IPID, ALT, BMP #### [facility] [address] [place] [address] Dr. Chandra Lozano Sodium [Moles/Vol] 139 mmol/L Normal 136-145 [facility] Comment on above: Performed By: #### L IPID, ALT, BMP #### [facility] [address] [address] [address] Chandra Lozano Urea nitrogen [Mass/Vol] 19.0 mg/dL Critically high 7.0-18.0 [facility] Comment on above: Performed By: #### L IPID, ALT, BMP #### [facility] [address] [place] [address] Dr. Chandra Lozano Urea nitrogen/Creatinine [Mass ratio] 16.8 mg/mg Normal [facility] Comment on above: Performed By: #### L IPID, ALT, BMP #### [facility] [address] [place], [place] [address] Dr. Chandra Lozano SGPTon 12-25-2021 ALT [Catalytic activity/Vol] 34 U/L Normal 16-63 [facility] Comment on above: Performed By: #### L IPID, ALT, BMP #### [facility] [address] [place], [place] [address] Dr. Chandra Lozano CBC W Auto Differential pane l (Bld)on 08-26-2021 Abs Immature Gran <0.03 <0.10 k/uL [facility] Basophils (Bld) [#/Vol] 0.07 10*3/uL <0.11 k/uL [facility] Basophils/100 WBC (Bld) 1.0 % [facility] Differential cell count method Nom (Bld) Auto [facility] Eosinophils (Bld) [#/Vol] 0.17 10*3/uL <0.46 k/uL [facility] Eosinophils/100 WBC (Bld) 2.5 % [facility] Erythrocyte distribution width (RBC) [Ratio] 13.5 % 11.5 - 15.0 % [facility] Hematocrit (Bld) [Volume fraction] 44.1 % 39.0 - 51.0 % [facility] Hemoglobin (Bld) [Mass/Vol] 14.5 g/dL 13.0 - 17.0 g/dL [facility] Immature Gran % 0.3 % [facility] Lymphocytes (Bld) [#/Vol] 1.89 10*3/uL 1.00 - 4.00 k/uL [facility] Lymphocytes/100 WBC (Bld) 27.7 % [facility] MCH (RBC) [Entitic mass] 29.7 pg 26.0 - 34.0 pg [facility] MCHC (RBC) [Mass/Vol] 32.9 g/dL 30.5 - 36.0 g/dL [facility] MCV (RBC) [Entitic vol] 90.4 fL 80.0 - 100.0 fL [facility] Monocytes (Bld) [#/Vol] 0.76 10*3/uL <0.87 k/uL [facility] Monocytes/100 WBC (Bld) 11.1 % [facility] Neutrophils (Bld) [#/Vol] 3.92 10*3/uL 1.45 - 7.50 k/uL [facility] Neutrophils/100 WBC (Bld) 57.4 % [facility] Nucleated RBC (Bld) [#/Vol] 10*3/uL <0.01 k/uL [facility] Nucleated RBC/100 WBC (Bld) [Ratio] 0.0 /100 WBC [facility] Platelet mean volume (Bld) [Entitic vol] 11.3 fL 9.0 - 12.7 fL [facility] Platelets (Bld) [#/Vol] 130 10*3/uL Low 150 - 400 k/uL [facility] RBC (Bld) [#/Vol] 4.88 10*6/uL 4.20 - 6.0 0 m/uL [facility] WBC (Bld) [#/Vol] 6.83 10*3/uL 3.70 - 11. 00 k/uL [facility] Comprehensive metabolic 2000 panelon 08-26-2021 Albumin [Mass/Vol] 4.3 g/dL 3.9 - 4.9 g/dL [facility] ALP [Catalytic activity/Vol] 101 U/L 38 - 113 U/L [facility] ALT [Catalytic activity/Vol] 26 U/L 10 - 54 U/L [facility] Anion gap [Moles/Vol] 11 mmol/L 9 - 18 mmol/L [facility] AST [Catalytic activity/Vol] 33 U/L 14 - 40 U/L [facility] Bilirubin [Mass/Vol] 1.0 mg/dL 0.2 - 1 .3 mg/dL [facility] Calcium [Mass/Vol] 10.0 mg/dL 8.5 - 10. 2 mg/dL [facility] Chloride [Moles/Vol] 102 mmol/L 97 - 10 5 mmol/L [facility] CO2 [Moles/Vol] 28 mmol/L 22 - 30 mmol/L [facility] Creatinine [Mass/Vol] 1.17 mg/dL 0.73 - 1.22 mg/dL [facility] Estimated Glomerular Filtration Rate 61 mL/min/1.73m >=60 mL/min/1.73m [facility] Glucose [Mass/Vol] 102 mg/dL High 74 - 99 mg/dL [facility] Potassium [Moles/Vol] 4.3 mmol/L 3.7 - 5.1 mmol/L [facility] Protein [Mass/Vol] 6.5 g/dL 6.3 - 8.0 g/dL [facility] Sodium [Moles/Vol] 141 mmol/L 136 - 144 mmol/L [facility] Urea nitrogen [Mass/Vol] 16 mg/dL 9 - 24 mg/dL [facility] Lipid 1996 panelon Cholesterol [Mass/Vol] 155 mg/dL <200 mg/dL [facility] Cholesterol in HDL [Mass/Vol] 74 mg/dL >39 mg/[facility] Cholesterol in LDL [Mass/Vol] 65 mg/dL <100 mg/dL [facility] Cholesterol in LDL/Cholesterol in HDL [Mass ratio] 0.88 {ratio} <2.54 [facility] Cholesterol in VLDL [Mass/Vol] 16 mg/dL <30 mg/dL [facility] Cholesterol non HDL [Mass/Vol] 81 mg/dL <130 mg/dL [facility] Cholesterol.total/Cho lesterol in HDL [Mass ratio] 2.09 {ratio} <5.10 [facility] Fasting Time 12 hrs [facility] Triglyceride [Mass/Vol] 80 mg/dL <150 mg/dL [facility] NT PRO BNPon 08-26-2021 Natriuretic peptide.B prohormone N-Terminal [Mass/Vol] 883 pg/mL High <450 pg/mL [facility] PT panel Coag (PPP)on 2021 INR Coag (PPP) [Relative time] 2.4 {INR} High 0.9 - 1.3 [facility] PT Coag (PPP) [Time] 24.2 s High 9.7 - 1 3.0 sec [facility] TSH BLDon 08-26-2021 TSH Qn 1.460 m[IU]/L 0.270 - 4.200 mIU/L [facility] Vital Signs Date Time Vital Sign Value Performing Clinician Facility 01-06-2024 11: Body height 177.8 cm [facility] 01-06-2024 11: Body mass index (BMI) [Ratio] 25.6 kg/m2 [facility] 01-06-2024 11: Body temperature 97.3 [degF] [facility] 01-06-2024 11: Body weight 81 kg [facility] 01-06-2024 11:11-0400 Diastolic blood pressure 81 mm[Hg] [facility] 01-06-2024 11:11-0400 Heart rate 81 /min [facility] 01-06-2024 11:11-0400 SaO2% (BldA) [Mass fraction] 98 % [facility] 01-06-2024 11:11-0400 Systolic blood pressure 164 mm[Hg] [facility] 12-19-2023 15:15-0400 Body height 177.8 cm Jamaal Jaeger DPM FACFAS Work Phone: [facility] 12-19-2023 15:15-0400 Body mass index (BMI) [Ratio] 24.39 kg/m2 Jamaal Jaeger DPM FACFAS Work Phone: [facility] 12-19-2023 15:15-0400 Body weight 77.11 kg Jamaal Jaeger DPM FACFAS Work Phone: [facility] 12-19-2023 15:15-0400 Diastolic blood pressure 75 mm[Hg] Jamaal Jaeger DPM FACFAS Work Phone: [facility] 12-19-2023 15:15-0400 Heart rate 76 /min Jamaal Jaeger DPM FACFAS Work Phone: [facility] 12-19-2023 15:15-0400 Systolic blood pressure 121 mm[Hg] Jamaal Jaeger DPM FACFAS Work Phone: [facility] 10-03-2023 13:35-0400 Body height 177.8 cm [facility] 10-03-2023 13:35-0400 Body mass index (BMI) [Ratio] 25.7 kg/m2 [facility] 10-03-2023 13:35-0400 Body weight 81.24 kg [facility] 10-03-2023 13:35-0400 Diastolic blood pressure 83 mm[Hg] [facility] 10-03-2023 13:35-0400 Heart rate 80 /min [facility] 10-03-2023 13:35-0400 Respiratory rate 12 /min [facility] 10-03-2023 13:35-0400 Systolic blood pressure 134 mm[Hg] [facility] 07-14-2023 13:55-0400 Diastolic blood pressure 95 mm[Hg] Amilcar Cervantes MD Work Phone: [facility] Comment on above: 07-14-2023 13:55-0400 Heart rate 81 /min Amilcar Cervantes MD Work Phone: [facility] 07-14-2023 13:55-0400 Systolic blood pressure 164 mm[Hg] Amilcar Cervantes MD Work Phone: [facility] Comment on above: 07-14-2023 13:50-0400 Body height 175.5 cm Amilcar Cervantes MD Work Phone: [facility] 07-14-2023 13:50-0400 Body mass index (BMI) [Ratio] 25.77 kg/m2 Amilcar Cervantes MD Work Phone: [facility] 07-14-2023 13:50-0400 Body weight 79.38 kg Amilcar Cervantes MD Work Phone: [facility] 07-14-2023 13:50-0400 SaO2% (BldA) [Mass fraction] 98 % Amilcar Cervantes MD Work Phone: [facility] 01-18-2023 08:30-0500 Body height Matt Ball Other [employer] Other 01-18-2023 08:30-0500 Body mass index (BMI) [Ratio] 25.39 kg/m2 Matt Ball Other [employer] Other 01-18-2023 08:30-0500 Body weight 80.29 kg Matt Ball Other [employer] Other 01-18-2023 08:30-0500 Diastolic blood pressure 76 mm[Hg] Matt Ball Other [employer] Other 01-18-2023 08:30-0500 Respiratory rate 12 /min Matt Ball Other [place] [facility] [employer] Other 01-18-2023 08:30-0500 Systolic blood pressure 147 mm[Hg] Matt Ball Other [facility] [employer] Other 12-30-2022 16:13-0400 Body height 177.8 cm Suleiman Santana MD Work Phone: [facility] 12-30-2022 16:13-0400 Body weight 77.11 kg Suleiman Santana MD Work Phone: [facility] 12-30-2022 16:13-0400 Diastolic blood pressure 83 mm[Hg] Suleiman Santana MD Work Phone: [facility] 12-30-2022 16:13-0400 Heart rate 65 /min Suleiman Santnaa MD Work Phone: [facility] 12-30-2022 16:13-0400 Systolic blood pressure 133 mm[Hg] Suleiman Santana MD Work Phone: [facility] 11-03-2022 16:32-0400 Body height 175.3 cm Amilcar Cervantes MD Work Phone: [facility] 11-03-2022 16:32-0400 Body weight 76.66 kg Amilcar Cervantes MD Work Phone: [facility] 11-03-2022 16:32-0400 Diastolic blood pressure 84 mm[Hg] Amilcar Cervantes MD Work Phone: [facility] 11-03-2022 16:32-0400 Heart rate 61 /min Amilcar Cervantes MD Work Phone: [facility] 11-03-2022 16:32-0400 SaO2% (BldA) [Mass fraction] 100 % Amilcar Cervantes MD Work Phone: [facility] 11-03-2022 16:32-0400 Systolic blood pressure 123 mm[Hg] Amilcar Cervantes MD Work Phone: [facility] 09-22-2022 09:15-0400 Body height Matt Ball Other [employer] Other 09-22-2022 09:15-0400 Body mass index (BMI) [Ratio] 25.14 kg/m2 Matt Ball Other [employer] Other 09-22-2022 09:15-0400 Body weight 79.47 kg Matt Ball Other [employer] Other 09-22-2022 09:15-0400 Diastolic blood pressure 69 mm[Hg] Matt Ball Other [employer] Other 09-22-2022 09:15-0400 Respiratory rate 12 /min Matt Ball Other [employer] Other 09-22-2022 09:15-0400 Systolic blood pressure 135 mm[Hg] Matt Ball Other [employer] Other 07-08-2022 12:00-0400 Body height Matt Ball Other [employer] Other 07-08-2022 12:00-0400 Body mass index (BMI) [Ratio] 25.51 kg/m2 Matt Ball Other [employer] Other 07-08-2022 12:00-0400 Body weight 80.65 kg Matt Ball Other [employer] Other 07-08-2022 12:00-0400 Diastolic blood pressure 82 mm[Hg] Matt Ball Other [employer] Other 07-08-2022 12:00-0400 SaO2% (BldA) [Mass fraction] 97 % Matt Ball Other [employer] Other 07-08-2022 12:00-0400 Systolic blood pressure 127 mm[Hg] Matt Perkins Other [employer] Other 08-26-2021 12:32-0400 Diastolic blood pressure 80 mm[Hg] Amilcar Cervantes MD Work Phone: [facility] 08-26-2021 12:32-0400 Heart rate 71 /min Amilcar Cervantes MD Work Phone: [facility] 08-26-2021 12:32-0400 Systolic blood pressure 131 mm[Hg] Amilcar Cervantes MD Work Phone: [facility] 08-26-2021 12:28-0400 Body height 177.8 cm Amilcar Cervantes MD Work Phone: [facility] 08-26-2021 12:28-0400 Body weight 79.2 kg Amilcar Cervantes MD Work Phone: [facility] 08-26-2021 12:28-0400 SaO2% (BldA) [Mass fraction] 100 % Amilcar Cervantes MD Work Phone: [facility] Encounters Encounter Date Encounter Type Care Provider Facility Start: 07-31-2024 End: 07-31-2024 Ashwin Brower MD Work Phone: [facility] Start: 07-31-2024 End: 07-31-2024 Ashwin Brower MD Work Phone: [facility] Start: 07-31-2024 End: 07-31-2024 ambulatory SHARLA BROWER Not Available Start: 07-25-2024 End: 07-25-2024 ambulatory AMILCAR CERVANTES Facility:[facility] Start: 07-25-2024 End: 07-25-2024 ambulatory EFE TREJO Facility:[facility] Start: 01-06-2024 End: 01-06-2024 ambulatory [facility] Work Phone: Start: 01-06-2024 End: 01-06-2024 Patient encounter procedure [facility] Work Phone: Start: 01-05-2024 Patient encounter procedure [facility] Start: 01-04-2024 Non-patient / Non-visit [facility] Work Phone: Start: 12-19-2023 End: 12-19-2023 ambulatory [...] Medical Clearance Start: 10-03-2023 End: 10-03-2023 ambulatory [facility] Work Phone: Start: 10-03-2023 End: 10-03-2023 Patient encounter procedure [facility] Work Phone: Start: 09-22-2023 End: 09-22-2023 ambulatory CHINO S LIEBENTHAL Not Available Start: 08-31-2023 End: 08-31-2023 ambulatory CHINO S LIEBENTHAL Not Available Start: 08-11-2023 End: 08-11-2023 Subsequent hospital visit by physician Mary Ann Orosco ([facility]) Work Phone: Radiology Comment on above: S/P AVR (aortic valv e replacement) [Z95.2] Start: 07-25-2023 Non-patient / Non-visit [facility] Physician [facility] Work Phone: Start: 07-14-2023 Non-patient / Non-visit [facility] [employer] Work Phone: Start: 07-14-2023 End: 07-14-2023 Patient encounter procedure Amilcar Cervantes MD Work Phone: Cardiology Comment on above: S/P AVR (aortic valv e replacement) (Primary Dx); H/O mitral valve repair; 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, unspecified whether angina present; Hx of CABG Start: 01-24-2023 End: 01-24-2023 ambulatory Matt Perkins Other [employer] Other Start: 01-24-2023 Telephone encounter Matt Perkins [facility] Start: 01-18-2023 End: 01-18-2023 ambulatory Matt Perkins Other [employer] Other Start: 01-18-2023 Patient encounter procedure Matt Perkins [facility] Start: 12-30-2022 End: 12-31-2022 Patient encounter procedure Suleiman Santana MD Work Phone: Cardiology Comment on above: Permanent atrial fib rillation (HCC) (Primary Dx) Start: 12-17-2022 End: 12-17-2022 ambulatory Matt Perkins Other [employer] Other Start: 12-17-2022 Nursing evaluation o f patient and report Matt Perkins [facility] Start: 11-03-2022 End: 11-03-2022 Patient encounter procedure [...] Yolie Kelly, CCC-A Work Phone: [facility] Start: 11-01-2022 Telephone encounter Yolie Kelly, CCC-A Work Phone: Audiology Comment on above: Hearing aids Start: 11-01-2022 End: 11-01-2022 Patient encounter procedure Kristyn Bello MD Work Phone: Otolaryngology Comment on above: Other otitis externa , left ear (Primary Dx) Start: 09-22-2022 End: 09-22-2022 ambulatory Matt Perkins Other [employer] Other Start: 09-22-2022 Office outpatient vi sit 15 minutes Matt Perkins [facility] Start: 09-17-2022 End: 09-17-2022 Patient encounter procedure Yolie Kelly, CCC-A Work Phone: Audiology Comment on above: Mixed conductive and sensorineural hearing loss, bilateral (Primary Dx) Start: 09-16-2022 End: 09-17-2022 ambulatory Sharla Brower Facility:[facility] Start: 09-16-2022 End: 09-16-2022 Lab Drop off Sharla Brower [facility] Start: 08-11-2022 End: 08-11-2022 Patient encounter procedure Yolie Kelly, CCC-A Work Phone: Audiology Comment on above: Mixed hearing loss, bilateral (Primary Dx) Start: 08-04-2022 End: 08-04-2022 ambulatory Matt Perkins Other [employer] Other Start: 08-04-2022 Telephone encounter Matt Perkins [facility] Start: 07-08-2022 End: 07-08-2022 ambulatory Matt Perkins Other [employer] Other Start: 07-08-2022 Office outpatient vi sit 25 minutes Matt Perkins [facility] Start: 07-08-2022 Telephone encounter Matt Perkins [facility] Start: 07-05-2022 End: 08-04-2022 ambulatory [...] 12-22-2021 Adult health examination Matt Perkins Other [place] [employer] Other Start: 12-06-2021 End: 01-04-2022 ambulatory [facility] [...] hearing Aid Start: 10-05-2021 End: 11-04-2021 ambulatory [facility] Facility: Start: 10-02-2021 End: 10-02-2021 [...] hearing aid Start: 09-04-2021 End: 10-02-2021 ambulatory [facility] Facility: Start: 08-26-2021 End: 08-26-2021 [...] caregiver Yolie Jim Kelly, CCC-A Work Phone: [facility] Procedures Date Procedure Procedure Detail Performing [...] profile DTa P,Tdap,Td Vaccine (6 - Tdap) [facility] Start: 07-13-2026 Diabetes Screening Diabetes Screenin g [facility] Start: 11-03-2025 DIABETES SCREEN DIABETES SCREEN [facility] Start: 11-03-2025 Diabetes Screening Diabetes Screenin [facility] Start: 11-05-2024 Influenza vaccination Influenz a Vaccine (Season Ended) [facility] Start: 08-26-2024 DIABETES SCREEN DIABETES SCREEN [facility] Start: 07-31-2024 End: 07-31-2024 Patient encounter procedure 07/31/2024 9:30 AM EDT Office Visit [facility] [address] [place] [id number] Sharla Brower MD [address] [place] [address] [facility] Start: 07-13-2024 End: 10-12-2024 Basic metabolic 2000 panel - Serum or Plasma BASIC METABOLIC PANEL Lab Routine S/P AVR (aortic valve replacement) 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, 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 Expected: 07/13/2024, Expires: 10/12/2024 [facility] Work Phone: Comment on above: Expected: 07/13/2024 , Expires: 10/12/2024 Start: 07-13-2024 End: 10-12-2024 CBC panel - Blood by Automated count COMPLETE BLOOD COUNT Lab Routine S/P AVR (aortic valve replacement) 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, 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 Expected: 07/13/2024, Expires: 10/12/2024 [facility] Comment on above: Expected: 07/13/2024 , Expires: 10/12/2024 Start: 07-13-2024 End: 07-13-2024 Echocardiography ECHO Cardiology Routine S/P AVR (aortic valve replacement) 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, 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 Expected: 07/13/2024, Expires: 07/13/2024 [facility] Comment on above: Expected: 07/13/2024 , Expires: 07/13/2024 Start: 07-13-2024 End: 10-12-2024 Lipid 1996 panel - Serum or Plasma LIPID PANEL BASIC Lab Routine S/P AVR (aortic valve replacement) 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, 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 Expected: 07/13/2024, Expires: 10/12/2024 [facility] Comment on above: Expected: 07/13/2024 , Expires: 10/12/2024 Start: 03-24-2024 Hepatitis B surface antibody level LDL Cholesterol [facility] Start: 11-06-2023 Covid-19 Vaccine () Covid-19 Vaccine () [facility] Start: 11-06-2023 Influenza vaccination Influenza Vacc ine (#1) [facility] Start: 11-04-2023 End: 01-04-2024 CBC W Auto Differential panel - Blood CBC + DIFF Lab Routine S/P mitral valve repair 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 Permanent atrial fibrillation (HCC) Expected: 11/04/2023, Expires: 01/04/2024 [facility] Work Phone: Comment on above: Expected: 11/04/2023 , Expires: 01/04/2024 Start: 11-04-2023 End: 01-04-2024 Comprehensive metabolic 2000 panel - Serum or Plasma COMP METABOLIC PANEL Lab Routine S/P mitral valve repair 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 Permanent atrial fibrillation (HCC) Expected: 11/04/2023, Expires: 01/04/2024 [facility] Work Phone: Comment on above: Expected: 11/04/2023 , Expires: 01/04/2024 Start: 11-04-2023 End: 11-04-2023 ECG COMPLETE ECG COMPLETE ECG Routine S/P mitral valve repair Expected: 11/04/2023 (Approximate), Expires: 11/04/2023 [facility] Work Phone: Comment on above: Expected: 11/04/2023 (Approximate), Expires: 11/04/2023 Start: 07-25-2023 DIABETES SCREEN DIABETES SCREEN [facility] Start: 05-21-2023 Covid-19 Vaccine () Covid-19 Vaccine () [facility] Start: 03-07-2023 Advance Directive Discussion Advance Directive Discussion [facility] Start: 03-07-2023 Behavioral Health Screening Behavioral Health Screening [facility] Start: 11-05-2022 Covid-19 Vaccine () Covid-19 Vaccine () [facility] Start: 11-05-2022 Influenza vaccination C [facility] Start: 10-05-2022 End: 12-05-2022 Basic metabolic 2000 panel - Serum or Plasma BASIC METABOLIC PNL Lab Routine Nonrheumatic mitral valve regurgitation S/P mitral valve repair Expected: 10/05/2022, Expires: 12/05/2022 [facility] Work Phone: Comment on above: Expected: 10/05/2022 , Expires: 12/05/2022 Start: 10-05-2022 End: 12-05-2022 CBC W Auto Differential panel - Blood CBC + DIFF Lab Routine Nonrheumatic mitral valve regurgitation S/P mitral valve repair Expected: 10/05/2022, Expires: 12/05/2022 [facility] Work Phone: Comment on above: Expected: 10/05/2022 , Expires: 12/05/2022 Start: 08-26-2022 Hepatitis B surface antibody level LDL CHOLESTEROL [facility] Start: 04-16-2022 COVID-19 VACCINE (5 - Moderna series) COVID-19 VACCINE (5 - Moderna series) [facility] Start: 03-07-2022 ADVANCE DIRECTIVE DISCUSSION ADVANCE DIRECTIVE DISCUSSION [facility] Start: 03-07-2022 DEPRESSION ASSESSMENT DEPRESSION ASS ESSMENT [facility] Start: 11-05-2021 Influenza vaccination INFLUENZA (#1) [facility] Start: 07-24-2021 Hepatitis B surface antibody level LDL CHOLESTEROL [facility] Start: 03-07-2021 ADVANCE DIRECTIVE DISCUSSION ADVANCE DIRECTIVE DISCUSSION [facility] Start: 09-16-2020 COVID-19 VACCINE (3 - Booster) COVID-19 VACCINE (3 - Booster) [facility] Start: 06-14-2020 COVID-19 VACCINE (3 - Booster) COVID-19 VACCINE (3 - Booster) [facility] Start: 2010 RSV Vaccine (1 - 1-d ose 75+ series) RSV Vaccine (1 - 1-dose 75+ series) [facility] Start: 02-09-2000 Pneumococcal Vaccine : 65+ (1 - PCV) Pneumococcal Vaccine: 65+ (1 - PCV) [facility] Start: 02-09-2000 Pneumococcal Vaccine : 65+ Years (1 of 1 - PCV) Pneumococcal Vaccine: 65+ Years (1 of 1 - PCV) [facility] Start: 02-09-2000 PNEUMOCOCCAL: 65+ (1 - PCV) PNEUMOCOCCAL: 65+ (1 - PCV) [facility] Start: 1995 RSV Vaccine (1 - 1-d ose 60+ series) RSV Vaccine (1 - 1-dose 60+ series) [facility] Start: 1985 Pneumococcal Vaccine : 65+ Years (1 of 1 - PCV) Pneumococcal Vaccine: 65+ Years (1 of 1 - PCV) [facility] Start: 1985 SHINGRIX VACCINE (1 of 2) OBREGON GRIX VACCINE (1 of 2) [facility] Start: 1954 Urine microalbumin profile [facility] Start: 1953 Anxiety Screening Anxiety Screening [facility] Start: 1953 Depression Screening Depression Scre ening [facility] End: 08-12-2024 CTA Chest vessels W contrast IV CTA CHEST (GATED) W IVCON Radiology Routine S/P AVR (aortic valve replacement) 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, 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 1 Occurrences starting 07/14/2023 until 08/12/2024 [facility] Work Phone: Comment on above: 1 Occurrences starti ng 07/14/2023 until 08/12/2024 End: 05-28-2023 ECG COMPLETE ECG COMPLETE ECG Routine Nonrheumatic mitral valve regurgitation S/P mitral valve repair 1 Occurrences starting 05/27/2022 until 05/28/2023 [facility] Work Phone: Comment on above: 1 Occurrences starti ng 05/27/2022 until 05/28/2023 End: 06-08-2023 ECG COMPLETE ECG COMPLETE ECG Routine Persistent atrial fibrillation (HCC) 1 Occurrences starting 06/07/2022 until 06/08/2023 [facility] Work Phone: Comment on above: 1 Occurrences starti ng 06/07/2022 until 06/08/2023 End: 07-13-2024 ECG COMPLETE ECG COMPLETE ECG Routine S/P AVR (aortic valve replacement) 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, 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 1 Occurrences starting 07/14/2023 until 07/13/2024 [facility] Comment on above: 1 Occurrences starti ng 07/14/2023 until 07/13/2024 End: 05-28-2023 Echocardiography ECHO Cardiology Routine Nonrheumatic mitral valve regurgitation S/P mitral valve repair 1 Occurrences starting 05/27/2022 until 05/28/2023 [facility] Work Phone: Comment on above: 1 Occurrences starti ng 05/27/2022 until 05/28/2023 End: 11-04-2023 Echocardiography ECHO Cardiology Routine S/P mitral valve repair 1 Occurrences starting 11/03/2022 until 11/04/2023 [facility] Work Phone: Comment on above: 1 Occurrences starti ng 11/03/2022 until 11/04/2023 [facility] Immunizations Immunization Date Immunization Notes Care Provider Cuong cerda 01-06-2024 influenza, high dose seasonal, preservative-free [facility] 12-17-2022 influenza virus vaccine, unspecified formulation [facility] 12-17-2022 influenza, high dose seasonal, preservative-free Matt Perkins Other [facility] [employer] Other 12-09-2021 influenza virus vaccine, split virus (incl. purified surface antigen) Matt Perkins Other [facility] Other 12-09-2021 influenza virus vaccine, unspecified formulation Yolie Kelly, [facility] Work Phone: [facility] 12-12-2020 influenza virus vaccine, split virus (incl. purified surface antigen) Matt Perkins Other [facility] Other 12-12-2020 influenza virus vaccine, unspecified formulation [facility] 08-18-2020 tetanus and diphther ia toxoids, adsorbed, preservative free, for adult use (5 Lf of tetanus toxoid and 2 Lf of diphtheria toxoid) Matt Perkins Other [facility] 04-19-2020 COVID-19 vaccine, fu ll dose (MODERNA) Yolie Kelly, [facility] Work Phone: [facility] 04-03-2020 COVID-19 vaccine, fu ll dose (MODERNA) Yolie Kelly, [facility] Work Phone: [facility] 12-18-2019 influenza virus vaccine, split virus (incl. purified surface antigen) Matt Perkins Other [facility] Other 12-18-2019 influenza virus vaccine, unspecified formulation [facility] 12-19-2018 influenza virus vaccine, split virus (incl. purified surface antigen) Matt Perkins Other [facility] Other 12-19-2018 influenza virus vaccine, unspecified formulation [facility] 12-14-2017 influenza virus vaccine, split virus (incl. purified surface antigen) Matt Perkins Other [facility] Other 12-14-2017 influenza virus vaccine, unspecified formulation [facility] 12-23-2016 influenza virus vaccine, split virus (incl. purified surface antigen) Matt Perkins Other [facility] Other 12-23-2016 influenza virus vaccine, unspecified formulation [facility] 12-10-2015 influenza virus vaccine, split virus (incl. purified surface antigen) Matt Perkins Other [facility] Other 12-10-2015 influenza virus vaccine, unspecified formulation [facility] 12-26-2014 pneumococcal conjuga te vaccine, 13 valent Matt Perkins Other [facility] 12-13-2014 influenza virus vaccine, split virus (incl. purified surface antigen) Matt Perkins Other [facility] Other 12-13-2014 influenza virus vaccine, unspecified formulation [facility] 12-25-2013 tetanus and diphther ia toxoids, adsorbed, preservative free, for adult use (5 Lf of tetanus toxoid and 2 Lf of diphtheria toxoid) Matt Perkins Other [facility] 01-02-2013 diphtheria, tetanus toxoids and acellular pertussis vaccine, unspecified formulation Matt Perkins Other [facility] 12-22-2012 tetanus and diphther ia toxoids, adsorbed, preservative free, for adult use (5 Lf of tetanus toxoid and 2 Lf of diphtheria toxoid) Matt Perkins Other [facility] 12-20-2002 diphtheria, tetanus toxoids and acellular pertussis vaccine, unspecified formulation Matt Perkins Other [facility] 12-12-2002 pneumococcal polysaccharide vaccine, 23 valent Matt Perkins Other [facility] Payers Date Payer Category Payer Private Health Insurance [facility] AARP SUPPLEMENT [id number] 2013-Present [phone] [address] [place] [address] Indemnity [id number] 2000 Medicare MEDICARE MEDICAR E A AND B [id number] 2000-Present [phone] [place] [address] Medicare [id number] 2000 Medicare [id number] 2000 Private Health Insurance [id number] 1959 Medicare [id number] 1959 Unknown [id number] 1935 Unknown [id number] 2.16.840.1.476944.3.579.2 .593 1935 Unknown [id number] 2.16.840.1.053796.3.579.2 .593 1935 Unknown [id number] 2.16.840.1.235109.3.579.2 .593 1935 Unknown [id number] 2.16.840.1.677612.3.579.2 .593 1935 Unknown [id number] 2.16.840.1.554177.3.579.2 .593 1935 Unknown [id number] 2.16.840.1.875785.3.579.2 .593 1935 Unknown [id number] 2.16.840.1.714926.3.579.2 .593 1935 Unknown [id number] 2.16.840.1.593950.3.579.2 .593 1935 Unknown [id number] 2.16.840.1.184631.3.579.2 .593 1935 Unknown [id number] 2.16.840.1.006360.3.579.2 .593 1935 Unknown [id number] 2.16.840.1.192364.3.579.2 .593 1935 Unknown [id number] 2.16.840.1.056776.3.579.2 .593 1935 Unknown [id number] 2.16.840.1.853446.3.579.2 .727 1935 Unknown [id number] 2.16.840.1.442125.3.579.2 .1259 1935 Unknown [id number] 2.16.840.1.370431.3.579.2 .1259 1935 Unknown [id number] 2.16.840.1.084573.3.579.2 .1259 1935 Unknown [id number] 2.16.840.1.406420.3.579.2 .1259 Medicare Medicare [id number] Self-pay Self Pay [id number] Unknown [facility] Health Claims [id number] Social History Date Type Detail Facility Start: 08-06-2010 End: 09-28-2022 Tobacco smoking status NHIS Never smoked tobacco [facility] Start: 02-12-2021 End: 07-14-2023 Alcohol intake Current non-drinker of alcohol (finding) [facility] Start: 1935 Sex Assigned At Male [facility] Start: 08-16-2021 End: 10-02-2021 Exposure to SARS-CoV-2 (event) Not sure [facility] Start: 08-06-2010 End: 09-28-2022 Tobacco use and exposure Smokeless tobacco non-user [facility] Start: 10-02-2021 End: 12-19-2023 Sex Assigned At [facility] Tobacco smoking status No Smokin g Status Entered [facility] Start: 10-02-2021 End: 12-19-2023 History of Social function [facility] Adult Depression Screening Assessment 0 [facility] Start: 09-03-2019 Gender identity Identifies as male gender (finding) [facility] Start: 08-03-2021 Sexual orientation Heterosexual (finding) [facility] Start: 08-31-2023 End: 07-31-2024 Alcoholic beverage intake Not Asked [facility] Start: 09-28-2022 Alcohol Comment caffeine intake: 2-3 cups per day. [facility] Start: 1935 Sex assigned at Not on file [facility] Clinical Notes 10-31-2013 to 07-31-2024 Sharla Brower [...] vision or metamorphopsia. documented in this encounter [facility] 07-25-2024 Note HNO ID: [id number] Author: AMILCAR CERVANTES MD Service: ? Author Type: Physician Type: Progress Notes Filed: 07/27/2024 14:58 Note Text: [facility] Department of Cardiovascular Medicine SECTION OF CARDIOVASCULAR IMAGING OUTPATIENT VISIT DATE 07/25/2024 OUTPATIENT VISIT TYPE ESTABLISHED PRIMARY CARE PHYSICIAN: Matt Perkins ([place]) [address] [place] [address] REFERRING PHYSICIAN: Efe Trejo [address] [facility] [address] Chief complaint: Annual follow-up for valvular heart [...] 20, omeprazole 20. Previous cardiac workup: -EKG, [facility], July 2023: Atrial fibrillation at rate 70 bpm - CTA chest August 2023, [facility]:AVR with BIOPROSTHETIC VALVE, valve ring 2.5 cm. Mild to moderate leaflet calcification -TTE, [facility], July 2023: The left ventricle is [...] Coronary atherosclerosis of unspecified type of vessel, [place] or graft Coronary artery disease Diaphragmatic hernia without mention of obstruction or gangrene Hiatal hernia Hemorrhage of gastrointestinal tract, unspecified 2002 s/p polypectomy Mitral valve disorders(424.0) Mixed hyperlipidemia Hyperlipidemia Nonspecific elevation of levels of tr (more content not included)... [facility] 12-19-2023 History of Present illness Narrative Images [...] embolism (CMS/HCC) SCC (squamous cell carcinoma) right moravian Medications: Current Outpatient Medications: benazepril (Lotensin) 20 [...] taking: Reported on 12/19/2023), Disp: , Rfl: Keystone-3 Fatty Acids (Fish Oil Maximum Strength) 1200 [...] subungual debris. They were painful to palpation [id number] on the right [id number] on the left. VASC: DP /PT were nonpalpable bilateral. Capillary refill time < 3 seconds Digits 1-5 bilateral Moderate venous stasis disease noted bilaterally NEURO: Elyria Marisel 5.07 monofilament was intact B/L. Vibratory [...] up with me when he returns from [place]. SHREYA Noble documented in this encounter [facility] 11-30-2023 Telephone encounter Note Images from the original note were not included. Received correspondence requesting medical clearance for a dental procedure for the patient. [facility] 11-30-2023 Miscellaneous Notes Images from the original note were not included. Received correspondence requesting medical clearance for a dental procedure for the patient. documented in this encounter [facility] 08-11-2023 History of Present illness Narrative [...] PATIENT PRESENTS WITH AN IMPLANTABLE OR ATTACHED COMPOSITION ROOFER: No RADIOLOGY DEPARTMENT: CT; Exam(s) Completed: Cardiac PERIPHERAL IV DATA: Site assessment: Clean,Dry and Intact, Site disposition Discontinued SIGNED BY: RT Francisca(Carlito) August 11, 2023 12:50 PM documented in this encounter [facility] 07-14-2023 History of Present illness Narrative Images from the original note were not included. [facility] Department of Cardiovascular Medicine [facility] OUTPATIENT VISIT DATE November 03, 2022 OUTPATIENT VISIT TYPE Established REFERRING PHYSICIAN No referring provider defined for this encounter. PCP: Rachel SOMERS [facility] [address] CHIEF COMPLAINT: Follow up regarding AVR, MVr, CABG HISTORY OF PRESENT ILLNESS: Mr. Starr is a 88 year old male from [place], [place] who presents today for follow-up visit. [...] or syncope. He spent his schmitt in [place], went on a cruise and got back to [place] recently. 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 Cervantes in 12 months Echo in 12 months I spent 45 minutes in this visit, with more than 50% of the time devoted to patient counseling. Efe Trejo MD [facility] documented in this encounter [facility] 01-18-2023 Evaluation note Encounter Date Diagnosis [...] are maintaining regular scheduled appts with their health promoter. No bleeding complications Warfarin - 4mg - [...] disease (ICD-10 - I38) AVR, MVR 2007 [employer]App[employer] Other [id number] History of Present illness Narrative* Suleiman Santana MD - 12/30/2022 2:32 PM EDT Images from the original note were not included. [facility] Department of Cardiovascular Medicine SECTION OF CARDIAC PACING and ELECTROPHYSIOLOGY OUTPATIENT VISIT DATE December 30, 2022 OUTPATIENT VISIT TYPE ESTABLISHED PRIMARY CARE PHYSICIAN: Matt Perkins ([facility]) [address] [place] [address] CHIEF COMPLAINT: F/u HISTORY OF PRESENT ILLNESS: [...] syncope. PAST MEDICAL HISTORY Diagnosis Date A-fib ([facility]) 09/2013 Aortic valve disorders Aortic valve disorders Coronary atherosclerosis of unspecified type of vessel, turtle mountain or graft Coronary artery disease Diaphragmatic hernia [...] Suleiman Santana MD, MPH documented in [facility] History of Present illness Narrative* Merna Delong MD - 11/03/2022 4:17 PM EDT Images from the original note were not included. [facility] Department of Cardiovascular Medicine [facility] OUTPATIENT VISIT DATE November 03, 2022 OUTPATIENT VISIT TYPE Established REFERRING PHYSICIAN No referring provider defined for this encounter. PCP: Rachel MCKENNA [facility] Sacha [facility] [address] CHIEF COMPLAINT: Follow up regarding AVR, MVr, CABG HISTORY OF PRESENT ILLNESS: Mr. Starr is a 86 year old male from [place], [place] who presents today for follow-up visit. [...] been active with no issues, works in [employer] without any symptoms. Walks 2 miles 5 [...] Tue - Tue - Tue - Tue Keystone-3 Fatty Acids, FISH OIL, (FISH OIL) 360-1,200 [...] PRN PAST MEDICAL HISTORY Diagnosis Date A-fib ([facility]) 09/2013 Aortic valve disorders Aortic valve disorders Coronary atherosclerosis of unspecified type of vessel, turtle mountain or graft Coronary artery disease Diaphragmatic hernia [...] echocardiographic exam performed on 08/26/2021. Similar findings. [facility] STAFF PHYSICIAN NOTE OF PERSONAL INVOLVEMENT [...] Merna Delong MD Internal Medicine Resident, PGY-2 [facility] NOTE OF PERSONAL INVOLVEMENT [...] counseling and/or coordinating care for the patient. Qemc-xo-dqeu time was 45 minutes SIGNATURE: Amilcar Cervantes MD DATE of SERVICE: November 03, 2022 TIME of SERVICE: 10:20 PM documented [facility] Miscellaneous Notes* Telephone Encounter - Joycelyn Ribera - 11/01/2022 3:05 PM EDT Terence Starr came in today.o check on the status of his hearing aids that were brought in on 10/14/22. : 1935 Allergies: Adhesives [Other], Doxycycline, Levaquin [Levofloxacin], and Prednisone (home) [phone] (cell) Reason for call: Patient came in [...] 01, 2022 3:08 PM documented in [facility] encounter[facility] History of Present illness Narrative* Kristyn [...] basis. PAST MEDICAL HISTORY Diagnosis Date A-fib ([facility]) 09/2013 Aortic valve disorders Aortic valve disorders Coronary atherosclerosis of unspecified type of vessel, turtle mountain or graft Coronary artery disease Diaphragmatic hernia [...] Tue - Tue - Tue - Tue Keystone-3 Fatty Acids, FISH OIL, (FISH OIL) 360-1,200 [...] Patient is a non-smoker documented [facility] Evaluation note* Encounter Date Diagnosis Assessment Notes Treatment Notes Treatment Clinical Notes Sep, Acute diffuse otitis externa of left ear (ICD-10 - H60.312) Sep, Wears hearing aid (ICD-10 - Z97.4) Keep out as much as tolerable [employer]App[employer] Other 07-14-2023 History of Present illness Narrative* Yolie Christie, Leticia, CCC-A - 09/17/2022 2:06 PM EDT [facility] HEARING AID CHECK Name: Terence Starr [facility]#: [id number] Date of Service: 09/17/2022 Date of : 1935 Age: [age] year old RIGHT: Oticon OPN 1 miniRITE SN: [id number] Earmold/Event Marketing Representative: , canal lock Power mold SN: [id number] Repair Warranty : 08/22/2023 LEFT: Oticon OPN 1 miniRITE SN: [id number] Earmold/Event Marketing Representative: , canal lock Power mold SN: [id number] Repair Warranty : 10/27/2022 L/D Warranty : 10/08/2020 Both Fitting Date: 09/14/2017 Fitting Laboratory Scientist: Leticia Rojas CCC/Sacha Terence was seen today [...] few weeks. Maximilian was taken to the Ring Rolling Machine Operator to cover today's appointment fee of $50.00. Recommendations ENT or Otology follow up recommended. The patient has followed with Dr. Andersen in the past. Return for HAC as needed. Nahun Rojas, KENNY/Sacha Clinical Laboratory Scientist documented in this encounter[facility]06[facility] History of Present illness Narrative* Leticia Rojas CCC-A - 08/12/2022 5:48 PM EDT Head [facility] HEARING AID CHECK Name: Terence Starr CC#: [id number] Date of Service: 08/11/2022 Date of : 1935 Age: [age] year old RIGHT: Oticon OPN 1 miniRITE SN: [id number] Earmold/Event Marketing Representative: 100, canal lock mold SN: [id number] Repair Warranty : 08/22/2023 LEFT: Oticon OPN 1 miniRITE SN: [id number] Earmold/Event Marketing Representative: 100, canal lock mold SN: [id number] Repair Warranty : 10/27/2022 L/D Warranty : 10/08/2020 Both Fitting Date: 09/14/2017 Fitting Laboratory Scientist: Leticia Rojas, KENNY/Sacha Terence picked up repaired Right aid today. Maximilian paid at the Ring Rolling Machine Operator the out of warranty device fee of $275.00. Recommendations Return as needed. Nahun Rojas, KENNY/Sacha Clinical Laboratory Scientist documented in this encounterOhio [facility]05-31-[facility]23 Evaluation note* Encounter Date Diagnosis Assessment Notes Treatment Notes Treatment Clinical Notes July, SBE (subacute bacterial endocarditis) prophylaxis candidate (ICD-10 - Z29.8) [employer]App[employer] Other 05-04-2023 Evaluation note* Encounter Date Diagnosis Assessment Notes Treatment Notes Treatment Clinical Notes July, ASHD (arteriosclerotic heart disease) (ICD-10 - I25.10) This patient is stable without activity related CP, dyspnea or lightheadedness. They are instructed to continue exercise and AHA diet plan. 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 Inspect feet daily for cuts July, Atrial fibrillation, chronic (ICD-10 - I48.20) This patient is in NSR or rate controlled. This patient is anticoagulated to prevent thromboembolic events. They are maintaining regular scheduled appts with their health promoter. No bleeding complications ongoing July, Primary hypertension [...] or lightheadedness f/u Cardiology w/ serial Echocardiogram [employer]-App[employer] Other 09-08-2022 History of Present illness Narrative* Leticia Rojas, VANI - 11/12/2021 12:02 PM EDT [facility] HEARING AID CHECK Name: Terence Perea Starr CCF#: [id number] Date of Service: 11/12/2021 Date of : 1935 Age: [age] year old RIGHT: OPN1 MINI RITE SN: [id number] Earmold/Event Marketing Representative: POWER EM w/LOCK #3100 SN: [id number] PROWAX Repair Warranty : 10/09/2020 L/D Warranty : 10/08/2020 LEFT: OPN1 MINI RITE SN: [id number] Earmold/Event Marketing Representative: POWER EM w/LOCK #3100 SN: [id number] PROWAX Repair Warranty : 10/27/2022 L/D Warranty : 10/08/2020 Fitting Date: 09/14/17 Fitting Laboratory Scientist: Leticia Rojas, KENNY/Sacha Pratt was seen today [...] in warranty repair. Nahun Rojas, KENNY/Sacha Clinical Laboratory Scientist documented in this encounterOhio [facility]08-[facility]-2022 Miscellaneous Notes* Telephone Encounter - Leticia Rojas CCC-A - 10/26/2021 8:12 AM EDT Patient was contacted and scheduled [facility] appointment. Nahun Rojas, KENNY/Sacha Clinical Laboratory Scientist documented in this encounterOhio [facility] Hospital08-19-2022 History of Present illness Narrative* Leticia Rojas CCC-A - 10/23/2021 1:31 PM EDT Head [facility] HEARING AID CHECK Name: Terence Perea Dakotah [facility]#: [id number] Date of Service: 10/23/2021 Date of : 1935 Age: [age] year old RIGHT: OPN1 MINI RITE SN: [id number] Earmold/Event Marketing Representative: POWER EM #3/100 SN: [id number] LEFT: OPN1 MINI RITE SN: [id number] Earmold/Event Marketing Representative: POWER EM #3/100 SN: [id number] PROWAX Repair Warranty : 10/09/2020 L/D Warranty : 10/08/2020 Fitting Date: 09/14/17 Fitting Laboratory Scientist: Leticia Rojas CCC/Sacha YaoTerence was seen today for a hearing aid check/planting supervisor Left repaired aid. The firmware was updated to 08/05, thus, the Right aid firmware needed to be updated. This was done. Added a 2nd program with more gain for patient. Maximilian was taken to the Ring Rolling Machine Operator to cover today's repair device fee of $275.00. Recommendations Return as needed. Nahun Rojas, KENNY/Sacha Clinical Laboratory Scientist documented in this encounterOhio [facility]08-15-2022 Miscellaneous Notes* Telephone Encounter - Sheree [...] Check 60 min Nahun Rojas, KENNY/Sacha Clinical Laboratory Scientist documented in this encounterOhio [facility] Hospital07-29-2022 Instructions* Patient Instructions* Antony Brooks - 10/02/2021 1:[address] Andersen will be leaving the clinic coming the end of November. Want you to establish with Dr. Jack Moran or Dr. Sabine Potter for further care. 2. If choose to establish in [place]. Recommendations. Eduardo: Dr. Andrez Aaron 3. Hold hearing test, unless you need to have your hearing aids adjusted or need new set. documented in this encounterOhio [facility] Hospital07-29-2022 Nurse Note* Jose King - 10/02/2021 1:19 PM EDT Tobacco Use: Never Was smoking cessation packet given? N/A - Patient is a non-smoker or quit >1 year ago. Was a referral initiated?N/A Patient is a non-smoker documented in this encounterOhio [facility] Hospital07-29-2022 History of Present illness Narrative* Missy Andersen MD - 10/02/2021 1:00 PM EDT Staff Physician Comments: I testify that I personally interviewed and examined the patient. I confirm the below exam findings, assessment and plan were my own and resident/KNIFE SETTER/scribe was acting as SCRIBE. Stable otologic exam Missy Andersen MD, FACS Section Head, Otology/Neurotology/Skull Base Surgery Rivet Tester, Cochlear Implant Program [facility] History of Present Illness Mr. 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 Since last seen, Things have been good Hearing stable, no otalgia or otorrhea Hearing aids have been working well. Seeing wire insulator regularly. ALLERGIES Allergen Reactions Adhesives [Other] Rash, [...] Tue - Tue - Tue - Sun Keystone-3 Fatty Acids, FISH OIL, (FISH OIL) 360-1,200 [...] update. 2. If choose to stay within [facility] establish with Dr. Jack Moran or Dr. Sabine Potter -If choose to establish in [place]: Dr. Andrez Aaron 3. Otherwise continue follow-up plan on annual basis. By signing my name below I, Antony Brooks attest that this documentation has been prepared under the direction of and in the presence of Dr Andersen Electronically signed: Antony Mendez October 02, 2021 1:48 PM documented in this encounterOhio [facility] Hospital07-28-2022 History of Present illness Narrative* Leticia Rojas CCC-A - 10/01/2021 3:21 PM EDT Head [facility] HEARING AID CHECK Name: Terence Starr [facility]#: [id number] Date of Service: 10/01/2021 Date of : 1935 Age: [age] year old RIGHT: OPN1 MINI RITE SN: [id number] Earmold/Event Marketing Representative: POWER EM #3/100 SN: [id number] LEFT: OPN1 MINI RITE SN: [id number] Earmold/Event Marketing Representative: POWER EM #3/100 SN: [id number] PROWAX Repair Warranty : 10/09/2020 L/D Warranty : 10/08/2020 Fitting Date: 09/14/17 Fitting Laboratory Scientist: Leticia Rojas CCC/Sacha Terence was seen today [...] back from repair. Nahun Rojas, KENNY/Sacha Clinical Laboratory Scientist documented in this encounterOhio [facility] Hospital07-21-2022 Miscellaneous Notes* Telephone Encounter - Sophia Waterman - 09/24/2021 4:18 PM EDT C scheduled. Nahun Rojas CCC/Sacha Clinical Laboratory Scientist Patient called to check on status of previous encounter. Probably needs hearing aid replaced. Call number provided in Vison[employer] message. documented in this encounterOhio [facility] Hospital06-[facility]-2022 History of Present illness Narrative* Amilcar Cervantes MD - 08/26/2021 1:15 PM EDT Images from the original note were not included. [facility] Department of Cardiovascular Medicine SECTION OF CARDIOVASCULAR IMAGING OUTPATIENT VISIT DATE August 26, 2021 OUTPATIENT VISIT TYPE ESTABLISHED PRIMARY CARE PHYSICIAN: Matt Perkins ([facility]) [address] [place] [address] REFERRING PHYSICIAN: Amilcar Cervantes [address] [facility] [address] CHIEF COMPLAINT: Follow up regarding AVR, MVr, [...] 07/24/2020. PAST MEDICAL HISTORY Diagnosis Date A-fib ([facility]) 09/2013 Aortic valve disorders Aortic valve disorders Coronary atherosclerosis of unspecified type of vessel, turtle mountain or graft Coronary artery disease Diaphragmatic hernia [...] Tue - Tue - Tue - Tue Keystone-3 Fatty Acids, FISH OIL, (FISH OIL) 360-1,200 [...] Abs Lymph 1.00 - 4.00 k/uL 1.89 Mckean% % 11.1 Abs Mckean <0.87 k/uL 0.76 Eosin% % 2.5 Abs [...] -Anticoagulation is Coumadin -INR range 2-3 -His [id number] score is 4 Continue Toprol XL and Warfarin 4. Hyperlipidemia Continue home dose of pravastatin Follow up with EKG, Echo and labs after a year. I personally interviewed, confirmed and edited the above information if obtained by others. CONTACT INFORMATION: Amilcar Cervantes MD documented in this encounterOhio State [facility] Hospital06-03-2022 History of Present illness Narrative* Leticia Rojas, [facility] - 08/07/2021 3:52 PM EDT Head and Neck [facility] HEARING AID CHECK Name: Terence Starr CCF#: [id number] Date of Service: 08/07/2021 Date of : 1935 Age: [age] year old RIGHT: OPN1 MINI RITE SN: [id number] Earmold/Event Marketing Representative: POWER EM #3 SN: [id number] LEFT: OPN1 MINI RITE SN: [id number] Earmold/Event Marketing Representative: POWER EM #3 SN: [id number] PROWAX Repair Warranty : 10/09/2020 L/D Warranty : 10/08/2020 Fitting Date: 09/14/17 Fitting Laboratory Scientist: Leticia Rojas, KENNY/Sacha Terence was seen today [...] Return as needed. 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 12/29/2011 Hearing loss 12/19/2002 12/29/2011 documented as of this encounter (statuses as of 08/07/2021) [facility] Narrative* Problem Noted Date Resolved Date Mitral valve regurgitation 10/31/201311/03 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 12/29/2011 Hearing loss 12/19/2002 12/29/2011 documented as of this encounter (statuses as of 08/27/2021) [facility] Narrative* Problem Noted Date Resolved Date Mitral valve regurgitation 10/31/201311/03 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 12/29/2011 Hearing loss 12/19/2002 12/29/2011 documented as of this encounter (statuses as of 10/01/2021) [facility] Narrative* Problem Noted Date Resolved Date Mitral valve regurgitation 10/31/201311/03 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 12/29/2011 Hearing loss 12/19/2002 12/29/2011 documented as of this encounter (statuses as of 10/02/2021) [facility] Narrative* Problem Noted Date Resolved Date Mitral valve regurgitation 10/31/201311/03 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 12/29/2011 Hearing loss 12/19/2002 12/29/2011 documented as of this encounter (statuses as of 10/19/2021) [facility] Narrative* Problem Noted Date Resolved Date Mitral valve regurgitation 10/31/201311/03 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 12/29/2011 Hearing loss 12/19/2002 12/29/2011 documented as of this encounter (statuses as of 10/23/2021) [facility] Narrative* Problem Noted Date Resolved Date Mitral valve regurgitation 10/31/201311/03 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 12/29/2011 Hearing loss 12/19/2002 12/29/2011 documented as of this encounter (statuses as of 10/26/2021) [facility] Narrative* Problem Noted Date Resolved Date Mitral valve regurgitation 10/31/201311/03 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 12/29/2011 Hearing loss 12/19/2002 12/29/2011 documented as of this encounter (statuses as of 10/27/2021) [place] [id number] History of Past illness Narrative* Problem Noted Date Resolved Date Mitral valve regurgitation 10/31/201311/03 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 12/29/2011 Hearing loss 12/19/2002 12/29/2011 documented as of this encounter (statuses as of 11/12/2021) [place] [id number] History of Past illness Narrative* Problem Noted Date Resolved Date Mitral valve regurgitation 10/31/201311/03 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 12/29/2011 Hearing loss 12/19/2002 12/29/2011 documented as of this encounter (statuses as of 05/28/2022) [place] [id number] History of Past illness Narrative* Problem Noted Date Resolved Date Mitral valve regurgitation 10/31/201311/03 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 12/29/2011 Hearing loss 12/19/2002 12/29/2011 documented as of this encounter (statuses as of 06/08/2022) [place] [id number] History of Past illness Narrative* Problem Noted Date Resolved Date Mitral valve regurgitation 10/31/201311/03 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 12/29/2011 Hearing loss 12/19/2002 12/29/2011 documented as of this encounter (statuses as of 08/13/2022) [place] [id number] History of Past illness Narrative* Problem Noted Date Diagnosed Date Resolved Date Mitral valve regurgitation 10/31/2013 0 11/03/2013 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 Mixed conductive and sensori neural hearing loss 02/04/2004 12/29/2011 Hearing loss 12/19/2002 12/29/2011 documented as of this encounter (statuses as of 09/18/2022) [facility]ative* Problem Noted Date Diagnosed Date Resolved Date Mitral valve regurgitation 10/31/2013 0 11/03/2013 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 Mixed conductive and sensori neural hearing loss 02/04/2004 12/29/2011 Hearing loss 12/19/2002 12/29/2011 documented as of this encounter (statuses as of 11/01/2022) [place] [id number] History of Past illness Narrative* Problem Noted Date Diagnosed Date Resolved Date Mitral valve regurgitation 10/31/2013 0 11/03/2013 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 Mixed conductive and sensori neural hearing loss 02/04/2004 12/29/2011 Hearing loss 12/19/2002 12/29/2011 documented as of this encounter (statuses as of 11/03/2022) [place] [id number] History of Past illness Narrative* Problem Noted Date Diagnosed Date Resolved Date Mitral valve regurgitation 10/31/2013 0 11/03/2013 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 Mixed conductive and sensori neural hearing loss 02/04/2004 12/29/2011 Hearing loss 12/19/2002 12/29/2011 documented as of this encounter (statuses as of 11/04/2022) [facility] Narrative* Problem Noted Date Diagnosed Date Resolved Date Mitral valve regurgitation 10/31/2013 0 11/03/2013 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 Mixed conductive and sensori neural hearing loss 02/04/2004 12/29/2011 Hearing loss 12/19/2002 12/29/2011 documented as of this encounter (statuses as of 11/18/2022) [address]2014 History of Past illness Narrative* Problem Noted Date Diagnosed Date Resolved Date Mitral valve regurgitation 10/31/2013 0 11/03/2013 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 Mixed conductive and sensori neural hearing loss 02/04/2004 12/29/2011 Hearing loss 12/19/2002 12/29/2011 documented as of this encounter (statuses as of 01/04/2023) [facility] note No data available for this section [facility] note* Diagnosis Mixed conductive and sensorineural hearing loss, bilateral- Primary Mixed hearing loss, bilateral documented in this encounter [facility] note* Diagnosis S/P mitral valve repair- Primary Other postprocedural status 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 Heart valve replaced by other means Other hyperlipidemia Permanent atrial fibrillation (HCC) Atrial fibrillation SOB (shortness of breath) Shortness of breath documented in this encounter [facility] note* Diagnosis Mixed conductive and sensorineural hearing loss, bilateral- Primary Mixed hearing loss, bilateral documented in this encounter [facility] note* Diagnosis Mixed conductive and sensorineural hearing loss, bilateral- Primary Mixed hearing loss, bilateral documented in this encounter [facility] note* Diagnosis Mixed hearing loss, bilateral- Primary Chronic adhesive otitis media, bilateral 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 documented in this encounter [facility] note* Diagnosis Mixed conductive and sensorineural hearing loss, bilateral- Primary Mixed hearing loss, bilateral documented in this encounter [facility] note* Diagnosis Nonrheumatic mitral valve regurgitation- Primary S/P mitral valve repair Other postprocedural status documented in this encounter [facility] note* Diagnosis Persistent atrial fibrillation (HCC)- Primary Atrial fibrillation documented in this encounter [facility] noteNo [employer] [facility] Other Evaluation note* Diagnosis Mixed hearing loss, bilateral- Primary documented in this encounter [facility] note* Diagnosis Mixed conductive and sensorineural hearing loss, bilateral- Primary Mixed hearing loss, bilateral documented in this encounter [facility] note* Diagnosis Other otitis externa, left ear- Primary documented in this encounter [facility] note* Diagnosis S/P mitral valve repair- Primary Other postprocedural status Status post aortic valve replacement with prosthetic valve Heart valve replaced by other means Permanent atrial fibrillation (HCC) Atrial fibrillation Nonrheumatic mitral valve regurgitation documented in this encounter [facility] note* Diagnosis Permanent atrial fibrillation (HCC)- Primary Atrial fibrillation documented in this encounter [facility] note* Diagnosis S/P AVR (aortic valve replacement)- Primary Heart valve replaced by other means H/O mitral valve repair Personal history of surgery to heart and great vessels, presenting hazards to health 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, 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 Postsurgical aortocoronary bypass status [facility] Diagnosis S/P AVR (aortic valve replacement) Heart valve replaced by other means H/O mitral valve repair Personal history of surgery to heart and great vessels, presenting hazards to health 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, 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 Postsurgical aortocoronary bypass status documented [facility] this [facility] noteNo assessment [facility] Work Phone: Evaluation note* Diagnosis Venous insufficiency (chronic) (peripheral)- Primary Unspecified venous (peripheral) insufficiency Onychomycosis Dermatophytosis of nail Pain in left toe(s) Pain in right toe(s) [facility] Onset Date Resolution Status Atrial fibrillation acute Chronic venous insufficiency of lower extremity acute Essential (primary) hypertension acute Medicare annual wellness visit, subsequent acute [facility] Work Phone: Evaluation note* Diagnosis Pseudophakia- Primary Lens replaced by other means Basal cell carcinoma (BCC) of right lower eyelid Early dry stage nonexudative age-related macular degeneration of both eyes [facility] - [facility]orted* Type Description Date Medical History Heart disease Medical History HTN Medical History PE Surgical History Heart valve replacement 2007 Surgical History PROSTATE PROCEDURE Hospitalization History see surgical hx [facility] Other Hospital Discharge instructions No data available for this section [facility] No data available for this section [facility] Outpatient Procedure (Routine) - Authorized Specialty Diagnoses / Procedures Referred By Contnicolle t [facility] Diagnoses Nonrheumatic mitral valve regurgitation S/P mitral valve repair Procedures ECHO ECHO TTHRC R-T 2D W/WOM-MODE COMPL SPEC&COLR D Amilcar Cervantes MD [address] [place] [address] [address] Referral ID Status Reason Start Date Expiration Date Visits Requested Visits Authorized [id number] Authorized Auto-Generat ed Referral 05/27/2022 05/27/2023 1 1 * Outpatient Procedure (Routine) - Authorized Specialty Diagnoses / Procedures Referred By Contac t Referred To Contact [facility] Diagnoses Nonrheumatic mitral valve regurgitation S/P mitral valve repair Procedures ECG COMPLETE ECG ROUTINE ECG W/LEAST 12 LDS W/I&[place] [address] [place] [address] [address] Referral ID Status Reason Start Date Expiration Date Visits Requested Visits Authorized [id number] Authorized Auto-Generat ed Referral 05/27/2022 05/27/2023 1 1 [facility] for referral (narrative)* Outpatient Procedure (Routine) - Authorized Specialty Diagnoses / Procedures Referred By Contac t Referred To Contact [facility] Diagnoses Persistent atrial fibrillation (HCC) Procedures ECG COMPLETE ECG ROUTINE ECG W/LEAST 12 LDS W/I[place] [address] [place] [address] [address] Referral ID Status Reason Start Date Expiration Date Visits Requested Visits Authorized [id number] Authorized Auto-Generat ed Referral 06/07/2022 06/07/2023 1 1 [facility] for referral (narrative)* Outpatient Procedure (Routine) - Pending Review Specialty Diagnoses / Procedures Referred By Contac t Referred To Contact [facility] Diagnoses S/P mitral valve repair Procedures ECG COMPLETE ECG ROUTINE ECG W/LEAST 12 LDS W/I&R Amilcar Cervantes MD [address] [place] [address] [address] Referral ID Status Reason Start Date Expiration Date Visits Requested Visits Authorized [id number] Pending Review Auto-Generat ed Referral 11/03/2022 11/03/2023 1 1 * Outpatient Procedure (Routine) - Pending Review Specialty Diagnoses / Procedures Referred By Leonor lynn Ref[facility] Diagnoses S/P mitral valve repair Procedures ECHO ECHO TTHRC R-T 2D W/WOM-MODE COMPL SPEC&COLR D Amilcar Cervantes MD [address] [place] [address] [address] Referral ID Status Reason Start Date Expiration Date Visits Requested Visits Authorized [id number] Pending Review Auto-Generat ed Referral 11/03/2022 11/03/2023 1 1 [facility] Advance Directives No Advanced Directives Records FoundDocuments on File Type Date Recorded Patient Product Marketing Consultant Expl anation Advance Directive(s) 08/18/2010 12:00 AM Advance Directive(s) 09/14/2007 12:00 AM Documents on File Type Date Recorded Patient Product Marketing Consultant Expl anation Advance Directive(s) 08/18/2010 Advance Directive(s) 09/14/2007 Documents on File Type Date Recorded Patient Product Marketing Consultant Expl anation Advance Directive(s) 08/18/2010 Advance Directive(s) [...] mitral valve repair 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, 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 Procedures CTA CHEST (GATED) W IVCON CT ANGIOGRAPHY CHEST W/CONTRAST/NONCONTRAST Amilcar Cervantes MD [address] [place] [address] [facility] [place] [address] Referral ID Status Reason Start Date Expiration Date Visits Requested Visits Authorized [id number] Pending Review Auto-Generat ed Referral 07/14/2023 08/12/2024 1 1 Specialty Diagnoses / Procedures Referred By Contac t Referred To Contact [facility] [place] Diagnoses S/P AVR (aortic valve replacement) 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, 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 Procedures ECHO ECHO TTHRC R-T 2D W/WOM-MODE COMPL SPEC&[place] [address] [place] [address] [place] [address] Referral ID Status Reason Start Date Expiration Date Visits Requested Visits Authorized [id number] Pending Review Auto-Generat ed Referral 04/14/2024 07/13/2024 1 1 Specialty Diagnoses / Procedures Referred By Contac t Referred To Contact [facility] [place] Diagnoses S/P AVR (aortic valve replacement) 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, 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 Procedures ECG COMPLETE ECG ROUTINE ECG W/LEAST 12 LDS W/I&R Efe Trejo MD [address] [place] [address] [place] [address] Referral ID Status Reason Start Date Expiration Date Visits Requested Visits Authorized [id number] Pending Review Auto-Generat ed Referral 07/14/2023 07/13/2024 1 1 Specialty Diagnoses / Procedures Referred By Donalac t Referred To Contact [facility] [place] Procedures CARDIOVASCULAR MEDICINE [place] FO[place] [address] [place] [address] [facility] [place] [address] [place] [address] Referral ID Status Reason Start Date Expiration Date Visits Requested Visits Authorized [id number] Ref Not Required PCP Requested Referral 04/14/2024 07/13/2024 1 1 Specialty Diagnoses / Procedures Referred By Leonor lynn Referred To Contact Procedures CARDIOVASCULAR MEDICINE OP FOLLOW UP APPT ORDER Suleiman Santana MD [address] [place] [address] Referral ID Status Reason Start Date Expiration Date Visits Requested Visits Authorized [id number] Ref Not Required PCP Requested Referral 3 [...] any alcohol or drug abuse patient.[facility] the event this information is protected by the Federal Confidentiality of Alcohol and Drug Abuse Patient Records regulations: The Federal rules restrict any use of the information to criminally investigate or prosecute any alcohol or drug abuse patient.[facility] Hospital[facility] the event this information is protected by the Federal Confidentiality of Alcohol and Drug Abuse Patient Records regulations: The Federal rules restrict any use of the information to criminally investigate or prosecute any alcohol or drug abuse patient.[facility] the event this information is protected by the Federal Confidentiality of Alcohol and Drug Abuse Patient Records regulations: The Federal rules restrict any use of the information to criminally investigate or prosecute any alcohol or drug abuse patient.[facility] the event this information is protected by the Federal Confidentiality of Alcohol and Drug Abuse Patient Records regulations: The Federal rules restrict any use of the information to criminally investigate or prosecute any alcohol or drug abuse patient.[facility] the event this information is protected by the Federal Confidentiality of Alcohol and Drug Abuse Patient Records regulations: The Federal rules restrict any use of the information to criminally investigate or prosecute any alcohol or drug abuse patient.[facility] the event this information is protected by the Federal Confidentiality of Alcohol and Drug Abuse Patient Records regulations: The Federal rules restrict any use of the information to criminally investigate or prosecute any alcohol or drug abuse patient.[facility] the event this information is protected by the Federal Confidentiality of Alcohol and Drug Abuse Patient Records regulations: The Federal rules restrict any use of the information to criminally investigate or prosecute any alcohol or drug abuse patient.[facility] the event this information is protected by the Federal Confidentiality of Alcohol and Drug Abuse Patient Records regulations: The Federal rules restrict any use of the information to criminally investigate or prosecute any alcohol or drug abuse patient.[facility] Hospital[facility] the event this information is protected [...] any alcohol or drug abuse patient.[facility] Hospital[facility] the event this information is protected by the Federal Confidentiality of Alcohol and Drug Abuse Patient Records regulations: The Federal rules restrict any use of the information to criminally investigate or prosecute any alcohol or drug abuse patient.[facility] the event this information is protected by the Federal Confidentiality of Alcohol and Drug Abuse Patient Records regulations: The Federal rules restrict any use of the information to criminally investigate or prosecute any alcohol or drug abuse patient.[facility] the event this information is protected by the Federal Confidentiality of Alcohol and Drug Abuse Patient Records regulations: The Federal rules restrict any use of the information to criminally investigate or prosecute any alcohol or drug abuse patient.[facility] the event this information is protected by the Federal Confidentiality of Alcohol and Drug Abuse Patient Records regulations: The Federal rules restrict any use of the information to criminally investigate or prosecute any alcohol or drug abuse patient.[facility] the event this information is protected by the Federal Confidentiality of Alcohol and Drug Abuse Patient Records regulations: The Federal rules restrict any use of the information to criminally investigate or prosecute any alcohol or drug abuse patient.[facility] the event this information is protected by the Federal Confidentiality of Alcohol and Drug Abuse Patient Records regulations: The Federal rules restrict any use of the information to criminally investigate or prosecute any alcohol or drug abuse patient.[facility] the event this information is protected by the Federal Confidentiality of Alcohol and Drug Abuse Patient Records regulations: The Federal rules restrict any use of the information to criminally investigate or prosecute any alcohol or drug abuse patient.[facility] the event this information is protected by the Federal Confidentiality of Alcohol and Drug Abuse Patient Records regulations: The Federal rules restrict any use of the information to criminally investigate or prosecute any alcohol or drug abuse patient.[facility] the event this information is protected by the Federal Confidentiality of Alcohol and Drug Abuse Patient Records regulations: The Federal rules restrict any use of the information to criminally investigate or prosecute any alcohol or drug abuse patient.[facility] the event this information is protected by the Federal Confidentiality of Alcohol and Drug Abuse Patient Records regulations: The Federal rules restrict any use of the information to criminally investigate or prosecute any alcohol or drug abuse patient.[facility] the event this information is protected by the Federal Confidentiality of Alcohol and Drug Abuse Patient Records regulations: The Federal rules restrict any use of the information to criminally investigate or prosecute any alcohol or drug abuse patient.[facility] Reason for Visit (unrecogniz ed section [...] mitral valve repair 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, 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 Procedures CTA CHEST (GATED) W IVCON CT ANGIOGRAPHY CHEST W/CONTRAST/NONCONTRAST Amilcar Cervantes MD [address] [place] [id number] [facility] [place] [address] Referral ID Status Reason Start Date Expiration Date V isits Requested Visits Authorized [id number] Closed Auto-Generate d Referral 07/14/2023 08/12/2024 1 1 Reason Comments Medical Clearance Reason Comments Toenail Care Non DM nail care Reason Comments Eye Exam Diplopia Care Teams (unrecognized sec tion and content) Gauge Operator Relationship Specialty Start Date End Date Matt Perkins, DO [address] [place] [id number] PCP - General 06/17/00 Suleiman Santana MD Primary Staff Physician Cardiology 02/12/21 Amilcar Cervantes MD [address] [place] [address] Primary Staff Physician Cardiology 02/12/21 Gauge Operator Relationship Specialty Start Date End Date Matt Perkins DO [address] [place] [address] PCP - General 06/17/00 Suleiman Santana MD Primary Staff Physician Cardiology 02/12/21 Amilcar Cervantes MD [address] [place] [address] Primary Staff Physician Cardiology 02/12/21 Gauge Operator Relationship Specialty Start Date End Date Matt Perkins, DO [address] [place] [address] PCP - General 06/17/00 Suleiman Santana MD Primary Staff Physician Cardiology 02/12/21 Amilcar Cervantes MD [address] [place] [address] Primary Staff Physician Cardiology 02/12/21 Gauge Operator Relationship Specialty Start Date End Date Matt Perkins, DO [address] [place] [address] PCP - General 06/17/00 Suleiman Santana MD Primary Staff Physician Cardiology 02/12/21 Amilcar Cervantes MD [address] [place] [address] Primary Staff Physician Cardiology 02/12/21 Gauge Operator Relationship Specialty Start Date End Date Matt Perkins, DO [address] [place] [address] PCP - General 06/17/00 Suleiman Sanatna MD Primary Staff Physician Cardiology 02/12/21 Amilcar Cervantes MD [address] [place] [address] Primary Staff Physician Cardiology 02/12/21 Gauge Operator Relationship Specialty Start Date End Date Matt Perkins, DO [address] [place] [address] PCP - General 06/17/00 Suleiman Santana MD Primary Staff Physician Cardiology 02/12/21 Amilcar Cervantes MD [address] [place] [address] Primary Staff Physician Cardiology 02/12/21 Gauge Operator Relationship Specialty Start Date End Date Matt Perkins, DO [address] [place] [facility] [place] [address] PCP - General 06/17/00 Suleiman Santana MD Primary Staff Physician Cardiology 02/12/21 Amilcar Cervantes MD [address] [place] [address] Primary Staff Physician Cardiology 02/12/21 Gauge Operator Relationship Specialty Start Date End Date Matt Perkins, DO [address] [place] [place] [address] PCP - General 06/17/00 Suleiman Santana MD Primary Staff Physician Cardiology 02/12/21 Amilcar Cervantes MD [address] [place] [address] Primary Staff Physician Cardiology 02/12/21 Gauge Operator Relationship Specialty Start Date End Date Matt Perkins, DO [address] [place] [facility] [place] [address] PCP - General 06/17/00 Suleiman Santana MD [address] [place] [place] [address] Primary Staff Physician Cardiology 02/12/21 Amilcar Cervantes MD [address] [place] [address] Primary Staff Physician Cardiology 02/12/21 Gauge Operator Relationship Specialty Start Date End Date Matt Perkins, DO [address] [place] [address] PCP - General 06/17/00 Suleiman Santana MD [address] [facility] [place] [address] Primary Staff Physician Cardiology 02/12/21 Amilcar Cervantes MD [address] [place] [address] Primary Staff Physician Cardiology 02/12/21 Gauge Operator Relationship Specialty Start Date End Date Matt Perkins, DO [address] [facility] [place] [address] PCP - General 06/17/00 Suleiman Santana MD [address] [facility] [place] [address] Primary Staff Physician Cardiology 02/12/21 Amilcar Cervantes MD [address] [place] [address] Primary Staff Physician Cardiology 02/12/21 Gauge Operator Relationship Specialty Start Date End Date Matt Perkins DO [address] [place] [address] PCP - General 06/17/00 Suleiman Santana MD [address] [place] [address] Primary Staff Physician Cardiology 02/12/21 Amilcar Cervantes MD [address] [place] [address] Primary Staff Physician Cardiology 02/12/21 Gauge Operator Relationship Specialty Start Date End Date Matt Perkins DO [address] [place] [address] PCP - General 06/17/00 Suleiman Santana MD [address] [place] [address] Primary Staff Physician Cardiology 02/12/21 Amilcar Cervantes MD [address] [place] [address] Primary Staff Physician Cardiology 02/12/21 Gauge Operator Relationship Specialty Start Date End Date Matt Perkins DO [address] [place] [address] PCP - General 06/17/00 Suleiman Santana MD [address] [place] [address] Primary Staff Physician Cardiology 02/12/21 Amilcar Cervantes MD [address] [place] [address] Primary Staff Physician Cardiology 02/12/21 Gauge Operator Relationship Specialty Start Date End Date Matt Perkins DO [address] [place] [address] PCP - General 06/17/00 Suleiman Santana MD [address] [place] [address] Primary Staff Physician Cardiology 02/12/21 Amilcar Cervantes MD [address] [place] [address] Primary Staff Physician Cardiology 02/12/21 Gauge Operator Relationship Specialty Start Date End Date Mtat Perkins DO [address] [place] [facility] [place] [address] PCP - General 06/17/00 Suleiman Santana MD [address] [place] [facility] [place] [address] Primary Staff Physician Cardiology 02/12/21 Amilcar Cervantes MD [address] [place] [address] Primary Staff Physician Cardiology 02/12/21 Gauge Operator Relationship Specialty Start Date End Date Matt Perkins DO [address] [place] [facility] [place] [address] PCP - General 06/17/00 Suleiman Santana MD [address] [place] [facility] [place] [address] Primary Staff Physician Cardiology 02/12/21 Amilcar Cervantes MD [address] [place] [address] Primary Staff Physician Cardiology 02/12/21 Gauge Operator Relationship Specialty Start Date End Date Matt Perkins DO [address] [place] [facility] [place] [address] PCP - General 06/17/00 Suleiman Santana MD [address] [place] [address] Primary Staff Physician Cardiology 02/12/21 Amilcar Cervantes MD [address] [place] [address] Primary Staff Physician Cardiology 02/12/21 Team Status: [...] October 03, 2023 End: October 03, 2023 Gauge Operator Relationship Specialty Start Date End Date Matt Perkins DO [address] [place] [address] PCP - General 06/17/00 Suleiman Santana MD [address] [place] [address] Primary Staff Physician Cardiology 02/12/21 Amilcar Cervantes MD [address] [place] [address] Primary Staff Physician Cardiology 02/12/21 Gauge Operator Relationship Specialty Start Date End Date Matt Perkins MD [address] [place] [id number] PCP - General Internal Medicine 07/29/22 Gauge Operator Relationship Specialty Start Date End Date Matt Perkins MD [address] [facility] [place] [address] PCP - General Internal Medicine 07/29/22 Team Status: Active Member Role Status Dates Matt Perkins DO Primary Care Provide r, Attending Provider Active Start: January 04, 2024 Team Status: Inactive Member Role Status Dates Matt Perkins DO Primary Care Provide r, Attending Provider Active Start: January 06, 2024 End: January 06, 2024 Gauge Operator Relationship Specialty Start Date End Date Harsh Matt HerreraDO PCP - General Internal Medicine 07/29/22 Gauge Operator Relationship Specialty Start Date End Date Matt Perkins DO PCP - General Internal Medicine 07/29/22 (unrecognized sect ion and content) No Status Records FoundNo Status Records FoundNo Status Records FoundNo Status Records Found INFORMATION SOURCE (unrecogn ized section and content) DATE CREATED AUTHOR 08/16/2022 [facility] DATE CREATED AUTHOR AUTHOR'S ORGANIZ ATION 09/17/2022 [facility] DATE CREATED AUTHOR AUTHOR'S ORGANIZ ATION 08/03/2024 [facility] DATE CREATED AUTHOR AUTHOR'S ORGANIZ ATION 08/22/2024 [facility] Goals (unrecognized section and content) Goals may [...] BE BASED ON THE PRIMARY CLINICAL RECORDS. [facility] [facility] provides no warranty or guarantee of the accuracy or completeness of information in this document.
== END 2024-11-21 11:31 | disposition home or self-care (01) ==
LOC: WC 11:31
PROVIDERS: PCP Internal Medicine; Visit Provider Physician Assistant
DX: I87.311 Chronic venous hypertension (idiopathic) with ulcer of right lower extremity (principal); L97.812 Non-pressure chronic ulcer of other part of right lower leg with fat layer exposed; Z51.81 Encounter for therapeutic drug level monitoring; Z79.01 Long term (current) use of anticoagulants; I48.91 Unspecified atrial fibrillation
CPT/HCPCS: 85610; G0463

== ENCOUNTER 2024-12-05 01:28 | Outpatient (RCR) | payer MEDICARE, SELFPAY | END 2025-01-04 23:59 | disposition home or self-care (01) | LOC: MM 01:28 | PROVIDERS: PCP Internal Medicine; Visit Provider Internal Medicine | DX: Z51.81 Encounter for therapeutic drug level monitoring (principal); Z79.01 Long term (current) use of anticoagulants | CPT/HCPCS: 85610; G0463 ==

== ENCOUNTER 2025-01-05 | Outpatient (RCR) | payer MEDICARE, SELFPAY | END 2025-02-03 23:59 | disposition home or self-care (01) | LOC: MM | PROVIDERS: PCP Internal Medicine; Visit Provider Internal Medicine | DX: Z51.81 Encounter for therapeutic drug level monitoring (principal); Z79.01 Long term (current) use of anticoagulants; I48.20 Chronic atrial fibrillation, unspecified | CPT/HCPCS: 85610; G0463 ==